=== PATIENT | male | born 1955 | race Two or more races ===

== ENCOUNTER 2025-03-16 18:55 | Inpatient (IN) | payer MEDICARE, SELFPAY ==
[2025-03-16 19:30] VITALS: BP 121/81; PULSE 73; RESP 20; TEMP 37.1; O2SAT 97
--- NOTE | 2025-03-16 19:42 | PD.EDRME ---
Rapid Medical Screening Exam E Arrival date/time: 03/16/25 18:55 69-year-old mal presents to the emergency department complaint of pain in his epigastrium. Patient has been diagnosed with hernia and is awaiting a referral. Chief Complaint: Abdominal Pain Time Seen by Provider: 03/16/25 22:25 Vital signs: Vital Signs Temperature 98.8 F 03/16/25 19:30 Pulse Rate 73 03/16/25 19:30 Respiratory Rate 20 03/16/25 19:30 Blood Pressure 121/81 03/16/25 19:30 Pulse Oximetry (%) 97 03/16/25 19:30 Oxygen Delivery Method Room Air 03/16/25 19:30 Vital signs reviewed by provider: Yes
[2025-03-16 20:08] LABS: Basophils % (Auto) 0 % (0-2.5); Eosinophils # (Auto) 0.2 Thou/mm3 (0.0-0.5); Eosinophils % (Auto) 3 % (0-10); Hematocrit 38.9 % (41.0-53.0); Hemoglobin 13.4 g/dL (13.5-16.0); Immature Granulocytes % (Auto) 0 % (0-0); Immature Granulocytes Auto 0.01 Thou/mm3 (0.00-0.00); Lymphocytes # (Auto) 2.5 Thou/mm3 (1.0-4.8); Lymphocytes % (Auto) 36 % (10-50); Mean Corpuscular HGB Conc 34.4 g/dl (31.0-37.0); Mean Corpuscular Hemoglobin 29.2 pg (25.0-35.0); Mean Corpuscular Volume 85 fL (80-100); Monocytes # (Auto) 0.6 Thou/mm3 (0.0-0.8); Monocytes % (Auto) 8 % (0-12); Neutrophils # (Auto) 3.7 Thou/mm3 (1.8-7.7); Neutrophils % (Auto) 53 % (37-80); Nucleated Red Blood Cell % 0 /100 WBC (0); Platelet Count 293 Thou/mm3 (140-440); RDW Standard Deviation 41.1 fL (35.1-43.9); Red Blood Count 4.59 Miln/mm3 (4.50-5.90); White Blood Count 7.1 Thou/mm3 (3.8-10.6)
[2025-03-16 20:36] LABS: Alanine Aminotransferase 34 U/L (10-49); Albumin, Serum 4.6 gm/dL (3.4-4.8); Albumin/Globulin Ratio 1.5 (1.2-2.2); Alkaline Phosphatase 70 U/L (46-116); Anion Gap 6 (7-16); Aspartate Amino Transferase 24 U/L (0-34); BUN/Creatinine Ratio 18 Ratio (12-20); Blood Urea Nitrogen 29 mg/dL (9-23); Calcium 9.2 mg/dL (8.3-10.6); Calcium (Corrected) 9.2 mg/dL (8.5-10.1); Carbon Dioxide 21.4 mMol/L (20.0-31.0); Chloride 102 mMol/L (98-107); Creatinine (Component) 1.6 mg/dL (0.6-1.3); Globulin 3.1 gm/dL (2.3-3.5); Glucose 112 mg/dL (74-106); Lipase 59 U/L (12-53); Osmolality,Calculated 265 (275-295); Sodium 129 mMol/L (136-145); Total Protein 7.7 gm/dL (5.7-8.2); eGFR 46 See Note
[2025-03-16 20:50] LABS: Potassium 6.3 mMol/L (3.4-5.1)
[2025-03-16 21:46] LABS: Collection Type, Urine Clean Catch; RBC,Urine 0 /hpf (0-3); Squamous Epithelial Cell,Urine 0 /hpf (0-5); WBC,Urine 0 /hpf (0-5)
--- NOTE | 2025-03-16 22:00 | PC.NURSE ---
PT RECEIVED FROM [facility] , PT CAME TO ER FOR C/O ABD PAIN AND UNABLE TO AMBULATE, PT AWAKE, ALERT , AND COOPERATIVE, NO C/O N/V.
[2025-03-16 22:11] VITALS: BP 124/82; PULSE 75; RESP 19; TEMP 36.8; O2SAT 98
[2025-03-16 22:16] LABS: Bilirubin,Urine Negative (Negative); Blood,Urine Negative (Negative); Clarity,Urine Clear (Clear/Hazy); Color,Urine Yellow (Lt Yel-Yel); Glucose, Urine 4+ (Negative); Hyaline Casts,Urine < 1 /hpf (0-1); Ketones,Urine Negative (Negative); Leukocyte Esterase,Urine Negative (Negative); Nitrite,Urine Negative (Negative); PH,Urine 5.5 (5.0-7.0); Protein,Urine Negative (Neg - Trace); Specific Gravity,Urine 1.012 (1.001-1.035); Urobilinogen,Urine Negative mg/dL (0.0-1.0)
--- NOTE | 2025-03-16 22:26 | PD.EDABDPN ---
ED Abdominal Pain RME/HPI General Chief Complaint: Abdominal Pain Stated complaint: HERNIA, CAN'T WALK Time seen by provider: 03/16/25 22:25 Arrival date/time: 03/16/25 18:55 RME / HPI RME / HPI narrative: 03/16/25 18:55 69-year-old mal presents to the emergency department complaint of pain in his epigastrium. Patient has been diagnosed with hernia and is awaiting a referral. Dr. Sanchez?s Main ED Evaluation: 69yo male with a history of DM, HTN, HLD presents to the ED for a chief complaint of right flank pain x 8 months. No radiation or migration. Patient states his pain has progressively worsened over the last 3 weeks, reporting he has diarrhea, nausea, and a decreased appetite. states the patient has been losing weight, but is unable to quantify how much he's lost. Patient denies any back pain, vomiting, fever, chills or any other associated symptoms. No known allergies. Related Data Allergies Allergy/AdvReac Type Severity Reaction Status Date / Time No Known Allergies Allergy Verified 03/16/25 18:58 Review of Systems Review of Systems Systems Reviewed: All systems reviewed, normal except as documented Past Medical History Past Medical History CARDIAC: Positive Cardiac Disorders and Hypertension; Negative Congestive Heart Failure RESPIRATORY: Negative Chronic Obstructive Pulmonary Disease (COPD) or Asthma GENITOURINARY: Negative Renal Disease ENDOCRINE: Positive Endocrine Disorders and Diabetes Mellitus Type 2; Negative Diabetes Mellitus Type 1 HEMATOLOGIC: Negative Sickle Cell Disease Social History SMOKING STATUS: Never smoker ED Exam Narrative Physical exam: GENERAL APPEARANCE: alert and oriented x 4, well-developed, well-nourished, no acute distress VITALS: All vitals were reviewed and the pulse ox is 98% on room air, which is normal according to my interpretation. HEENT: Normocephalic, atraumatic; pupils equal, round, reactive to light; EOMI; mucous membranes pink, moist; oropharynx clear NECK: Supple LUNGS: CTABL; no wheezes, no rales, no rhonchi HEART: Regular rate, regular rhythm; normal S1, S2; no murmurs ABDOMEN: non distended; normal BS; soft, [id number]-[id number] right lateral abdominal tenderness, no guarding, no rebound; no masses, no organomegaly, no hernia BACK: [id number] right CVA tenderness EXTREMITIES: atraumatic; no edema NEUROLOGIC: awake; alert and oriented x4; cranial nerves II-XII grossly intact; no focal sensory or motor deficits PSYCHIATRIC: appropriate mood and affect SKIN: warm, dry, normal color; no rashes Course Quality Measures none Orders Category Date Time Status CT Screening NOW Care 03/16/25 20:[address] Screening NOW Care 03/16/25 22:53 Completed 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 Q4H START 00 Care 03/16/25 22:42 Active Continuous Pulse Oximetry NOW Care 03/16/25 22:42 Completed EKG (ED ONLY) *Do not use* NOW Care 03/16/25 22:43 Completed Velasquez [Urinary Catheter] QS Care 03/17/25 03:57 Active IV [Insert IV] NOW Care 03/16/25 22:06 Active Insert IV STAT Care 03/16/25 22:54 Completed NPO STAT Care 03/16/25 22:[address] chest abdomen pelvis w Stat Exams 03/16/25 22:53 Taken EKG (ED Only) Stat Exams 03/16/25 22:43 Draft XR chest 1V portable Stat Exams 03/16/25 22:43 Completed BMP [Basic Metabolic Panel] Stat Lab 03/16/25 23:05 Completed BMP [Basic Metabolic Panel] Stat Lab 03/17/25 03:28 Completed CBC Stat Lab 03/16/25 19:50 Completed Comprehensive Metabolic Panel Stat Lab 03/16/25 19:50 Completed Lipase Stat Lab 03/16/25 19:50 Completed Magnesium Stat Lab 03/16/25 23:05 Completed Prothrombin Time with INR Stat Lab 03/16/25 23:05 Completed Urinalysis Stat Lab 03/16/25 20:41 Completed Dextrose 50% Syr [D50w Syringe Abboject] Med 03/17/25 04:20 Once 50 ml IV X1 ONE Insulin Regular Med 03/17/25 04:20 Once 10 unit IV X1 ONE Morphine Inj Med 03/16/25 22:56 Discontinued 4 mg IVP X1 ONE Ondansetron Inj [Zofran Inj] Med 03/16/25 22:56 Discontinued 4 mg IV X1 ONE Sodium Chloride 0.9% 1000 ml [Ns] 1,000 ml Med 03/16/25 22:54 Discontinued IV 999 mls/hr Sodium Chloride 0.9% 1000 ml [Ns] 1,000 ml Med 03/17/25 01:17 Discontinued IV 999 mls/hr Vital Signs Vital signs: Vital Signs Temperature 98.8 F 03/16/25 19:30 Pulse Rate 73 03/16/25 19:30 Respiratory Rate 20 03/16/25 19:30 Blood Pressure 121/81 03/16/25 19:30 Pulse Oximetry (%) 97 03/16/25 19:30 Oxygen Delivery Method Room Air 03/16/25 19:30 Abdominal Pain MDM MDM Narrative MDM Narrative:: Scribe Attestation: 03/16/25 - Talia Restrepo am scribing for and in the presence of Dr. Sanchez. Due to the patient's persistent hyperkalemia despite receiving 2L NS IVF, will consult an admission to the hospitalist. 0418: Discussed case with the resident physician, attending Dr. Aquino from Hospitalist service regarding admission. Discussed patients ED course, exam findings, labs, and radiology results. The Hospitalist agrees to accept the patient for admission. Patient data External records reviewed:: [facility] previous records (Per chart review, patient has no previous ED visits or admissions to this facility.) Clinical information provided by:: patient Social determinants that could affect healthcare access:: none Patient has the following chronic illnesses:: DM, HTN, HLD How is presenting disease/condition affected by chronic disease/condition?: uneffected by Evaluation data The following diagnostics were reviewed and interpreted by me:: lab results, radiology exam(s) and EKG tracing(s) Lab and/or radiology exams considered but not ordered:: none Interpretation Summary: CBC is normal, Sodium is low at 129, Potassium is elevated at 6.3, Creatinine is 1.6, UA shows 4+ glucose, according to my interpretation. Repeat chemistry panel shows Potassium at 6.1. Additional repeat chemistry panel still shows a Potassium of 6.2. EKG done at 2256, NSR, rate of 71, normal axis, no ectopy, no acute ischemia, according to my interpretation. Telerad Preliminary Report Draft Patient: LAURITA PIKE. Record#: [id number] Birthdate: 1955 Age/Sex: 69 / M Location: [facility] Attending Dr: Ordering Physician: Date of Service: Procedure(s): Accession Number(s): cc: ~ CT scan of the chest, abdomen and pelvis with intravenous contrast (axial sections with sagittal and coronal reformats) March 16, 2025 2340 hours Clinical History: Right flank and R lateral chest and abd wall pain Comparison: No prior study is available for comparison. Findings: Nodular infiltrates in the lungs, predominantly in the left upper lobe anteriorly, which may represent endobronchial infection. Bibasilar dependent atelectasis is present. There is no pleural effusion or pneumothorax. There is no mediastinal collection or aortic injury. There is no pericardial effusion. Bilateral renal cysts are seen. There is a 2.5 x 2.3 cm hypodense right adrenal nodule (20-30 HU). There is a 2 cm heterogeneously enhancing left adrenal nodule (40-50 HU). There is another 2 x 2.5 cm heterogeneously attenuating left adrenal mass on axial image 145/364 demonstrating both fat and soft tissue density (- 100 to + 24 HU). The liver, gallbladder, spleen, pancreas are unremarkable. The bowel is unremarkable. The urinary bladder is unremarkable. Markedly enlarged prostate with heterogeneous enhancement indenting the bladder base. A few enlarged lymph nodes are seen posterior to the aorta on axial image 192/364. Recommend clinical, laboratory correlation and further evaluation as indicated. There is no free fluid or air. Small lucencies are seen involving multiple vertebrae with osteopenia with mild heterogeneous marrow pattern. Recommend clinical correlation and further evaluation with bone scan. Impression: 1. Heterogeneously enhancing bilateral adrenal nodules as described. Another heterogeneously enhancing left adrenal nodule as described which may represent a myelolipoma. Recommend clinical correlation, follow up and direct comparison with prior images as described. 2. Nodular infiltrates in the lungs, predominantly in the left upper lobe anteriorly, which may represent endobronchial infection. Recommend clinical correlation and followup. 3. Markedly enlarged prostate with heterogeneous enhancement indenting the bladder base. A few enlarged lymph nodes are seen posterior to the aorta. Recommend clinical, laboratory correlation and further evaluation as indicated. 4. Small lucencies are seen involving multiple vertebrae with osteopenia with mild heterogeneous marrow pattern. Recommend clinical correlation and further evaluation with bone scan. 5. Other findings as described above. Report Electronically Signed By: Manny Kinney 03/17/2025 2:12:04 AM [EST] [facility] Report Signed Patient: LAURITA PIKE Record#: [id number] Birthdate: 1955 Age/Sex: 69 / M Location: [facility] Attending Dr: Ordering Physician: Chriss Sanchez MD Date of Service: 03/16/25 Procedure(s): XR chest 1V portable Accession Number(s): [id number] cc: Nikhil Beatty MD; NO PRIMARY/FAMILY,PHYSICIAN; Chriss Sanchez MD~ Examination: AP chest single view Technique: AP portable upright chest single view Exam date and time: March 16, 2025 1047 hrs. Indications: Epigastric pain today Findings: Normal heart size No lobar pneumonia or pulmonary edema. Moderate osteopenia Moderate to advanced narrowing glenohumeral joints Impression: No pneumonia or pulmonary edema Dictated By: Nikhil Beatty MD Signed By: <Electronically signed by Nikhil Beatty MD in OV> 03/16/25 2345 Medications / Prescriptions Medications or Prescriptions considered but not ordered:: none Medication administrations:: Medication Administration History Discontinued Medications Sodium Chloride (Ns) 1,000 mls @ 999 mls/hr IV .Q1H1M ONE Stop: 03/16/25 23:54 Last Infusion: 03/16/25 23:38 Dose: Infused Documented By: Admin: 03/16/25 23:07 Dose: 999 mls/hr Documented By: CVL Sodium Chloride (Ns) 1,000 mls @ 999 mls/hr IV .Q1H1M ONE Stop: 03/17/25 02:17 Last Infusion: 03/17/25 02:26 Dose: Infused Documented By: Admin: 03/17/25 01:28 Dose: 999 mls/hr Documented By: CVL Morphine Sulfate (Morphine Sulf Inj 10 Mg/Ml Vial) 4 mg IVP X1 ONE Stop: 03/16/25 22:57 Last Admin: 03/16/25 23:11 Dose: 4 mg Documented By: CVL Ondansetron HCl (Ondansetron Inj 2 Mg/Ml Inj 2 Ml) 4 mg IV X1 ONE; Protocol Stop: 03/16/25 22:57 Last Admin: 03/16/25 23:10 Dose: 4 mg Documented By: CVL see above Consultations Consultation(s) initiated? (list below): No Diagnosis Differential diagnosis abdominal pain: acute appendicitis and other (adrenal cancer, metastatic disease, renal colic) Most likely diagnosis given after review of the tests above:: renal insufficiency, hyperkalemia, prostatic hypertrophy Admission Indicated Admission indicated?: indicated Admission Request Was there a request for admission?: Yes Admission Attestation Admission request attestation: Discussed case with [] from Hospitalist service regarding admission. Discussed patients ED course, exam findings, labs, and radiology results. The Hospitalist [agrees,declines] to accept the patient for admission. Disposition Plan Disposition Plan: Admit Discharge Plan Plan Patient Disposition: Admit Acute Care w/in Hospital Prescriptions/Referrals Referrals: No Primary/Family,Physician [Primary Care Provider] - In 1 week Problem List Clinical Impression: Acute renal insufficiency, Acute hyperkalemia, Prostatic hypertrophy Patient/Caregiver Discharge Instructions Print Language: [place] Stand Alone Forms: [employer] Award Info., Patient Portal Info Letter
--- NOTE | 2025-03-16 22:43 | XR_ITS ---
Examination: AP chest single view Technique: AP portable upright chest single view Exam date and time: March 16, 2025 1047 hrs. Indications: Epigastric pain today Findings: Normal heart size No lobar pneumonia or pulmonary edema. Moderate osteopenia Moderate to advanced narrowing glenohumeral joints Impression: No pneumonia or pulmonary edema
--- NOTE | 2025-03-16 22:43 | EKG_ITS ---
[facility] Test Date: 2025-03-16 Pat Name: LAURITA PIKE Department: Room: - Gender: Male Night Baker: : 1955 Requested By: Chriss North Order Number: [id number] Reading MD: Chriss North Measurements Intervals [place] Rate: 71 P: 20 CO: 159 QRS: 11 QRSD: 102 T: 50 QT: 342 QTc: 373 Interpretive Statements SINUS RHYTHM No previous ECG available for comparison /store/S0/[id number]/ecg/[id number].pdf
[2025-03-16 22:53] VITALS: PULSE 80
--- NOTE | 2025-03-16 22:53 | XR_ITS ---
Examination: CT chest with intravenous contrast CT abdomen with intravenous contrast CT pelvis with intravenous contrast 2-D coronal and sagittal reconstructions Time of exam: February 2025 11:42 PM CTDI: vol (mGy) : 9.24 DLP: (mGycm): 690 Technique: Multiple axial images of the chest, abdomen and pelvis with intravenous contrast, 3.0 mm slice thickness. Images obtained post intravenous injection Isovue 370 60 cc. 2-D sagittal and coronal reconstructions. Low dose protocols were performed. One or more of the following dose reduction techniques were used; automated exposure control, adjustment of the mA and/or KV according to patient size, use of iterative reconstruction technique. Findings: No thoracic aortic aneurysm dilatation Pulmonary artery segments are not enlarged Significant calcification left anterior descending left circumflex coronary arteries 3 mm pulmonary nodule left upper lobe Soft infiltrates in the left upper lobe Fatty infiltration throughout the liver, no focal liver or splenic lesions No gallstones Normal pancreas Bilateral adrenal nodules at least 27 mm on the right and 31 mm on the left No hydronephrosis Significant pericaval periaortic lymphadenopathy, the largest lymph node on the left lateral periaortic region 17 mm Left common iliac lymph node 16 mm No bowel obstruction Massive prostatomegaly, transverse dimension 7.7 cm with irregular enhancement of the prostate No bladder mass Abnormal subtle osteolytic areas throughout all visualized bones, including 17 mm osteolytic lesion right iliac bone and 14 mm osteolytic lesion in the left femoral neck Impression: Subtle nodular infiltrates in the left upper lobe, differential would include tuberculosis Bilateral adrenal nodules consider metastatic adrenal masses, recommend MRI abdomen follow-up pre and postcontrast adrenal gland protocol Significant abdominal and pelvic lymphadenopathy, consider PET CT scan follow-up Massive prostatomegaly Widespread osteolytic lesions as above
[2025-03-16] MEDS: SODIUM CHLORIDE 0.9% 1000 ML 1,000 ML 999 ML IV (23:07)
[2025-03-16] MEDS: ONDANSETRON INJ 2 MG/ML INJ 2 ML 4 MG IV (23:10)
[2025-03-16] MEDS: MORPHINE SULF INJ 10 MG/ML VIAL 4 MG IVP (23:11)
[2025-03-16 23:55] LABS: Anion Gap 7 (7-16); BUN/Creatinine Ratio 19 Ratio (12-20); Blood Urea Nitrogen 29 mg/dL (9-23); Calcium 9.2 mg/dL (8.3-10.6); Carbon Dioxide 21.5 mMol/L (20.0-31.0); Chloride 103 mMol/L (98-107); Creatinine (Component) 1.5 mg/dL (0.6-1.3); Glucose 124 mg/dL (74-106); Magnesium 2.2 mg/dL (1.6-2.6); Osmolality,Calculated 269 (275-295); Sodium 131 mMol/L (136-145); eGFR 50 See Note
[2025-03-17] VITALS (14 sets, daily range): BP systolic 99–133; BP diastolic 58–86; PULSE 21–93; RESP 15–22; TEMP 36.8–37.1; O2SAT 94–100; BMI 39.0
[2025-03-17 00:50] LABS: Potassium 6.1 mMol/L (3.4-5.1)
[2025-03-17] MEDS: SODIUM CHLORIDE 0.9% 1000 ML 1,000 ML 999 ML IV (01:28)
--- NOTE | 2025-03-17 02:13 | PRELIM_ITS ---
CT scan of the chest, abdomen and pelvis with intravenous contrast (axial sections with sagittal and coronal reformats) March 16, 2025 2340 hours Clinical History: Right flank and R lateral chest and abd wall pain Comparison: No prior study is available for comparison. Findings: Nodular infiltrates in the lungs, predominantly in the left upper lobe anteriorly, which may represent endobronchial infection. Bibasilar dependent atelectasis is present. There is no pleural effusion or pneumothorax. There is no mediastinal collection or aortic injury. There is no pericardial effusion. Bilateral renal cysts are seen. There is a 2.5 x 2.3 cm hypodense right adrenal nodule (20-30 HU). There is a 2 cm heterogeneously enhancing left adrenal nodule (40-50 HU). There is another 2 x 2.5 cm heterogeneously attenuating left adrenal mass on axial image 145/364 demonstrating both fat and soft tissue density (- 100 to + 24 HU). The liver, gallbladder, spleen, pancreas are unremarkable. The bowel is unremarkable. The urinary bladder is unremarkable. Markedly enlarged prostate with heterogeneous enhancement indenting the bladder base. A few enlarged lymph nodes are seen posterior to the aorta on axial image 192/364. Recommend clinical, laboratory correlation and further evaluation as indicated. There is no free fluid or air. Small lucencies are seen involving multiple vertebrae with osteopenia with mild heterogeneous marrow pattern. Recommend clinical correlation and further evaluation with bone scan. Impression: 1. Heterogeneously enhancing bilateral adrenal nodules as described. Another heterogeneously enhancing left adrenal nodule as described which may represent a myelolipoma. Recommend clinical correlation, follow up and direct comparison with prior images as described. 2. Nodular infiltrates in the lungs, predominantly in the left upper lobe anteriorly, which may represent endobronchial infection. Recommend clinical correlation and followup. 3. Markedly enlarged prostate with heterogeneous enhancement indenting the bladder base. A few enlarged lymph nodes are seen posterior to the aorta. Recommend clinical, laboratory correlation and further evaluation as indicated. 4. Small lucencies are seen involving multiple vertebrae with osteopenia with mild heterogeneous marrow pattern. Recommend clinical correlation and further evaluation with bone scan. 5. Other findings as described above. Report Electronically Signed By: Manny Kinney 03/17/2025 2:12:04 AM [EST]
--- NOTE | 2025-03-17 03:50 | PC.NURSE ---
PT STARTED C/O UNABLE TO URINATE AND HAVING PAIN, DR. CHEATHAM AWARE, NEW ORDER GIVEN AND CARRIED OUT.
[2025-03-17 03:57] LABS: Anion Gap 5 (7-16); BUN/Creatinine Ratio 18 Ratio (12-20); Blood Urea Nitrogen 25 mg/dL (9-23); Calcium 8.9 mg/dL (8.3-10.6); Carbon Dioxide 20.9 mMol/L (20.0-31.0); Chloride 107 mMol/L (98-107); Creatinine (Component) 1.4 mg/dL (0.6-1.3); Glucose 138 mg/dL (74-106); Osmolality,Calculated 272 (275-295); Sodium 133 mMol/L (136-145); eGFR 54 See Note
[2025-03-17 04:16] LABS: Potassium 6.2 mMol/L (3.4-5.1)
[2025-03-17] MEDS: DEXTROSE 50%-WATER INJ 50 ML SYRINGE IV (05:24)
[2025-03-17] MEDS: INSULIN HUM REGULAR 1 UNIT/0.01 ML (PER UNIT) 10 UNIT IV (05:27)
--- NOTE | 2025-03-17 05:57 | PD.RESHP ---
Documentation for date of: 03/17/25 [facility] History of Present Illness History of present illness: The patient is a 69-year-old male with significant past medical history of hypertension, aow-npefadr-glnxlhvaj diabetes mellitus type 2, and hyperlipidemia presented to ED with chief complaint of right flank pain that has been worsening for past 2 weeks. He reported recent weight loss, decreased appetite, subjective fever and night sweats, but does not remember when this started. He reported being skinnier recently, mild headache. He admitted to recent diarrhea, but no sick contact or no recent visit history. He visited the hospital in [place] 2 weeks ago, and abdominal x-ray was done, and he reported that he has abdominal hernia. The patient is a poor historian, and frequently changes his words. He denied any lightheadedness, chest pain, SOB, leg swelling, nausea or vomiting. He reported drinking enough water. He reported that it was a long time ago when he saw his PCP. In the ED his vitals were stable, labs were significant for hemoglobin 13.4, chemistry panel revealed sodium 133, potassium 6.2, BUN 25, creatinine 1.6, GFR 54, blood sugar 112, and lipase 59. UA revealed 4+ glucose, likely in the setting of using Jardiance, but no UTI. CXR was negative, EKG revealed sinus rhythm. CT scan of chest/abdomen/pelvis with contrast revealed in prelim read: 1. Heterogeneously enhancing bilateral adrenal nodules as described. Another heterogeneously enhancing left adrenal nodule as described which may represent a myelolipoma. Recommend clinical correlation, follow up and direct comparison with prior images as described. 2. Nodular infiltrates in the lungs, predominantly in the left upper lobe anteriorly, which may represent endobronchial infection. Recommend clinical correlation and followup. 3. Markedly enlarged prostate with heterogeneous enhancement indenting the bladder base. A few enlarged lymph nodes are seen posterior to the aorta. Recommend clinical, laboratory correlation and further evaluation as indicated. 4. Small lucencies are seen involving multiple vertebrae with osteopenia with mild heterogeneous marrow pattern. Recommend clinical correlation and further evaluation with bone scan. PMH: As mentioned above SHX: Unremarkable Social history: Drink alcohol only for about 1 year, denies smoking or illicit drug use Medications: To be reconciled Allergies: No known allergies The patient was given 2 L of IV normal saline bolus, morphine 4 g IV x 1, and regular insulin 10 units IV x 1, 50 cc of D50W IV x 1, and albuterol inhalation and admitted to MedSurg unit for further management of hyperkalemia and EVARISTO. Review of Systems Review of Systems Systems Reviewed: All systems reviewed, normal except as documented Exam Vital Signs Temp Pulse Resp BP Pulse Ox O2 Del Method 98.3 F 75 20 108/67 96 Room Air 03/17/25 04:17 03/17/25 05:29 03/17/25 05:29 03/17/25 05:29 03/17/25 05:29 03/17/25 04:15 Narrative Exam General: Elderly, well-nourished, cooperative gentleman, no acute distress, Alert and Oriented x 3 HEENT: Mildly dry mucous membranes, oropharynx clear Neck: Supple, No masses, No JVD CVS: S1S2 Regular rate and rhythm, No murmurs, rubs or gallops Lungs: Clear to auscultation with no accessory use, no wheeze no rhonchi Abd: Soft, tenderness over right flank, nondistended, +BS, no organomegaly Ext: No edema, warm and well perfused Skin: No rash Psych: Appropriate mood and affect Results: Labs 03/16/25 19:50 03/17/25 08:38 Labs: Short CBC 03/16/25 Range/Units 19:50 WBC 7.1 (3.8-10.6) Thou/mm3 Hgb 13.4 L (13.5-16.0) g/dL Hct 38.9 L (41.0-53.0) % Plt Count 293 (140-440) Thou/mm3 BMP 03/16/25 03/16/25 03/17/25 19:50 23:05 03:28 Sodium 129 L 131 L 133 L Potassium 6.3 H* 6.1 H* 6.2 H* Chloride 102 103 107 Carbon Dioxide 21.4 21.5 20.9 BUN 29 H 29 H 25 H Creatinine 1.6 H 1.5 H 1.4 H Glucose 112 H 124 H 138 H Calcium 9.2 9.2 8.9 Liver Function 03/16/25 Range/Units 19:50 Total Bilirubin 1.0 (0.3-1.2) mg/dL AST 24 (0-34) U/L ALT 34 (10-49) U/L Alkaline Phosphatase 70 (46-116) U/L Albumin 4.6 (3.4-4.8) gm/dL Urine 03/16/25 Range/Units 20:41 Urine Color Yellow (Lt Yel-Yel) Urine Clarity Clear (Clear/Hazy) Urine pH 5.5 (5.0-7.0) Ur Specific [place] 1.012 (1.001-1.035) Urine Protein Negative (Neg - Trace) Urine Glucose (UA) 4+ A (Negative) Quality Measures Quality Measures none Advance care planning discussed with:: patient Medications Home Medications and Allergies Home Medications ?Medication ?Instructions ?Recorded ?Confirmed ?Type acetaminophen 500 mg tablet 500 mg PO Q6H PRN pain 03/17/25 03/17/25 History empagliflozin 25 mg tablet 25 mg PO QAM 03/17/25 03/17/25 History (Jardiance) lisinopril 5 mg tablet 5 mg PO QDAY 03/17/25 03/17/25 History metformin 500 mg tablet 500 mg PO BID 03/17/25 03/17/25 History sitagliptin phosphate 50 mg tablet 50 mg PO QDAY 03/17/25 03/17/25 History (Januvia) Allergies Allergy/AdvReac Type Severity Reaction Status Date / Time No Known Allergies Allergy Verified 03/16/25 18:58 Visit Medications Acetaminophen (Acetaminophen 325 Mg Tablet) 650 mg PO Q6H PRN PRN Reason: PAIN SCALE 1-3 (mild Stop: 04/16/25 05:44 Hydrocodone Bitart/Acetaminophen (Hydrocodone/Apap 5/325 Tablet) 1 tab PO Q4HR PRN PRN Reason: PAIN SCALE 4-6 (Moderate Stop: 03/22/25 05:44 Albuterol (Albuterol Rt 2.5 Mg/3 Ml Nebu) 2.5 mg INH X1 ONE Stop: 03/17/25 05:51 Hydromorphone HCl (Hydromorphone Inj 2 Mg/Ml Vial) 0.5 mg IVP Q2H PRN PRN Reason: PAIN SCALE 7-10 (Severe Stop: 03/22/25 05:49 Sodium Chloride (Ns) 1,000 mls @ 100 mls/hr IV .Q10H ADRIAN Stop: 04/16/25 05:44 Ondansetron HCl (Ondansetron Inj 2 Mg/Ml Inj 2 Ml) 4 mg IV Q6H PRN; Protocol PRN Reason: NAUSEA OR VOMITING Stop: 04/16/25 05:44 Sodium Polystyrene Sulfonate (Sod Polystyrene Sulfon Susp 15 Gm/60 Ml Btl) 30 gm PO X1 ONE Stop: 03/17/25 05:51 Discontinued Medications Dextrose (Dextrose 50%-Water Inj 50 Ml Syringe) 50 ml IV X1 ONE Stop: 03/17/25 04:21 Last Admin: 03/17/25 05:24 Dose: 50 ml Sodium Chloride (Ns) 1,000 mls @ 999 mls/hr IV .Q1H1M ONE Stop: 03/16/25 23:54 Last Infusion: 03/16/25 23:38 Dose: Infused Sodium Chloride (Ns) 1,000 mls @ 999 mls/hr IV .Q1H1M ONE Stop: 03/17/25 02:17 Last Infusion: 03/17/25 02:26 Dose: Infused Insulin Human Regular (Insulin Hum Regular 1 Unit/0.01 Ml (Per Unit)) 10 unit IV X1 ONE Stop: 03/17/25 04:21 Last Admin: 03/17/25 05:27 Dose: 10 unit Morphine Sulfate (Morphine Sulf Inj 10 Mg/Ml Vial) 4 mg IVP X1 ONE Stop: 03/16/25 22:57 Last Admin: 03/16/25 23:11 Dose: 4 mg Ondansetron HCl (Ondansetron Inj 2 Mg/Ml Inj 2 Ml) 4 mg IV X1 ONE; Protocol Stop: 03/16/25 22:57 Last Admin: 03/16/25 23:10 Dose: 4 mg Assessment & Plan Plan The patient is a 69-year-old male with significant past medical history of hypertension, kjr-ydbgezj-weofbeavs diabetes mellitus type 2, and hyperlipidemia presented to ED with chief complaint of right flank pain that has been worsening for past 2 weeks. He is admitted to MedSurg unit for further management of hyperkalemia and EVARISTO. #Hyperkalemia Likely secondary to EVARISTO, versus CKD Patient presented with potassium of 6.2 Received regular insulin 10 units IV x 1, 50 cc of D50 W IV x 1, albuterol inhalation in the ED - Ordered Kayexalate 30 g p.o. x 1 - Follow-up BMP ordered at 8:30 AM this morning EVARISTO Likely prerenal, as patient reported decreased appetite for past couple of months. However, he reported drinking enough water. Presented with creatinine of 1.6 that improved to 1.4, GFR of 46 that improved to 54. -Ordered US renal bilateral - Renal dose medications - Avoid nephrotoxins - Daily a.m. labs for CMP and electrolytes #Diabetes mellitus type 2 Presented with blood sugar of 112 A1c of 7.0 Patient on multiple oral medicine including metformin, Jardiance, and sitagliptin - Started on insulin Lantus 10 units daily - Started on sliding scale insulin lispro AC initial scale along with fingerstick blood sugar measurement #Enlarged prostate #Bilateral adrenal nodules #Nodular lung infiltrate #History of coccidiomycosis pneumonia Likely secondary to possible prostate cancer with metastasis CT Abdomen/pelvis/chest revealed: 1. Heterogeneously enhancing bilateral adrenal nodules as described. Another heterogeneously enhancing left adrenal nodule as described which may represent a myelolipoma. Recommend clinical correlation, follow up and direct comparison with prior images as described. 2. Nodular infiltrates in the lungs, predominantly in the left upper lobe anteriorly, which may represent endobronchial infection. Recommend clinical correlation and followup. 3. Markedly enlarged prostate with heterogeneous enhancement indenting the bladder base. A few enlarged lymph nodes are seen posterior to the aorta. Recommend clinical, laboratory correlation and further evaluation as indicated. 4. Small lucencies are seen involving multiple vertebrae with osteopenia with mild heterogeneous marrow pattern. Recommend clinical correlation and further evaluation with bone scan. Patient also has history of coccidiomycosis pneumonia, unsure about properly treated or not - Pain management - PSA ordered - Radio oncologist Dr. Myers consulted, appreciate recommendations - Coccidiomycosis IgM with reflex to IgG ordered - Monitor closely. Health maintenance: Dispo: Patient admitted to MedSurg unit for further management of hyperkalemia and EVARISTO along with enlarged prostate Diet: Renal diet with low sodium 3 to 4 g daily DVT prophylaxis: SCDs, was having mild hematuria after Velasquez catheter placement CODE STATUS: Full code The patient's management plan was discussed with my attending physician MD Edgar Hernandes MD, PGY2 Attending Provider Attestation/Addendum I attest that I was physically present for the evaluation, physical examination, lab and imaging review of the patient with the residents. I discussed the case with the residents and agree with the findings and plans of care as documented above. Patient is a 69 years old male with past medical history of hypertension, diabetes and hyperlipidemia who presented with complaint of right flank pain for 2 weeks. On further questioning, he states that he has been having weight loss, decreased appetite, subjective fever and night sweats. In the ED, vitals are stable, lab results show sodium of 133, potassium 6.2, BUN/creatinine 25/1.6. CT scan of the chest/abdomen/pelvis was obtained which showed adrenal nodules, pulmonary nodules, enlarged prostate, enlarged lymph nodes and lytic bone lesions concerning for prostate mass with metastasis. We will admit the patient for management of EVARISTO with hyperkalemia and concern for prostatic mass with metastasis. We will start him on regular insulin, D50, albuterol inhalation, Kayexalate and close renal panel follow-up. We will obtain PSA level, pain management and oncology consult. Patient also stated there was remote history of cocci pneumonia, unclear if it was treated, we will obtain cocci serology. Started on insulin regimen for diabetes. Sagar Aquino MD
[2025-03-17] MEDS: ALBUTEROL RT 2.5 MG/3 ML NEBU INH (06:06)
[2025-03-17] MEDS: SOD POLYSTYRENE SULFON SUSP 15 GM/60 ML BTL 30 GM PO (06:22)
[2025-03-17] MEDS: SODIUM CHLORIDE 0.9% 1000 ML 1,000 ML 100 ML IV ×2 (06:25→17:41)
[2025-03-17 07:00] LABS: Glucose Estimated Average 154 mg/dL (80-131)
--- NOTE | 2025-03-17 07:27 | XR_ITS ---
Examination: Retroperitoneal ultrasound, complete Technique: Multiple high resolution grayscale images of the retroperitoneum obtained, including kidneys and bladder. Exam date and time:March 17, 2025 0755 hours INDICATIONS: Renal insufficiency on laboratory examination today, right flank pain 8 months FINDINGS: Right kidney 11.9 cm cortex 1.5 cm 26 mm upper pole right renal cyst Left kidney 12.2 cm cortex 1.7 cm Lower pole 13 mm cyst Moderate bilateral renal parenchymal scar formation Bladder contracted around a Velasquez catheter Marked prostatomegaly volume 109.3 cc with mass in the prostate 3.9 x 3.0 x 3.2 cm IMPRESSION: Moderate bilateral renal parenchymal scar formation, no hydronephrosis Marked prostatomegaly with prostate mass 3.9 x 3.0 x 3.2 cm, recommend transrectal prostate sonography follow-up
--- NOTE | 2025-03-17 08:13 | PC.NURSE ---
Patient states he needs to have a bowel movement. Offered patient bedside commode and patient refused. States he only wants to use the bathroom. Educated patient on falls
--- NOTE | 2025-03-17 08:14 | PC.NURSE ---
patient assisted by wheelchair to bathroom with NUTRITION SERVICES ASSISTANT assistance
[2025-03-17 09:12] LABS: Anion Gap 8 (7-16); BUN/Creatinine Ratio 16 Ratio (12-20); Blood Urea Nitrogen 22 mg/dL (9-23); Calcium 8.9 mg/dL (8.3-10.6); Chloride 107 mMol/L (98-107); Creatinine (Component) 1.4 mg/dL (0.6-1.3); Glucose 113 mg/dL (74-106); Osmolality,Calculated 276 (275-295); Potassium 4.8 mMol/L (3.4-5.1); Sodium 136 mMol/L (136-145); Thyroid Stimulating Hormone 2.95 uIU/mL (0.55-4.78); eGFR 54 See Note
[2025-03-17 09:52] LABS: Prostate Specific Antigen 219.77 ng/mL (0-4.00)
[2025-03-17 12:58] LABS: Cocci Serology, IgM Negative (Negative)
[2025-03-17] MEDS: INSULIN GLARGINE (Lantus) 5 UNIT/0.05 ML (PER 5 UNITS) 10 UNIT SC (13:01)
[2025-03-17] MEDS: TAMSULOSIN HCL 0.4 MG CAPSULE PO (13:02)
[2025-03-17] MEDS: INSULIN LISPRO (AdmeLOG) 1 UNIT/0.01 ML UNIT SC (13:02)
--- NOTE | 2025-03-17 13:11 | ESCONSULT_ITS ---
HPI Data of Consult Consult date: 03/17/25 Requesting Physician: Spike Vick MD Primary Care Provider: Physician No Primary/Family Consult Narrative Reason for consult: Suspected prostate malignancy History of present illness: Patient is a along with bilateral adrenal nodules suggestive of mets massive prostamegaly. 6-year-old resident of [facility] who came to ER at [facility] yesterday. with weight loss fever and night sweats. CT chest abdomen pelvis 03/16/2025 revealed widespread osteolytic disease, subtle nodular infiltrates left upper lobe. Renal ultrasound revealed bilateral renal parenchymal scar formation with marked prostamegaly. Significant hyperkalemia noted along with elevated BUN/creatinine with PSA being elevated at 220. Patient now referred for oncological consultation. cc:: cc: Spike Vick MD Past Medical History Past Medical History Comments PMH COMMENT: History of cocci pneumonia diabetes mellitus type 2 Meds Home Medications and Allergies Allergies Allergy/AdvReac Type Severity Reaction Status Date / Time No Known Allergies Allergy Verified 03/16/25 18:58 Exam Vital Signs Temp Pulse Resp BP Pulse Ox O2 Del Method 98.8 F 92 15 121/86 H 95 Room Air 03/17/25 09:14 03/17/25 11:56 03/17/25 11:56 03/17/25 11:56 03/17/25 11:56 03/17/25 11:56 Narrative Exam Appears tired not answering questions well even with certified court interpreter. Results Labs 03/16/25 19:50 03/17/25 08:38 Labs: Short CBC 03/16/25 Range/Units 19:50 WBC 7.1 (3.8-10.6) Thou/mm3 Hgb 13.4 L (13.5-16.0) g/dL Hct 38.9 L (41.0-53.0) % Plt Count 293 (140-440) Thou/mm3 BMP 03/16/25 03/16/25 03/17/25 19:50 23:05 03:28 Sodium 129 L 131 L 133 L Potassium 6.3 H* 6.1 H* 6.2 H* Chloride 102 103 107 Carbon Dioxide 21.4 21.5 20.9 BUN 29 H 29 H 25 H Creatinine 1.6 H 1.5 H 1.4 H Glucose 112 H 124 H 138 H Calcium 9.2 9.2 8.9 03/17/25 08:38 Sodium 136 Potassium 4.8 D Chloride 107 Carbon Dioxide 21.0 BUN 22 Creatinine 1.4 H Glucose 113 H Calcium 8.9 Liver Function 03/16/25 Range/Units 19:50 Total Bilirubin 1.0 (0.3-1.2) mg/dL AST 24 (0-34) U/L ALT 34 (10-49) U/L Alkaline Phosphatase 70 (46-116) U/L Albumin 4.6 (3.4-4.8) gm/dL Urine 03/16/25 Range/Units 20:41 Urine Color Yellow (Lt Yel-Yel) Urine Clarity Clear (Clear/Hazy) Urine pH 5.5 (5.0-7.0) Ur Specific [place] 1.012 (1.001-1.035) Urine Protein Negative (Neg - Trace) Urine Glucose (UA) 4+ A (Negative) Assessment and Plan Additional Assessment & Plan Additional Plan: 1. 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 2. Recommend ultrasound-guided biopsy of prostate while patient in hospital. 3, receiving supportive care for electrolyte imbalance workup for cocci.
--- NOTE | 2025-03-17 14:52 | EVENTNT_ITS ---
<Statement entered by Jose Juan Oconnor MD - 03/17/25 18:35> I discussed with and supervised the investigator internal affairs physician involved in the care of this patient. Patient assessment and plan was discussed with entire medicine team, including my attending. I agree with the assessment and plan as documented by investigator internal affairs doctor. Patient care was discussed with my attending physician Dr. Nava Oconnor, PGY-2 Documentation for date of: 03/17/25 Event Note Event Note: Mr Burgess is a 69-year-old male with significant past medical history of hypertension, pfx-ucdsjgn-ixplfmusx diabetes mellitus type 2, and hyperlipidemia presented to ED with chief complaint of right flank pain that has been worsening for past 2 weeks. He is admitted to MedSurg unit for further management of hyperkalemia and EVARISTO. Patient's hyperkalemia resolved, acute kidney injury improved with IV fluids. Patient was seen by oncology, patient was informed of CT abdomen pelvis findings Will keep patient n.p.o. after midnight, will schedule for biopsy in a.m. #Enlarged prostate #Bilateral adrenal nodules #Nodular lung infiltrate #History of coccidiomycosis pneumonia #Hyperkalemia #EVARISTO #Diabetes mellitus type 2 #Hyperkalemia Case discussed with Attending Dr. Vick and Dr. Oconnor PGY2. Anthony Velez PGY1 Disclaimer: This note was dictated by speech recognition. Minor errors in barrow worker may be present due to voice recognition software.
[2025-03-17] MEDS: HYDROcodone/APAP 5/325 TABLET 1 TAB PO (17:52)
--- NOTE | 2025-03-17 18:35 | PC.NURSE ---
Patient arrived to unit at 1644. Vital signs taken, see flow sheet. Patient c/o headache and abdominal discomfort. Patient oriented to unit. Family at bedside.
[2025-03-18] VITALS (8 sets, daily range): BP systolic 95–134; BP diastolic 51–82; PULSE 84–98; RESP 16–19; TEMP 36.3–36.8; O2SAT 94–98
--- NOTE | 2025-03-18 05:00 | XR_ITS ---
Examination: Ultrasound-guided transrectal prostate biopsies Ultrasound prostate Exam date and time: March 18, 2025 1519 hours INDICATIONS: Flank pain lateral chest pain abdominal wall pain this week, significant abdominal and pelvic lymphadenopathy, bilateral metastatic adrenal nodules, massive prostatomegaly TECHNIQUE AND FINDINGS: Informed consent provided. Timeout performed. Utilizing ultrasonographic guidance 3 core biopsies obtained of the right and left lobe of the prostate Estimated blood loss 2 cc Patient in stable condition at completion procedure IMPRESSION: Successful ultrasound-guided transrectal prostate biopsies
[2025-03-18 05:59] LABS: Basophils % (Auto) 0 % (0-2.5); Eosinophils # (Auto) 0.1 Thou/mm3 (0.0-0.5); Eosinophils % (Auto) 2 % (0-10); Hematocrit 33.7 % (41.0-53.0); Hemoglobin 11.5 g/dL (13.5-16.0); Immature Granulocytes % (Auto) 0 % (0-0); Immature Granulocytes Auto 0.02 Thou/mm3 (0.00-0.00); Lymphocytes # (Auto) 2.2 Thou/mm3 (1.0-4.8); Lymphocytes % (Auto) 37 % (10-50); Mean Corpuscular HGB Conc 34.1 g/dl (31.0-37.0); Mean Corpuscular Hemoglobin 29.6 pg (25.0-35.0); Mean Corpuscular Volume 87 fL (80-100); Monocytes # (Auto) 0.6 Thou/mm3 (0.0-0.8); Monocytes % (Auto) 10 % (0-12); Neutrophils # (Auto) 3.1 Thou/mm3 (1.8-7.7); Neutrophils % (Auto) 51 % (37-80); Nucleated Red Blood Cell % 0 /100 WBC (0); Platelet Count 256 Thou/mm3 (140-440); Red Blood Count 3.88 Miln/mm3 (4.50-5.90); White Blood Count 6.1 Thou/mm3 (3.8-10.6)
[2025-03-18 06:39] LABS: Alanine Aminotransferase 22 U/L (10-49); Albumin, Serum 3.7 gm/dL (3.4-4.8); Albumin/Globulin Ratio 1.5 (1.2-2.2); Alkaline Phosphatase 59 U/L (46-116); Anion Gap 9 (7-16); Aspartate Amino Transferase 19 U/L (0-34); BUN/Creatinine Ratio 12 Ratio (12-20); Bilirubin,Total 1.2 mg/dL (0.3-1.2); Blood Urea Nitrogen 16 mg/dL (9-23); Calcium 8.7 mg/dL (8.3-10.6); Calcium (Corrected) 8.9 mg/dL (8.5-10.1); Carbon Dioxide 19.3 mMol/L (20.0-31.0); Cardiac Risk Estimate 6.7 RATIO (4.0-6.7); Chloride 111 mMol/L (98-107); Cholesterol 188 mg/dL (132-200); Creatinine (Component) 1.3 mg/dL (0.6-1.3); Estimated Creatinine Clearance 49.6 mL/min (>60); Globulin 2.5 gm/dL (2.3-3.5); Glucose 116 mg/dL (74-106); HDL Cholesterol 28 mg/dL (40-60); LDL Cholesterol,Calculated 107 mg/dL (0-130); Magnesium 1.5 mg/dL (1.6-2.6); Osmolality,Calculated 279 (275-295); Phosphorous 4.3 mg/dL (2.4-5.1); Potassium 4.9 mMol/L (3.4-5.1); Sodium 139 mMol/L (136-145); Total Protein 6.2 gm/dL (5.7-8.2); Triglycerides 267 mg/dL (30-150); eGFR 59 See Note
[2025-03-18] MEDS: TAMSULOSIN HCL 0.4 MG CAPSULE PO (08:06)
--- NOTE | 2025-03-18 08:59 | PC.SS ---
Follow up note: biopsy today.
[2025-03-18] MEDS: Magnesium Sulfate 4 GM Ivpb 4 GM/50 ML BAG IV (09:18)
[2025-03-18 11:28] LABS: Cocci Serology, IgG Positive (Negative)
[2025-03-18 11:29] LABS: Cocid Sro, CF/ID (UCD) NO CHG* See Sep Rpt
[2025-03-18] MEDS: LIDOCAINE JELLY 2% (Urojet) 10 ML TUBE TOP (15:23)
[2025-03-18] MEDS: fentaNYL CIT INJ 50 mCg/ML AMP 2ML IVP (15:33)
--- NOTE | 2025-03-18 16:58 | PD.RESDS ---
Planned Discharge Date 03/18/25 DS: Providers Provider Date of admission: 03/17/25 05:46 Primary care physician: Physician No Primary/Family Admitting Provider: Sagar Aquino MD Attending Provider on Admission: Spike Vick MD Consults: 03/17/25 07:21 Consult to Oncology Urgent Comment: Prostate enlargement, possible mets. Consulting Provider: Sravan Myers Attending Provider on DC: Anthony Velez MD Discharging Provider: Anthony Velez MD Hospital Course Hospital Course Hospital course: Patient is a along with bilateral adrenal nodules suggestive of mets massive prostamegaly. 6-year-old resident of [facility] who came to ER at [facility] yesterday. with weight loss fever and night sweats. CT chest abdomen pelvis 03/16/2025 revealed widespread osteolytic disease, subtle nodular infiltrates left upper lobe. Renal ultrasound revealed bilateral renal parenchymal scar formation with marked prostamegaly. Significant hyperkalemia noted along with elevated BUN/creatinine with PSA being elevated at 220. Patient now referred for oncological consultation. Time Spent with Patient Time attestation: Total time spent providing and/or coordinating discharge services: Exam Vital Signs Temp Pulse Resp BP Pulse Ox O2 Del Method O2 Flow Rate 97.6 F 94 18 95/51 L 98 Nasal Cannula 2 03/18/25 11:46 03/18/25 15:45 03/18/25 15:45 03/18/25 15:45 03/18/25 15:45 03/18/25 15:45 03/18/25 15:45 Discharge Plan Plan Patient Disposition: HOME (Self Care) Patient condition on transfer: Stable Prescriptions/Referrals Prescriptions/Med Rec: Continued acetaminophen 500 mg tablet 500 mg PO Q6H PRN (Reason: pain) Januvia 50 mg tablet 50 mg PO QDAY Jardiance 25 mg tablet 25 mg PO QAM metformin 500 mg tablet 500 mg PO BID Held lisinopril 5 mg tablet 5 mg PO QDAY Hold Instructions: Resume on 03/25/25. Referrals: Sravan Myers MD [Physician] - No Primary/Family,Physician [Primary Care Provider] - Patient/Caregiver Discharge Instructions Discharge Activity: activity as tolerated Other Discharge Activity Instructions:: Follow-up with Dr. Myers outpatient for biopsy results. Hold lisinopril until you follow-up with primary care physician. Continue all other medications Follow-up with primary care physician in 1 week Follow-up in [facility] in 1 to 2 weeks. Call [phone] to make an appointment Address: [facility], [address], [address], [place], [address] Return to ED if symptoms return or worsen. Education Materials: Prostate Biopsy, Kidney Problems, Kidney Disease: Eating Less Sodium Print Language: Telugu Stand Alone Forms: [employer] Info., Patient Portal Info Letter
--- NOTE | 2025-03-18 18:27 | PC.NURSE ---
MD made aware of small amount of blood coming from the rectum after returning from the biopsy. pt vitals are stable at this time. pt is stable at this time. MD to cancel discharge for today. Anticipate dc tomorrow per
--- NOTE | 2025-03-18 18:57 | ESPR_ITS ---
Documentation for date of: 03/18/25 Subjective Subjective Interval history: Patient seen and examined at bedside Patient's renal function improving Patient scheduled for biopsy today Will discharge patient in a.m. Exam Vital Signs Temp Pulse Resp BP Pulse Ox O2 Del Method O2 Flow Rate 97.6 F 94 18 95/51 L 98 Nasal Cannula 2 03/18/25 11:46 03/18/25 15:45 03/18/25 15:45 03/18/25 15:45 03/18/25 15:45 03/18/25 15:45 03/18/25 15:45 Narrative Exam General: Elderly, well-nourished, cooperative gentleman, no acute distress, Alert and Oriented x 3 HEENT: Mildly dry mucous membranes, oropharynx clear Neck: Supple, No masses, No JVD CVS: S1S2 Regular rate and rhythm, No murmurs, rubs or gallops Lungs: Clear to auscultation with no accessory use, no wheeze no rhonchi Abd: Soft, tenderness over right flank, nondistended, +BS, no organomegaly Ext: No edema, warm and well perfused Skin: No rash Psych: Appropriate mood and affect Objective Labs 03/19/25 04:55 03/19/25 04:55 Labs: Laboratory Results - last 24 hr 03/17/25 03/18/25 08:38 05:02 WBC 6.1 RBC 3.88 L Hgb 11.5 L Hct 33.7 L MCV 87 MCH 29.6 MCHC 34.1 RDW Std Deviation 42.0 Plt Count 256 D Neut % (Auto) 51 Lymph % (Auto) 37 [place] % (Auto) 10 Eos % (Auto) 2 Baso % (Auto) 0 Neut # (Auto) 3.1 Lymph # (Auto) 2.2 [place] # (Auto) 0.6 Eos # (Auto) 0.1 Baso # (Auto) 0.0 Immature Gran # (Auto) 0.02 H Absolute Nucleated RBC 0.00 Immature Gran % 0 Nucleated RBC % 0 Sodium 139 Potassium 4.9 Chloride 111 H Carbon Dioxide 19.3 L Anion Gap 9 BUN 16 Creatinine 1.3 Estim Creat Clear Calc 49.6 L eGFR 59 L BUN/Creatinine Ratio 12 Glucose 116 H Calculated Osmolality 279 Calcium 8.7 Corrected Calcium 8.9 Phosphorus 4.3 Magnesium 1.5 L Total Bilirubin 1.2 AST 19 ALT 22 Alkaline Phosphatase 59 Total Protein 6.2 Albumin 3.7 D Globulin 2.5 Albumin/Globulin Ratio 1.5 Triglycerides 267 H Cholesterol 188 LDL Cholesterol, Calc 107 HDL Cholesterol 28 L Cholesterol/HDL Ratio 6.7 Coccidioides IgG Ab Positive A Quality Measures Quality Measures none Advance care planning discussed with:: patient Assessment & Plan Assessment Current Active Medications: Generic Name Dose Route Start Last Admin Trade Name Freq PRN Reason Stop Dose Admin Acetaminophen 650 mg 03/17/25 05:45 Acetaminophen 325 Mg Tablet PO 04/16/25 05:44 Q6H PRN PAIN SCALE 1-3 (mild Hydrocodone Bitart/Acetaminophen 1 tab 03/17/25 05:45 03/17/25 17:52 Hydrocodone/Apap 5/325 Tablet PO 03/22/25 05:44 1 tab Q4HR PRN Administration PAIN SCALE 4-6 (Moderate Dextrose 50 ml 03/17/25 05:59 Dextrose 50%-Water Inj 50 Ml Syringe IV 04/16/25 05:58 Q15MIN PRN BG <50 OR BG <70 & pt unresponsive Dextrose 25 ml 03/17/25 05:59 Dextrose 50%-Water Inj 50 Ml Syringe IV 04/16/25 05:58 Q15MIN PRN BG 50-70 responsive npo pt Glucagon 1 mg 03/17/25 05:59 Glucagon Inj 1 Mg Vial IM Q15MIN PRN BG <70, and no IV access Hydromorphone HCl 0.5 mg 03/17/25 05:50 Hydromorphone Inj 2 Mg/Ml Vial IVP 03/22/25 05:49 Q2H PRN PAIN SCALE 7-10 (Severe Insulin Glargine 10 unit 03/17/25 09:00 03/18/25 08:05 Insulin Glargine (Lantus) 5 Unit/0.05 Ml (Per 5 Units) SC 04/16/25 08:59 Not Given QDAY ADRIAN Insulin Human Lispro 0 unit 03/17/25 07:30 03/18/25 18:00 Insulin Lispro (Admelog) 1 Unit/0.01 Ml Unit SC 04/16/25 07:29 Not Given AC ADRIAN Protocol Ondansetron HCl 4 mg 03/17/25 05:45 Ondansetron Inj 2 Mg/Ml Inj 2 Ml IV 04/16/25 05:44 Q6H PRN NAUSEA OR VOMITING Protocol Tamsulosin HCl 0.4 mg 03/17/25 09:30 03/18/25 08:06 Tamsulosin Hcl 0.4 Mg Capsule PO 04/16/25 09:29 0.4 mg QDAY ADRIAN Administration Plan The patient is a 69-year-old male with significant past medical history of hypertension, [id number] diabetes mellitus type 2, and hyperlipidemia presented to ED with chief complaint of right flank pain that has been worsening for past 2 weeks. He is admitted to Medr unit for further management of hyperkalemia and EVARISTO. #Enlarged prostate #Bilateral adrenal nodules #Nodular lung infiltrate #History of coccidiomycosis pneumonia Likely secondary to possible prostate cancer with metastasis CT, negative for coccidiomycosis Abdomen/pelvis/chest revealed: 1. Heterogeneously enhancing bilateral adrenal nodules as described. Another heterogeneously enhancing left adrenal nodule as described which may represent a myelolipoma. Recommend clinical correlation, follow up and direct comparison with prior images as described. 2. Nodular infiltrates in the lungs, predominantly in the left upper lobe anteriorly, which may represent endobronchial infection. Recommend clinical correlation and followup. 3. Markedly enlarged prostate with heterogeneous enhancement indenting the bladder base. A few enlarged lymph nodes are seen posterior to the aorta. Recommend clinical, laboratory correlation and further evaluation as indicated. 4. Small lucencies are seen involving multiple vertebrae with osteopenia with mild heterogeneous marrow pattern. Recommend clinical correlation and further evaluation with bone scan. - Schedule for prostate biopsy - Pain management - PSA ordered - Radio oncologist Dr. Myers consulted, appreciate recommendations - Monitor closely. #Hyperkalemia, resolved Likely secondary to EVARISTO, versus CKD Patient presented with potassium of 6.2 Received regular insulin 10 units IV x 1, 50 cc of D50 W IV x 1, albuterol inhalation in the ED - Ordered Kayexalate 30 g p.o. x 1 - Follow-up BMP ordered at 8:30 AM this morning EVARISTO, resolving Likely prerenal, as patient reported decreased appetite for past couple of months. However, he reported drinking enough water. Presented with creatinine of 1.6 that improved to 1.4, GFR of 46 that improved to 54. -Ordered US renal bilateral - Renal dose medications - Avoid nephrotoxins - Daily a.m. labs for CMP and electrolytes #Diabetes mellitus type 2 Presented with blood sugar of 112 A1c of 7.0 Patient on multiple oral medicine including metformin, Jardiance, and sitagliptin - Started on insulin Lantus 10 units daily - Started on sliding scale insulin lispro AC initial scale along with fingerstick blood sugar measurement Health maintenance: Dispo: Patient admitted to MedSurg unit for further management of hyperkalemia and EVARISTO along with enlarged prostate Diet: Renal diet with low sodium 3 to 4 g daily DVT prophylaxis: SCDs, was having mild hematuria after Velasquez catheter placement CODE STATUS: Full code Case discussed with Attending Dr. Vick. Anthony Velez PGY1 Disclaimer: This note was dictated by speech recognition. Minor errors in thermo cementing folder operator may be present due to voice recognition software. Attending Provider Attestation/Addendum Patient admitted for EVARISTO, hyperkalemia, prostatomegaly pending biopsy. Patient has low magnesium level needs to be replaced. Discussed with housestaff.
[2025-03-19] VITALS: BP 121/71; PULSE 96; RESP 18; TEMP 37.2; O2SAT 93
[2025-03-19 04:00] VITALS: BP 124/70; PULSE 97; RESP 18; TEMP 36.9; O2SAT 95
[2025-03-19 06:36] LABS: Alanine Aminotransferase 23 U/L (10-49); Albumin/Globulin Ratio 1.5 (1.2-2.2); Alkaline Phosphatase 61 U/L (46-116); Anion Gap 10 (7-16); Aspartate Amino Transferase 19 U/L (0-34); BUN/Creatinine Ratio 13 Ratio (12-20); Bilirubin,Total 1.5 mg/dL (0.3-1.2); Blood Urea Nitrogen 17 mg/dL (9-23); Calcium 8.9 mg/dL (8.3-10.6); Calcium (Corrected) 8.9 mg/dL (8.5-10.1); Carbon Dioxide 19.6 mMol/L (20.0-31.0); Chloride 103 mMol/L (98-107); Creatinine (Component) 1.3 mg/dL (0.6-1.3); Estimated Creatinine Clearance 49.6 mL/min (>60); Globulin 2.7 gm/dL (2.3-3.5); Glucose 154 mg/dL (74-106); Magnesium 1.6 mg/dL (1.6-2.6); Osmolality,Calculated 270 (275-295); Phosphorous 4.5 mg/dL (2.4-5.1); Potassium 4.4 mMol/L (3.4-5.1); Sodium 133 mMol/L (136-145); Total Protein 6.7 gm/dL (5.7-8.2); eGFR 59 See Note
[2025-03-19 06:37] LABS: Basophils % (Auto) 0 % (0-2.5); Eosinophils # (Auto) 0.1 Thou/mm3 (0.0-0.5); Eosinophils % (Auto) 2 % (0-10); Hematocrit 35.1 % (41.0-53.0); Hemoglobin 12.1 g/dL (13.5-16.0); Immature Granulocytes % (Auto) 0 % (0-0); Immature Granulocytes Auto 0.02 Thou/mm3 (0.00-0.00); Lymphocytes # (Auto) 2.3 Thou/mm3 (1.0-4.8); Lymphocytes % (Auto) 30 % (10-50); Mean Corpuscular HGB Conc 34.5 g/dl (31.0-37.0); Mean Corpuscular Hemoglobin 29.8 pg (25.0-35.0); Mean Corpuscular Volume 87 fL (80-100); Monocytes # (Auto) 0.8 Thou/mm3 (0.0-0.8); Monocytes % (Auto) 10 % (0-12); Neutrophils # (Auto) 4.4 Thou/mm3 (1.8-7.7); Neutrophils % (Auto) 57 % (37-80); Nucleated Red Blood Cell % 0 /100 WBC (0); Platelet Count 248 Thou/mm3 (140-440); Red Blood Count 4.06 Miln/mm3 (4.50-5.90); White Blood Count 7.6 Thou/mm3 (3.8-10.6)
[2025-03-19 08:00] VITALS: BP 101/60; PULSE 89; RESP 18; TEMP 37.2; O2SAT 96
[2025-03-19] MEDS: TAMSULOSIN HCL 0.4 MG CAPSULE PO (08:32)
[2025-03-19] MEDS: INSULIN GLARGINE (Lantus) 5 UNIT/0.05 ML (PER 5 UNITS) 10 UNIT SC (08:33)
[2025-03-19] MEDS: Magnesium Sulfate 4 GM Ivpb 4 GM/50 ML BAG IV (10:14)
[2025-03-19] MEDS: INSULIN LISPRO (AdmeLOG) 1 UNIT/0.01 ML UNIT SC (11:52)
[2025-03-19 12:00] VITALS: BP 93/61; PULSE 99; RESP 16; TEMP 36.6; O2SAT 94
--- NOTE | 2025-03-19 12:03 | PC.NURSE ---
olson catheter removed, pt reports voiding with no complication.
--- NOTE | 2025-03-19 12:58 | PD.RESDS ---
Planned Discharge Date 03/19/25 DS: Providers Provider Date of admission: 03/17/25 05:46 Primary care physician: Physician No Primary/Family Admitting Provider: Sagar Aquino MD Attending Provider on Admission: Spike Vick MD Consults: 03/17/25 07:21 Consult to Oncology Urgent Comment: Prostate enlargement, possible mets. Consulting Provider: Sravan Myers Attending Provider on DC: Spike Vick MD Discharging Provider: Spike Vick MD Anticipated date of discharge: 03/19/25 DS: Diagnosis Problem List Completed Was Problem List Reviewed/Reconciled?: Yes Hospital Course Hospital Course Hospital course: Hospital course: Mr. Burgess is a 69-year-old male with past medical history of hypertension, wdy-ornyhch-bieetogfq diabetes mellitus type 2 and hyperlipidemia who presented to [facility] emergency department with significant past medical history of hypertension, weq-xgbpndb-lseozetws diabetes mellitus type 2, and hyperlipidemia presented to ED with chief complaint of right flank pain that has been worsening for past [address] scan of chest/abdomen/pelvis with contrast revealed subtle nodular infiltrates in the left upper lobe, bilateral adrenal nodules consider metastatic adrenal masses, significant abdominal and pelvic lymphadenopathy, massive prostatomegaly and widespread osteolytic lesions. Oncology was consulted on presentation, patient was started on IV fluids due to underlying UTI Velasquez catheter was placed in the emergency department. Oncology recommended prostate biopsy, IR was consulted and patient had successful prostate biopsy done. Patient's hyperkalemia resolved, further plan is to discharge patient home and follow-up with oncology outpatient. Patient to call oncologist office and obtain an appointment and patient to follow-up with primary care physician in 1 to 2 weeks. Patient will be discharged on Flomax, catheter was clamped and was eventually removed. Patient is stable for discharge, patient responded well to hospital treatment. Discharge diagnosis: #Enlarged prostate #Status post prostate biopsy #Bilateral adrenal nodules #Nodular lung infiltrate #History of coccidiomycosis pneumonia #Gross hematuria, LUTS #Hyperkalemia, resolved #EVARISTO, resolved #Diabetes mellitus type 2 Case discussed with Attending Dr. Vick. Anthony Velez PGY1 Disclaimer: This note was dictated by speech recognition. Minor errors in printed circuit boards plasma etcher may be present due to voice recognition software. Time Spent with Patient Time attestation: Total time spent providing and/or coordinating discharge services: Time spent: Greater than 30 minutes Exam Vital Signs Temp Pulse Resp BP Pulse Ox O2 Del Method O2 Flow Rate 97.9 F 99 16 93/61 94 L Room Air 2 03/19/25 12:00 03/19/25 12:00 03/19/25 12:00 03/19/25 12:00 03/19/25 12:00 03/19/25 12:00 03/19/25 04:00 Narrative Exam General: Elderly, well-nourished, cooperative gentleman, no acute distress, Alert and Oriented x 3 HEENT: Mildly dry mucous membranes, oropharynx clear Neck: Supple, No masses, No JVD CVS: S1S2 Regular rate and rhythm, No murmurs, rubs or gallops Lungs: Clear to auscultation with no accessory use, no wheeze no rhonchi Abd: Soft, tenderness over right flank, nondistended, +BS, no organomegaly Ext: No edema, warm and well perfused Skin: No rash Psych: Appropriate mood and affect Discharge Plan Plan Patient Disposition: HOME (Self Care) Patient condition on transfer: Stable Prescriptions/Referrals Prescriptions/Med Rec: New tamsulosin 0.4 mg Capsule 0.4 mg PO QDAY 30 Days Qty: 30 0RF Continued acetaminophen 500 mg tablet 500 mg PO Q6H PRN (Reason: pain) Januvia 50 mg tablet 50 mg PO QDAY Jardiance 25 mg tablet 25 mg PO QAM metformin 500 mg tablet 500 mg PO BID Held lisinopril 5 mg tablet 5 mg PO QDAY Hold Instructions: Resume on 03/25/25. Referrals: Sravan Myers MD [Physician] - No Primary/Family,Physician [Primary Care Provider] - Patient/Caregiver Discharge Instructions Discharge Activity: activity as tolerated Other Discharge Activity Instructions:: Follow-up with Dr. Myers outpatient for biopsy results. Hold lisinopril until you follow-up with primary care physician. Started on Flomax daily for LUTS Continue all other medications Follow-up with primary care physician in 1 week Follow-up in [facility] in 1 to 2 weeks. Call [phone] to make an appointment Address: [facility], [address], [address], [place], [address] Return to ED if symptoms return or worsen. Education Materials: Prostate Biopsy, Kidney Problems, Kidney Disease: Eating Less Sodium Print Language: Montenegrin Stand Alone Forms: [employer] Award Info., Patient Portal Info Letter Discharge Order Discharge Orders: Discharge (Routine); Ordered 03/18/25 Ordered By: Anthony Velez Quality Discharge Quality Measures none MD Attestestation MD Attestation I discussed with and supervised the resident physician who took care of this patient. I agree with the assessment and discharge plan as above.
== END 2025-03-19 14:18 | disposition home or self-care (01) | DRG 723 ==
LOC: SERX 03-17 04:24 → SERHOLD 03-17 06:09 → S3NX 03-17 16:53
PROVIDERS: Physician Assistant; Student in an Organized Health Care Education/Training Program; Admitting Provider Student in an Organized Health Care Education/Training Program; Emergency Provider Emergency Medicine; Visit Provider Internal Medicine
DX: C61 Malignant neoplasm of prostate (principal); N17.9 Acute kidney failure, unspecified; N39.0 Urinary tract infection, site not specified; N40.0 Benign prostatic hyperplasia without lower urinary tract symptoms; E87.5 Hyperkalemia; E78.5 Hyperlipidemia, unspecified; I10 Essential (primary) hypertension; E11.9 Type 2 diabetes mellitus without complications; E27.8 Other specified disorders of adrenal gland; R91.8 Other nonspecific abnormal finding of lung field; M85.88 Other specified disorders of bone density and structure, other site; R31.0 Gross hematuria; R59.0 Localized enlarged lymph nodes; E83.42 Hypomagnesemia; Z87.01 Personal history of pneumonia (recurrent); Z86.19 Personal history of other infectious and parasitic diseases; Z79.84 Long term (current) use of oral hypoglycemic drugs; Z79.899 Other long term (current) drug therapy
CPT/HCPCS: 36415; 71045; 71260; 74177; 76770; 76942; 80048; 80053; 80061; 81001; 83036; 83690; 83735; 84100; 84153; 84443; 85025; 85610; 86331; 86635; 93005; 94640; 96361; 96372; 96374; 96375; 99285; A4649; J1815; J2270; J2405; J3010; J3475; J7030; Q9967; A9270

== ENCOUNTER 2025-05-03 12:57 | Outpatient (RCR) | payer MEDICARE, SELFPAY ==
--- NOTE | 2025-05-03 14:56 | CTCCONSULT_ITS ---
[facility] [address] [place], [place] [address] Consultation Note Date: 05/03/2025 MR#: [id number] Name: LAURITA MYRICK : 1955 Dx: Prostate cancer C61 Referring physician. Vita VILLAREAL Reason for consultation. Patient with recent diagnosis of prostate CA with widespread mets. History of Present Illness: Patient is a 69-year-old gentleman with elevated PSA of 219 on blood draw of 03/17/2025. Patient admitted with GI symptoms electrolyte imbalance. Had chest abdomen pelvis 03/16/2025 showing massive prostamegaly with widespread osteolytic lesions, bilateral adrenal nodules sig nificant abdominal and pelvic lymphadenopathy. Had retroperitoneal ultrasound 03/17/2025 revealing moderate bilateral renal parenchymal scar formation with marked prostamegaly. Underwent biopsy of the prostate adenocarcinoma grade 6 (3+3) grade group 1 in right lobe left lobe was benign. Patient is now referred for oncological consultation. Past Medical History: Diabetes type 2 hypertension history of valley fever Has difficulty hearing ringing in the ears as nausea no appetite Meds. Metformin tamsulosin: Januvia Jardiance acetaminophen Social history resident of [facility] Czech-speaking denies drinking smoking Review of systems. Denies significant pain has had weight loss Physical Exam: General: Adequate nourished appearing gentleman in no acute distress HEENT: Atraumatic normocephalic extraocular was intact no oral lesions no cervical or supraclavicular adenopathy. CV: Chest clear to auscultation heart regular rate and rhythm ABD: Soft organomegaly or tenderness EXT: No signs of clubbing or edema. 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 Plan: 1. Will start patient with a mild antiandrogen to avoid flare problem Casodex to be followed by Lupron injection. 2. Will order PET, PSMA PET likely be denied by his insurance. 3. Follow-up in 2 months. Likely need referral for second-generation antiandrogen such as Zytiga prednisone or Xtandi in addition to Lupron. Cc: DIONNA [facility] Electronically signed by: Sravan Myers MD, DABR 05/03/2025 2:53 PM
== END 2025-05-23 23:59 | disposition home or self-care (01) ==
LOC: SCTC 12:57
PROVIDERS: Referring Provider Radiology Therapeutic Radiology; Visit Provider Radiology Therapeutic Radiology
DX: C61 Malignant neoplasm of prostate (principal)
CPT/HCPCS: 99213; G0463

== ENCOUNTER 2025-06-10 13:12 | Emergency (ER) | payer MEDICARE, SELFPAY ==
[2025-06-10] VITALS (23 sets, daily range): BP systolic 85–119; BP diastolic 54–71; PULSE 75–109; RESP 10–23; TEMP 36.4–36.9; O2SAT 93–100; BMI 25.1
--- NOTE | 2025-06-10 13:29 | PD.EDRME ---
Rapid Medical Screening Exam RME Arrival date/time: 06/10/25 13:12 69-year-old male with a history of prostate cancer, type 2 diabetes, hypertension, presents to the emergency room with a chief complaint of generalized weakness, nausea, headache x 2 weeks. Patient was sent over by his primary care provider to rule out hyperkalemia. I have greeted and performed a focused initial assessment of this patient. A comprehensive ED assessment and evaluation of the patient, analysis of all test results, and completion of the medical decision making process will be conducted by additional ED providers. Chief Complaint: Nausea/Vomiting/Diarrhea Time Seen by Provider: 06/10/25 13:22 Vital signs: Vital Signs Temperature 98.1 F 06/10/25 13:19 Pulse Rate 95 06/10/25 13:19 Respiratory Rate 20 06/10/25 13:19 Blood Pressure 103/67 06/10/25 13:19 Pulse Oximetry (%) 99 06/10/25 13:19 Oxygen Delivery Method Room Air 06/10/25 13:19 Vital signs reviewed by provider: Yes
[2025-06-10] MEDS: ACETAMINOPHEN 325 MG TABLET 650 MG PO (13:56)
[2025-06-10 14:40] LABS: Basophils # (Auto) 0.0 Thou/mm3 (0.0-0.2); Basophils % (Auto) 0 % (0-2.5); Eosinophils # (Auto) 0.2 Thou/mm3 (0.0-0.5); Eosinophils % (Auto) 2 % (0-10); Hematocrit 34.3 % (41.0-53.0); Hemoglobin 11.5 g/dL (13.5-16.0); Immature Granulocytes Auto 0.02 Thou/mm3 (0.00-0.00); Lymphocytes # (Auto) 2.6 Thou/mm3 (1.0-4.8); Lymphocytes % (Auto) 39 % (10-50); Mean Corpuscular HGB Conc 33.5 g/dl (31.0-37.0); Mean Corpuscular Hemoglobin 28.5 pg (25.0-35.0); Mean Corpuscular Volume 85 fL (80-100); Monocytes # (Auto) 0.6 Thou/mm3 (0.0-0.8); Monocytes % (Auto) 9 % (0-12); Neutrophils # (Auto) 3.3 Thou/mm3 (1.8-7.7); Neutrophils % (Auto) 49 % (37-80); Nucleated Red Blood Cell # 0.00 Thou/mm3 (0.00-0.00); Nucleated Red Blood Cell % 0 /100 WBC (0); Platelet Count 192 Thou/mm3 (140-440); RDW Standard Deviation 40.0 fL (35.1-43.9); Red Blood Count 4.03 Miln/mm3 (4.50-5.90); White Blood Count 6.7 Thou/mm3 (3.8-10.6)
[2025-06-10 15:13] LABS: Alanine Aminotransferase 22 U/L (10-49); Albumin, Serum 4.6 gm/dL (3.4-4.8); Albumin/Globulin Ratio 1.4 (1.2-2.2); Alkaline Phosphatase 73 U/L (46-116); Anion Gap 10 (7-16); Aspartate Amino Transferase 29 U/L (0-34); BUN/Creatinine Ratio 11 Ratio (12-20); Bilirubin,Total 0.7 mg/dL (0.3-1.2); Blood Urea Nitrogen 21 mg/dL (9-23); Calcium 9.9 mg/dL (8.3-10.6); Calcium (Corrected) 9.9 mg/dL (8.5-10.1); Carbon Dioxide 23.9 mMol/L (20.0-31.0); Chloride 96 mMol/L (98-107); Creatinine (Component) 2.0 mg/dL (0.6-1.3); Estimated Creatinine Clearance 29.9 mL/min (>60); Globulin 3.2 gm/dL (2.3-3.5); Glucose 105 mg/dL (74-106); Lipase 45 U/L (12-53); Osmolality,Calculated 263 (275-295); Sodium 130 mMol/L (136-145); Total Protein 7.8 gm/dL (5.7-8.2); eGFR 35 See Note
[2025-06-10 15:16] LABS: Potassium 6.1 mMol/L (3.4-5.1)
[2025-06-10 15:22] LABS: Collection Type, Urine Clean Catch
[2025-06-10 15:29] LABS: Bilirubin,Urine Negative (Negative); Blood,Urine Negative (Negative); Budding Yeast,Urine Present; Color,Urine Lt-Yellow (Lt Yel-Yel); Glucose, Urine Negative (Negative); Ketones,Urine Negative (Negative); Leukocyte Esterase,Urine Positive (Negative); Nitrite,Urine Negative (Negative); PH,Urine 6.5 (5.0-7.0); Protein,Urine Negative (Neg - Trace); RBC,Urine 60 /hpf (0-3); Specific Gravity,Urine 1.014 (1.001-1.035); Squamous Epithelial Cell,Urine < 1 /hpf (0-5); Urobilinogen,Urine Negative mg/dL (0.0-1.0); WBC,Urine 152 /hpf (0-5)
[2025-06-10 15:46] LABS: Clarity,Urine Hazy (Clear/Hazy)
--- NOTE | 2025-06-10 16:05 | PD.EDNV ---
Nausea/Vomit./Diarrhea-RME/HPI General Chief complaint: Nausea/Vomiting/Diarrhea Stated complaint: LEA X 10 days, Vomiting X 2 weeks Time Seen by Provider: 06/10/25 13:22 Arrival date/time: 06/10/25 13:12 RME / HPI RME / HPI Narrative: 69-year-old male with a history of prostate cancer, type 2 diabetes, hypertension, presents to the emergency room with a chief complaint of generalized weakness, nausea, headache x 2 weeks. Patient was sent over by his primary care provider to rule out hyperkalemia. Patient denies any diarrhea. Denies any constipation. Denies any fever denies any vomiting denies any chest pain denies any cough. No medications taken prior to arrival. Related Data Home Medications ?Medication ?Instructions ?Recorded ?Confirmed acetaminophen 500 mg tablet 500 mg PO Q6H PRN pain 03/17/25 03/17/25 empagliflozin 25 mg tablet 25 mg PO QAM 03/17/25 03/17/25 (Jardiance) lisinopril 5 mg tablet 5 mg PO QDAY 03/17/25 03/17/25 Held on 03/18/25. Instructions: Resume on 03/25/25. metformin 500 mg tablet 500 mg PO BID 03/17/25 03/17/25 sitagliptin phosphate 50 mg tablet 50 mg PO QDAY 03/17/25 03/17/25 (Januvia) Previous Rx's ?Medication ?Instructions ?Recorded amoxicillin 875 mg-potassium 1 tab PO BID #14 tabs 06/10/25 clavulanate 125 mg tablet Allergies Allergy/AdvReac Type Severity Reaction Status Date / Time No Known Allergies Allergy Verified 06/10/25 13:20 Review of Systems Review of Systems Narrative Review of Systems: Review of system reviewed and within normal limits except mentioned in HPI ED Exam Narrative Physical exam: VITAL SIGNS: Reviewed. GENERAL APPEARANCE: Alert and interactive, follows commands, no acute distress, HEAD AND FACE: Non-traumatic. ENT: PERRL, pink conjunctivitis, eyelid no trauma, Mucous membrane dry NECK: Supple, nontender, no nuchal rigidity. CHEST: No tenderness, no crepitus, no paradoxical movement, no retractions. LUNGS: Clear, well ventilated, symmetric, no rales, no wheezing, no ronchi, no stridor, good breath sounds bilaterally. HEART: Regular rate, regular rhythm, no murmur, no gallops. ABDOMEN: Soft, positive bowel sounds, nondistended, no guarding, nontender, no rebound, no masses, RECTAL: Deferred. GENITAL: Deferred. NEUROLOGICAL: Gross motor function intact sensory function intact, Appropriate for age. MUSCULOSKELETAL: low back nontender, full range of motion. EXTREMITIES: Nontender, full range of motion. SKIN: Color pink, dry, no rash, no lacerations, no abrasions, no contusions. LYMPHATICS: Deferred. Course Quality Measures none Orders Category Date Time Status Bedside Blood Glucose Q2HX3 Care 06/10/25 16:[address] head/brain wo con Stat Exams 06/10/25 19:56 Completed BMP [Basic Metabolic Panel] Stat Lab 06/10/25 18:38 Completed CBC Stat Lab 06/10/25 14:21 Completed CMP [Comprehensive Metabolic Panel] Stat Lab 06/10/25 14:21 Completed Lipase Stat Lab 06/10/25 14:21 Completed UA [Urinalysis] Stat Lab 06/10/25 15:10 Completed Urine Culture Stat Lab 06/10/25 15:07 Received ALBUTEROL RT 0.5ml [Proventil Rt 0.5ml] Med 06/10/25 16:52 Discontinued 2.5 mg .ROUTE .STK-MED ONE ALBUTEROL RT 0.5ml [Proventil Rt 0.5ml] Med 06/10/25 16:04 Discontinued 5 mg INH X1 ONE Acetaminophen Tab [Tylenol ES Tab] Med 06/10/25 16:07 Discontinued 1,000 mg PO X1 ONE Acetaminophen Tab [Tylenol Tab] Med 06/10/25 13:28 Discontinued 650 mg PO X1 ONE Amoxicillin/Pot Clav 875 [Augmentin 875] Med 06/10/25 21:06 Discontinued 1 tab PO X1 ONE Calcium Gluconate 10% Inj Med 06/10/25 16:04 Discontinued 1 gm IV X1 ONE Dextrose 50% Syr [D50w Syringe Abboject] Med 06/10/25 16:04 Discontinued 50 ml IVP X1 ONE Dextrose 50% Syr [D50w Syringe Abboject] Med 06/10/25 16:15 Discontinued 50 ml IVP X1 ONE Furosemide [Lasix Inj] Med 06/10/25 16:01 Discontinued 40 mg IVP X1 ONE Glucagon Inj Med 06/10/25 16:01 Discontinued 1 mg IM Q15MIN PRN HYDROcodone*/APAP 5/325 [Penelope 5/325] Med 06/10/25 20:13 Discontinued 1 tab PO X1 ONE Insulin Regular Med 06/10/25 16:01 Discontinued 10 unit IV X1 ONE Midodrine [Proamatine] Med 06/10/25 21:08 Discontinued 5 mg PO X1 ONE Ringers Lactated 1000 ml [Lactated Ringers] 1,000 ml Med 06/10/25 21:08 Discontinued IV 999 mls/hr Sod Polystyrene Sulfon Susp [Kayexalate Susp] Med 06/10/25 16:01 Discontinued 30 gm PO X1 ONE Sodium Chloride 0.9% 1000 ml [Ns] 1,000 ml Med 06/10/25 16:02 Discontinued IV 999 mls/hr Sodium Chloride 0.9% 1000 ml [Ns] 1,000 ml Med 06/10/25 19:43 Discontinued IV 999 mls/hr Sodium Chloride 0.9% 1000 ml [Ns] 1,000 ml Med 06/10/25 21:15 Discontinued IV 999 mls/hr Sodium Chloride Rt Mita 0.9% [NS Rt Mita 0.9%] Med 06/10/25 16:04 Discontinued 3 ml INH PRN PRN cefTRIAXone/D5w 1gm IV premix [Rocephin/D5w 1gm IV Med 06/10/25 16:02 Discontinued premix] 1 gm in 50 ml IV X1 Vital Signs Vital signs: Vital Signs Temperature 98.1 F 06/10/25 13:19 Pulse Rate 95 06/10/25 13:19 Respiratory Rate 20 06/10/25 13:19 Blood Pressure 103/67 06/10/25 13:19 Pulse Oximetry (%) 99 06/10/25 13:19 Oxygen Delivery Method Room Air 06/10/25 13:19 Nausea/Vomiting/Diarrhea MDM Narrative MDM Narrative:: 69-year-old male with a history of prostate cancer, type 2 diabetes, hypertension, presents to the emergency room with a chief complaint of generalized weakness, nausea, headache x 2 weeks. Patient was sent over by his primary care provider to rule out hyperkalemia. Patient denies any diarrhea. Denies any constipation. Denies any fever denies any vomiting denies any chest pain denies any cough. No medications taken prior to arrival. Initially patient potassium was noted to be 6.1, with a creatinine of 2.0. The rest of the labs is significant for UTI. Patient received hyperkalemia treatment including albuterol breathing treatment, IV insulin, D50 water calcium gluconate, IV fluids IV Lasix and Kayexalate. Repeat potassium was noted to be 4.6. CT scan of the head was done since patient is also complaining of headache for [address] scan showed acute otitis media, acute mastoiditis, otherwise unremarkable. However clinically there is no tenderness to the mastoid area. Patient received Augmentin also. Patient was also given a dose of midodrine however because of the hypotension. Patient's blood pressure was noted to be 106 systolic prior to discharge. Patient verbalized significant improvement of symptoms. Patient data External records reviewed:: None Clinical information provided by:: patient and family Social determinants that could affect healthcare access:: none Patient has the following chronic illnesses:: History of prostate cancer not on chemo or radiation therapy still waiting to be seen by oncologist How is presenting disease/condition affected by chronic disease/condition?: exacerbated by Evaluation data The following diagnostics were reviewed and interpreted by me:: lab results, radiology exam(s) and EKG tracing(s) Lab and/or radiology exams considered but not ordered:: None Interpretation Summary: See results MDM Medications / Prescriptions Medications / Prescriptions considered but not ordered:: None Medication administrations:: Medication Administration History Discontinued Medications Acetaminophen (Acetaminophen 325 Mg Tablet) 650 mg PO X1 ONE Stop: 06/10/25 13:29 Last Admin: 06/10/25 13:56 Dose: 650 mg Documented By: OA Comments: unable to scan Acetaminophen (Acetaminophen 500 Mg Tablet) 1,000 mg PO X1 ONE Stop: 06/10/25 16:08 Last Admin: 06/10/25 17:03 Dose: 1,000 mg Documented By: CG Hydrocodone Bitart/Acetaminophen (Hydrocodone/Apap 5/325 Tablet) 1 tab PO X1 ONE Stop: 06/10/25 20:14 Last Admin: 06/10/25 20:26 Dose: 1 tab Documented By: SM Albuterol (Albuterol Rt 2.5 Mg/0.5 Ml Nebu) 5 mg INH X1 ONE Stop: 06/10/25 16:05 Last Admin: 06/10/25 16:57 Dose: 5 mg Documented By: AUREA Albuterol (Albuterol Rt 2.5 Mg/0.5 Ml Nebu) Confirm Administered Dose 2.5 mg .ROUTE .STK-MED ONE Stop: 06/10/25 16:53 Last Admin: 06/10/25 17:54 Dose: 2.5 mg Documented By: CG Amoxicillin/Clavulanate Potassium (Amoxicillin/Pot Clav 875 Tablet) 1 tab PO X1 ONE Stop: 06/10/25 21:07 Last Admin: 06/10/25 21:50 Dose: 1 tab Documented By: TONY Calcium Gluconate (Calcium Gluconate 10% Inj 1 Gm/10 Ml Vial) 1 gm IV X1 ONE Stop: 06/10/25 16:05 Last Admin: 06/10/25 17:01 Dose: 1 gm Documented By: EDGARDO Comments: given through 20g IV right FA slow IVP over 2 minutes Dextrose (Dextrose 50%-Water Inj 50 Ml Syringe) 50 ml IVP X1 ONE Stop: 06/10/25 16:05 Last Admin: 06/10/25 17:05 Dose: 50 ml Documented By: EDGARDO Dextrose (Dextrose 50%-Water Inj 50 Ml Syringe) 50 ml IVP X1 ONE Stop: 06/10/25 16:16 Last Admin: 06/10/25 17:09 Dose: 50 ml Documented By: EDGARDO Furosemide (Furosemide Inj 10 Mg/Ml Vial 2 Ml) 40 mg IVP X1 ONE Stop: 06/10/25 16:02 Last Admin: 06/10/25 16:59 Dose: 40 mg Documented By: EDGARDO Glucagon (Glucagon Inj 1 Mg Vial) 1 mg IM Q15MIN PRN PRN Reason: BG <70, and no IV access Sodium Chloride (Ns) 1,000 mls @ 999 mls/hr IV .Q1H1M ONE Stop: 06/10/25 17:02 Last Infusion: 06/10/25 17:52 Dose: Infused Documented By: Admin: 06/10/25 16:57 Dose: 999 mls/hr Documented By: CG Ceftriaxone Sodium/Dextrose (Rocephin/D5w 1gm Iv Premix) 1 gm in 50 mls @ 100 mls/hr IV X1 ONE Stop: 06/10/25 16:31 Last Infusion: 06/10/25 17:27 Dose: Infused Documented By: Admin: 06/10/25 16:58 Dose: 100 mls/hr Documented By: CG Sodium Chloride (Ns) 1,000 mls @ 999 mls/hr IV .Q1H1M ONE Stop: 06/10/25 20:43 Last Infusion: 06/10/25 21:06 Dose: Infused Documented By: Admin: 06/10/25 19:48 Dose: 999 mls/hr Documented By: TONY Lactated Ringer's (Lactated Ringers) 1,000 mls @ 999 mls/hr IV .Q1H1M ONE Stop: 06/10/25 22:08 Last Admin: 06/10/25 22:10 Dose: Not Given Documented By: TONY Non-Admin Reason: Cancelled by Provider Sodium Chloride (Ns) 1,000 mls @ 999 mls/hr IV .Q1H1M ONE Stop: 06/10/25 22:15 Last Admin: 06/10/25 21:30 Dose: 999 mls/hr Documented By: TONY Insulin Human Regular (Insulin Hum Regular 1 Unit/0.01 Ml (Per Unit)) 10 unit IV X1 ONE Stop: 06/10/25 16:02 Last Admin: 06/10/25 17:10 Dose: 10 unit Documented By: EDGARDO Co-signed By: ASUNCION Midodrine (Midodrine 5 Mg Tablet) 5 mg PO X1 ONE Stop: 06/10/25 21:09 Last Admin: 06/10/25 21:50 Dose: 5 mg Documented By: TONY Sodium Chloride (Sodium Chloride Rt Mita 0.9% 3 Ml Nebu) 3 ml INH PRN PRN PRN Reason: SOLN Stop: 07/10/25 16:03 Last Admin: 06/10/25 16:59 Dose: 3 ml Documented By: AUREA Sodium Polystyrene Sulfonate (Sod Polystyrene Sulfon Susp 15 Gm/60 Ml Btl) 30 gm PO X1 ONE Stop: 06/10/25 16:02 Last Admin: 06/10/25 17:02 Dose: 30 gm Documented By: EDGARDO IV fluids, midodrine, IV ceftriaxone, Consultations Consultation(s) initiated? (list below): No Diagnosis Nausea Differential Diagnosis: food poisoning, gastroenteritis and dehydration Most likely diagnosis given after review of the tests above:: UTI, hyperkalemia acute mastoiditis Admission Indicated Admission indicated?: not indicated Admission Request Was there a request for admission?: No Disposition Plan Disposition Plan: Discharge Discharge Attestation Discharge Attestation: The patient and all family members were given an opportunity to ask questions and understood the discharge instructions. Discharge instructions specifically effects, indications for sooner follow up or return to the emergency department, and the expected course of current diagnosis. Patient condition: Stable Discharge Plan Plan Patient Disposition: HOME (Self Care) Prescriptions/Referrals Prescriptions/Med Rec: New amoxicillin-pot clavulanate 875-125 mg tablet 1 tab PO BID Qty: 14 0RF No Action acetaminophen 500 mg tablet 500 mg PO Q6H PRN (Reason: pain) Januvia 50 mg tablet 50 mg PO QDAY Jardiance 25 mg tablet 25 mg PO QAM lisinopril 5 mg tablet 5 mg PO QDAY metformin 500 mg tablet 500 mg PO BID Referrals: Amberly Ku MD [Primary Care Provider] - In 1 week Problem List Clinical Impression: Acute hyperkalemia, Otitis media, UTI (urinary tract infection) Patient/Caregiver Discharge Instructions Discharge Activity: activity as tolerated Education Materials: ED Hyperkalemia Additional Instructions: Thank you for the opportunity for serving you today. You are stable for discharged . You are advised to: Follow-up with your PCP in 1 to 2 days Return to ED for worsening of symptoms Increase oral fluids Take medication as prescribed Print Language: Yakut Stand Alone Forms: [employer] Award Info., Patient Portal Info Letter SHAY/DARSHANA Supervising Physician SHAY/DARSHANA Supervising Physician: MD Lucia
[2025-06-10] MEDS: SODIUM CHLORIDE 0.9% 1000 ML 1,000 ML 999 ML IV ×3 (16:57→21:30)
[2025-06-10] MEDS: ALBUTEROL RT 2.5 MG/0.5 ML NEBU 5 MG INH (16:57)
[2025-06-10] MEDS: cefTRIAXone/D5w 1gm IV premix 1 GM/50 ML BAG IV (16:58)
[2025-06-10] MEDS: SODIUM CHLORIDE RT SOL 0.9% 3 ML NEBU INH (16:59)
[2025-06-10] MEDS: FUROSEMIDE INJ 10 MG/ML VIAL 2 ML 40 MG IVP (16:59)
[2025-06-10] MEDS: CALCIUM GLUCONATE 10% INJ 1 GM/10 ML VIAL IV (17:01)
[2025-06-10] MEDS: SOD POLYSTYRENE SULFON SUSP 15 GM/60 ML BTL 30 GM PO (17:02)
[2025-06-10] MEDS: ACETAMINOPHEN 500 MG TABLET 1000 MG PO (17:03)
[2025-06-10] MEDS: DEXTROSE 50%-WATER INJ 50 ML SYRINGE IVP ×2 (17:05→17:09)
[2025-06-10] MEDS: INSULIN HUM REGULAR 1 UNIT/0.01 ML (PER UNIT) 10 UNIT IV (17:10)
[2025-06-10] MEDS: ALBUTEROL RT 2.5 MG/0.5 ML NEBU (17:54)
[2025-06-10 19:16] LABS: Anion Gap 10 (7-16); BUN/Creatinine Ratio 10 Ratio (12-20); Blood Urea Nitrogen 20 mg/dL (9-23); Calcium 10.3 mg/dL (8.3-10.6); Carbon Dioxide 22.1 mMol/L (20.0-31.0); Chloride 98 mMol/L (98-107); Creatinine (Component) 2.0 mg/dL (0.6-1.3); Estimated Creatinine Clearance 29.9 mL/min (>60); Glucose 155 mg/dL (74-106); Osmolality,Calculated 266 (275-295); Potassium 4.6 mMol/L (3.4-5.1); Sodium 130 mMol/L (136-145); eGFR 35 See Note
--- NOTE | 2025-06-10 19:56 | XR_ITS ---
Examination: CT brain head without contrast. 2-D sagittal coronal reconstructions Date and time of exam:June 10, 20252036 hours INDICATIONS: Headaches dizziness today CTDI: vol (mGy):45.7 DLP: (mGycm):934 Technique: Multiple CT axial sections of the brain have been obtained, 5 mm slice thickness. Contrast has not been administered. 2-D sagittal, coronal reconstructions have been obtained Low dose protocols were performed. One or more of the following dose reduction techniques were used; automated exposure control, adjustment of the mA and/or KV according to patient size, use of iterative reconstruction technique. Findings: No significant ventricular enlargement. Intra-axial or extra-axial hemorrhage density is not seen. No mass effect or midline shift Basal cisterns are not remarkable. Fourth ventricle is midline. Cranial vault intact. Impression: Negative for acute hemorrhage, mass effect or midline shift Bilateral acute mastoiditis Left otitis media Left otitis externa
[2025-06-10] MEDS: HYDROcodone/APAP 5/325 TABLET 1 TAB PO (20:26)
[2025-06-10] MEDS: AMOXICILLIN/POT CLAV 875 TABLET 1 TAB PO (21:50)
[2025-06-10] MEDS: MIDODRINE 5 MG TABLET PO (21:50)
== END 2025-06-10 22:16 | disposition home or self-care (01) ==
PROVIDERS: Nurse Practitioner Family; Emergency Provider Family Medicine; PCP Family Medicine
DX: N39.0 Urinary tract infection, site not specified (principal); E87.5 Hyperkalemia; H66.92 Otitis media, unspecified, left ear; H60.92 Unspecified otitis externa, left ear; H70.003 Acute mastoiditis without complications, bilateral
CPT/HCPCS: 36415; 70450; 80048; 80053; 81001; 83690; 85025; 87077; 87086; 87186; 94640; 96361; 96365; 96375; 99284; J0612; J0696; J1815; J1938; J7030; A9270

== ENCOUNTER 2025-06-24 14:53 | Inpatient (IN) | payer MEDICARE, SELFPAY ==
[2025-06-24 15:09] VITALS: BP 93/62; PULSE 89; RESP 17; TEMP 36.6; O2SAT 95
--- NOTE | 2025-06-24 15:17 | XR_ITS ---
Examination: AP chest single view Technique one AP portable upright chest single view Date and time: 2024 1604 hours INDICATIONS: Patient fell today with injury to the chest, chest pain FINDINGS: Normal heart size. No pneumothorax. Clavicles ribs appear intact on this chest detail film IMPRESSION: No pneumothorax pulmonary contusion or hemothorax
--- NOTE | 2025-06-24 15:17 | XR_ITS ---
Examination: CT brain head without contrast. 2-D sagittal coronal reconstructions Date and time of exam:June 24, 2025 1551 hours INDICATIONS: Patient fell today with injury to the head, head pain CTDI: vol (mGy):48.5 DLP: (mGycm):1011 Technique: Multiple CT axial sections of the brain have been obtained, 5 mm slice thickness. Contrast has not been administered. 2-D sagittal, coronal reconstructions have been obtained Low dose protocols were performed. One or more of the following dose reduction techniques were used; automated exposure control, adjustment of the mA and/or KV according to patient size, use of iterative reconstruction technique. Findings: No significant ventricular enlargement. Intra-axial or extra-axial hemorrhage density is not seen. No mass effect or midline shift Basal cisterns are not remarkable. Fourth ventricle is midline. Cranial vault intact. Impression: Negative for acute hemorrhage, mass effect or midline shift
--- NOTE | 2025-06-24 15:17 | XR_ITS ---
Examination: CT cervical spine without contrast 2-D sagittal reconstructions 2-D coronal reconstructions 3-D reconstructions. Exam date and time:June 24, 2025 1551 hours INDICATIONS: Ground-level fall today with injury of the neck, neck pain CTDI:vol (mGy) 14.5 DLP: (mGycm) 327 Technique: Multiple 2 mm axial sections of the cervical spine have been obtained. The coronal and sagittal reconstructions have been obtained. 3-D reconstructions have been obtained. Low dose protocols were performed. One or more of the following dose reduction techniques were used; automated exposure control, adjustment of the mA and/or KV according to patient size, use of iterative reconstruction technique. Findings: Axial sections demonstrate intact base of the skull. C1 exhibit satisfactory relationship to the odontoid. No acute cervical vertebral body fracture seen. Alignment posterior spinous processes satisfactory. Impression: No acute cervical fracture.
--- NOTE | 2025-06-24 15:17 | EKG_ITS ---
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
--- NOTE | 2025-06-24 15:18 | PD.EDRME ---
Rapid Medical Screening Exam [facility] Arrival date/time: 06/24/25 14:53 CC: Headache lightheadedness fall x 2 HPI patient fell the day before yesterday and last night, headache onset after the first fall. Denies any blood thinners. Family member state has been complaining of lightheadedness and dizziness. Past medical history includes bladder cancer diabetes hypertension Chief Complaint: Syncope / Near Syncope Vital signs: Vital Signs Temperature 97.9 F 06/24/25 15:09 Pulse Rate 89 06/24/25 15:09 Respiratory Rate 17 06/24/25 15:09 Blood Pressure 93/62 06/24/25 15:09 Pulse Oximetry (%) 95 06/24/25 15:09 Oxygen Delivery Method Room Air 06/24/25 15:09
--- NOTE | 2025-06-24 15:30 | PC.NURSE ---
THIS RN WENT IN TO INTRODUCE MYSELF AND ASSESS PT, PT SPEAKS TAIWANESE, DAUGHTER AT BEDSIDE TRANSLATED. PT TOLD THIS RN IN TAI[place]ESE THAT HE WANTS SOMEONE THAT SPEAKS TAIWANESE, NOT THIS RN. 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
[2025-06-24 15:40] VITALS: BMI 23.3
[2025-06-24] MEDS: SODIUM CHLORIDE 0.9% 1000 ML 1,000 ML 999 ML IV (15:42)
[2025-06-24 15:52] LABS: Basophils # (Auto) 0.0 Thou/mm3 (0.0-0.2); Basophils % (Auto) 0 % (0-2.5); Eosinophils # (Auto) 0.2 Thou/mm3 (0.0-0.5); Eosinophils % (Auto) 2 % (0-10); Hematocrit 37.0 % (41.0-53.0); Hemoglobin 12.2 g/dL (13.5-16.0); Immature Granulocytes Auto 0.01 Thou/mm3 (0.00-0.00); Lymphocytes # (Auto) 3.4 Thou/mm3 (1.0-4.8); Lymphocytes % (Auto) 46 % (10-50); Mean Corpuscular HGB Conc 33.0 g/dl (31.0-37.0); Mean Corpuscular Hemoglobin 27.8 pg (25.0-35.0); Mean Corpuscular Volume 84 fL (80-100); Monocytes # (Auto) 0.6 Thou/mm3 (0.0-0.8); Monocytes % (Auto) 8 % (0-12); Neutrophils # (Auto) 3.2 Thou/mm3 (1.8-7.7); Neutrophils % (Auto) 43 % (37-80); Nucleated Red Blood Cell # 0.00 Thou/mm3 (0.00-0.00); Nucleated Red Blood Cell % 0 /100 WBC (0); Platelet Count 360 Thou/mm3 (140-440); RDW Standard Deviation 42.3 fL (35.1-43.9); Red Blood Count 4.39 Miln/mm3 (4.50-5.90); White Blood Count 7.3 Thou/mm3 (3.8-10.6)
[2025-06-24 16:22] LABS: INR 1.0 (0.9-1.3); Partial Thromboplastin Time 29.8 Seconds (22.0-36.0); Prothrombin Time 10.6 Seconds (9.0-12.2)
--- NOTE | 2025-06-24 16:25 | XR_ITS ---
Examination: CT lumbar spine, without contrast. 2-D sagittal reconstructions. 2-D coronal reconstructions. 3-D reconstructions. Date and time of exam:June 24, 2025 1658 hours INDICATIONS: Patient fell today with injury to lower back, lower back pain CTDI: vol (mGy):26.4 DLP: (mGycm):828 Technique: Multiple 1.25 mm axial sections of the lumbar spine without intravenous contrast have been obtained. 2-D sagittal and coronal reconstructions have been obtained. 3-D reconstructions have been obtained. Low dose protocols were performed. One or more of the following dose reduction techniques were used; automated exposure control, adjustment of the mA and/or KV according to patient size, use of iterative reconstruction technique. Findings: Severe osteopenia No acute lumbar fracture Advanced disc narrowing L2-L3, L5-S1 Lumbar pedicles lamina transverse and posterior spinous processes intact 20 mm sclerotic focus anterior margin L4 sagittal image 48 3 mm sclerotic focus right first sacral wing image 147 14 mm osteolytic lesion right iliac bone image 148 Hemangiomatous change L2 Prostate is significantly enlarged, transverse dimension 6.4 cm and irregular in contour 18 mm left lateral periaortic lymph node image 74, please see the CT chest abdomen pelvis report March 16, 2025 IMPRESSION: No acute lumbar fracture Advanced degenerative disc disease L2-L3, L5-S1 Suspicious for osseous metastatic disease as above Recommend follow-up elective MRI lumbar spine pre and postcontrast
[2025-06-24 16:36] VITALS: BP 100/63; PULSE 77; RESP 16; TEMP 36.4; O2SAT 99
[2025-06-24 16:55] LABS: B-Type Natriuretic Peptide < 20 pg/mL (0-100)
[2025-06-24 16:56] LABS: Alanine Aminotransferase 11 U/L (10-49); Albumin, Serum 4.6 gm/dL (3.4-4.8); Albumin/Globulin Ratio 1.4 (1.2-2.2); Alkaline Phosphatase 69 U/L (46-116); Anion Gap 11 (7-16); Aspartate Amino Transferase 19 U/L (0-34); BUN/Creatinine Ratio 13 Ratio (12-20); Bilirubin,Total 0.7 mg/dL (0.3-1.2); Blood Urea Nitrogen 28 mg/dL (9-23); Calcium 10.3 mg/dL (8.3-10.6); Calcium (Corrected) 10.3 mg/dL (8.5-10.1); Carbon Dioxide 23.7 mMol/L (20.0-31.0); Chloride 94 mMol/L (98-107); Creatinine (Component) 2.2 mg/dL (0.6-1.3); Estimated Creatinine Clearance 26.2 mL/min (>60); Globulin 3.2 gm/dL (2.3-3.5); Glucose 127 mg/dL (74-106); LDH (Lactate Dehydrogenase) 113 U/L (120-246); Magnesium 1.4 mg/dL (1.6-2.6); Osmolality,Calculated 266 (275-295); Potassium 5.6 mMol/L (3.4-5.1); Sodium 129 mMol/L (136-145); Total Protein 7.8 gm/dL (5.7-8.2); Troponin I < 0.020 ng/mL (0.0-0.045); eGFR 31 See Note
--- NOTE | 2025-06-24 17:44 | EDNOTE_ITS ---
ED Syncope RME/HPI General Chief Complaint: Syncope / Near Syncope Stated Complaint: SYNCOPE X2 DAYS HYPOTENSION Time Seen by Provider: 06/24/25 15:51 Arrival date/time: 06/24/25 14:53 Limitations: no limitations RME / HPI RME / HPI narrative: 06/24/25 14:53 CC: Headache lightheadedness fall x 2 HPI patient fell the day before yesterday and last night, headache onset after the first fall. Denies any blood thinners. Family member state has been complaining of lightheadedness and dizziness. Past medical history includes bladder cancer diabetes hypertension DR. VALLES MAIN ED EVALUATION: 69 year male presents to the ED brought in by his daughter for evaluation of hypotension and global weakness. According to the daughter, the patient had a syncopal episode yesterday and fell to the floor, striking the back of his head and back on the floor. Now complains of a diffuse headache and lower back pain. Additionally, the patient reports decreased appetite and reduced oral intake over the past few days. Daughter notes a gradual decline in the patient?s overall condition, with increased weakness. Denies any fever, chills, chest pain, cough, shortness of breath, abdominal pain, vomiting, or urinary symptoms. Related Data Home Medications ?Medication ?Instructions ?Recorded ?Confirmed acetaminophen 500 mg tablet 500 mg PO Q6H PRN pain 06/25/25 metformin 500 mg tablet 500 mg PO BID 03/17/2506/25 sitagliptin phosphate 50 mg tablet 100 mg PO QDAY 02/2306/25/25 (Januvia) tamsulosin 0.4 mg capsule 0.4 mg PO DAILY 06/24/2512/18 bicalutamide 50 mg tablet 50 mg PO 1XD 06/25/25 metformin 1,000 mg tablet 1,000 mg PO 2XD 06/25/2501/18 Previous Rx's ?Medication ?Instructions ?Recorded amoxicillin 875 mg-potassium 1 tab PO BID #14 tabs clavulanate 125 mg tablet Allergies Allergy/AdvReac Type Severity Reaction Status Date / Time No Known Allergies Allergy Verified 06/24/25 14:55 Review of Systems Review of Systems Systems Reviewed: All systems reviewed, normal except as documented Past Medical History Past Medical History CARDIAC: Positive Cardiac Disorders and Hypertension; Negative Congestive Heart Failure RESPIRATORY: Negative Chronic Obstructive Pulmonary Disease (COPD) or Asthma GENITOURINARY: Negative Renal Disease ENDOCRINE: Positive Endocrine Disorders and Diabetes Mellitus Type 2; Negative Diabetes Mellitus Type 1 HEMATOLOGIC: Negative Sickle Cell Disease Social History SMOKING STATUS: Never smoker ED Exam General Limitations: Present no limitations General appearance: Present alert and in no apparent distress Head Head exam: Present atraumatic, normocephalic and normal inspection Eye Eye exam: Present normal appearance, PERRL and EOMI ENT ENT exam: Present normal exam, normal oropharynx and mucous membranes moist Neck Neck exam: Present normal inspection, full ROM and trachea midline Chest Chest inspection: Present normal inspection and symmetric chest wall rise Respiratory Respiratory exam: Present normal lung sounds bilaterally Cardiovascular Cardiovascular exam: Present regular rate, normal rhythm and normal heart sounds Abdominal Exam Abdominal exam: Present soft and normal bowel sounds Extremities Exam Extremities exam: Present normal inspection and full ROM Back Exam Back exam: Present normal inspection and full ROM Neurological Exam Neurological exam: Present alert, oriented X3 and CN II-XII intact Psychiatric Psychiatric exam: Present normal affect and normal mood Skin Skin exam: Present warm, dry, intact and normal color Course Quality Measures none Orders Category Date Time Status Patient Condition Routine Admission 06/24/25 21:05 Ordered Patient Condition Routine Admission 06/24/25 21:[address] in Observation Status Routine Admission 06/24/25 21:57 Active Bedside Blood Glucose ACHS Care 06/24/25 21:43 Active COVID-19 Screening Questionnaire NOW Care 06/24/25 19:59 Active Continuous Pulse Oximetry NOW Care 06/24/25 21:05 Completed Decision to Admit X1 Care 06/24/25 19:58 Completed EKG (ED ONLY) *Do not use* NOW Care 06/24/25 15:17 Completed Miscellaneous Nursing Order NOW Care 06/24/25 21:46 Active Notify provider NEEDED Care 06/24/25 21:05 Active Notify provider NEEDED Care 06/24/25 21:57 Active Orthostatic Vitals X1 Care 06/24/25 21:47 Active Saline [Insert IV] NOW Care 06/24/25 15:17 Active Diet Carbohydrate Consistent Low Diet 06/25/[address] abdomen pelvis wo con Stat Exams 06/24/25 18:[address] cervical spine wo con Stat Exams 06/24/25 15:[address] head/brain wo con Stat Exams 06/24/25 15:[address] lumbar spine wo con Stat Exams 06/24/25 16:25 Completed EKG (ED Only) Stat Exams 06/24/25 15:17 Draft XR chest 1V Stat Exams 06/24/25 15:17 Completed B-Type Natriuretic Peptide Stat Lab 06/24/25 15:32 Completed BMP [Basic Metabolic Panel] Routine Lab 06/25/25 00:08 Completed CBC AM DRAW Lab 06/25/25 04:45 Ordered CBC AM DRAW Lab 06/26/25 05:00 Ordered CBC AM DRAW Lab 06/27/25 05:00 Ordered CBC Stat Lab 06/24/25 15:32 Completed Comprehensive Metabolic Panel AM DRAW Lab 06/25/25 04:45 Ordered Comprehensive Metabolic Panel AM DRAW Lab 06/26/25 05:00 Ordered Comprehensive Metabolic Panel AM DRAW Lab 06/27/25 05:00 Ordered Comprehensive Metabolic Panel Stat Lab 06/24/25 15:32 Completed Drug Screen,Urine Stat Lab 06/24/25 21:23 Completed Glycohemoglobin w (eAG) AM DRAW Lab 06/25/25 04:45 Ordered LDH (Lactate Dehydrogenase) Stat Lab 06/24/25 15:32 Completed Lactic Acid [Lactate (Lactic Acid)] Stat Lab 06/24/25 19:29 Completed Lipid Panel AM DRAW Lab 06/25/25 04:45 Ordered Magnesium AM DRAW Lab 06/25/25 04:45 Ordered Magnesium AM DRAW Lab 06/26/25 05:00 Ordered Magnesium AM DRAW Lab 06/27/25 05:00 Ordered Magnesium Stat Lab 06/24/25 15:32 Completed Partial Thromboplastin Time Stat Lab 06/24/25 15:32 Completed Phosphorous AM DRAW Lab 06/25/25 04:45 Ordered Phosphorous AM DRAW Lab 06/26/25 05:00 Ordered Phosphorous AM DRAW Lab 06/27/25 05:00 Ordered Prothrombin Time with INR Stat Lab 06/24/25 15:32 Completed Renal Function Panel Stat Lab 06/24/25 19:29 Completed Troponin I Stat Lab 06/24/25 15:32 Completed Urinalysis Stat Lab 06/24/25 21:23 Completed Acetaminophen Tab [Tylenol Tab] Med 06/24/25 21:31 Active 650 mg PO Q6H PRN Acetaminophen Tab [Tylenol Tab] Med 06/24/25 21:56 Discontinued 650 mg PO X1 ONE Dextrose 50% Syr [D50w Syringe Abboject] Med 06/24/25 21:41 Active 25 ml IV Q15MIN PRN Dextrose 50% Syr [D50w Syringe Abboject] Med 06/24/25 21:41 Discontinued 25 ml IV Q15MIN PRN Dextrose 50% Syr [D50w Syringe Abboject] Med 06/24/25 21:41 Active 50 ml IV Q15MIN PRN Dextrose 50% Syr [D50w Syringe Abboject] Med 06/24/25 21:41 Discontinued 50 ml IV Q15MIN PRN Glucagon Inj Med 06/24/25 21:41 Active 1 mg IM Q15MIN PRN Heparin Inj Med 06/24/25 22:00 Active 5,000 unit SC Q8HR INSULIN LISPRO (AdmeLOG) [HumaLOG] Med 06/25/25 07:30 Active See Protocol SC ACHS Insulin Regular Med 06/24/25 21:41 Discontinued 5 unit IV X1 ONE Lactulose Syrup [Enulose Syrup] Med 06/25/25 09:00 Active 10 gm PO QDAY Magnesium Sulfate 4 GM Ivpb [Magnesium Sulfate Ivpb] Med 06/24/25 18:17 Discontinued 4 gm in 50 ml IV X1 Ondansetron Inj [Zofran Inj] Med 06/24/25 21:31 Active 4 mg IVP Q6H PRN Sod Polystyrene Sulfon Susp [Kayexalate Susp] Med 06/24/25 21:53 Discontinued 30 gm PO X1 ONE Sodium Chloride 0.9% 1000 ml [Ns] 1,000 ml Med 06/24/25 21:45 Active IV 85 mls/hr Sodium Chloride 0.9% 1000 ml [Ns] 1,000 ml Med 06/24/25 15:17 Discontinued IV 999 mls/hr Tamsulosin HCl [Flomax] Med 06/25/25 09:00 Active 0.4 mg PO DAILY Code Status Routine Oth 06/24/25 21:05 Ordered Oxygen Delivery PRN RT 06/24/25 21:05 Active Vital Signs Vital signs: Vital Signs Temperature 97.9 F 06/24/25 15:09 Pulse Rate 89 06/24/25 15:09 Respiratory Rate 17 06/24/25 15:09 Blood Pressure 93/62 06/24/25 15:09 Pulse Oximetry (%) 95 06/24/25 15:09 Oxygen Delivery Method Room Air 06/24/25 15:09 Pulse ox is 95% on room air which is adequate. Syncope MDM Narrative MDM Narrative:: Aishwarya Restrepo am scribing for and in the presence of Dr. Valles. 1800: Patient signed out to Dr. Curiel pending CT results and final disposition. Patient data External records reviewed:: [facility] previous records (I reviewed ED visit on 06/10/2025 ) Clinical information provided by:: patient and family (daughter adds to hpi) Social determinants that could affect healthcare access:: none Patient has the following chronic illnesses:: hypertension, diabetes, hyperlipidemia, CKD, prostate CA? How is presenting disease/condition affected by chronic disease/condition?: exacerbated by Evaluation data The following diagnostics were reviewed and interpreted by me:: lab results, radiology exam(s) and EKG tracing(s) (06/24/2025 @ 15:20. Sinus rhythm, rate 78, no STEMI. ) Lab and/or radiology exams considered but not ordered:: None Interpretation Summary: Ordering Physician: Jarrod Lakhani NP Date of Service: 06/24/25 Procedure(s): CT cervical spine wo con Accession Number(s): [id number] cc: Jarrod Lakhani NP; Nikhil Beatty MD; NO PRIMARY/FAMILY,PHYSICIAN~ Examination: CT cervical spine without contrast 2-D sagittal reconstructions 2-D coronal reconstructions 3-D reconstructions. Exam date and time:June 24, 2025 1551 hours INDICATIONS: Ground-level fall today with injury of the neck, neck pain CTDI:vol (mGy) 14.5 DLP: (mGycm) 327 Technique: Multiple 2 mm axial sections of the cervical spine have been obtained. The coronal and sagittal reconstructions have been obtained. 3-D reconstructions have been obtained. Low dose protocols were performed. One or more of the following dose reduction techniques were used; automated exposure control, adjustment of the mA and/or KV according to patient size, use of iterative reconstruction technique. Findings: Axial sections demonstrate intact base of the skull. C1 exhibit satisfactory relationship to the odontoid. No acute cervical vertebral body fracture seen. Alignment posterior spinous processes satisfactory. Impression: No acute cervical fracture. Dictated By: Nikhil Beatty MD Signed By: <Electronically signed by Nikhil Beatty MD in [place]> 06/24/25 1650 ======= Ordering Physician: Jarrod Lakhani NP Date of Service: 06/24/25 Procedure(s): XR chest 1V Accession Number(s): [id number] cc: Jarrod Lakhani [employer]TER OPERATOR; Nikhil Beatty MD; NO PRIMARY/FAMILY,PHYSICIAN~ Examination: AP chest single view Technique one AP portable upright chest single view Date and time: 2024 1604 hours INDICATIONS: Patient fell today with injury to the chest, chest pain FINDINGS: Normal heart size. No pneumothorax. Clavicles ribs appear intact on this chest detail film IMPRESSION: No pneumothorax pulmonary contusion or hemothorax Dictated By: Nikhil Beatty MD Signed By: <Electronically signed by Nikhil Beatty MD in [place]> 06/24/25 1721 ======= Ordering Physician: Jarrod Lakhani NP Date of Service: 06/24/25 Procedure(s): CT head/brain wo con Accession Number(s): [id number] cc: Jarrod Lakhani [employer]TER OPERATOR; Nikhil Beatty MD~ Examination: CT brain head without contrast. 2-D sagittal coronal reconstructions Date and time of exam:June 24, 2025 1551 hours INDICATIONS: Patient fell today with injury to the head, head pain CTDI: vol (mGy):48.5 DLP: (mGycm):1011 Technique: Multiple CT axial sections of the brain have been obtained, 5 mm slice thickness. Contrast has not been administered. 2-D sagittal, coronal reconstructions have been obtained Low dose protocols were performed. One or more of the following dose reduction techniques were used; automated exposure control, adjustment of the mA and/or KV according to patient size, use of iterative reconstruction technique. Findings: No significant ventricular enlargement. Intra-axial or extra-axial hemorrhage density is not seen. No mass effect or midline shift Basal cisterns are not remarkable. Fourth ventricle is midline. Cranial vault intact. Impression: Negative for acute hemorrhage, mass effect or midline shift Dictated By: Nikhil Beatty MD Signed By: <Electronically signed by Nikhil Beatty MD in [place]> 06/24/25 1559 ======= Ordering Physician: Marty Valles MD Date of Service: 06/24/25 Procedure(s): CT lumbar spine wo con Accession Number(s): [id number] cc: Marty Valles MD; Nikhil Beatty MD; NO PRIMARY/FAMILY,PHYSICIAN~ Examination: CT lumbar spine, without contrast. 2-D sagittal reconstructions. 2-D coronal reconstructions. 3-D reconstructions. Date and time of exam:June 24, 2025 1658 hours INDICATIONS: Patient fell today with injury to lower back, lower back pain CTDI: vol (mGy):26.4 DLP: (mGycm):828 Technique: Multiple 1.25 mm axial sections of the lumbar spine without intravenous contrast have been obtained. 2-D sagittal and coronal reconstructions have been obtained. 3-D reconstructions have been obtained. Low dose protocols were performed. One or more of the following dose reduction techniques were used; automated exposure control, adjustment of the mA and/or KV according to patient size, use of iterative reconstruction technique. Findings: Severe osteopenia No acute lumbar fracture Advanced disc narrowing L2-L3, L5-S1 Lumbar pedicles lamina transverse and posterior spinous processes intact 20 mm sclerotic focus anterior margin L4 sagittal image 48 3 mm sclerotic focus right first sacral wing image 147 14 mm osteolytic lesion right iliac bone image 148 Hemangiomatous change L2 Prostate is significantly enlarged, transverse dimension 6.4 cm and irregular in contour 18 mm left lateral periaortic lymph node image 74, please see the CT chest abdomen pelvis report March 16, 2025 IMPRESSION: No acute lumbar fracture Advanced degenerative disc disease L2-L3, L5-S1 Suspicious for osseous metastatic disease as above Recommend follow-up elective MRI lumbar spine pre and postcontrast Dictated By: Nikhil Beatty MD Signed By: <Electronically signed by Nikhil Beatty MD in [place]> 06/24/25 6608 Medications / Prescriptions Medications or Prescriptions considered but not ordered:: None Medication administrations:: Medication Administration History Acetaminophen (Acetaminophen 325 Mg Tablet) 650 mg PO Q6H PRN PRN Reason: Fever >100.3 or pain 1-3 Stop: 07/24/25 21:30 Atorvastatin Calcium (Atorvastatin Calcium 20 Mg Tablet) 80 mg PO HS [facility] Stop: 07/25/25 20:59 Dextrose (Dextrose 50%-Water Inj 50 Ml Syringe) 25 ml IV Q15MIN PRN PRN Reason: BG 50-70 responsive npo pt Stop: 07/24/25 21:40 Dextrose (Dextrose 50%-Water Inj 50 Ml Syringe) 50 ml IV Q15MIN PRN PRN Reason: BG <50 OR BG <70 & pt unresponsive Stop: 07/24/25 21:40 Glucagon (Glucagon Inj 1 Mg Vial) 1 mg IM Q15MIN PRN PRN Reason: BG <70, and no IV access Heparin Sodium (Porcine) (Heparin Sod Inj 5000 Unit/Ml Vial) 5,000 unit SC Q8HR [facility] Stop: 07/08/25 21:59 Last Admin: 06/25/25 05:53 Dose: 5,000 unit Documented By: VALENTINE Co-signed By: LOUIE Admin: 06/24/25 23:31 Dose: 5,000 unit Documented By: KWASI Co-signed By: IVET Sodium Chloride (Ns) 1,000 mls @ 85 mls/hr IV .[id number] [facility] Stop: 07/24/25 21:44 Last Admin: 06/25/25 01:42 Dose: 85 mls/hr Documented By: VALENTINE Ceftriaxone Sodium/Dextrose (Rocephin/D5w 1gm Iv Premix) 1 gm in 50 mls @ 100 mls/hr IV QDAY [facility] Stop: 07/02/25 01:02 Last Admin: 06/25/25 01:42 Dose: 100 mls/hr Documented By: VALENTINE Insulin Human Lispro (Insulin Lispro (Admelog) 1 Unit/0.01 Ml Unit) 0 unit SC ACHS [facility]; Protocol Stop: 07/25/25 07:29 Lactulose (Lactulose Syrup 20 Gm/30 Ml Udc) 10 gm PO QDAY [facility]; Protocol Stop: 07/25/25 08:59 Ondansetron HCl (Ondansetron Inj 2 Mg/Ml Inj 2 Ml) 4 mg IVP Q6H PRN; Protocol PRN Reason: NAUSEA OR VOMITING Stop: 07/24/25 21:30 Tamsulosin HCl (Tamsulosin Hcl 0.4 Mg Capsule) 0.4 mg PO DAILY [facility] Stop: 07/25/25 08:59 Discontinued Medications Acetaminophen (Acetaminophen 325 Mg Tablet) 650 mg PO X1 ONE Stop: 06/24/25 21:57 Last Admin: 06/24/25 23:24 Dose: 650 mg Documented By: KWASI Dextrose (Dextrose 50%-Water Inj 50 Ml Syringe) 25 ml IV Q15MIN PRN PRN Reason: BG 50-70 responsive npo pt Stop: 07/24/25 21:40 Dextrose (Dextrose 50%-Water Inj 50 Ml Syringe) 50 ml IV Q15MIN PRN PRN Reason: BG <50 OR BG <70 & pt unresponsive Stop: 07/24/25 21:40 Sodium Chloride (Ns) 1,000 mls @ 999 mls/hr IV .Q1H1M ONE Stop: 06/24/25 16:17 Last Infusion: 06/24/25 16:43 Dose: Infused Documented By: Admin: 06/24/25 15:42 Dose: 999 mls/hr Documented By: AKASH Magnesium Sulfate (Magnesium Sulfate Ivpb) 4 gm in 50 mls @ 12.5 mls/hr IV X1 ONE Stop: 06/24/25 22:16 Last Infusion: 06/24/25 22:40 Dose: Infused Documented By: Admin: 06/24/25 18:36 Dose: 12.5 mls/hr Documented By: AKASH Insulin Human Regular (Insulin Hum Regular 1 Unit/0.01 Ml (Per Unit)) 5 unit IV X1 ONE Stop: 06/24/25 21:42 Last Admin: 06/24/25 23:31 Dose: 5 unit Documented By: KWASI Co-signed By: IVET Sevelamer Carbonate (Sevelamer Carbonate 800 Mg Tablet) 800 mg PO X1 ONE Stop: 06/25/25 03:02 Last Admin: 06/25/25 05:53 Dose: 800 mg Documented By: VALENTINE Sodium Polystyrene Sulfonate (Sod Polystyrene Sulfon Susp 15 Gm/60 Ml Btl) 30 gm PO X1 ONE Stop: 06/24/25 21:54 Last Admin: 06/24/25 23:28 Dose: 30 gm Documented By: KWASI See above Consultations Consultation(s) initiated? (list below): No Diagnosis Syncope Differential Diagnosis: syncope due to orthostatic hypotension, vasovagal syncope, subarachnoid hemorrhage and dehydration Most likely diagnosis given after review of the tests above:: Syncope Admission Indicated Admission indicated?: not indicated Explain why admission is indicated or not indicated:: signed out to Dr. Curiel pending final disposition Admission Request Was there a request for admission?: No Disposition Plan Disposition Plan: other (specify) (Signed out to Dr. Curiel ) Discharge Plan Plan Patient Disposition: Admit Acute Care w/in Hospital Problem List Clinical Impression: Acute renal insufficiency, Syncope
[2025-06-24] MEDS: Magnesium Sulfate 4 GM Ivpb 4 GM/50 ML BAG IV (18:36)
--- NOTE | 2025-06-24 18:36 | EDNOTE_ITS ---
Emergency Room Addendum <Talia Romo - Last Filed: 06/24/25 19:38> Addendum Narrative: 1800: Care assumed from Dr. Johns, the previous shift emergency physician. Past medical, surgical, social and family history reviewed. Vitals and home medications reviewed. Results and treatment plan discussed. I will assume the care of the patient at this time and will follow the patient, pending re- evaluation. Please refer to the emergency department record for history and examination from initial visit. 18:20: Patient reassessed after chart was reviewed and stay was still feeling dizzy and still had a headache. Ordered magnesium 4 g. Imaging was reviewed and was unrevealing for etiology for patient's current symptoms. Imaging that showed metastasis to the bone. Patient complained of constipation for the past 5 days. 183: Ordered CT abdomen/pelvis without contrast 184: Ordered renal function panel to assess potassium. EKG did not show any T wave changes. Gen: A&O X 3, NAD HEENT: NCAT, EOMI, Pupils reactive CECILIO, not icteric. External ears normal. No rhinorrhea. Moist mucous membranes. Neck: Supple, full range of motion, no observable masses, No meningeal sign. Lungs: No Respiratory distress, clear bilateral. CV: RRR, no murmurs. Abdomen: Soft, nondistended, No rebound tenderness. MSK: No joint swelling, no redness, peripheral pulses presents, lumbar with no edema. Skin: No rashes, petechiae, lesions.. Neuro: No focal neurological deficits appreciated, sensory and motor intact. Psych: Cooperative, appropriate mood and effect. RADIOLOGY RESULTS: [facility] Report Signed Patient: LAURITA MYRICK. Record#: [id number] Birthdate: 1955 Age/Sex: 69 / M Location: [facility] Attending Dr: Ordering Physician: Leandro Caldera MD Date of Service: 06/24/25 Procedure(s): CT abdomen pelvis wo con Accession Number(s): [id number] cc: Nikhil Beatty MD; NO PRIMARY/FAMILY,PHYSICIAN; Leandro Caldera MD~ Examination: CT abdomen and pelvis without contrast. Coronal 3-D reconstructions. Sagittal 2-D reconstructions. Date and time of exam:June 24, 2025, 1910 hours Comparison March 16, 2025 INDICATIONS: Constipation and abdominal distention beginning 2 days ago CTDI: vol (mGy): 6.90 DLP: (mGycm): 441 Technique: Axial images of the abdomen have been obtained, 3 mm slice thickness Intravenous contrast material has not been administered. Low dose protocols were performed. One or more of the following dose reduction techniques were used; automated exposure control, adjustment of the mA and/or KV according to patient size, use of iterative reconstruction technique. Findings: No focal liver or splenic lesions. No gallstones No biliary tract dilatation. No pancreatic mass Bilateral nodular adrenal masses again noted No hydronephrosis Abdominal aortic calcification no aneurysmal dilatation Again noted left lateral periaortic lymphadenopathy without significant change Normal appendix Abundant stool in the rectosigmoid Marked prostatomegaly, 6.5 cm Urinary port catheter in the bladder with wall thickening in the urinary bladder up to 6 mm Please see the CT scan lumbar spine report indicating 14 mm osteolytic lesion right iliac bone 3 mm sclerotic focus right first sacral wing 20 mm sclerotic focus anterior margin L4, suspicious for 12 mm osteolytic lesion left femoral neck IMPRESSION: Again noted bilateral adrenal masses, left lateral periaortic lymphadenopathy without significant change compared with March 16, 2025 Negative for bowel obstruction Abundant stool in the rectosigmoid Marked prostatomegaly Bladder wall thickening which may be cystitis versus outflow tract obstruction secondary to the patient's prostatomegaly Osseous lesions as above Dictated By: Nikhil Beatty MD Signed By: <Electronically signed by Nikhil Beatty MD in [place]> 06/24/251928 <Leandro Mcneil MD - Last Filed: 06/24/25 20:00> Addendum Narrative: 1800: Care assumed from Dr. Johns, the previous shift emergency physician. Past medical, surgical, social and family history reviewed. Vitals and home medications reviewed. Results and treatment plan discussed. I will assume the care of the patient at this time and will follow the patient, pending re- evaluation. Please refer to the emergency department record for history and examination from initial visit. 18:20: Patient reassessed after chart was reviewed and stay was still feeling dizzy and still had a headache. Ordered magnesium 4 g. Imaging was reviewed and was unrevealing for etiology for patient's current symptoms. Imaging that showed metastasis to the bone. Patient complained of constipation for the past 5 days. 183: Ordered CT abdomen/pelvis without contrast 184: Ordered renal function panel to assess potassium. EKG did not show any T wave changes. Gen: A&O X 3, NAD HEENT: NCAT, EOMI, Pupils reactive CECILIO, not icteric. External ears normal. No rhinorrhea. Moist mucous membranes. Neck: Supple, full range of motion, no observable masses, No meningeal sign. Lungs: No Respiratory distress, clear bilateral. CV: RRR, no murmurs. Abdomen: Soft, nondistended, No rebound tenderness. MSK: No joint swelling, no redness, peripheral pulses presents, lumbar with no edema. Skin: No rashes, petechiae, lesions.. Neuro: No focal neurological deficits appreciated, sensory and motor intact. Psych: Cooperative, appropriate mood and effect. 19:55: Patient's abdomen/pelvis CT was reviewed and showed osseous lesions as well as bladder wall thickening with marked prostatomegaly, but no bowel obstruction just constipation. Spoke with internal medicine resident Dr. Argueta for admission to the hospital for acute renal failure and syncopal episode. Will admit. Renal panel pending at this time. RADIOLOGY RESULTS: [facility] Report Signed Patient: LAURITA MYRICK. Record#: [id number] Birthdate: 1955 Age/Sex: 69 / M Location: [facility] Attending Dr: Ordering Physician: Leandro Caldera MD Date of Service: 06/24/25 Procedure(s): CT abdomen pelvis wo con Accession Number(s): [id number] cc: Nikhil Beatty MD; NO PRIMARY/FAMILY,PHYSICIAN; Leandro Caldera MD~ Examination: CT abdomen and pelvis without contrast. Coronal 3-D reconstructions. Sagittal 2-D reconstructions. Date and time of exam:June 24, 2025, 1910 hours Comparison March 16, 2025 INDICATIONS: Constipation and abdominal distention beginning 2 days ago CTDI: vol (mGy): 6.90 DLP: (mGycm): 441 Technique: Axial images of the abdomen have been obtained, 3 mm slice thickness Intravenous contrast material has not been administered. Low dose protocols were performed. One or more of the following dose reduction techniques were used; automated exposure control, adjustment of the mA and/or KV according to patient size, use of iterative reconstruction technique. Findings: No focal liver or splenic lesions. No gallstones No biliary tract dilatation. No pancreatic mass Bilateral nodular adrenal masses again noted No hydronephrosis Abdominal aortic calcification no aneurysmal dilatation Again noted left lateral periaortic lymphadenopathy without significant change Normal appendix Abundant stool in the rectosigmoid Marked prostatomegaly, 6.5 cm Urinary port catheter in the bladder with wall thickening in the urinary bladder up to 6 mm Please see the CT scan lumbar spine report indicating 14 mm osteolytic lesion right iliac bone 3 mm sclerotic focus right first sacral wing 20 mm sclerotic focus anterior margin L4, suspicious for 12 mm osteolytic lesion left femoral neck
[2025-06-24 18:48] VITALS: BP 93/60; PULSE 75; RESP 16; TEMP 36.6; O2SAT 99
[2025-06-24 19:45] LABS: Lactate (Lactic Acid) 1.6 mMol/L (0.4-2.0)
[2025-06-24 20:17] LABS: Albumin, Serum 4.0 gm/dL (3.4-4.8); Anion Gap 10 (7-16); BUN/Creatinine Ratio 14 Ratio (12-20); Blood Urea Nitrogen 26 mg/dL (9-23); Calcium 10.0 mg/dL (8.3-10.6); Calcium (Corrected) 10.0 mg/dL (8.5-10.1); Carbon Dioxide 22.1 mMol/L (20.0-31.0); Chloride 98 mMol/L (98-107); Creatinine (Component) 1.8 mg/dL (0.6-1.3); Estimated Creatinine Clearance 32.0 mL/min (>60); Glucose 96 mg/dL (74-106); Osmolality,Calculated 265 (275-295); Phosphorous 6.5 mg/dL (2.4-5.1); Potassium 5.7 mMol/L (3.4-5.1); Sodium 130 mMol/L (136-145); eGFR 40 See Note
[2025-06-24 20:31] VITALS: BP 99/65; PULSE 77; RESP 14; TEMP 37; O2SAT 99
[2025-06-24 21:32] LABS: Collection Type, Urine Clean Catch
[2025-06-24 21:49] LABS: Bilirubin,Urine Negative (Negative); Blood,Urine Trace (Negative); Budding Yeast,Urine Present; Clarity,Urine Turbid (Clear/Hazy); Color,Urine Lt-Yellow (Lt Yel-Yel); Glucose, Urine 2+ (Negative); Ketones,Urine Negative (Negative); Leukocyte Esterase,Urine Positive (Negative); Nitrite,Urine Negative (Negative); PH,Urine 6.0 (5.0-7.0); Protein,Urine Trace (Neg - Trace); RBC,Urine 6 /hpf (0-3); Specific Gravity,Urine 1.012 (1.001-1.035); Squamous Epithelial Cell,Urine < 1 /hpf (0-5); Urobilinogen,Urine Negative mg/dL (0.0-1.0); WBC,Urine 422 /hpf (0-5)
--- NOTE | 2025-06-24 21:51 | PD.RESHP ---
Documentation for date of: 06/24/25 [facility] History of Present Illness History of present illness: Patient is a 69-year-old male with past medical history of prostate CA with mets, chronic indwelling Velasquez, non-insulin dependent DM2, HTN, HLD, and CKD who presented to the ED on 06/24/2025 with chief complaint of presyncope s/p fall yesterday. Reported his vision went blurry, causing him to fall. Hit his head on the cabinet, denied LOC. Has persistent headache for a while , worsened after fall. Patient and at bedside were poor historians. Per chart review, patient has been following oncologist Dr. Myers for recent diagnosis of prostate cancer stage 4 with widespread mets. Last PSA 219. Taking Bicalutamide for hormone therapy, not on chemotherapy or other oncologic treatment. Has indwelling chronic Velasquez due to prostatomegaly. He gets it changed at hospital in [place], last changed 2 months ago. Has good urine output. Of note, urine is light yellow with small white deposits, appears slightly foamy. ED Course: -Initial vitals were BP 93/62, HR 89, RR 17, temp 30 7.9F, 95% on room air -Labs significant for WBC 7.3, hemoglobin 12.2, sodium 129, potassium 5.6, BUN 23, creatinine 2.2, calcium 10.3, phosphorus 6.5, magnesium 1.4, LDH 113. EKG showed sinus rhythm, no arrhythmias or ST abnormalities noted. -Imaging included CT cervical spine, chest x-ray, and head CT were all unremarkable. Lumbar CT Advanced degenerative disc disease L2-L3, L5-S1, CT abdomen pelvis showed bilatreal adrenal jeanette, left lateral periaortic lymphadenopathy without significant change compared with March 16, 2025, abundant stool in the rectosigmoid without obstruction, marked prostatomegaly, bladder wall thickening. -In the ED, patient was given mag sulfate 4 g x 1, NS 1 L -Patient was admitted for hyperkalemia and EVARISTO on CKD Review of Systems Review of systems otherwise negative except what is mentioned above. Past Medical History: as above Family History: no pertinent family history. Denies family history of cardiac disease or stroke. Surgical History: none Social History: Denies history of smoking, denies current alcohol use, denies recreational drug use Current Medications: Januvia 100 mg daily, metformin 1000mg daily, Bicalutamide 50 mg daily, tamulosin 0.4mg daily, amoxicillin/clauvulanate (Source: medication bottles brought by patient) Allergies: No known drug allergies Exam Vital Signs Temp Pulse Resp BP Pulse Ox O2 Del Method 98.6 F 77 14 99/65 99 Room Air 06/24/25 20:31 06/24/25 20:31 06/24/25 20:31 06/24/25 20:31 06/24/25 20:31 06/24/25 20:31 Narrative Exam Physical Exam General: Awake and in no acute distress. Conversational and non-toxic appearing. HEENT: Normocephalic, atraumatic, mucous membranes moist. Heart: Regular rate and rhythm, normal S1 and S2, no murmurs appreciated. Lungs: Clear to auscultation with no wheezing or crackles. Abdomen: Soft, nondistended, nontender, positive bowel sounds. No guarding or rebound tenderness. Neurologic: Alert and oriented x3, no gross neurological deficit, and patient able to move all 4 extremities. Extremities: No edema. : Velasquez in place, draining well. No obstructions observed. Skin: No rash, scattered ecchymoses. Results: Labs 06/25/25 06:35 06/25/25 06:35 Labs: Short CBC 06/24/25 Range/Units 15:32 WBC 7.3 (3.8-10.6) Thou/mm3 Hgb 12.2 L (13.5-16.0) g/dL Hct 37.0 L (41.0-53.0) % Plt Count 360 D (140-440) Thou/mm3 BMP 06/24/25 06/24/25 15:32 19:29 Sodium 129 L 130 L Potassium 5.6 H 5.7 H Chloride 94 L 98 Carbon Dioxide 23.7 22.1 BUN 28 H 26 H Creatinine 2.2 H 1.8 H Glucose 127 H 96 Calcium 10.3 10.0 Cardiac Enzymes 06/24/25 Range/Units 15:32 Troponin I < 0.020 (0.0-0.045) ng/mL Liver Function 06/24/25 06/24/25 Range/Units 15:32 19:29 Total Bilirubin 0.7 (0.3-1.2) mg/dL AST 19 (0-34) U/L ALT 11 (10-49) U/L Alkaline Phosphatase 69 (46-116) U/L Albumin 4.6 4.0 D (3.4-4.8) gm/dL Urine 06/24/25 Range/Units 21:23 Urine Color Lt-Yellow (Lt Yel-Yel) Urine Clarity Turbid A (Clear/Hazy) Urine pH 6.0 (5.0-7.0) Ur Specific [place] 1.012 (1.001-1.035) Urine Protein Trace (Neg - Trace) Urine Glucose (UA) 2+ A (Negative) Quality Measures Quality Measures VTE prophylaxis Advance care planning discussed with:: patient Medications Home Medications and Allergies Home Medications ?Medication ?Instructions ?Recorded ?Confirmed ?Type acetaminophen 500 mg tablet 500 mg PO Q6H PRN pain 03/17/25 06/25/25 History metformin 500 mg tablet 500 mg PO BID 03/17/25 06/25/25 History sitagliptin phosphate 50 mg tablet 100 mg PO QDAY 03/17/25 06/25/25 History (Januvia) tamsulosin 0.4 mg capsule 0.4 mg PO DAILY 06/24/25 06/24/25 History bicalutamide 50 mg tablet 50 mg PO 1XD 06/25/25 06/25/25 History metformin 1,000 mg tablet 1,000 mg PO 2XD 06/25/25 06/25/25 History Allergies Allergy/AdvReac Type Severity Reaction Status Date / Time No Known Allergies Allergy Verified 06/24/25 14:55 Visit Medications Acetaminophen (Acetaminophen 325 Mg Tablet) 650 mg PO Q6H PRN PRN Reason: Fever >100.3 or pain 1-3 Stop: 07/24/25 21:30 Dextrose (Dextrose 50%-Water Inj 50 Ml Syringe) 25 ml IV Q15MIN PRN PRN Reason: BG 50-70 responsive npo pt Stop: 07/24/25 21:40 Dextrose (Dextrose 50%-Water Inj 50 Ml Syringe) 50 ml IV Q15MIN PRN PRN Reason: BG <50 OR BG <70 & pt unresponsive Stop: 07/24/25 21:40 Dextrose (Dextrose 50%-Water Inj 50 Ml Syringe) 25 ml IV Q15MIN PRN PRN Reason: BG 50-70 responsive npo pt Stop: 07/24/25 21:40 Dextrose (Dextrose 50%-Water Inj 50 Ml Syringe) 50 ml IV Q15MIN PRN PRN Reason: BG <50 OR BG <70 & pt unresponsive Stop: 07/24/25 21:40 Glucagon (Glucagon Inj 1 Mg Vial) 1 mg IM Q15MIN PRN PRN Reason: BG <70, and no IV access Glucagon (Glucagon Inj 1 Mg Vial) 1 mg IM Q15MIN PRN PRN Reason: BG <70, and no IV access Heparin Sodium (Porcine) (Heparin Sod Inj 5000 Unit/Ml Vial) 5,000 unit SC Q8HR ADRIAN Stop: 07/08/25 21:59 Magnesium Sulfate (Magnesium Sulfate Ivpb) 4 gm in 50 mls @ 12.5 mls/hr IV X1 ONE Stop: 06/24/25 22:16 Last Admin: 06/24/25 18:36 Dose: 12.5 mls/hr Sodium Chloride (Ns) 1,000 mls @ 85 mls/hr IV .[id number] ADRIAN Stop: 07/24/25 21:44 Insulin Human Lispro (Insulin Lispro (Admelog) 1 Unit/0.01 Ml Unit) 0 unit SC ACHS ADRIAN; Protocol Stop: 07/25/25 07:29 Lactulose (Lactulose Syrup 20 Gm/30 Ml Udc) 10 gm PO QDAY [facility]; Protocol Stop: 07/25/25 08:59 Ondansetron HCl (Ondansetron Inj 2 Mg/Ml Inj 2 Ml) 4 mg IVP Q6H PRN; Protocol PRN Reason: NAUSEA OR VOMITING Stop: 07/24/25 21:30 Tamsulosin HCl (Tamsulosin Hcl 0.4 Mg Capsule) 0.4 mg PO DAILY [facility] Stop: 07/25/25 08:59 Discontinued Medications Sodium Chloride (Ns) 1,000 mls @ 999 mls/hr IV .Q1H1M ONE Stop: 06/24/25 16:17 Last Infusion: 06/24/25 16:43 Dose: Infused Insulin Human Regular (Insulin Hum Regular 1 Unit/0.01 Ml (Per Unit)) 5 unit IV X1 ONE Stop: 06/24/25 21:42 Assessment & Plan Plan Patient is a 69 year old male with PMH of prostate cancer with metastasis, chronic indwelling Velasquez, non-insulin dependent DM2, HTN, HLD, CKD who presents to the ED on 06/24 for chief complaint of presyncope s/p fall yesterday, admitted for hyperkalemia along with other electrolyte abnormalities and EVARISTO on CKD. Now found to have UTI. #Hyperkalemia #Hyperphosphatemia Likely multifactorial secondary to CKD, prostate cancer history, and bilateral adrenal masses suspicious for hypoaldosteronism. Per review of records, patient has chronic issues with hyperkalemia (previously 6.1 on 06/10/25). EKG sinus rhythm, unremarkable for peaked T waves or prolonged AK interval. Potassium 5.6, phosphorus 6.5 on admission. Plan: - S/p Kayexelate and insulin regular 5 units x1 - Given Sevelamer 800 mg x1 - Pending repeat BMP midnight - Monitor on telemetry #EVARISTO on CKD - improving #CKD stage 3b Likely prerenal (2/2 to dehydration) versus postrenal (2/2 prostamegaly). Improving s/p IVF bolus in ED. Creatinine 2.2 on admission (baseline 1.3 previously). GFR 30-40, previously 50s in February 2025. Plan: - IV NS maintenance fluids - Strict I&O's - Avoid nephrotoxins - Monitor renal panel - Renally dosed medications - Hold any CHRISTOPHER/ARB/diuretics #Prostate cancer with metastasis #BPH #Chronic indwelling Velasquez #UTI #Hx recurrent UTIs Recently diagnosed with stage IV prostate cancer with mets, following Dr. Myers outpatient, last PSA 291, was started on hormone therapy Bicalutamide [address] A/P 06/24 shows marked prostatomegaly with bladder wall thickening, concern for cystitis versus outflow tract obstruction 2/2 enlarged prostate. Velasquez usually changed at hospital in [place], last changed 2 months ago. Has good urine output but noticed white deposits and light, foamy urine. Has history of recurrent UTIs, taking amox/clav per med review on admission. UA 06/24 shows positive leuk esterase, neg nitrites, RBC 6, WBC 422, no bacteria, urine yeast present. Previous urine culture 06/10/25 grew pseudo fluorescens. Will treat empirically. - f/u urine cultures - start on CFX 1g IV (06/25- - Continue home dose tamulosin - Continue home dose Bicalutamide - Consider consulting oncologist Dr. Myers on Friday #Presycnope #S/p fall Per patient, fell yesterday due to sudden blurry vision, hit head but denied LOC. Endorsed headache prior to fall, worsened after fall. Denies history of seizures or afib. BP on admission soft at 93/62. Per , has been SBP 90-[address] head 06/24 negative for acute intracranial changes. EKG was unremarkable, sinus rhythm with no ST changes noted. Given concurrent EVARISTO, suspect orthostatic hypotension, less likely stroke versus seizure versus afib. Plan: - Orthostatic vitals ordered - IVF as above - Monitor telemetry - Consider neuro and cardiac work up #Hyponatremia, chronic Previously hyponatremic (129-low 130s). Likely secondary to hypoaldosterone from bilateral adrenal masses seen on CT A/P. - Continue to monitor - On NS IV maintenance as above #Hypomagnesemia Low at 1.4 on admission, s/p Mag sulfate 4gm IV in ED. - replete as needed - monitor on daily labs #Hypertension Home medications previously included Lisinopril, unclear if taking. Pending med rec. - Hold lisinopril as patient is hypotensive/normotensive - Continue tamulosin as above - Pending med rec #DM2, non insulin dependent Takes metformin and Jardiance at home. A1c 02/2025 7.0. - pending A1c - SSI - Monitor blood glucose - Hold home Jardiance and metformin - Pending med rec #HLD Previous lipid panel 02/2025: trig 267, total cholesterol 188, LDL 107, HDL 28. Not taking statin at home. ASCVD score: 32.2% (high intensity statin recommended) - follow up lipid panel AM - atorvastatin 80mg HS - not on statins, pending med rec Health Maintenance Disposition: Observation for electrolyte imbalance and EVARISTO on CKD DVT prophylaxis: Heparin SQ GI prophylaxis: Zofran Bowel prophylaxis: Lactulose daily Diet: low carb renal CODE STATUS: FULL Patient plan of care was discussed with the attending physician, Dr. Hollis. Love Barrientos, PGY-1 Attending Provider Attestation/Addendum Attending Provider Attestation/Addendum After examination of the patient and review of the clinical data I feel that this patient needs admission to the hospital for further treatment/evaluation. I Luz Maria Hollis MD, attest that I was physically present for cordova portions of evaluation, and examined patient, labs and imaging of patient were reviewed with the residents and a plan of care was discussed IM residents team along with patient and his son at bedside, and I agree with the findings and plans documented above.
[2025-06-24 22:31] LABS: Amphetamine/Methamp Scrn,U Negative (Negative); Barbiturate Screen,Urine Negative (Negative); Benzodiazepines Screen,Urine Negative (Negative); Benzoylecgonine Screen, Ur Negative (Negative); Fentanyl Screen,Urine Negative (Negative); Opiate Screen,Urine Negative (Negative); THC Screen,Urine Negative (Negative)
[2025-06-24 23:21] VITALS: BP 103/66; PULSE 76; RESP 19; TEMP 36.9; O2SAT 98
[2025-06-24] MEDS: ACETAMINOPHEN 325 MG TABLET 650 MG PO (23:24)
[2025-06-24] MEDS: SOD POLYSTYRENE SULFON SUSP 15 GM/60 ML BTL 30 GM PO (23:28)
[2025-06-24] MEDS: INSULIN HUM REGULAR 1 UNIT/0.01 ML (PER UNIT) 5 UNIT IV (23:31)
[2025-06-24] MEDS: HEPARIN SOD INJ 5000 UNIT/ML VIAL SC (23:31)
[2025-06-25] VITALS (9 sets, daily range): BP systolic 89–110; BP diastolic 62–73; PULSE 68–83; RESP 15–99; TEMP 36.1–36.7; O2SAT 94–99; BMI 26.6
[2025-06-25 01:00] LABS: Anion Gap 9 (7-16); BUN/Creatinine Ratio 14 Ratio (12-20); Blood Urea Nitrogen 26 mg/dL (9-23); Calcium 9.4 mg/dL (8.3-10.6); Carbon Dioxide 22.9 mMol/L (20.0-31.0); Chloride 98 mMol/L (98-107); Creatinine (Component) 1.9 mg/dL (0.6-1.3); Estimated Creatinine Clearance 30.3 mL/min (>60); Glucose 90 mg/dL (74-106); Osmolality,Calculated 265 (275-295); Potassium 4.7 mMol/L (3.4-5.1); Sodium 130 mMol/L (136-145); eGFR 37 See Note
[2025-06-25] MEDS: cefTRIAXone/D5w 1gm IV premix 1 GM/50 ML BAG IV ×2 (01:42→09:53)
[2025-06-25] MEDS: SODIUM CHLORIDE 0.9% 1000 ML 1,000 ML 85 ML IV (01:42)
[2025-06-25] MEDS: HEPARIN SOD INJ 5000 UNIT/ML VIAL SC ×3 (05:53→21:08)
[2025-06-25] MEDS: SEVELAMER CARBONATE 800 MG TABLET PO (05:53)
[2025-06-25 07:01] LABS: Basophils # (Auto) 0.0 Thou/mm3 (0.0-0.2); Basophils % (Auto) 0 % (0-2.5); Eosinophils # (Auto) 0.1 Thou/mm3 (0.0-0.5); Eosinophils % (Auto) 2 % (0-10); Hematocrit 31.1 % (41.0-53.0); Hemoglobin 10.4 g/dL (13.5-16.0); Immature Granulocytes Auto 0.01 Thou/mm3 (0.00-0.00); Lymphocytes # (Auto) 2.4 Thou/mm3 (1.0-4.8); Lymphocytes % (Auto) 46 % (10-50); Mean Corpuscular HGB Conc 33.4 g/dl (31.0-37.0); Mean Corpuscular Hemoglobin 28.0 pg (25.0-35.0); Mean Corpuscular Volume 84 fL (80-100); Monocytes # (Auto) 0.5 Thou/mm3 (0.0-0.8); Monocytes % (Auto) 10 % (0-12); Neutrophils # (Auto) 2.2 Thou/mm3 (1.8-7.7); Neutrophils % (Auto) 42 % (37-80); Nucleated Red Blood Cell # 0.00 Thou/mm3 (0.00-0.00); Nucleated Red Blood Cell % 0 /100 WBC (0); Platelet Count 303 Thou/mm3 (140-440); RDW Standard Deviation 41.6 fL (35.1-43.9); Red Blood Count 3.72 Miln/mm3 (4.50-5.90); White Blood Count 5.2 Thou/mm3 (3.8-10.6)
[2025-06-25 07:26] LABS: Alanine Aminotransferase 10 U/L (10-49); Albumin, Serum 4.0 gm/dL (3.4-4.8); Albumin/Globulin Ratio 1.5 (1.2-2.2); Alkaline Phosphatase 62 U/L (46-116); Anion Gap 9 (7-16); Aspartate Amino Transferase 18 U/L (0-34); BUN/Creatinine Ratio 13 Ratio (12-20); Bilirubin,Total 0.7 mg/dL (0.3-1.2); Blood Urea Nitrogen 24 mg/dL (9-23); Calcium 9.4 mg/dL (8.3-10.6); Calcium (Corrected) 9.4 mg/dL (8.5-10.1); Carbon Dioxide 22.2 mMol/L (20.0-31.0); Cardiac Risk Estimate 4.5 RATIO (4.0-6.7); Chloride 100 mMol/L (98-107); Cholesterol 159 mg/dL (132-200); Creatinine (Component) 1.9 mg/dL (0.6-1.3); Estimated Creatinine Clearance 31.5 mL/min (>60); Globulin 2.6 gm/dL (2.3-3.5); Glucose 104 mg/dL (74-106); HDL Cholesterol 35 mg/dL (40-60); LDL Cholesterol,Calculated 98 mg/dL (0-130); Magnesium 2.0 mg/dL (1.6-2.6); Osmolality,Calculated 266 (275-295); Phosphorous 6.3 mg/dL (2.4-5.1); Potassium 5.1 mMol/L (3.4-5.1); Sodium 131 mMol/L (136-145); Total Protein 6.6 gm/dL (5.7-8.2); Triglycerides 131 mg/dL (30-150); eGFR 37 See Note
[2025-06-25 08:15] LABS: Glucose Estimated Average 134 mg/dL (80-131); Hemoglobin A1C 6.3 % Hgb (4.8-6.0)
[2025-06-25] MEDS: LACTULOSE SYRUP 20 GM/30 ML UDC 10 GM PO (09:53)
[2025-06-25] MEDS: TAMSULOSIN HCL 0.4 MG CAPSULE PO (09:54)
--- NOTE | 2025-06-25 10:20 | PC.SS ---
Cornell Montalvo is a 69-year-old male admitted to [place] for Hyperkalemia. SS conducted bedside contact with the patient to complete initial assessment and to discuss discharge planning, utilizing [facility]. Role and reason explained. Patient was accompanied by his Viviana Sauceda [phone] who answered on behalf of the pt. Viviana confirmed demographic information. Viviana identified their son Fabio Sauceda [phone] as the pts surrogate decision maker. She is identified as a secondary. Viviana reports the pt is independent but in moments of weakness, she will assist him. Pt utilizes a cane for ambulation. Pts PCP is Dr. Ku from [facility]. Last visit was about 1.5 months ago. Pts [facility]. Plan is for the pt to return home at the time of DC and pt family will provide transport. No further needs identified. SS will remain available. DC Plan: Home DM: Fabio Fisher PCP: Dr. Ku, [facility]
--- NOTE | 2025-06-25 10:53 | ESPR_ITS ---
<Statement entered by Anthony Velez MD - 06/25/25 17:22> Patient was seen and examined at bedside. I agree on the assessment and plan on this note as documented by resident Caridad Panda PGY1. Patient admitted overnight for EVARISTO, patient EVARISTO likely prerenal orthostatic positive, nephrology consulted we will continue maintenance IV fluid at rate 125 cc/h, no concern of heart failure no underlying history of heart failure. Did have an element of syncope for presentation, we ordered echocardiogram however echo is unavailable at the facility until 29 June 2025, patient will likely need echocardiogram outpatient if not available at facility. We have established care with nephrology, patient should follow outpatient with nephrology considering there is a competent of postrenal in setting of prostate cancer meta stasis. Otherwise hyponatremia has improved, will continue with IV fluids. On insulin sliding scale for type 2 diabetes, A1c 6.3. On IV ceftriaxone for urinary tract infection, Olson catheter was exchanged today at bedside by nurse. Case discussed with attending Dr. Miles Velez MD PGY-2 Documentation for date of: 06/25/25 Subjective Subjective Interval history: A 69-year-old male with past medical history of prostate CA stage 4 with mets, chronic indwelling catheter, non-insulin dependent DM2, HTN, HLD, CKD who presented to ED with chief complain of pre-syncope, s/p fall on May. Patient reported that on day he went to restaurant had 2 sip of coffee, stood up felt dizziness, blurry vision and fell down on his left side. He denies LOC. He endorses intermittent headaches that worsen after the fall, and left hip pain. Admitted for hyperkalemia and EVARISTO on CKD. Today , patient was examined at bedside, no active complain. Labs reviewed. He denies blurry vision, and UTI symptoms. He endorses mild headache, left side hip discomfort. Completed Orthostatic vitals this morning, blood pressure laying down-110/73, sitting-104/63, standing-89/62. We consulted nephrology today-recommended increase IV fluids for the patient, plan to get echocardiogram for syncope work-up. Exam Vital Signs Temp Pulse Resp BP Pulse Ox O2 Del Method 97.2 F 72 16 110/73 98 Room Air 06/25/25 08:00 06/25/25 08:00 06/25/25 08:00 06/25/25 08:00 06/25/25 08:00 06/25/25 08:00 Constitutional Constitutional: no acute distress and cooperative Routine HEENT Exam Head: Present normocephalic Eye: Present PERRL ENT: Present mucous membranes moist Routine Respiratory Exam Respiratory: Present chest non-tender, lungs clear and normal breath sounds Routine Cardiovascular Exam Cardiovascular: Present RRR, S1 and S2 Routine Abdominal Exam Abdominal: Present soft and normoactive bowel sounds Routine Exam Comments: Olson cath in place Routine Extremities Exam Extremities: Present edema (no edema) and pulses intact Routine Skin Exam Skin: Present intact and normal turgor Routine Neurological Exam Neurological: Present alert, oriented X3, CN II-XII intact, moving all extremities and normal speech Objective Labs 06/25/25 06:35 06/25/25 06:35 Labs: Laboratory Results - last 24 hr 06/24/25 06/24/25 06/24/25 15:32 19:29 21:23 WBC 7.3 RBC 4.39 L Hgb 12.2 L Hct 37.0 L MCV 84 MCH 27.8 MCHC 33.0 RDW Std Deviation 42.3 Plt Count 360 D Neut % (Auto) 43 Lymph % (Auto) 46 Moca % (Auto) 8 Eos % (Auto) 2 Baso % (Auto) 0 Neut # (Auto) 3.2 Lymph # (Auto) 3.4 Moca # (Auto) 0.6 Eos # (Auto) 0.2 Baso # (Auto) 0.0 Immature Gran # (Auto) 0.01 H Absolute Nucleated RBC 0.00 Immature Gran % 0 Nucleated RBC % 0 PT 10.6 INR 1.0 APTT 29.8 Sodium 129 L 130 L Potassium 5.6 H 5.7 H Chloride 94 L 98 Carbon Dioxide 23.7 22.1 Anion Gap 11 10 BUN 28 H 26 H Creatinine 2.2 H 1.8 H Estim Creat Clear Calc 26.2 L 32.0 L eGFR 31 L 40 L BUN/Creatinine Ratio 13 14 Glucose [address] Glu mg/dL Hemoglobin A1c Calculated Osmolality 266 L 265 L Lactic Acid 1.6 Calcium 10.3 10.0 Corrected Calcium 10.3 H 10.0 Phosphorus 6.5 H Magnesium 1.4 L Total Bilirubin 0.7 AST 19 ALT 11 Alkaline Phosphatase 69 Lactate Dehydrogenase 113 L Troponin I < 0.020 B-Natriuretic Peptide < 20 Total Protein 7.8 Albumin 4.6 4.0 D Globulin 3.2 Albumin/Globulin Ratio 1.4 Triglycerides Cholesterol LDL Cholesterol, Calc HDL Cholesterol Cholesterol/HDL Ratio Ur Collection Type Clean Catch Urine Color Lt-Yellow Urine Clarity Turbid A Urine pH 6.0 Ur Specific Blanchard 1.012 Urine Protein Trace Urine Glucose (UA) 2+ A Urine Ketones Negative Urine Blood Trace Urine Nitrite Negative Urine Bilirubin Negative Urine Urobilinogen (Auto) Negative Ur Leukocyte Esterase Positive Urine RBC 6 H Urine WBC 422 H Ur Squamous Epith Cells < 1 Urine Bacteria None Urine Yeast (Budding) Present A Urine Opiates Screen Negative Urine Fentanyl Screen Negative Ur Barbiturates Screen Negative U Amphetamin/Meth Scrn Negative U Benzodiazepines Scrn Negative U Cocaine Metab Screen Negative U Marijuana (THC) Screen Negative 06/25/25 06/25/25 00:08 06:35 WBC 5.2 RBC 3.72 L Hgb 10.4 L Hct 31.1 L MCV 84 MCH 28.0 MCHC 33.4 RDW Std Deviation 41.6 Plt Count 303 D Neut % (Auto) 42 Lymph % (Auto) 46 Moca % (Auto) 10 Eos % (Auto) 2 Baso % (Auto) 0 Neut # (Auto) 2.2 Lymph # (Auto) 2.4 Moca # (Auto) 0.5 Eos # (Auto) 0.1 Baso # (Auto) 0.0 Immature Gran # (Auto) 0.01 H Absolute Nucleated RBC 0.00 Immature Gran % 0 Nucleated RBC % 0 PT INR APTT Sodium 130 L 131 L Potassium 4.7 D 5.1 Chloride 98 100 Carbon Dioxide 22.9 22.2 Anion Gap 9 9 BUN 26 H 24 H Creatinine 1.9 H 1.9 H Estim Creat Clear Calc 30.3 L 31.5 L eGFR 37 L 37 L BUN/Creatinine Ratio 14 13 Glucose [address] Glu mg/dL 134 H Hemoglobin A1c 6.3 H Calculated Osmolality 265 L 266 L Lactic Acid Calcium 9.4 9.4 Corrected Calcium 9.4 Phosphorus 6.3 H Magnesium 2.0 Total Bilirubin 0.7 AST 18 ALT 10 Alkaline Phosphatase 62 Lactate Dehydrogenase Troponin I B-Natriuretic Peptide Total Protein 6.6 Albumin 4.0 Globulin 2.6 Albumin/Globulin Ratio 1.5 Triglycerides 131 Cholesterol 159 LDL Cholesterol, Calc 98 HDL Cholesterol 35 L Cholesterol/HDL Ratio 4.5 Ur Collection Type Urine Color Urine Clarity Urine pH Ur Specific Blanchard Urine Protein Urine Glucose (UA) Urine Ketones Urine Blood Urine Nitrite Urine Bilirubin Urine Urobilinogen (Auto) Ur Leukocyte Esterase Urine RBC Urine WBC Ur Squamous Epith Cells Urine Bacteria Urine Yeast (Budding) Urine Opiates Screen Urine Fentanyl Screen Ur Barbiturates Screen U Amphetamin/Meth Scrn U Benzodiazepines Scrn U Cocaine Metab Screen U Marijuana (THC) Screen Quality Measures Quality Measures none Advance care planning discussed with:: spouse Assessment & Plan Assessment Current Active Medications: Generic Name Dose Route Start Last Admin Trade Name Freq PRN Reason Stop Dose Admin Acetaminophen 650 mg 06/24/25 21:31 Acetaminophen 325 Mg Tablet PO 07/24/25 21:30 Q6H PRN Fever >100.3 or pain 1-3 Atorvastatin Calcium 80 mg 06/25/25 21:00 Atorvastatin Calcium 20 Mg Tablet PO 07/25/25 20:59 HS ADRIAN Dextrose 25 ml 06/24/25 21:41 Dextrose 50%-Water Inj 50 Ml Syringe IV 07/24/25 21:40 Q15MIN PRN BG 50-70 responsive npo pt Dextrose 50 ml 06/24/25 21:41 Dextrose 50%-Water Inj 50 Ml Syringe IV 07/24/25 21:40 Q15MIN PRN BG <50 OR BG <70 & pt unresponsive Glucagon 1 mg 06/24/25 21:41 Glucagon Inj 1 Mg Vial IM Q15MIN PRN BG <70, and no IV access Heparin Sodium (Porcine) 5,000 unit 06/24/25 22:00 06/25/25 05:53 Heparin Sod Inj 5000 Unit/Ml Vial SC 07/08/25 21:59 5,000 unit Q8HR ADRIAN Administration Sodium Chloride 1,000 mls @ 85 mls/hr 06/24/25 21:45 06/25/25 01:42 Ns IV 07/24/25 21:44 85 mls/hr .[id number] ADRIAN Administration Ceftriaxone Sodium/Dextrose 1 gm in 50 mls @ 100 mls/hr 06/25/25 01:03 06/25/25 09:53 Rocephin/D5w 1gm Iv Premix IV 07/02/25 01:02 100 mls/hr QDAY ADRIAN Administration Sodium Chloride 1,000 mls @ 75 mls/hr 06/25/25 10:33 Ns IV 06/25/25 23:52 .[id number] ADRIAN Insulin Human Lispro 0 unit 06/25/25 07:30 Insulin Lispro (Admelog) 1 Unit/0.01 Ml Unit SC 07/25/25 07:29 ACHS ADRIAN Protocol Lactulose 10 gm 06/25/25 09:00 06/25/25 09:53 Lactulose Syrup 20 Gm/30 Ml Udc PO 07/25/25 08:59 10 gm QDAY ADRIAN Administration Protocol Ondansetron HCl 4 mg 06/24/25 21:31 Ondansetron Inj 2 Mg/Ml Inj 2 Ml IVP 07/24/25 21:30 Q6H PRN NAUSEA OR VOMITING Protocol Tamsulosin HCl 0.4 mg 06/25/25 09:00 06/25/25 09:54 Tamsulosin Hcl 0.4 Mg Capsule PO 07/25/25 08:59 0.4 mg DAILY ADRIAN Administration Plan A 69 year old male with PMHx of prostate cancer with Mets, chronic indwelling Olson, non-insulin dependent DM2, HTN, HLD, CKD, presented to ED on 06/24/25 for cc of presyncope s/p fall 06/23/25 admitted for hyperkalemia, hyperphosphatemia, hypomagnesemia and EVARISTO on CKD. #EVARISTO on CKD- IMPROVING # CKD stage 3b Likely prerenal (2/2 to dehydration) versus postrenal (2/2 prostamegaly). Improving s/p IVF bolus in ED. Creatinine 2.2 on admission (baseline 1.3 previously). GFR 30-40, previously 50s in February 2025 Plan # consulted Nephrology # follow nephrology recommendation to increase IVF rates to 125ml/hr # strict I/Os, monitor U/O # avoid nephrotoxins # ordered a renal U/S # ordered urine electrolytes #Hyperkalemia #Hyperphosphatemia Likely multifactorial secondary to CKD, prostate cancer history, and bilateral adrenal masses suspicious for hypoaldosteronism. Per review of records, patient has chronic issues with hyperkalemia (previously 6.1 on 06/10/25). EKG sinus rhythm, unremarkable for peaked T waves or prolonged FL interval. Potassium 5.6, phosphorus 6.5 on admission. Plan - continue to monitor electrolytes levels - increase IV fluids to rate 125ml/hr # Prostate CA mets stage 4 # BPH # Chronic indwelling Olson # History of recurrent UTIs # UTI Recently diagnosed with stage IV prostate cancer with mets, following Dr. Myers outpatient, last PSA 220, was started on hormone therapy Bicalutamide 500 mg daily. Per oncology consult note the prostate biopsy (03/18/25) showed prostate adenocarcinoma grade 6 ( 3+3) grade 1 in right lobe, left lobe is benign. CT A/P 06/24 shows marked prostatomegaly with bladder wall thickening, concern for cystitis versus outflow tract obstruction 2/2 enlarged prostate. Olson usually changed at hospital in [place], last changed 2 months ago. Has good urine output but noticed white deposits and light, foamy urine. Has history of recurrent UTIs, taking amox/clav per med review on admission. UA 06/24 shows positive leuk esterase, neg nitrites, RBC 6, WBC 422, no bacteria, urine yeast present. Previous urine culture 06/10/25 grew pseudo fluorescens/putida,resistance to cefepime, sensitive to ceftriaxone. - Continue ceftriaxone 1gm - Change olson cath - Hold hormone therapy meds- Bicalutamide - Hold tamsulosin med - F/u with oncologist outpatient when D/C - f/u urine culture # Syncope # s/p fall # orthostatic hypotension Per patient, on 06/23/25 after standing up from a chair, had sudden blurry vision, had dizzy spells fell and fell down on his his left side, hit his head but denied LOC. Endorsed headache prior to fall, worsened after fall. Denies history of seizures or afib. BP on admission soft at 93/62. Per , has been SBP 90-[address] head 06/24 negative for acute intracranial changes. EKG was unremarkable, sinus rhythm with no ST changes noted. Given concurrent EVARISTO, suspect orthostatic hypotension, less likely stroke versus seizure versus afib. Completed Orthostatic vitals this morning, blood pressure laying down-110/73, sitting-104/63, standing-89/62. Plan - order thansthoracic echocardiogram for cardiac work-up of syncope - continue IVF as mention above - continue to monitor orthostatic vitals # Hyponatremia (chronic) # Hypomagnesemia Previously hyponatremic (129-low 130s). Likely secondary to hypoaldosterone from bilateral adrenal masses seen on CT A/P. Low Mg at 1.4 on admission, s/p Mag sulfate 4gm IV in ED Plan - continue to monitor BMP for sodium levels - on NS IV maintenance as above - replete Mg as needed - monitor daily labs # Hypertension - Pt mentions history of HTN, not on antihypertensive meds. Currently positive for ortostatic hypotension. Plan - Hold antihypertensive - monitor blood pressure # DM2, non insulin dependent At home he takes jardiance 100mg PO QD and metformin 1000 mg PO 2XD. Today's A1c is 6.3, last A1c in February was 7.0. plan -ISS -continue to monitor blood glucose levels # HLD Previous lipid panel 02/2025: trig 267, total cholesterol 188, LDL 107, HDL 28. Not taking statin at home. ASCVD score: 32.2% (high intensity statin recommended) Plan - continue atorvastatin 80mg PO HS tablet Health Maintenance Disposition: Nephrology consulted, will change olson cath, folow urine cultures, for electrolyte imbalance and EVARISTO on CKD DVT prophylaxis: Heparin SQ GI prophylaxis: not indicated Bowel prophylaxis: Senna doc daily Diet: low carb renal CODE STATUS: FULL Patient seen and assessed under supervision of attending physician Dr. Aquino and discuss with senior resident Dr. Velez PGY-2 Caridad Panda MD PGY-1, Internal Medicine Attending Provider Attestation/Addendum I attest that I was physically present for the evaluation, physical examination, lab and imaging review of the patient with the residents. I discussed the case with the residents and agree with the findings and plans of care as documented above. Patient is a 69 years old male with past medical history of prostate carcinoma with mets, chronic indwelling Olson catheter, diabetes mellitus, hypertension, hyperlipidemia and CKD who presented to the ED after a fall. Patient was admitted overnight for management of presyncope, electrolyte imbalances, EVARISTO on CKD, UTI. Diet, patient states he is feeling well and denies any new complaints. Orthostatic vitals came back positive. Denies any urinary symptoms. Nephrology consulted, recommended to increase IV hydration and obtain renal ultrasound along with urine electrolytes. We will aim normal saline to 125 cc/h, avoid nephrotoxins and monitor intake and output closely. We will closely monitor electrolytes and correct as needed. Continues to be on Rocephin for UTI, cultures are pending. We will hold tamsulosin in light of orthostatic hypotension, continue with IV hydration, and obtain echocardiography. Orthostatic hypotension possibly secondary to dehydration, can also be from autonomic neuropathy secondary to diabetes. Hemoglobin A1c noted to be 6.3, we will monitor his blood glucose level closely and continue with sliding scale. Continues to be on atorvastatin for hyperlipidemia. Sagar Aquino MD
--- NOTE | 2025-06-25 11:47 | PC.NURSE ---
Called hospitalist team regarding duplicate NS orders, per team, both orders will be discontinued with a new rate to be ordered.
--- NOTE | 2025-06-25 12:56 | XR_ITS ---
Examination: Retroperitoneal ultrasound, complete Technique: Multiple high resolution grayscale images of the retroperitoneum obtained, including kidneys and bladder. Exam date and time:February 23, 2025 at 1525 hours INDICATIONS: Bilateral flank pain beginning one year ago FINDINGS: Right kidney 11.0 cm renal cortex 1.5 cm Left kidney 9.8 cm renal cortex 1.6 cm Moderate bilateral renal parenchymal scar formation Midpole left renal cyst 13 mm No hydronephrosis Bilateral contracted around a Velasquez catheter Prostate 5.1 x 4.9 x 6.4 cm with central 3.3 x 2.6 x 3.0 cm mass IMPRESSION: Bilateral renal cortical thinning Moderate bilateral renal parenchymal scar formation Recommend transrectal prostate sonography follow-up to confirm 3.3 cm prostate mass
[2025-06-25] MEDS: SODIUM CHLORIDE 0.9% 1000 ML 1,000 ML 125 ML IV (13:32)
--- NOTE | 2025-06-25 13:59 | PD.RESCONSUL ---
HPI Data of Consult Consult date: 06/25/25 Requesting Physician: Luz Maria Hollis MD Admitting Provider: Luz Maria Hollis MD Attending Provider: Luz Maria Hollis MD Primary Care Provider: Physician No Primary/Family Consult Narrative Reason for consult: EVARISTO History of present illness: american sign language interpreter used Mr. Sarabia is a 69-year-old gentleman with past medical history significant for metastatic prostate cancer, indwelling Velasquez catheter, diabetes, hypertension, dyslipidemia, underlying CKD (never seen a papier mache' molder) presented to the emergency department with weakness, presyncope and fall. Patient's is at the bedside. Apparently he has been under the care of Dr. Myers for his recent prostate cancer stage IV and is currently on bicalutamide. Noted to have hypotension, white count 7.3, hemoglobin 12.2, potassium 5.6, sodium 129, BUN 23, creatinine 2.2, calcium 10.3, phosphorus 6.5, magnesium 1.4, LDH 113, EKG normal sinus rhythm. Head CT negative. CT abdomen showed periaortic lymph nodes and bilateral adrenal masses. Marked prostatomegaly with bladder wall thickening. Patient admitted to medical team for hyperkalemia, weakness, UTI, EVARISTO Making good urine although very cloudy. Current Medications: Januvia 100 mg daily, metformin 1000mg daily, Bicalutamide 50 mg daily, tamulosin 0.4mg daily, amoxicillin/clauvulanate Allergies: No known drug allergies 06/25/2025 WBC 5.2, hemoglobin 10.4, platelets 303. Sodium 131, potassium 5.1, bicarbonate 22, BUN 24, creatinine 1.9, A1c 6.3, LFTs normal, phosphorus 6.3, lipids normal urinalysis shows pyuria. at bedside cc:: cc: Luz Maria Hollis MD Review of Systems Review of Systems Narrative Review of Systems: Limited-denies any chest pain, shortness of breath, denies any nausea, vomiting. Does have indwelling Velasquez catheter. Past Medical History Past Medical History NEUROLOGIC: Negative Neurological Disorders CARDIAC: Positive Cardiac Disorders and Hypertension; Negative Congestive Heart Failure RESPIRATORY: Negative Respiratory Disorders, Chronic Obstructive Pulmonary Disease (COPD) or Asthma GASTROINTESTINAL: Negative Gastrointestinal Disorders GENITOURINARY: Positive Prostate Cancer; Negative Genitourinary Disorders or Renal Disease MUSCULOSKELETAL: Positive Musculoskeletal Disorders ENDOCRINE: Positive Endocrine Disorders and Diabetes Mellitus Type 2; Negative Diabetes Mellitus Type 1 HEMATOLOGIC: Negative Blood Disorders or Sickle Cell Disease OTHER HISTORY: Positive Cancer and Prostate Cancer; Negative Autoimmune Disease Family History FAMILY HISTORY: Positive Family Respiratory Disorders and Family Cardiac Disorders; Negative Family Psychiatric Problems, Family Gastrointestinal Problems, Family Genitourinary Problems, Family Endocrine Disorders, Family Reproductive Disorders, Family Musculoskeletal Disorders, Family Cancer, Family Surgery or Family Anesthesia Reaction Social History SMOKING STATUS: Never smoker Exam Vital Signs Temp Pulse Resp BP Pulse Ox O2 Del Method 97 F 68 16 96/64 96 Room Air 06/25/25 12:00 06/25/25 12:00 06/25/25 12:00 06/25/25 12:00 06/25/25 12:06/25/25 12:00 Narrative Exam GENERAL APPEARANCE: Clinically patient looks rather dehydrated. Comfortable. at bedside. Dry mucosa NECK: Neck supple, no JVD or bruit CARDIOVASCULAR: Heart regular, no murmurs LUNGS/CHEST: Chest clear to auscultation. No rales, rhonchi, wheezing ABDOMEN: Soft, nontender, nondistended. No masses. Normal bowel sounds. EXTREMITIES: No edema, clubbing or cyanosis. Indwelling Velasquez catheter with cloudy urine SKIN: Skin exam normal without any rashes MUSCULOSKELETAL: In bed NEUROLOGICAL : No neurological deficits Results Labs 06/26/25 05:00 06/26/25 05:00 Labs: Short CBC 06/24/25 06/25/25 Range/Units 15:32 06:35 WBC 7.3 5.2 (3.8-10.6) Thou/mm3 Hgb 12.2 L 10.4 L (13.5-16.0) g/dL Hct 37.0 L 31.1 L (41.0-53.0) % Plt Count 360 D 303 D (140-440) Thou/mm3 BMP 06/24/25 06/24/25 06/25/25 15:32 19:29 00:08 Sodium 129 L 130 L 130 L Potassium 5.6 H 5.7 H 4.7 D Chloride 94 L 98 98 Carbon Dioxide 23.7 22.1 22.9 BUN 28 H 26 H 26 H Creatinine 2.2 H 1.8 H 1.9 H Glucose 127 H 96 90 Calcium 10.3 10.0 9.4 08/02/25 06:35 Sodium 131 L Potassium 5.1 Chloride 100 Carbon Dioxide 22.2 BUN 24 H Creatinine 1.9 H Glucose 104 Calcium 9.4 Cardiac Enzymes 06/24/25 Range/Units 15:32 Troponin I < 0.020 (0.0-0.045) ng/mL Liver Function 06/24/25 06/24/25 06/25/25 Range/Units 15:32 19:29 06:35 Total Bilirubin 0.7 0.7 (0.3-1.2) mg/dL AST 19 18 (0-34) U/L ALT 11 10 (10-49) U/L Alkaline Phosphatase 69 62 (46-116) U/L Albumin 4.6 4.0 D 4.0 (3.4-4.8) gm/dL Urine 06/24/25 Range/Units 21:23 Urine Color Lt-Yellow (Lt Yel-Yel) Urine Clarity Turbid A (Clear/Hazy) Urine pH 6.0 (5.0-7.0) Ur Specific [place] 1.012 (1.001-1.035) Urine Protein Trace (Neg - Trace) Urine Glucose (UA) 2+ A (Negative) Quality Measures Quality Measures none Advance care planning discussed with:: patient Medications Home Medications and Allergies Home Medications ?Medication ?Instructions ?Recorded ?Confirmed ?Type acetaminophen 500 mg tablet 500 mg PO Q6H PRN pain 03/17/25 06/25/25 History bicalutamide 50 mg tablet 50 mg PO 1XD 06/25/25 06/25/25 History Allergies Allergy/AdvReac Type Severity Reaction Status Date / Time No Known Allergies Allergy Verified 06/24/25 14:55 Visit Medications Acetaminophen (Acetaminophen 325 Mg Tablet) 650 mg PO Q6H PRN PRN Reason: Fever >100.3 or pain 1-3 Stop: 07/24/25 21:30 Atorvastatin Calcium (Atorvastatin Calcium 20 Mg Tablet) 80 mg PO HS ADRIAN Stop: 07/25/25 20:59 Dextrose (Dextrose 50%-Water Inj 50 Ml Syringe) 25 ml IV Q15MIN PRN PRN Reason: BG 50-70 responsive npo pt Stop: 07/24/25 21:40 Dextrose (Dextrose 50%-Water Inj 50 Ml Syringe) 50 ml IV Q15MIN PRN PRN Reason: BG <50 OR BG <70 & pt unresponsive Stop: 07/24/25 21:40 Glucagon (Glucagon Inj 1 Mg Vial) 1 mg IM Q15MIN PRN PRN Reason: BG <70, and no IV access Heparin Sodium (Porcine) (Heparin Sod Inj 5000 Unit/Ml Vial) 5,000 unit SC Q8HR [facility] Stop: 07/08/25 21:59 Last Admin: 06/25/25 13:32 Dose: 5,000 unit Ceftriaxone Sodium/Dextrose (Rocephin/D5w 1gm Iv Premix) 1 gm in 50 mls @ 100 mls/hr IV QDAY ADRIAN Stop: 07/02/25 01:02 Last Admin: 06/25/25 09:53 Dose: 100 mls/hr Sodium Chloride (Ns) 1,000 mls @ 125 mls/hr IV .Q8H [facility] Stop: 06/25/25 19:46 Last Admin: 06/25/25 13:32 Dose: 125 mls/hr Insulin Human Lispro (Insulin Lispro (Admelog) 1 Unit/0.01 Ml Unit) 0 unit SC ACHS [facility]; Protocol Stop: 07/25/25 07:29 Last Admin: 06/25/25 11:47 Dose: Not Given Ondansetron HCl (Ondansetron Inj 2 Mg/Ml Inj 2 Ml) 4 mg IVP Q6H PRN; Protocol PRN Reason: NAUSEA OR VOMITING Stop: 07/24/25 21:30 Sennosides (Senna/Docusate Sod 1 Tab Tablet) 1 tab PO QDAY [facility]; Protocol Stop: 07/26/25 08:59 Tamsulosin HCl (Tamsulosin Hcl 0.4 Mg Capsule) 0.4 mg PO DAILY ADRIAN Stop: 07/25/25 08:59 Last Admin: 06/25/25 09:54 Dose: 0.4 mg Discontinued Medications Acetaminophen (Acetaminophen 325 Mg Tablet) 650 mg PO X1 ONE Stop: 06/24/25 21:57 Last Admin: 06/24/25 23:24 Dose: 650 mg Dextrose (Dextrose 50%-Water Inj 50 Ml Syringe) 25 ml IV Q15MIN PRN PRN Reason: BG 50-70 responsive npo pt Stop: 07/24/25 21:40 Dextrose (Dextrose 50%-Water Inj 50 Ml Syringe) 50 ml IV Q15MIN PRN PRN Reason: BG <50 OR BG <70 & pt unresponsive Stop: 07/24/25 21:40 Sodium Chloride (Ns) 1,000 mls @ 999 mls/hr IV .Q1H1M ONE Stop: 06/24/25 16:17 Last Infusion: 06/24/25 16:43 Dose: Infused Magnesium Sulfate (Magnesium Sulfate Ivpb) 4 gm in 50 mls @ 12.5 mls/hr IV X1 ONE Stop: 06/24/25 22:16 Last Infusion: 06/24/25 22:40 Dose: Infused Sodium Chloride (Ns) 1,000 mls @ 85 mls/hr IV .[id number] [facility] Stop: 07/24/25 21:44 Last Admin: 06/25/25 11:47 Dose: Not Given Sodium Chloride (Ns) 1,000 mls @ 75 mls/hr IV .[id number] [facility] Stop: 06/25/25 23:52 Last Admin: 06/25/25 11:47 Dose: Not Given Insulin Human Regular (Insulin Hum Regular 1 Unit/0.01 Ml (Per Unit)) 5 unit IV X1 ONE Stop: 06/24/25 21:42 Last Admin: 06/24/25 23:31 Dose: 5 unit Lactulose (Lactulose Syrup 20 Gm/30 Ml Udc) 10 gm PO QDAY [facility]; Protocol Stop: 07/25/25 08:59 Last Admin: 06/25/25 09:53 Dose: 10 gm Sevelamer Carbonate (Sevelamer Carbonate 800 Mg Tablet) 800 mg PO X1 ONE Stop: 06/25/25 03:02 Last Admin: 06/25/25 05:53 Dose: 800 mg Sodium Polystyrene Sulfonate (Sod Polystyrene Sulfon Susp 15 Gm/60 Ml Btl) 30 gm PO X1 ONE Stop: 06/24/25 21:54 Last Admin: 06/24/25 23:28 Dose: 30 gm Assessment & Plan Problem List (1) Acute renal insufficiency: Status: Acute Assessment and plan: Acute renal failure secondary to prerenal azotemia. Clinically patient looks rather hypovolemic with decreased p.o. intake. Agree with fluids. Suspect underlying CKD from chronic obstruction and interstitial nephritis. Urinalysis did not show any blood or protein. CT abdomen showed no hydronephrosis. Renal ultrasound ordered to check the size of the kidneys. Increase fluids to 125 mL/h (2) Acute hyperkalemia: Status: Acute Assessment and plan: Hyperkalemia treated with medical management. this morning K5.1 (3) Prostatic hypertrophy: Status: Acute Assessment and plan: Patient with indwelling Velasquez catheter. (4) Syncope: Status: Acute Assessment and plan: Probably related to hypotension. Might need to stop tamsulosin. No need to treat BPH- as patient has indwelling Velasquez catheter. (5) Prostate cancer: Status: Acute Assessment and plan: On bicalutamide at home (6) Anemia: Status: Acute Assessment and plan: Probably from underlying CKD (7) UTI (urinary tract infection): Status: Inactive Assessment and plan: On antibiotics (8) HTN (hypertension), benign: Status: Acute Assessment and plan: Blood pressure in fact on the lower side. Assessment Thank you Chito for allowing me to participate in the care of Mr. Sauceda
[2025-06-25 15:40] LABS: Chloride,Urine Random 66.5 mMol/L (55.0-125.0); Potassium,Urine Random 23 mMol/L (12-62); Sodium,Urine Random 66.1 mMol/L (20.0-110.0)
[2025-06-25] MEDS: ATORVASTATIN CALCIUM 20 MG TABLET PO (21:08)
[2025-06-26] VITALS: BP 115/57; PULSE 75; PULSE 84; RESP 19; TEMP 36.4; O2SAT 95
[2025-06-26 04:00] VITALS: BP 107/62; PULSE 81; PULSE 83; RESP 17; TEMP 36.7; O2SAT 98
[2025-06-26 05:47] LABS: Basophils # (Auto) 0.0 Thou/mm3 (0.0-0.2); Basophils % (Auto) 0 % (0-2.5); Eosinophils # (Auto) 0.1 Thou/mm3 (0.0-0.5); Eosinophils % (Auto) 3 % (0-10); Hematocrit 30.8 % (41.0-53.0); Hemoglobin 10.2 g/dL (13.5-16.0); Immature Granulocytes Auto 0.01 Thou/mm3 (0.00-0.00); Lymphocytes # (Auto) 1.4 Thou/mm3 (1.0-4.8); Lymphocytes % (Auto) 38 % (10-50); Mean Corpuscular HGB Conc 33.1 g/dl (31.0-37.0); Mean Corpuscular Hemoglobin 27.9 pg (25.0-35.0); Mean Corpuscular Volume 84 fL (80-100); Monocytes # (Auto) 0.4 Thou/mm3 (0.0-0.8); Monocytes % (Auto) 11 % (0-12); Neutrophils # (Auto) 1.8 Thou/mm3 (1.8-7.7); Neutrophils % (Auto) 48 % (37-80); Nucleated Red Blood Cell # 0.00 Thou/mm3 (0.00-0.00); Nucleated Red Blood Cell % 0 /100 WBC (0); Platelet Count 301 Thou/mm3 (140-440); RDW Standard Deviation 42.8 fL (35.1-43.9); Red Blood Count 3.66 Miln/mm3 (4.50-5.90); White Blood Count 3.8 Thou/mm3 (3.8-10.6)
[2025-06-26] MEDS: HEPARIN SOD INJ 5000 UNIT/ML VIAL SC (06:03)
[2025-06-26] MEDS: ACETAMINOPHEN 325 MG TABLET 650 MG PO (06:05)
[2025-06-26 06:32] LABS: Alanine Aminotransferase < 7 U/L (10-49); Albumin, Serum 4.0 gm/dL (3.4-4.8); Albumin/Globulin Ratio 1.6 (1.2-2.2); Alkaline Phosphatase 60 U/L (46-116); Anion Gap 10 (7-16); Aspartate Amino Transferase 15 U/L (0-34); BUN/Creatinine Ratio 12 Ratio (12-20); Bilirubin,Total 0.7 mg/dL (0.3-1.2); Blood Urea Nitrogen 18 mg/dL (9-23); Calcium 9.7 mg/dL (8.3-10.6); Calcium (Corrected) 9.7 mg/dL (8.5-10.1); Carbon Dioxide 20.6 mMol/L (20.0-31.0); Chloride 104 mMol/L (98-107); Creatinine (Component) 1.5 mg/dL (0.6-1.3); Estimated Creatinine Clearance 39.9 mL/min (>60); Globulin 2.5 gm/dL (2.3-3.5); Glucose 106 mg/dL (74-106); Magnesium 1.8 mg/dL (1.6-2.6); Osmolality,Calculated 272 (275-295); Phosphorous 5.4 mg/dL (2.4-5.1); Potassium 5.0 mMol/L (3.4-5.1); Sodium 135 mMol/L (136-145); Total Protein 6.5 gm/dL (5.7-8.2); eGFR 50 See Note
[2025-06-26 08:00] VITALS: BP 100/66; PULSE 78; RESP 15; TEMP 36.3; O2SAT 96
[2025-06-26] MEDS: SENNA/DOCUSATE SOD 1 TAB TABLET PO (08:25)
[2025-06-26] MEDS: SEVELAMER CARBONATE 800 MG TABLET PO (08:25)
[2025-06-26] MEDS: cefTRIAXone/D5w 1gm IV premix 1 GM/50 ML BAG IV (08:25)
[2025-06-26 08:38] VITALS: PULSE 78; RESP 25; RESP 96
--- NOTE | 2025-06-26 09:10 | PD.NEPHPROG ---
Documentation for date of: 06/26/25 Subjective Subjective Interval history: full time staff interpreter used Mr. Sarabia is a 69-year-old gentleman with past medical history significant for metastatic prostate cancer, indwelling Velasquez catheter, diabetes, hypertension, dyslipidemia, underlying CKD (never seen a electroplater automatic) presented to the emergency department with weakness, presyncope and fall. Patient's is at the bedside. Apparently he has been under the care of Dr. Myers for his recent prostate cancer stage IV and is currently on bicalutamide. Noted to have hypotension, white count 7.3, hemoglobin 12.2, potassium 5.6, sodium 129, BUN 23, creatinine 2.2, calcium 10.3, phosphorus 6.5, magnesium 1.4, LDH 113, EKG normal sinus rhythm. Head CT negative. CT abdomen showed periaortic lymph nodes and bilateral adrenal masses. Marked prostatomegaly with bladder wall thickening. Patient admitted to medical team for hyperkalemia, weakness, UTI, EVARISTO Making good urine although very cloudy. Current Medications: Januvia 100 mg daily, metformin 1000mg daily, Bicalutamide 50 mg daily, tamulosin 0.4mg daily, amoxicillin/clauvulanate Allergies: No known drug allergies 06/25/2025 WBC 5.2, hemoglobin 10.4, platelets 303. Sodium 131, potassium 5.1, bicarbonate 22, BUN 24, creatinine 1.9, A1c 6.3, LFTs normal, phosphorus 6.3, lipids normal urinalysis shows pyuria. at bedside 06/26/2025 patient was patient currently seen in medical floor. Resting comfortably. at bedside. Hemoglobin 10.2, creatinine 1.5. Suggested to follow-up with me in 1 to 2 weeks if discharged. Review of Systems Review of Systems Narrative Review of Systems: denies any chest pain, shortness of breath, denies any nausea, vomiting. Does have indwelling Velasquez catheter. Exam Vital Signs Temp Pulse Resp BP Pulse Ox O2 Del Method 36.2 C 83 16 105/71 99 Room Air 06/26/25 11:57 06/26/25 12:00 06/26/25 11:57 06/26/25 11:57 06/26/25 11:57 06/26/25 11:57 Narrative Exam GENERAL APPEARANCE: Patient comfortable NECK: Neck supple, no JVD or bruit CARDIOVASCULAR: Heart regular, no murmurs LUNGS/CHEST: Chest clear to auscultation. No rales, rhonchi, wheezing ABDOMEN: Soft, nontender, nondistended. No masses. Normal bowel sounds. EXTREMITIES: No edema, clubbing or cyanosis. Indwelling Velasquez catheter with cloudy urine SKIN: Skin exam normal without any rashes MUSCULOSKELETAL: In bed NEUROLOGICAL : No neurological deficits Objective Labs 06/26/25 05:00 06/26/25 05:00 Labs: Laboratory Results - last 24 hr 06/26/25 05:00 WBC 3.8 RBC 3.66 L Hgb 10.2 L Hct 30.8 L MCV 84 MCH 27.9 MCHC 33.1 RDW Std Deviation 42.8 Plt Count 301 Neut % (Auto) 48 Lymph % (Auto) 38 Boundary % (Auto) 11 Eos % (Auto) 3 Baso % (Auto) 0 Neut # (Auto) 1.8 Lymph # (Auto) 1.4 Boundary # (Auto) 0.4 Eos # (Auto) 0.1 Baso # (Auto) 0.0 Immature Gran # (Auto) 0.01 H Absolute Nucleated RBC 0.00 Immature Gran % 0 Nucleated RBC % 0 Sodium 135 L Potassium 5.0 Chloride 104 Carbon Dioxide 20.6 Anion Gap 10 BUN 18 Creatinine 1.5 H Estim Creat Clear Calc 39.9 L eGFR 50 L BUN/Creatinine Ratio 12 Glucose 106 Calculated Osmolality 272 L Calcium 9.7 Corrected Calcium 9.7 Phosphorus 5.4 H Magnesium 1.8 Total Bilirubin 0.7 AST 15 ALT < 7 L Alkaline Phosphatase 60 Total Protein 6.5 Albumin 4.0 Globulin 2.5 Albumin/Globulin Ratio 1.6 Assessment & Plan Assessment and plan (1) Acute renal insufficiency: Status: Acute (2) Acute hyperkalemia: Status: Acute (3) Prostatic hypertrophy: Status: Acute (4) Syncope: Status: Acute (5) Prostate cancer: Status: Acute (6) Anemia: Status: Acute (7) UTI (urinary tract infection): Status: Inactive (8) HTN (hypertension), benign: Status: Acute Additional Assessment & Plan Additional Plan: 1) Acute renal insufficiency: Status: Acute Assessment and plan: Acute renal failure secondary to prerenal azotemia. Clinically patient looks rather hypovolemic with decreased p.o. intake. Agree with fluids. Suspect underlying CKD from chronic obstruction and interstitial nephritis. Urinalysis did not show any blood or protein. CT abdomen showed no hydronephrosis. Renal ultrasound showed findings consistent with age encourage p.o. fluids (2) Acute hyperkalemia: Status: Acute Assessment and plan: Hyperkalemia treated with medical management. Potassium improved (3) Prostatic hypertrophy: Status: Acute Assessment and plan: Patient with indwelling Velasquez catheter. (4) Syncope: Status: Acute Assessment and plan: Probably related to hypotension. stop tamsulosin. No need to treat BPH- as patient has indwelling Velasquez catheter. (5) Prostate cancer: Status: Acute Assessment and plan: On bicalutamide at home (6) Anemia: Status: Acute Assessment and plan: Probably from underlying CKD (7) UTI (urinary tract infection): Status: Inactive Assessment and plan: On antibiotics (8) HTN (hypertension), benign: Status: Acute Assessment and plan: Blood pressure in fact on the lower side. Thank you Chito for allowing me to participate in the care of Mr. Sauceda
--- NOTE | 2025-06-26 09:52 | PC.NURSE ---
COORDINATED CARE RICHARD [place], RECOMMENDED HOME HEALTH FOR MEDICATION AND GLASS CATHETER MANAGEMENT. WAS ALSO MADE AWARE OF PTS OUTPATIENT NEEDS. JHONATAN WILL COORDINATE CARE WITH .
[2025-06-26 11:57] VITALS: BP 105/71; PULSE 71; RESP 16; TEMP 36.2; O2SAT 99
[2025-06-26 12:00] VITALS: PULSE 83
--- NOTE | 2025-06-26 12:38 | ESDS_ITS ---
<Statement entered by Chito Gillette MD - 07/06/25 14:31> I reviewed above note and agree with findings and plans. I have also personally examined the patient with medicine team and went over assessment and plan with medical team including pharmacy graduate intern and resident physician. Planned Discharge Date 06/26/25 DS: Providers Provider Date of admission: 06/25/25 13:49 Primary care physician: Physician No Primary/Family Admitting Provider: Luz Maria Hollis MD Attending Provider on Admission: Sagar Aquino MD Consults: 06/25/25 11:03 Consult to Nephrology Routine Comment: EVARISTO on CKD Consulting Provider: Gwyn Blancas Attending Provider on DC: Chito Gillette MD Discharging Provider: RESIDENT Alec DS: Diagnosis Problem List Completed Was Problem List Reviewed/Reconciled?: Yes Hospital Course Hospital Course Hospital course: Reason for hospitalization:?EVARISTO on CKD and electrolyte abnormalities Summary: This is a 69-year-old male with a history of prostate cancer stage IV with metastases followed by Dr. Myers currently on bicalutamide, chronic indwelling Velasquez, T2DM, HTN, HLD, CKD who presented to [facility] ED on 06/24 in the evening after standing up too quickly, which led to blurry vision, dizziness, and fall without loss of consciousness. In ED, the patient was noted to have elevated creatinine with hyponatremia, hyperkalemia, hyperphosphatemia, and hypomagnesemia. The patient was admitted overnight for EVARISTO on CKD and electrolyte abnormalities. Patient started on appropriate electrolyte repletion/depletion and ceftriaxone was started for empiric treatment of UTI due to UA positive for elevated urine WBC, positive urine yeast, but negative for bacteria. On 06/25, the patient had orthostatic vitals evaluation, which supported orthostatic hypotension. Patient had indwelling catheter replaced, which had been in place for about two months prior. Nephrology was consulted, who suspected acute renal failure secondary to prerenal azotemia, and recommended IV fluid hydration. Electrolyte abnormalities resolving. On 06/26, the patient had continued improvement of electrolytes, primarily hyponatremia, and improvement of EVARISTO. The patient had no additional episodes of syncope and the patient was educated on rising slowly to avoid syncopal episodes due to his orthostatic hypotension. Patient's urine culture grew E. coli as preliminary result, which is likely due to indwelling catheter. Due to the patient's stable vitals and labs, it was determined that the patient could obtain an echocardiogram outpatient to complete the syncope workup and follow up with his PCP. Home health was ordered to help patient achieve more frequent indwelling Velasquez catheter changes. Patient was ambulatory and medically stable upon discharge. Imaging: ? Renal ultrasound 06/25/2025: 3.3 cm prostate mass ? Abdomen pelvis CT 07/14/2025: Bilateral adrenal masses, left lateral periaortic lymphadenopathy without significant change compared to March 16, 2025. Abundant stool in the rectosigmoid. Marked prostatomegaly. Bladder wall thickening which may be cystitis versus outflow tract obstruction secondary to patient's prostatomegaly ? Lumbar spine CT 06/24/2025: Advanced degenerative disc disease L2-L3, L5-S1. Suspicious for osseous metastatic disease. Discharge Recommendations: - Follow up with PCP within 1 week of discharge - Continue rest of medications as previously prescribed - Return to the ED or call EMS if symptoms return and/or worsen. ? Resume home bicalutamide for management of prostate cancer ? Discuss with PCP about obtaining echocardiogram outpatient to complete syncope workup ? Continue metformin 500 mg twice daily ? Follow-up with nephrology outpatient If you don't have a PCP, you can make an appointment at the [facility]: [address] [place] [address] Hospital Diagnoses: #EVARISTO on CKD #CKD stage IIIb Hyperkalemia #Hyperphosphatemia #Prostate cancer at stage IV #BPH #Chronic indwelling Velasquez #UTI #History of recurrent UTIs #Hyponatremia #Hypomagnesemia #Syncope, status post fall #Orthostatic hypotension #History of hypertension #T2DM #HLD Emile Christie, PGY-1 Status at Discharge Functional status at discharge: uses cane/walker Overall status at discharge: patient is back to baseline Time Spent with Patient Time attestation: Total time spent providing and/or coordinating discharge services: Time spent: Greater than 30 minutes Home Health Home Health Referral Orders: 06/26/25 11:09 Home Health Referral Routine Reason For Exam: PT Home-Bound The patient must either because of illness or injury, need the aid of supportive devices such as crutches, canes, wheelchairs, and walkers; the use of special transportation; or the assistance of another person in order to leave their place of residence; OR have a condition such that leaving his or her home is medically contraindicated. In addition, the patient also meets the following criteria: patient is normally unable to leave the home and leaving home requires considerable taxing effort. Addendum to Home Health Certification Practitioner's Certification: I certify that the patient has been under my care in the hospital and the care of attending physician (see below). We had a [id number] encounter on (see date below). My clinical findings indicate that the patient is home bound per the above criteria and the Home Health Services noted in these orders are medically necessary. The primary reason for the [id number] encounter is related to the fact that the patient requires home health services. 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 Wound Care: No IV Therapy: No RN Safety Evaluation: Yes RN to evaluate and create a plan of care that will produce positive outcomes. Palliative Treatment: No Palliative treatment and evaluate the need for hospice. Home Health Aide - Personal Care: No Home Health Aide to assist with any ADL's. Exam Vital Signs Temp Pulse Resp BP Pulse Ox O2 Del Method 97.2 F 71 16 105/71 99 Room Air 06/26/25 11:57 06/26/25 11:57 06/26/25 11:57 06/26/25 11:57 06/26/25 11:57 06/26/25 11:57 Narrative Exam Physical Exam: General: Alert, no acute distress. Skin: Warm, dry, intact, no obvious rash. Head: Normocephalic, atraumatic. Eye: Normal conjunctiva, PERRL. Cardiovascular: Regular rate and rhythm, no murmur, +S1/S2. Respiratory: Lungs are clear to auscultation, respirations unlabored, no crackles, no wheezing. Gastrointestinal: Soft, nontender, non-distended. No guarding or rebound tenderness. Extremities: No edema, no cyanosis, no clubbing. 2+ radial pulse bilaterally, 2+ pedal pulse bilaterally. Neuro: No focal deficits observed. Conversant, moving all extremities. No overt cerebellar signs/incoordination. Psychiatric: Cooperative, appropriate affect. Discharge Plan Plan Patient Disposition: Home w/HOME HEALTH Patient condition on transfer: Stable Prescriptions/Referrals Prescriptions/Med Rec: New atorvastatin 20 mg Tablet 20 mg PO HS 30 Days Qty: 30 0RF Continued acetaminophen 500 mg tablet 500 mg PO Q6H PRN (Reason: pain) bicalutamide 50 mg tablet 50 mg PO 1XD metformin 500 mg tablet 500 mg PO BID 30 Days Qty: 60 0RF Discontinued Januvia 50 mg tablet 100 mg PO QDAY amoxicillin-pot clavulanate 875-125 mg tablet 1 tab PO BID Qty: 14 0RF tamsulosin 0.4 mg capsule 0.4 mg PO DAILY metformin 1,000 mg tablet 1,000 mg PO 2XD Patient Comments: take 1 tablet by mouth twice a day for with food diabetes Referrals: No Primary/Family,Physician [Primary Care Provider] - Patient/Caregiver Discharge Instructions Education Materials: Emptying and Cleaning Your ..., Orthostatic Hypotension, ED Velasquez Catheter, Care Print Language: Azeri Stand Alone Forms: [employer] Award Info., Patient Portal Info Letter Discharge Order Discharge Orders: Discharge (Routine); Ordered 06/26/25 Ordered By: Mirella Webb Quality Discharge Quality Measures none
--- NOTE | 2025-06-26 13:29 | PC.SS ---
Pt will be DC today with HH for FC and Med Management, there is no preference for HH
--- NOTE | 2025-06-26 18:33 | PC.CM ---
Addendum entered by Karyn Rubio RN 06/26/25 18:45: Patient accepted by [facility]. Pending start of care date. Original Note: Patient discharged home today. I faxed home health referral to all agencies. Patient did not have a preference as per social serivces.
--- NOTE | 2025-06-27 15:10 | PC.CC ---
SOC 06/28
== END 2025-06-26 14:15 | disposition home health service (06) | DRG 683 ==
LOC: SERX 19:59 → SERHOLD 22:27 → S3NX 06-25 00:53
PROVIDERS: Registered Nurse General Practice; Admitting Provider Student in an Organized Health Care Education/Training Program; Emergency Provider Family Medicine; Visit Provider Student in an Organized Health Care Education/Training Program
DX: N17.9 Acute kidney failure, unspecified (principal); E27.40 Unspecified adrenocortical insufficiency; N39.0 Urinary tract infection, site not specified; E87.1 Hypo-osmolality and hyponatremia; E87.5 Hyperkalemia; N18.32 Chronic kidney disease, stage 3b; C61 Malignant neoplasm of prostate; N40.0 Benign prostatic hyperplasia without lower urinary tract symptoms; E83.42 Hypomagnesemia; E11.22 Type 2 diabetes mellitus with diabetic chronic kidney disease; I12.9 Hypertensive chronic kidney disease with stage 1 through stage 4 chronic kidney disease, or unspecified chronic kidney disease; E78.5 Hyperlipidemia, unspecified; Z87.440 Personal history of urinary (tract) infections; B96.20 Unspecified Escherichia coli [E. coli] as the cause of diseases classified elsewhere; D63.1 Anemia in chronic kidney disease; E83.39 Other disorders of phosphorus metabolism; E86.1 Hypovolemia; I95.1 Orthostatic hypotension; K59.00 Constipation, unspecified; Z60.3 Acculturation difficulty; Z79.84 Long term (current) use of oral hypoglycemic drugs; Z85.46 Personal history of malignant neoplasm of prostate; Z85.51 Personal history of malignant neoplasm of bladder; S09.90XA Unspecified injury of head, initial encounter; W22.09XA Striking against other stationary object, initial encounter
CPT/HCPCS: 36415; 70450; 71045; 72125; 72131; 74176; 76770; 80048; 80053; 80061; 80069; 80307; 81001; 82436; 83036; 83605; 83615; 83735; 83880; 84100; 84133; 84300; 84484; 85025; 85610; 85730; 87077; 87086; 87106; 87186; 93005; 94762; 96361; 96365; 96366; 99284; G0378; J0696; J1644; J1815; J3475; J7030; A9270

== ENCOUNTER 2025-07-05 10:31 | Outpatient (RCR) | payer MEDICARE, SELFPAY ==
--- NOTE | 2025-07-05 11:55 | CTCFLWUP_ITS ---
[facility] [address] [place], [place] [address] FOLLOW-UP NOTE Date: 07/05/2025 MR#: [id number] Name: LAURITA MYRICK : 1955 Dx: C61 Malignant neoplasm of prostate Identification. Patient with stage IVb prostate CA with widespread mets bone abdominal pelvic lymphadenopathy. PSA 219 03/17/2025. Ultrasound-guided biopsy grade 6 group 1 right lobe. Casodex was initiated in preparation for eventual Lupron injection to prevent flare problem. He has already run out of Casodex. Patient was admitted to [facility] and discharged following acute renal insufficiency hyperkalemia and syncopal episode along with UTI. Received hydration and electrolyte correction with labs at discharge 06/26/2025 creatinine 1.5 potassium 5.0, with Dr Barksdale employment educational coord feel that he was secondary to prerenal azotemia largely corrected. in presence of CKD. As I see patient today he still feels tired. Has urology follow-up next week with Dr. Contreras. I believe the most important thing is to get going on his prostate cancer which is widespread. A#1. CA prostate widespread mets. PSMA PET ordered denied by insurance we will order PET to be done locally. A#2, Aready on bicalutamide will begin Lupron injection in a few days. A#3. Referred to Dr. Torres for the need for addition of second generation antiandrogen. A#4. Follow-up with urology pending along with appointment with [facility] with various comorbidities including hypertension DM2. A#5. I will see patient again in 1 month. Electronically signed by: Sravan Myers M.D. 07/05/2025 11:53 AM
== END 2025-07-24 23:59 | disposition home or self-care (01) ==
LOC: SCTC 10:31
PROVIDERS: Referring Provider Radiology Therapeutic Radiology; Visit Provider Radiology Therapeutic Radiology
DX: C61 Malignant neoplasm of prostate (principal); C79.51 Secondary malignant neoplasm of bone; E11.22 Type 2 diabetes mellitus with diabetic chronic kidney disease; I12.9 Hypertensive chronic kidney disease with stage 1 through stage 4 chronic kidney disease, or unspecified chronic kidney disease; N18.9 Chronic kidney disease, unspecified
CPT/HCPCS: 99213; G0463

== ENCOUNTER 2025-07-05 22:52 | Inpatient (IN) | payer MEDICARE, SELFPAY ==
--- NOTE | 2025-07-05 23:05 | EKG_ITS ---
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
[2025-07-05 23:56] VITALS: BP 95/61; PULSE 75; RESP 20; TEMP 37.1; O2SAT 96
[2025-07-06] VITALS (11 sets, daily range): BP systolic 96–127; BP diastolic 53–71; PULSE 62–84; RESP 12–20; TEMP 36.1–36.7; O2SAT 97–100; BMI 27.4
--- NOTE | 2025-07-06 00:17 | EDRME_ITS ---
Rapid Medical Screening Exam RME Arrival date/time: 07/05/25 22:52 69M with history of stage 4 prostate cancer, DM, HTN, HLD and CKD presents to ED with generalized weakness and low BP. Patient went to [place] ER, was sodium was found to be low (son states possibly 113), but they AMA'd because all of patient's doctors and insurance are through here. Chief Complaint: General Adult/Misc Complain Vital signs: Vital Signs Temperature 98.7 F 07/05/25 23:56 Pulse Rate 75 07/05/25 23:56 Respiratory Rate 20 07/05/25 23:56 Blood Pressure 95/61 07/05/25 23:56 Pulse Oximetry (%) 96 07/05/25 23:56 Oxygen Delivery Method Room Air 07/05/25 23:56
--- NOTE | 2025-07-06 00:19 | XR_ITS ---
Examination: PA chest single view TECHNIQUE: Upright PA chest single view Date and time: July 06, 2025 0023 hours INDICATIONS: Stage IV prostate cancer with weakness and hypertension today. FINDINGS: Normal heart size. Lungs are clear. The osseous structures are intact IMPRESSION: No active disease
[2025-07-06 00:45] LABS: Basophils # (Auto) 0.0 Thou/mm3 (0.0-0.2); Basophils % (Auto) 0 % (0-2.5); Eosinophils # (Auto) 0.1 Thou/mm3 (0.0-0.5); Eosinophils % (Auto) 2 % (0-10); Hematocrit 28.9 % (41.0-53.0); Hemoglobin 10.2 g/dL (13.5-16.0); Immature Granulocytes Auto 0.01 Thou/mm3 (0.00-0.00); Lymphocytes # (Auto) 3.0 Thou/mm3 (1.0-4.8); Lymphocytes % (Auto) 50 % (10-50); Mean Corpuscular HGB Conc 35.3 g/dl (31.0-37.0); Mean Corpuscular Hemoglobin 28.2 pg (25.0-35.0); Mean Corpuscular Volume 80 fL (80-100); Monocytes # (Auto) 0.6 Thou/mm3 (0.0-0.8); Monocytes % (Auto) 9 % (0-12); Neutrophils # (Auto) 2.3 Thou/mm3 (1.8-7.7); Neutrophils % (Auto) 38 % (37-80); Nucleated Red Blood Cell # 0.00 Thou/mm3 (0.00-0.00); Nucleated Red Blood Cell % 0 /100 WBC (0); Platelet Count 262 Thou/mm3 (140-440); RDW Standard Deviation 39.7 fL (35.1-43.9); Red Blood Count 3.62 Miln/mm3 (4.50-5.90); White Blood Count 6.0 Thou/mm3 (3.8-10.6)
[2025-07-06 01:08] LABS: Alanine Aminotransferase 11 U/L (10-49); Albumin, Serum 4.2 gm/dL (3.4-4.8); Albumin/Globulin Ratio 1.8 (1.2-2.2); Alkaline Phosphatase 55 U/L (46-116); Anion Gap 8 (7-16); Aspartate Amino Transferase 22 U/L (0-34); BUN/Creatinine Ratio 13 Ratio (12-20); Bilirubin,Total 1.1 mg/dL (0.3-1.2); Blood Urea Nitrogen 18 mg/dL (9-23); Calcium 9.2 mg/dL (8.3-10.6); Calcium (Corrected) 9.2 mg/dL (8.5-10.1); Carbon Dioxide 22.2 mMol/L (20.0-31.0); Chloride 90 mMol/L (98-107); Creatinine (Component) 1.4 mg/dL (0.6-1.3); Globulin 2.4 gm/dL (2.3-3.5); Glucose 106 mg/dL (74-106); Osmolality,Calculated 244 (275-295); Potassium 5.2 mMol/L (3.4-5.1); Sodium 120 mMol/L (136-145); Total Protein 6.6 gm/dL (5.7-8.2); Troponin I < 0.020 ng/mL (0.0-0.045); eGFR 54 See Note
--- NOTE | 2025-07-06 01:35 | PD.EDADULT ---
ED General RME/HPI General Chief complaint: General Adult/Misc Complain Stated complaint: LOW BP Time Seen by Provider: 07/06/25 01:13 Arrival date/time: 07/05/25 22:52 RME / HPI RME / HPI narrative: 07/05/25 22:52 69M with history of stage 4 prostate cancer, DM, HTN, HLD and CKD presents to ED with generalized weakness and low BP. Patient went to [place] [facility], was sodium was found to be low (son states possibly 113), but they AMA'd because all of patient's doctors and insurance are through here. Dr. Argueta?s Main ED Evaluation: 69yo male who was been recently evaluated in [place] for generalized fatigue. Patient with history of prostate CA with recently placed indwelling olson cathteter and reports ongoing generalized weakness and electrolyte disturbance characterized by hyponatremia, earlier found to have profound hyponatremia with sodium 113, was hypotensive upon arrival at outlying facility. Patient received IV hydration, magnesium supplementation at that time with gradual increase in blood pressure. Patient also notably hypotensive with systolic blood pressure as low as 80 earlier today. No chest pain, shortness of breath, or syncope. Patient does note chronic intermittent headache at the vortex. Related Data Home Medications ?Medication ?Instructions ?Recorded ?Confirmed acetaminophen 500 mg tablet 500 mg PO Q6H PRN pain 03/17/25 06/25/25 bicalutamide 50 mg tablet 50 mg PO 1XD 06/25/25 06/25/25 Previous Rx's ?Medication ?Instructions ?Recorded atorvastatin 20 mg tablet 20 mg PO HS 30 days #30 tabs 06/26/25 metformin 500 mg tablet 500 mg PO BID 30 days #60 tabs 06/26/25 Allergies Allergy/AdvReac Type Severity Reaction Status Date / Time No Known Allergies Allergy Verified 07/05/25 22:54 Review of Systems Review of Systems Systems Reviewed: All systems reviewed, normal except as documented Past Medical History Past Medical History NEUROLOGIC: Negative Neurological Disorders CARDIAC: Positive Cardiac Disorders and Hypertension; Negative Congestive Heart Failure RESPIRATORY: Negative Chronic Obstructive Pulmonary Disease (COPD) or Asthma GASTROINTESTINAL: Negative Gastrointestinal Disorders GENITOURINARY: Positive Prostate Cancer; Negative Genitourinary Disorders or Renal Disease MUSCULOSKELETAL: Positive Musculoskeletal Disorders ENDOCRINE: Positive Endocrine Disorders and Diabetes Mellitus Type 2; Negative Diabetes Mellitus Type 1 HEMATOLOGIC: Negative Blood Disorders or Sickle Cell Disease OTHER HISTORY: Positive Cancer and Prostate Cancer; Negative Autoimmune Disease Family History FAMILY HISTORY: Positive Family Respiratory Disorders and Family Cardiac Disorders; Negative Family Psychiatric Problems, Family Gastrointestinal Problems, Family Cancer, Family Surgery or Family Anesthesia Reaction Social History SMOKING STATUS: Never smoker ED Exam Narrative Physical exam: GENERAL APPEARANCE: slightly somnolent, easily arousable, chronically ill appearing, nontoxic, no acute distress VITALS: All vitals were reviewed and the pulse ox is 96% on room air, which is normal according to my interpretation. HEENT: Normocephalic, atraumatic; pupils equal, round, reactive to light; EOMI; mucous membranes pink, moist; oropharynx clear NECK: Supple, no JVD LUNGS: CTABL; no wheezes, no rales, no rhonchi HEART: Regular rate, regular rhythm; normal S1, S2; no murmurs ABDOMEN: non distended; soft, no tenderness BACK: no CVA tenderness : slightly cloudy urine EXTREMITIES: atraumatic; no edema NEUROLOGIC: slightly somnolent, easily arousable; cranial nerves II-XII grossly intact; no focal sensory or motor deficits PSYCHIATRIC: appropriate mood and affect SKIN: warm, dry, normal color; mild tenting noted; no rashes Course Quality Measures none Orders Category Date Time Status COVID-19 Screening Questionnaire NOW Care 07/06/25 03:12 Active EKG (ED ONLY) *Do not use* NOW Care 07/05/25 23:06 Completed IV [Insert IV] NOW Care 07/06/25 03:08 Active EKG (ED Only) Stat Exams 07/05/25 23:05 Draft XR chest 1V portable Stat Exams 07/06/25 00:19 Taken CBC Stat Lab 07/06/25 00:33 Completed CMP [Comprehensive Metabolic Panel] Stat Lab 07/06/25 00:33 Completed Electrolytes, Urine Random Stat Lab 07/06/25 02:39 Completed Osmolality, Serum* Stat Lab 07/06/25 00:33 Received Osmolality, Urine* Stat Lab 07/06/25 00:33 Received Troponin I Stat Lab 07/06/25 00:33 Completed Urinalysis, C/S if Indicated Stat Lab 07/06/25 02:39 Completed SODIUM CHLORIDE 3%(Hypertonic) [Hypertonic Saline 3%] Med 07/06/25 03:04 Active 30 ml Pre-Mixed [Pre-mixed Bag] 1 bag IV X1 Sodium Chloride 0.9% 500 ml [Ns] 500 ml Med 07/06/25 01:53 Discontinued IV 500 mls/hr Vital Signs Vital signs: Vital Signs Temperature 98.7 F 07/05/25 23:56 Pulse Rate 75 07/05/25 23:56 Respiratory Rate 20 07/05/25 23:56 Blood Pressure 95/61 07/05/25 23:56 Pulse Oximetry (%) 96 07/05/25 23:56 Oxygen Delivery Method Room Air 07/05/25 23:56 Discharge Plan Plan Patient Disposition: Admit Acute Care w/in Hospital Prescriptions/Referrals Prescriptions/Med Rec: No Action acetaminophen 500 mg tablet 500 mg PO Q6H PRN (Reason: pain) bicalutamide 50 mg tablet 50 mg PO 1XD atorvastatin 20 mg Tablet 20 mg PO HS 30 Days Qty: 30 0RF metformin 500 mg tablet 500 mg PO BID 30 Days Qty: 60 0RF Referrals: No Primary/Family,Physician [Primary Care Provider] - In 1 week Problem List Clinical Impression: Hyponatremia Patient/Caregiver Discharge Instructions Print Language: Burkinan Stand Alone Forms: [employer] Award Info., Patient Portal Info Letter MDM Narrative MDM hospital course: Scribe Attestation: 07/06/25 Talia rAroyo am scribing for and in the presence of Dr. Argueta. 69yo male who was been recently evaluated in [place] for generalized fatigue. Patient with history of prostate CA with recently placed indwelling olson cathteter and reports ongoing generalized weakness and electrolyte disturbance characterized by hyponatremia, earlier found to have profound hyponatremia with sodium 113, was hypotensive upon arrival at outlying facility. Patient received IV hydration, magnesium supplementation at that time with gradual increase in blood pressure. Please see PE findings. Lab markers demonstrate Na 120, K 5.2, Creatinine 1.4, serum osmolality is low (244), troponin undetected, UA appears to be dilute with equivocal evidence of infection. Patient placed on pvc monitor, treated with hypertonic saline. In addition received 500cc bolus NS. Patient's level of consciousness improved and able to follow simple commands. Will contact hospitalist for consideration of admission due to recurrent electrolyte disturbance. Clinical Information Provided by patient Medical Records Reviewed [facility] (Per chart review, patient was admitted here on 06/24/25 for acute renal insufficiency.) and other (Reviewed records from [place].) Meds/Rx Considered, not Ordered None Labs/Rad/Tests considered, not Ordered None Chronic Illness/Social Conditions Add or document further as needed: History of prostate CA stage IV with metastases followed by Dr. Myers currently on bicalutamide, chronic indwelling Olson, T2DM, HTN, HLD, CKD EKG EKG Interpretation narrative: EKG done at 2352, NSR, rate of 71, no acute pathological ST segment changes, no ectopy, normal intervals, normal axis, according to my interpretation. Lab Interpretation Labs: interpreted by me Imaging Imaging interpretation: interpreted by me Provider imaging interpretation(s): CXR shows no cardiomegaly, no infiltrates, no pleural effusions, according to my interpretation. Medication Administration(s) Medication Administration History Sodium Chloride 30 ml/ IV (Miscellaneous Supplies) 30 mls @ 30 mls/hr IV X1 ONE Stop: 07/06/25 19:43 Last Infusion: 07/06/25 04:49 Dose: Infused Documented By: [email or web address] Admin: 07/06/25 03:41 Dose: 30 mls/hr Documented By: SM Discontinued Medications Sodium Chloride (Ns) 500 mls @ 500 mls/hr IV .Q1H ONE Stop: 07/06/25 02:52 Last Infusion: 07/06/25 03:57 Dose: Infused Documented By: Admin: 07/06/25 03:12 Dose: 500 mls/hr Documented By: CVL see above Diagnosis Differential diagnosis: hyponatremia, other electrolyte abnormality, dehydration Most likely dx, and/or detailed dx discussion: see clinical impression above Dispositon Disposition: Admit
[2025-07-06 02:43] LABS: Collection Type, Urine Catheter; Squamous Epithelial Cell,Urine 0 /hpf (0-5)
[2025-07-06 02:55] LABS: Chloride,Urine Random 53.5 mMol/L (55.0-125.0); Potassium,Urine Random 16 mMol/L (12-62); Sodium,Urine Random 51.1 mMol/L (20.0-110.0)
[2025-07-06] MEDS: SODIUM CHLORIDE 0.9% 500 ML 500 ML IV (03:12)
[2025-07-06 03:21] LABS: Bacteria,Urine Rare; Bilirubin,Urine Negative (Negative); Blood,Urine Negative (Negative); Budding Yeast,Urine Present; Clarity,Urine Clear (Clear/Hazy); Color,Urine Lt-Yellow (Lt Yel-Yel); Culture Indicated,Urine Not Indicated; Glucose, Urine Negative (Negative); Ketones,Urine Negative (Negative); Leukocyte Esterase,Urine Positive (Negative); Nitrite,Urine Negative (Negative); PH,Urine 6.0 (5.0-7.0); Protein,Urine Negative (Neg - Trace); RBC,Urine < 1 /hpf (0-3); Specific Gravity,Urine 1.007 (1.001-1.035); Urobilinogen,Urine Negative mg/dL (0.0-1.0); WBC,Urine 10 /hpf (0-5)
[2025-07-06] MEDS: PRE MIXED IV (03:41)
[2025-07-06] MEDS: SODIUM CHLORIDE 3% IV (03:41)
--- NOTE | 2025-07-06 09:03 | ESCONSULT_ITS ---
HPI Data of Consult Consult date: 07/06/25 Requesting Physician: Richard Jimenez MD Admitting Provider: Richard Jimenez MD Attending Provider: Richard Jimenez MD Primary Care Provider: Physician No Primary/Family Consult Narrative Reason for consult: CKD III with electrolyte derangements History of present illness: Informant daughter Mr. Montalvo is a 69 yo gentleman with hx of CKD stage III(follows with Dr. Paige Tse in [place]), T2DM not on insulin, HTN, HLD, who was diagnosed with IVb prostate CA with widespread mets bone abdominal pelvic lymphadenopathy in February 2025 (followed by Dr. Myers- on casodex), chronic olson in place who has had multiple visits to various ED for electrolyte derangements that recur most recent admission 06/24 for hyperkalemia, and who presents to the ED with persistent headache, malaise, and found to have hyponatremia and hyperkalemia, Cr 1.4 (at baseline), egfr 54. Patient apparently also was at [facility] few times per daughter. Noted to have persistent hypotension and hyperkalemia. Per patient's son, Fabio, he states that this cycle has been going on for several weeks with electrolyte disturbances. He states that the headaches have been persistent and resolve with APAP but come back shortly after. Pt has been unable to tolerate much food. He states that he eats soup with potatoes, however he has nausea and vomiting shortly there after. Pt seen by Dr Myers 07/05/25, pending PET scan. CTAP from 06/24 with Bilateral nodular adrenal masses again noted ROS pt endorses weakness, headaches, nausea, vomiting pt denies, chestpain, shortness of breath, abdominal pain ED course: Dx * Labs significant for Na 120, K 5.2, Cl 90, Cr 1.4 (at baseline), eGFR54 * UA + wbc, leuk esterase, yeast budding, pt has chronic olson * EKG sinus Tx * NS 500 cc 07/06/2025: Nephrology consulted. Pt seen and examined while in the ED, son at bedside. Pt has intermittent cough, no acute complaints, Cr at baseline 1.4 and UA with yeast (chronic olson draining clear urine). NA 120, K 5.2 , Cr 1.4 @baseline. cc:: cc: Richard Jimenez MD Review of Systems Review of Systems ROS Unobtainable: unobtainable due to mental status Past Medical History Past Medical History NEUROLOGIC: Negative Neurological Disorders CARDIAC: Positive Cardiac Disorders and Hypertension; Negative Congestive Heart Failure RESPIRATORY: Negative Chronic Obstructive Pulmonary Disease (COPD) or Asthma GASTROINTESTINAL: Negative Gastrointestinal Disorders GENITOURINARY: Positive Genitourinary Disorders, Prostate Cancer and Benign Prostatic Hyperplasia; Negative Renal Disease REPRODUCTIVE: Negative Fibroids MUSCULOSKELETAL: Negative Musculoskeletal Disorders ENT: Positive History of ENT Problems and Deafness ENDOCRINE: Negative Endocrine Disorders, Diabetes Mellitus Type 1 or Diabetes Mellitus Type 2 HEMATOLOGIC: Negative Blood Disorders or Sickle Cell Disease PSYCHO/SOCIAL: Positive Depression OTHER HISTORY: Positive Falls, Cancer and Prostate Cancer; Negative Autoimmune Disease, Anesthesia Reactions or MRSA Family History FAMILY HISTORY: Negative Family Psychiatric Problems, Family Respiratory Disorders, Family Cardiac Disorders, Family Gastrointestinal Problems, Family Genitourinary Problems, Family Endocrine Disorders, Family Reproductive Disorders, Family Musculoskeletal Disorders, Family Cancer, Family Surgery or Family Anesthesia Reaction Surgical History SURGICAL: Negative Cardiac Surgery, Endocrine Surgery, Ear Surgery, Abdominal Surgery, Nephrectomy, Joint Replacement, Neurologic Surgery, Mastectomy or Vasectomy Social History SMOKING STATUS: Never smoker Past Medical History Comments PMH COMMENT: Past Medical History: as above Past Surgical History: none Family History: Older brother with prostate cancer Social History: - Smoking: denies - Alcohol: denies - Illicit drugs: denies - Residence: lives [place] and son - 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 Current Medications: amoxicillin-clavulanate 875mg BID, atorvastatin 20 mg PO HS, bicalutamide 50 mg, metformin 500 mg BID, ondansetron 4mg PRN Allergies: No known drug allergies. Exam Vital Signs Temp Pulse Resp BP Pulse Ox O2 Del Method O2 Flow Rate 97.1 F 65 18 127/66 100 Oxy Mask 10 07/06/25 08:02 07/06/25 08:09 07/06/25 08:02 07/06/25 08:02 07/06/25 08:02 07/06/25 08:02 07/06/25 08:02 Narrative Exam GENERAL APPEARANCE: pt appears dehydrated, frail, temporal wasting. son at bedside. Dry mucosa CARDIOVASCULAR: Heart regular, no murmurs LUNGS/CHEST: Chest clear to auscultation. No rales, rhonchi, wheezing intermittent dry cough, on oxymax 2 L. ABDOMEN: Soft, nontender, nondistended. No masses. Normal bowel sounds. EXTREMITIES: No edema, clubbing or cyanosis, cap refil < 2sec Indwelling Olson catheter with clear urine SKIN: Skin exam normal without any rashes MUSCULOSKELETAL: In bed NEUROLOGICAL : No neurological deficits Results Labs 07/06/25 00:33 07/06/25 19:00 Labs: Short CBC 07/06/25 Range/Units 00:33 WBC 6.0 (3.8-10.6) Thou/mm3 Hgb 10.2 L (13.5-16.0) g/dL Hct 28.9 L (41.0-53.0) % Plt Count 262 D (140-440) Thou/mm3 BMP 07/06/25 00:33 Sodium 120 L Potassium 5.2 H Chloride 90 L Carbon Dioxide 22.2 BUN 18 Creatinine 1.4 H Glucose 106 Calcium 9.2 Cardiac Enzymes 07/06/25 Range/Units 00:33 Troponin I < 0.020 (0.0-0.045) ng/mL Liver Function 07/06/25 Range/Units 00:33 Total Bilirubin 1.1 (0.3-1.2) mg/dL AST 22 (0-34) U/L ALT 11 (10-49) U/L Alkaline Phosphatase 55 (46-116) U/L Albumin 4.2 (3.4-4.8) gm/dL Urine 07/06/25 Range/Units 02:39 Urine Color Lt-Yellow (Lt Yel-Yel) Urine Clarity Clear (Clear/Hazy) Urine pH 6.0 (5.0-7.0) Ur Specific [place] 1.007 (1.001-1.035) Urine Protein Negative (Neg - Trace) Urine Glucose (UA) Negative (Negative) Quality Measures Quality Measures none Advance care planning discussed with:: patient and child Medications Home Medications and Allergies Home Medications ?Medication ?Instructions ?Recorded ?Confirmed ?Type acetaminophen 500 mg tablet 500 mg PO Q6H PRN pain 07/06/25 History bicalutamide 50 mg tablet 50 mg PO 1XD 06/25/25 History amoxicillin 875 mg-potassium 875 tab PO BID bilateral ear 07/06/25 07/06/25 History clavulanate 125 mg tablet infection ondansetron 4 mg disintegrating 4 mg PO Q8H PRN nausea and vomiting 07/06/25 07/06/25 History tablet Allergies Allergy/AdvReac Type Severity Reaction Status Date / Time No Known Allergies Allergy Verified 07/05/25 22:54 Visit Medications Acetaminophen (Acetaminophen 325 Mg Tablet) 650 mg PO Q6H PRN PRN Reason: Fever >101.5 Stop: 08/05/25 08:28 Heparin Sodium (Porcine) (Heparin Sod Inj 5000 Unit/Ml Vial) 5,000 unit SC Q8HR ADRIAN Stop: 07/20/25 08:44 Sodium Chloride 30 ml/ IV (Miscellaneous Supplies) 30 mls @ 30 mls/hr IV X1 ONE Stop: 07/06/25 19:43 Last Infusion: 07/06/25 04:49 Dose: Infused Sodium Chloride (Ns) 1,000 mls @ 75 mls/hr IV .[id number] ADRIAN Stop: 08/05/25 08:29 Ondansetron HCl (Ondansetron Inj 2 Mg/Ml Inj 2 Ml) 4 mg IVP Q6H PRN; Protocol PRN Reason: NAUSEA OR VOMITING Stop: 08/05/25 08:28 Discontinued Medications Sodium Chloride (Ns) 500 mls @ 500 mls/hr IV .Q1H ONE Stop: 07/06/25 02:52 Last Infusion: 07/06/25 03:57 Dose: Infused Assessment & Plan Plan Mr Montalvo is a 69 yo gentleman with hx of CKD stage III(follows with Dr. Paige Tse in [place]), T2DM not on insulin, HTN, HLD, who was diagnosed with IVb prostate CA with widespread mets bone abdominal pelvic lymphadenopathy in February 2025 (followed by Dr. Myers), chronic olson in place with recent admission 06/24 for hyperkalemia, who presents to the ED with persistent headache, malaise, and found to have hyponatremia and hyperkalemia, Cr 1.4 (at baseline), egfr 54. given pt has recurrent presentations with electrolyte derrangements n/v and adrenal masses on imaging, query adrenal insufficiency. pending cortisol level and actch #electrolyte derrangements #query adrenal insufficiency 2/2 #query metastatic adrenal masses ? #Chronic hyponatremia #hyperkalemia #hypochloremia query adrenal insufficiency given pt with hypotension, labs with hyponatremia and hyperkalemia, nausea, vomiting query 2/2 spontaneous tumor lysis vs hypovolemic given anorexia Dx -CMP daily -q6hr Na checks -serum cortisol level AM -plasma ACTH level AM -06/24 CTAP with bilateral adrenal masses Tx 3% NS fluids, 15- 30ml/hr: Goal increase in Na 4-6 within 24 hrs. adjust rate accordingly * Na recheck Na 125 from 120, d/c fluids per primary team, Reached goal for 24hrs - Start Fludriortisone 0.5 PO QD - start hydrocortisone 5mg TID #CKD Stage III Cr on admission is 1.4, appears at his baseline. eGFR [address] Paige Tse in [facility], pt reports poor po intake 2/2 nausea and vomiting. appears dehydrated Dx UA with 10 hpf WBC, yeast, no RBC, leuk est + Urine lytes: Na wnl, K wnl , Cl low Renal US from 06/25 with Bilateral renal cortical thinning, Moderate bilateral renal parenchymal scar formation Plan: -avoid nephrotoxic agents -strict i and o #T2DM not on insulin at home on metformin 500 bid Finger BS, wnl #prostate Cancer Stage 4b, with mets to bone and abdomen #prostate hypertrophy -follows with Dr. Myers and Dr. Torres, pending PET scan -indwelling olson -On bicalutamide at home #HTN BP is soft to normotensive 100s to 120 systolic #anorexia #query malnutrition temporal wasting and reported poor PO intake given n/v -consider dietitian consult Plan discussed with nephrology attending Dr. Yonny Galloway MD Internal Medicine PGY-1 Attending Provider Attestation/Addendum Patient seen and examined with resident physician Dr. Galloway. Note reviewed, agree with findings and recommendations. Patient noted to have significant temporal wasting, more than 60 pound weight loss in the last few months associated with nausea vomiting --noted to have EVARISTO, hyponatremia, hyperkalemia, mild metabolic acidosis in the setting of hypotension. Careful review of CT scan from the previous ER visit showed he had multiple adrenal masses, lymph nodes and with relatively new diagnosis of metastatic prostate cancer-suspect patient has adrenal insufficiency probably related to malignancy versus idiopathic Hyponatremia-probably related to adrenal insufficiency vs hypovolemia from nausea vomiting and decreased p.o. intake. Patient did receive normal saline and subsequently hypertonic saline. He seems to be very sleepy right now. Sodium did improve from 120-126. Agree with holding off on the hypertonic saline for now. Urine chloride low consistent with hypovolemia. Hyperkalemia-probably related to underlying adrenal insufficiency. Doubt RTA type IV in the setting of DM-(hyperchloremic metabolic acidosis) Add glucocorticoid and mineralocorticoid. Check cortisol and ACTH levels. Spoke to primary team- Thank you Richard for allowing me to participate in the care of Mr. Sarabia
[2025-07-06] MEDS: HEPARIN SOD INJ 5000 UNIT/ML VIAL SC ×3 (09:08→21:06)
[2025-07-06] MEDS: DEXTROSE 50%-WATER INJ 50 ML SYRINGE IVP (10:14)
[2025-07-06] MEDS: INSULIN HUM REGULAR 1 UNIT/0.01 ML (PER UNIT) 5 UNIT IV (10:20)
[2025-07-06 10:31] LABS: Anion Gap 8 (7-16); BUN/Creatinine Ratio 13 Ratio (12-20); Blood Urea Nitrogen 16 mg/dL (9-23); Calcium 9.9 mg/dL (8.3-10.6); Carbon Dioxide 22.4 mMol/L (20.0-31.0); Chloride 95 mMol/L (98-107); Creatinine (Component) 1.2 mg/dL (0.6-1.3); Glucose 98 mg/dL (74-106); Osmolality,Calculated 252 (275-295); Potassium 5.4 mMol/L (3.4-5.1); Sodium 125 mMol/L (136-145); Thyroid Stimulating Hormone 1.65 uIU/mL (0.55-4.78); Troponin I < 0.020 ng/mL (0.0-0.045); eGFR > 60 See Note
--- NOTE | 2025-07-06 13:10 | ESHP_ITS ---
<Statement entered by Darius Romo MD - 07/07/25 15:18> Patient was examined and case was reviewed with team including attending physician. Note reviewed, I agree with most of its contents and agree with the patient's care as documented by Dr. Hunter Romo MD PGY-2 Documentation for date of: 07/06/25 HPI History of Present Illness History of present illness: History was obtained primarily from the patient?s son, Fabio, at the bedside, as the patient and his were poor historians. 69-year-old male with a past medical history significant for stage IVb prostate cancer with widespread bone metastases and abdominal/pelvic lymphadenopathy (diagnosed February 2025), chronic kidney disease stage III, type 2 diabetes mellitus, hypertension, hyperlipidemia, and prior valley fever, presented to the ED on 07/06/2025 with generalized weakness and hypotension. The patient had been evaluated at [facility] the previous day, where labs revealed hyponatremia. He declined transfer to [place] and left [place]. He presented today to the [facility] ED due to persistent symptoms. He reported a persistent headache, ongoing since his prostate cancer diagnosis, as well as nausea and vomiting, particularly after eating. He reported an unintentional weight loss of approximately 52 pounds (from 210 lbs to 158 lbs) since his cancer diagnosis. He experienced occasional dyspnea, which he attributed to his history of valley fever, without acute worsening. He denied vision changes, chest pain, abdominal pain, and lower extremity edema. He had an indwelling Velasquez catheter for the past 3 months and is followed by Dr. Myers (oncology). Notably, during a prior hospitalization from 06/24 to 06/26/2025 at [facility], the patient was admitted for EVARISTO on CKD and electrolyte abnormalities. His electrolyte derangements were corrected, and he was started on ceftriaxone for empiric treatment of a urinary tract infection. Nephrology was consulted at that time for suspected acute renal failure secondary to prerenal azotemia. ED Course: - Vitals: BP 95/61, HR 75, RR 20, T 98.7F, O2 Sat 96% on room air with oxygen flow rate of 10 L/min. - Labs: WBC 6.0 , hemoglobin 10.2 , sodium 120 , potassium 5.4 , BUN 16 , creatinine 1.2 , calcium 9.9, serum osmolality 244. UA appears to be dilute - specific gravity 1.007 - with equivocal evidence of infection. - Imaging: EKG showed sinus rhythm, no arrhythmias or ST abnormalities noted. CXR showed no active disease. - Treatment: Hypertonic saline, 500cc bolus NS. Review of Systems Review of Systems Narrative Review of Systems: All 13 review of systems are negative except as listed above in the HPI. 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 Current Medications: amoxicillin-clavulanate 875mg BID, atorvastatin 20 mg PO HS, bicalutamide 50 mg, metformin 500 mg BID, ondansetron 4mg PRN Allergies: No known drug allergies. Exam Vital Signs Temp Pulse Resp BP Pulse Ox O2 Del Method O2 Flow Rate 97.5 F 84 12 106/71 100 Room Air 6 07/06/25 12:27 07/06/25 12:27 07/06/25 12:27 07/06/25 12:27 07/06/25 12:27 07/06/25 12:27 07/06/25 10:01 Narrative Exam Physical Exam General: somnolent, chronically ill appearing, no acute distress, oxymask present. HEENT: Normocephalic, atraumatic. Heart: Regular rate and rhythm, no murmurs. Lungs: Clear to auscultation with no wheezing or crackles. Abdomen: Soft, nondistended, nontender. No guarding or rebound tenderness. Neurologic: Alert and oriented x3, no gross neurological deficit, and patient able to move all 4 extremities. Extremities: No edema. Skin: No rash or ecchymoses. Results: Labs 07/06/25 00:33 07/07/25 06:05 Labs: Short CBC 07/06/25 Range/Units 00:33 WBC 6.0 (3.8-10.6) Thou/mm3 Hgb 10.2 L (13.5-16.0) g/dL Hct 28.9 L (41.0-53.0) % Plt Count 262 D (140-440) Thou/mm3 [facility] 07/06/25 07/06/25 00:33 09:49 Sodium 120 L 125 L Potassium 5.2 H 5.4 H Chloride 90 L 95 L Carbon Dioxide 22.2 22.4 BUN 18 16 Creatinine 1.4 H 1.2 Glucose 106 98 Calcium 9.2 9.9 Cardiac Enzymes 07/06/25 07/06/25 Range/Units 00:33 09:49 Troponin I < 0.020 < 0.020 (0.0-0.045) ng/mL Liver Function 07/06/25 Range/Units 00:33 Total Bilirubin 1.1 (0.3-1.2) mg/dL AST 22 (0-34) U/L ALT 11 (10-49) U/L Alkaline Phosphatase 55 (46-116) U/L Albumin 4.2 (3.4-4.8) gm/dL Urine 07/06/25 Range/Units 02:39 Urine Color Lt-Yellow (Lt Yel-Yel) Urine Clarity Clear (Clear/Hazy) Urine pH 6.0 (5.0-7.0) Ur Specific [place] 1.007 (1.001-1.035) Urine Protein Negative (Neg - Trace) Urine Glucose (UA) Negative (Negative) Quality Measures Quality Measures none Advance care planning discussed with:: patient, spouse and child Medications Home Medications and Allergies Home Medications ?Medication ?Instructions ?Recorded ?Confirmed ?Type acetaminophen 500 mg tablet 500 mg PO Q6H PRN pain 07/06/25 History bicalutamide 50 mg tablet 50 mg PO 1XD 06/25/25 History amoxicillin 875 mg-potassium 875 tab PO BID bilateral ear 07/06/25 07/06/25 History clavulanate 125 mg tablet infection ondansetron 4 mg disintegrating 4 mg PO Q8H PRN nausea and vomiting 07/06/25 07/06/25 History tablet Allergies Allergy/AdvReac Type Severity Reaction Status Date / Time No Known Allergies Allergy Verified 07/05/25 22:54 Visit Medications Acetaminophen (Acetaminophen 325 Mg Tablet) 650 mg PO Q6H PRN PRN Reason: Fever >101.5 Stop: 08/05/25 08:28 Heparin Sodium (Porcine) (Heparin Sod Inj 5000 Unit/Ml Vial) 5,000 unit SC Q8HR ADRIAN Stop: 07/20/25 08:44 Last Admin: 07/06/25 09:08 Dose: 5,000 unit Sodium Chloride 30 ml/ IV (Miscellaneous Supplies) 30 mls @ 30 mls/hr IV X1 ONE Stop: 07/06/25 19:43 Last Infusion: 07/06/25 04:49 Dose: Infused Sodium Chloride (Ns) 1,000 mls @ 75 mls/hr IV .[id number] ADRIAN Stop: 08/05/25 08:29 Last Admin: 07/06/25 11:30 Dose: Not Given Ondansetron HCl (Ondansetron Inj 2 Mg/Ml Inj 2 Ml) 4 mg IVP Q6H PRN; Protocol PRN Reason: NAUSEA OR VOMITING Stop: 08/05/25 08:28 Discontinued Medications Dextrose (Dextrose 50%-Water Inj 50 Ml Syringe) 50 ml IVP X1 ONE Stop: 07/06/25 09:04 Last Admin: 07/06/25 10:14 Dose: 50 ml Sodium Chloride (Ns) 500 mls @ 500 mls/hr IV .Q1H ONE Stop: 07/06/25 02:52 Last Infusion: 07/06/25 03:57 Dose: Infused Insulin Human Regular (Insulin Hum Regular 1 Unit/0.01 Ml (Per Unit)) 5 unit SC X1 ONE Stop: 07/06/25 09:04 Last Admin: 07/06/25 10:27 Dose: Not Given Insulin Human Regular (Insulin Hum Regular 1 Unit/0.01 Ml (Per Unit)) 5 unit IV X1 ONE Stop: 07/06/25 10:13 Last Admin: 07/06/25 10:20 Dose: 5 unit Assessment & Plan Plan 69-year-old male with 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 #Hyponatremia #Hyperkalemia #Hypochloremia Na 120, K 5.2, Cl 96 on admission. Likely multifactorial - possible contributions from CKD stage III, advanced prostate cancer, bilateral adrenal masses (CT abdomen/pelvis 06/24/25), possible adrenal insufficiency, or SIADH related to malignancy. Tumor lysis syndrome is less likely without hyperuricemia or hyperphosphatemia, but remains in the differential given advanced metastatic disease. Volume status differential: Hypovolemic hyponatremia: Urine sodium 51 mEq/L; GI losses unlikely. Adrenal insufficiency remains a consideration given bilateral adrenal masses. Euvolemic hyponatremia: Urine sodium 51.1 mEq/L, urine osmolality 140.6 mOsm/kg; TSH 1.65 ? makes hypothyroidism unlikely. Possible SIADH in the setting of malignancy. In ED, hypertonic saline infusion and 500 mL NS bolus given. Sodium improved from 120 to 125 within 24 hours. IV fluids discontinued to avoid overcorrection (>6?8 mEq/L/24 hrs) and reduce risk of osmotic demyelination syndrome. Hyperkalemia managed with 5 units regular insulin IV plus D5W bolus. No EKG changes suggestive of hyperkalemia-related arrhythmia. Plan: - Continue sodium checks every 4 hours - Monitor potassium closely - Pending serum cortisol and ACTH to assess for adrenal insufficiency. - Nephrology consulted ? appreciate recommendations: - Start fludrocortisone 0.5 mg PO daily. - Start hydrocortisone 5 mg PO TID. - Maintain seizure precautions given risk with acute hyponatremia. - Strict I/O monitoring. - Keep NPO. - Will discuss bilateral adrenal masses with nephrology; recommend outpatient follow-up for further evaluation. #Stage IVb prostate cancer with widespread bony metastases & abdominal/pelvic lymphadenopathy Known diagnosis (February 2025), on bicalutamide, followed by oncology (Dr. Myers). Significant cancer-related weight loss. Plan: - Continue current hormone therapy. - Pending PET scan. - Has follow-up appointment with in 1 month. #CKD Stage IIIb Cr on admission is 1.4 (around baseline) eGFR [address] Paige [facility]se in [place] Plan: - Avoid nephrotoxins. - Adjust medication dosing for renal function. - Monitor renal function daily. - Strict I&O's #T2DM not on insulin At home on metformin 500mg 2x a day Plan: - Pending A1c. - SSI. - Monitor blood glucose. - Hold home metformin. #Chronic Velasquez catheter Placed 3 months ago for urinary obstruction from prostate cancer Equivocal UA for infection since urine was dilute Plan - Monitor for signs/symptoms of catheter-associated UTI. #Persistent headache Chronic since cancer diagnosis; possible multifactorial etiology (malignancy, electrolyte disturbances, dehydration). No focal neuro deficits; no signs of acute intracranial process on presentation. Plan: - Symptomatic management with acetaminophen PRN. - Monitor for changes in mental status; consider neuroimaging if worsening or acute change. Chronic conditions #Hyperlipidemia Plan: - Continue atorvastatin 20mg. #History of Valley fever (coccidioidomycosis) CXR showed no active disease. Health Maintenance Disposition: Tele DVT prophylaxis: Heparin GI prophylaxis: Zofran Bowel prophylaxis: Lactulose daily Diet: NPO CODE STATUS: FULL Patient plan of care was discussed with the senior resident, Dr. Pizano, and attending physician, Dr. Jimenez. Juanita Harrison DO Attending Provider Attestation/Addendum I have examined the patient, reviewed labs and imaging findings, discussed the case with the resident(s), and reviewed entered orders. I agree with the plan of care as outlined in this note, with these additional summaries/recommendations: After examination of the patient and review of the clinical data I feel that this patient needs admission to the hospital for further treatment/evaluation. Patient is a 69-year-old male with a medical history of metastatic prostate cancer, chronic indwelling Velasquez, hyperlipidemia, primary hypertension, CKD, and diabetes mellitus type 2 presents to [facility] emergency department on 07/06/2025 with chief complaint of generalized weakness and low blood pressure. Patient seen at bedside. Patient diagnosed with hypotonic hyponatremia. Patient presented with sodium 120 and serum osmolality 244. Volume status is hypovolemic. Most likely secondary to low solute intake versus extrarenal losses versus polydipsia versus CKD versus SIADH. Order urine osmolality and urine sodium. Continue to trend sodium. Avoid overcorrection of 10 mEq in 24- hour period. Start IVF. Consult nephrology, recommendations appreciated. Order physical therapy consultation. Patient has soft blood pressure and continue IV fluids. Mild hyperkalemia and will give fluids and monitor for now. If if hyperkalemia worsens then we will give temporizing measures and Kayexalate. Patient has underlying CKD and nephrology following. Avoid nephrotoxic agents and renally dose medications. Start insulin sliding scale for diabetes mellitus type 2 with Accu-Cheks. Target blood sugar 140-180 while hospitalized. Resume home antihypertensives when able. Outpatient follow-up for metastatic prostate cancer. Patient updated on the plan and agreement. All questions answered satisfaction. Please see residents note for additional details of management. Dr. Barbara MD
[2025-07-06 14:47] LABS: Albumin, Serum 4.0 gm/dL (3.4-4.8); Anion Gap 9 (7-16); BUN/Creatinine Ratio 13 Ratio (12-20); Blood Urea Nitrogen 15 mg/dL (9-23); Calcium 9.8 mg/dL (8.3-10.6); Calcium (Corrected) 9.8 mg/dL (8.5-10.1); Carbon Dioxide 22.4 mMol/L (20.0-31.0); Chloride 96 mMol/L (98-107); Creatinine (Component) 1.2 mg/dL (0.6-1.3); Estimated Creatinine Clearance 48.6 mL/min (>60); Glucose 82 mg/dL (74-106); LDH (Lactate Dehydrogenase) 113 U/L (120-246); Magnesium 1.2 mg/dL (1.6-2.6); Osmolality,Calculated 255 (275-295); Phosphorous 4.5 mg/dL (2.4-5.1); Potassium 4.8 mMol/L (3.4-5.1); Sodium 127 mMol/L (136-145); Uric Acid 5.2 mg/dL (3.7-9.2); eGFR > 60 See Note
[2025-07-06] MEDS: HYDROCORTISONE 5 MG TABLET PO ×2 (15:02→21:05)
[2025-07-06] MEDS: BICALUTAMIDE 50 MG TABLET PO (16:30)
[2025-07-06 19:54] LABS: Sodium 125 mMol/L (136-145)
[2025-07-06] MEDS: ATORVASTATIN CALCIUM 20 MG TABLET PO (21:05)
[2025-07-06 22:52] LABS: Sodium 127 mMol/L (136-145)
[2025-07-07] VITALS (7 sets, daily range): BP systolic 93–124; BP diastolic 56–77; PULSE 77–88; RESP 14–26; TEMP 36.1–36.9; O2SAT 96–100; BMI 28.3
[2025-07-07 04:42] LABS: Sodium 128 mMol/L (136-145)
[2025-07-07] MEDS: HYDROCORTISONE 5 MG TABLET PO ×3 (05:06→21:54)
[2025-07-07] MEDS: HEPARIN SOD INJ 5000 UNIT/ML VIAL SC ×3 (05:11→21:55)
[2025-07-07 06:35] LABS: Basophils # (Auto) 0.0 Thou/mm3 (0.0-0.2); Basophils % (Auto) 0 % (0-2.5); Eosinophils # (Auto) 0.0 Thou/mm3 (0.0-0.5); Eosinophils % (Auto) 1 % (0-10); Hematocrit 31.3 % (41.0-53.0); Hemoglobin 10.5 g/dL (13.5-16.0); Immature Granulocytes Auto 0.02 Thou/mm3 (0.00-0.00); Lymphocytes # (Auto) 2.2 Thou/mm3 (1.0-4.8); Lymphocytes % (Auto) 39 % (10-50); Mean Corpuscular HGB Conc 33.5 g/dl (31.0-37.0); Mean Corpuscular Hemoglobin 27.6 pg (25.0-35.0); Mean Corpuscular Volume 82 fL (80-100); Monocytes # (Auto) 0.5 Thou/mm3 (0.0-0.8); Monocytes % (Auto) 9 % (0-12); Neutrophils # (Auto) 2.9 Thou/mm3 (1.8-7.7); Neutrophils % (Auto) 51 % (37-80); Nucleated Red Blood Cell # 0.00 Thou/mm3 (0.00-0.00); Nucleated Red Blood Cell % 0 /100 WBC (0); Platelet Count 259 Thou/mm3 (140-440); RDW Standard Deviation 41.6 fL (35.1-43.9); Red Blood Count 3.81 Miln/mm3 (4.50-5.90); White Blood Count 5.7 Thou/mm3 (3.8-10.6)
[2025-07-07 06:56] LABS: INR 1.0 (0.9-1.3); Partial Thromboplastin Time 36.0 Seconds (22.0-36.0); Prothrombin Time 11.1 Seconds (9.0-12.2)
[2025-07-07 07:00] LABS: Alanine Aminotransferase 14 U/L (10-49); Albumin, Serum 4.4 gm/dL (3.4-4.8); Albumin/Globulin Ratio 1.8 (1.2-2.2); Alkaline Phosphatase 56 U/L (46-116); Anion Gap 9 (7-16); Aspartate Amino Transferase 28 U/L (0-34); BUN/Creatinine Ratio 12 Ratio (12-20); Bilirubin,Total 0.9 mg/dL (0.3-1.2); Blood Urea Nitrogen 14 mg/dL (9-23); Calcium 10.1 mg/dL (8.3-10.6); Calcium (Corrected) 10.1 mg/dL (8.5-10.1); Carbon Dioxide 20.9 mMol/L (20.0-31.0); Chloride 99 mMol/L (98-107); Creatinine (Component) 1.2 mg/dL (0.6-1.3); Estimated Creatinine Clearance 49.2 mL/min (>60); Globulin 2.5 gm/dL (2.3-3.5); Glucose 100 mg/dL (74-106); Magnesium 1.6 mg/dL (1.6-2.6); Osmolality,Calculated 259 (275-295); Phosphorous 4.9 mg/dL (2.4-5.1); Potassium 5.3 mMol/L (3.4-5.1); Sodium 129 mMol/L (136-145); Total Protein 6.9 gm/dL (5.7-8.2); eGFR > 60 See Note
[2025-07-07] MEDS: FLUDROCORTISONE ACETATE 0.1 MG TABLET 0.05 MG PO (09:16)
[2025-07-07] MEDS: BICALUTAMIDE 50 MG TABLET PO (09:16)
[2025-07-07] MEDS: Magnesium Sulfate 4 GM Ivpb 4 GM/50 ML BAG IV (09:17)
[2025-07-07] MEDS: SODIUM BICARBONATE 650 MG TABLET 325 MG PO (09:17)
--- NOTE | 2025-07-07 09:53 | ESPR_ITS ---
Documentation for date of: 07/07/25 Subjective Subjective Interval history: Mr. Montalvo is a 69 yo gentleman with hx of CKD stage III(follows with Dr. Paige Tse in [place]), T2DM not on insulin, HTN, HLD, who was diagnosed with IVb prostate CA with widespread mets bone abdominal pelvic lymphadenopathy in February 2025 (followed by Dr. Myers- on casodex), chronic olson in place who has had multiple visits to various ED for electrolyte derangements that recur most recent admission 06/24 for hyperkalemia, and who presents to the ED with persistent headache, malaise, and found to have hyponatremia and hyperkalemia, Cr 1.4 (at baseline), egfr 54. Patient apparently also was at [facility] few times per daughter. Noted to have persistent hypotension and hyperkalemia. CTAP with BL adrenal masses 07/06/2025: Nephrology consulted. Pt seen and examined while in the ED, son at bedside. Pt has intermittent cough, no acute complaints, Cr at baseline 1.4 and UA with yeast (chronic loson draining clear urine). NA 120, K 5.2 , Cr 1.4 @baseline. 07/07/2025: Patient seen and examined at bedside, pt daughter present concerned about missing appointment with Dr. Chao. Pt reports having BL knee pain. on exam no edema bilaterally, Na 129, K 5.3, continues on hydrocortisone and Fludriortisone. pending acth and serum AM cortisol. Start bicarb 325 qd Exam Vital Signs Temp Pulse Resp BP Pulse Ox O2 Del Method O2 Flow Rate 98.4 F 79 14 124/77 100 Nasal Cannula 2 07/07/25 08:00 07/07/25 08:00 07/07/25 08:00 07/07/25 08:00 07/07/25 08:00 07/07/25 08:00 07/07/25 08:00 Narrative Exam GENERAL APPEARANCE: pt appears dehydrated, frail, temporal wasting. daughter at bedside. pt is hard of hearing more awake and interactive compared to prior. CARDIOVASCULAR: Heart regular, no murmurs LUNGS/CHEST: Chest clear to auscultation. No rales, rhonchi, wheezing intermittent dry cough, on room air . ABDOMEN: Soft, nontender, nondistended. No masses. Normal bowel sounds. EXTREMITIES: No edema, clubbing or cyanosis, cap refil < 2sec Indwelling Olson catheter with clear urine SKIN: Skin exam normal without any rashes MUSCULOSKELETAL: In bed NEUROLOGICAL : No neurological deficits Objective Labs 07/08/25 04:40 07/08/25 13:20 Labs: Laboratory Results - last 24 hr 07/06/25 07/06/25 07/06/25 09:49 13:59 19:00 PT INR APTT Sodium 125 L 127 L 125 L Potassium 5.4 H 4.8 D Chloride 95 L 96 L Carbon Dioxide 22.4 22.4 Anion Gap 8 9 BUN 16 15 Creatinine 1.2 1.2 Estim Creat Clear Calc Not Performed. 48.6 L eGFR > 60 > 60 BUN/Creatinine Ratio 13 13 Glucose 98 82 Calculated Osmolality 252 L 255 L Uric Acid 5.2 Calcium 9.9 9.8 Corrected Calcium 9.8 Phosphorus 4.5 Magnesium 1.2 L Total Bilirubin AST ALT Alkaline Phosphatase Lactate Dehydrogenase 113 L Troponin I < 0.020 Total Protein Albumin 4.0 Globulin Albumin/Globulin Ratio TSH 1.65 07/06/25 07/07/25 07/07/25 22:24 02:19 06:05 PT 11.1 INR 1.0 APTT 36.0 Sodium 127 L 128 L 129 L Potassium 5.3 H D Chloride 99 Carbon Dioxide 20.9 Anion Gap 9 BUN 14 Creatinine 1.2 Estim Creat Clear Calc 49.2 L eGFR > 60 BUN/Creatinine Ratio 12 Glucose 100 Calculated Osmolality 259 L Uric Acid Calcium 10.1 Corrected Calcium 10.1 Phosphorus 4.9 Magnesium 1.6 Total Bilirubin 0.9 AST 28 ALT 14 Alkaline Phosphatase 56 Lactate Dehydrogenase Troponin I Total Protein 6.9 Albumin 4.4 Globulin 2.5 Albumin/Globulin Ratio 1.8 TSH Quality Measures Quality Measures none Advance care planning discussed with:: patient and child Assessment & Plan Assessment Current Active Medications: Generic Name Dose Route Start Last Admin Trade Name Freq PRN Reason Stop Dose Admin Acetaminophen 650 mg 07/06/25 08:29 Acetaminophen 325 Mg Tablet PO 08/05/25 08:28 Q6H PRN Fever >101.5 Atorvastatin Calcium 20 mg 07/06/25 21:00 07/06/25 21:05 Atorvastatin Calcium 20 Mg Tablet PO 08/05/25 20:59 20 mg HS ADRIAN Administration Bicalutamide 50 Mg 0 ea 07/06/25 15:00 07/07/25 09:16 Tablet PO 08/05/25 14:59 1 tablet QDAY ADRIAN Administration Dextrose 25 ml 07/06/25 15:10 Dextrose 50%-Water Inj 50 Ml Syringe IV 08/05/25 15:09 Q15MIN PRN BG 50-70 responsive npo pt Dextrose 50 ml 07/06/25 15:10 Dextrose 50%-Water Inj 50 Ml Syringe IV 08/05/25 15:09 Q15MIN PRN BG <50 OR BG <70 & pt unresponsive Dronabinol 2.5 mg 07/07/25 17:00 Dronabinol 2.5 Mg Capsule PO 08/06/25 16:59 BIDAC ADRIAN Fludrocortisone Acetate 0.05 mg 07/06/25 14:13 07/07/25 09:16 Fludrocortisone Acetate 0.1 Mg Tablet PO 08/05/25 13:59 0.05 mg QDAY ADRIAN Administration Glucagon 1 mg 07/06/25 15:10 Glucagon Inj 1 Mg Vial IM Q15MIN PRN BG <70, and no IV access Heparin Sodium (Porcine) 5,000 unit 07/06/25 08:45 07/07/25 05:11 Heparin Sod Inj 5000 Unit/Ml Vial SC 07/20/25 08:44 5,000 unit Q8HR ADRIAN Administration Hydrocortisone 5 mg 07/06/25 14:00 07/07/25 05:06 Hydrocortisone 5 Mg Tablet PO 08/05/25 13:59 5 mg TID ADRIAN Administration Sodium Chloride 1,000 mls @ 75 mls/hr 07/06/25 08:30 07/06/25 11:30 Ns IV 08/05/25 08:29 Not Given .[id number] [facility] Magnesium Sulfate 4 gm in 50 mls @ 12.5 mls/hr 07/07/25 08:08 07/07/25 09:17 Magnesium Sulfate Ivpb IV 07/07/25 12:07 12.5 mls/hr X1 ONE Administration Insulin Human Lispro 0 unit 07/07/25 00:00 07/07/25 05:09 Insulin Lispro (Admelog) 1 Unit/0.01 Ml Unit SC 08/06/25 00:00 Not Given Q6HR [facility] Protocol Ondansetron HCl 4 mg 07/06/25 08:29 Ondansetron Inj 2 Mg/Ml Inj 2 Ml IVP 08/05/25 08:28 Q6H PRN NAUSEA OR VOMITING Protocol Sodium Bicarbonate 325 mg 07/07/25 09:00 07/07/25 09:17 Sodium Bicarbonate 650 Mg Tablet PO 08/06/25 08:59 325 mg DAILY ADRIAN Administration Plan Mr Montalvo is a 69 yo gentleman with hx of CKD stage III(follows with Dr. Paige Tse in [place]), T2DM not on insulin, HTN, HLD, who was diagnosed with IVb prostate CA with widespread mets bone abdominal pelvic lymphadenopathy in February 2025 (followed by Dr. Myers), chronic olson in place with recent admission 06/24 for hyperkalemia, who presents to the ED with persistent headache, malaise, and found to have hyponatremia and hyperkalemia, Cr 1.4 (at baseline), egfr 54. given pt has recurrent presentations with electrolyte derrangements n/v and adrenal masses on imaging, query adrenal insufficiency. pending cortisol level and actch, continues on glucocorticoid and mineralocorticoid. #electrolyte derrangements #query adrenal insufficiency 2/2 #query metastatic adrenal masses ? #Chronic hyponatremia #hyperkalemia #hypochloremia query adrenal insufficiency given pt with hypotension, labs with hyponatremia and hyperkalemia, nausea, vomiting vs hypovolemic given anorexia on 07/07 Na 129 K 5.3 (primary team gave K exalate, and insulin) anticipate it will take a few days for steroids take effect. Dx -CMP daily -q6hr Na checks -serum cortisol level AM pending -plasma ACTH level AM pending -06/24 CTAP with bilateral adrenal masses Tx -holding NS 3% given pt at goal increase in NA - Start Fludriortisone 0.5 PO QD - start hydrocortisone 5mg TID - add Bicarb 325 PO daily #CKD Stage III Cr on admission is 1.4, appears at his baseline. eGFR [address] Paige Tse in [facility], pt reports poor po intake 2/2 nausea and vomiting. appears dehydrated On 07/07 Cr improved at 1.2 BUN 14 Dx UA with 10 hpf WBC, yeast, no RBC, leuk est + Urine lytes: Na wnl, K wnl , Cl low Renal US from 06/25 with Bilateral renal cortical thinning, Moderate bilateral renal parenchymal scar formation Plan: -avoid nephrotoxic agents -strict i and o #T2DM not on insulin at home on metformin 500 bid Finger BS, wnl #prostate Cancer Stage 4b, with mets to bone and abdomen #prostate hypertrophy -follows with Dr. Myers and Dr. Torres, pending PET scan -indwelling olson -On bicalutamide at home #HTN BP is soft to normotensive 100s to 120 systolic #anorexia #query malnutrition temporal wasting and reported poor PO intake given n/v -consider dietitian consult Plan discussed with nephrology attending Dr. Yonny Galloway MD Internal Medicine PGY-1 Attending Provider Attestation/Addendum Patient seen and examined with resident physician Dr. Galloway. Note reviewed, agree with findings and recommendations. Spoke to daughter at bedside Patient noted to have significant temporal wasting, more than 60 pound weight loss in the last few months associated with nausea vomiting --noted to have EVARISTO, hyponatremia, hyperkalemia, mild metabolic acidosis in the setting of hypotension. Careful review of CT scan from the previous ER visit showed he had multiple adrenal masses, lymph nodes and with relatively new diagnosis of metastatic prostate cancer-suspect patient has adrenal insufficiency probably related to malignancy versus idiopathic Hyponatremia-probably related to adrenal insufficiency vs hypovolemia from nausea vomiting and decreased p.o. intake. Patient did receive normal saline and subsequently hypertonic saline. He seems to be very sleepy right now. Sodium did improve from 120-126. Agree with holding off on the hypertonic saline for now. Urine chloride low consistent with hypovolemia. Hyperkalemia-probably related to underlying adrenal insufficiency. Doubt RTA type IV in the setting of DM-(hyperchloremic metabolic acidosis) Added glucocorticoid and mineralocorticoid. Patient tad better today. Check cortisol and ACTH levels. Spoke to primary team-
--- NOTE | 2025-07-07 10:29 | ESPR_ITS ---
<Statement entered by Darius Romo MD - 07/07/25 17:29> Patient was examined and case was reviewed with team including attending physician. Note reviewed, I agree with most of its contents and agree with the patient's care as documented by Dr. Harrison Patient seen today at the bedside found awake, alert, orientedx3. No overnight events reported. Vitals and labs reviewed. Patient's mental status remarkably improved compared to yesterday as he was somnolent and lethargic and AAO x 0 now currently AO x 3. Sodium levels appropriately corrected at 127 at this time. However in the afternoon sodium levels continue to decrease fluid restriction was increased from 1500 mL to 1200 we will consult nephrology to see if sodium tablets will be beneficial to the patient at this time. Case discussed with my attending Dr. Barbara Romo MD PGY-2 Disclaimer: Despite multiple revisions, due to the dictation software being used, the document bellow may not be free of grammatical errors including phonetic/typographic errors. However, this does not deter from our commitment to providing health care in the patient's best interest in mind. Documentation for date of: 07/07/25 Subjective Subjective Interval history: Patient seen at bedside today with family present. No overnight events reported. Mental status has improved compared to yesterday?currently A&O ?3, whereas yesterday he was somnolent and lethargic. Serum sodium has appropriately corrected to 127. However, levels began trending downward this afternoon. Changed fluid restriction from 1500 mL to 1200 mL/day. Nephrology was consulted and recommended initiating sodium bicarbonate. Patient?s diet was advanced today. Patient denies any urinary symptoms. Exam Vital Signs Temp Pulse Resp BP Pulse Ox O2 Del Method O2 Flow Rate 98.4 F 79 14 124/77 100 Nasal Cannula 2 07/07/25 08:00 07/07/25 08:00 07/07/25 08:00 07/07/25 08:00 07/07/25 08:00 07/07/25 08:00 07/07/25 08:00 Narrative Exam Physical Exam General: awake and alert, A&Ox3, nasal cannula in place. HEENT: Normocephalic, atraumatic. Heart: Regular rate and rhythm, no murmurs. Lungs: Clear to auscultation with no wheezing or crackles. Abdomen: Soft, nondistended, nontender. No guarding or rebound tenderness. Neurologic: Alert and oriented x3, no gross neurological deficit, and patient able to move all 4 extremities. Extremities: No edema. Skin: No rash or ecchymoses. Objective Labs 07/08/25 04:40 07/08/25 07:45 Labs: Laboratory Results - last 24 hr 07/06/25 07/06/25 07/06/25 09:49 13:59 19:00 PT INR APTT Sodium 125 L 127 L 125 L Potassium 5.4 H 4.8 D Chloride 95 L 96 L Carbon Dioxide 22.4 22.4 Anion Gap 8 9 BUN 16 15 Creatinine 1.2 1.2 Estim Creat Clear Calc Not Performed. 48.6 L eGFR > 60 > 60 BUN/Creatinine Ratio 13 13 Glucose 98 82 Calculated Osmolality 252 L 255 L Uric Acid 5.2 Calcium 9.9 9.8 Corrected Calcium 9.8 Phosphorus 4.5 Magnesium 1.2 L Total Bilirubin AST ALT Alkaline Phosphatase Lactate Dehydrogenase 113 L Troponin I < 0.020 Total Protein Albumin 4.0 Globulin Albumin/Globulin Ratio TSH 1.65 07/06/25 07/07/25 07/07/25 22:24 02:19 06:05 PT 11.1 INR 1.0 APTT 36.0 Sodium 127 L 128 L 129 L Potassium 5.3 H D Chloride 99 Carbon Dioxide 20.9 Anion Gap 9 BUN 14 Creatinine 1.2 Estim Creat Clear Calc 49.2 L eGFR > 60 BUN/Creatinine Ratio 12 Glucose 100 Calculated Osmolality 259 L Uric Acid Calcium 10.1 Corrected Calcium 10.1 Phosphorus 4.9 Magnesium 1.6 Total Bilirubin 0.9 AST 28 ALT 14 Alkaline Phosphatase 56 Lactate Dehydrogenase Troponin I Total Protein 6.9 Albumin 4.4 Globulin 2.5 Albumin/Globulin Ratio 1.8 TSH Quality Measures Quality Measures none Advance care planning discussed with:: patient Assessment & Plan Assessment Current Active Medications: Generic Name Dose Route Start Last Admin Trade Name Freq PRN Reason Stop Dose Admin Acetaminophen 650 mg 07/06/25 08:29 Acetaminophen 325 Mg Tablet PO 08/05/25 08:28 Q6H PRN Fever >101.5 Atorvastatin Calcium 20 mg 07/06/25 21:00 07/06/25 21:05 Atorvastatin Calcium 20 Mg Tablet PO 08/05/25 20:59 20 mg HS ADRIAN Administration Bicalutamide 50 Mg 0 ea 07/06/25 15:00 07/07/25 09:16 Tablet PO 08/05/25 14:59 1 tablet QDAY ADRIAN Administration Dextrose 25 ml 07/06/25 15:10 Dextrose 50%-Water Inj 50 Ml Syringe IV 08/05/25 15:09 Q15MIN PRN BG 50-70 responsive npo pt Dextrose 50 ml 07/06/25 15:10 Dextrose 50%-Water Inj 50 Ml Syringe IV 08/05/25 15:09 Q15MIN PRN BG <50 OR BG <70 & pt unresponsive Dronabinol 2.5 mg 07/07/25 17:00 Dronabinol 2.5 Mg Capsule PO 08/06/25 16:59 BIDAC ADRIAN Fludrocortisone Acetate 0.05 mg 07/06/25 14:13 07/07/25 09:16 Fludrocortisone Acetate 0.1 Mg Tablet PO 08/05/25 13:59 0.05 mg QDAY ADRIAN Administration Glucagon 1 mg 07/06/25 15:10 Glucagon Inj 1 Mg Vial IM Q15MIN PRN BG <70, and no IV access Heparin Sodium (Porcine) 5,000 unit 07/06/25 08:45 07/07/25 05:11 Heparin Sod Inj 5000 Unit/Ml Vial SC 07/20/25 08:44 5,000 unit Q8HR ADRIAN Administration Hydrocortisone 5 mg 07/06/25 14:00 07/07/25 05:06 Hydrocortisone 5 Mg Tablet PO 08/05/25 13:59 5 mg TID ADRIAN Administration Sodium Chloride 1,000 mls @ 75 mls/hr 07/06/25 08:30 07/06/25 11:30 Ns IV 08/05/25 08:29 Not Given .[id number] ADRIAN Magnesium Sulfate 4 gm in 50 mls @ 12.5 mls/hr 07/07/25 08:08 07/07/25 09:17 Magnesium Sulfate Ivpb IV 07/07/25 12:07 12.5 mls/hr X1 ONE Administration Insulin Human Lispro 0 unit 07/07/25 00:00 07/07/25 05:09 Insulin Lispro (Admelog) 1 Unit/0.01 Ml Unit SC 08/06/25 00:00 Not Given Q6HR [facility] Protocol Ondansetron HCl 4 mg 07/06/25 08:29 Ondansetron Inj 2 Mg/Ml Inj 2 Ml IVP 08/05/25 08:28 Q6H PRN NAUSEA OR VOMITING Protocol Sodium Bicarbonate 325 mg 07/07/25 09:00 07/07/25 09:17 Sodium Bicarbonate 650 Mg Tablet PO 08/06/25 08:59 325 mg DAILY ADRIAN Administration Plan 69-year-old male with 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 #Hyponatremia #Hyperkalemia #Hypochloremia Na 120, K 5.2, Cl 96 on admission. Likely multifactorial - possible contributions from CKD stage III, advanced prostate cancer, bilateral adrenal masses (CT abdomen/pelvis 06/24/25), possible adrenal insufficiency, or SIADH related to malignancy. Tumor lysis syndrome is less likely without hyperuricemia or hyperphosphatemia, but remains in the differential given advanced metastatic disease. Volume status hypovolemic on admission. In ED, hypertonic saline infusion and 500 mL NS bolus given. Sodium improved from 120 to 125 within 24 hours, improved to 127 at 36 hours. IV fluids discontinued to avoid overcorrection (>6?8 mEq/L/24 hrs) and reduce risk of osmotic demyelination syndrome. Hyperkalemia managed with 5 units regular insulin IV plus D5W bolus. No EKG changes suggestive of hyperkalemia-related arrhythmia. Plan: - Continue sodium checks every 6 hours. - Kayexalate 30 gram given today. Monitor potassium closely. - Pending serum cortisol and ACTH to assess for adrenal insufficiency. - Nephrology consulted ? appreciate recommendations: - Continue fludrocortisone 0.05 mg PO daily. - Continue hydrocortisone 5 mg PO TID. - Start Bicarb 325 PO daily. - Maintain seizure precautions given risk with acute hyponatremia. - Strict I/O monitoring. Fluid restriction 1200. - Keep NPO. - Will discuss bilateral adrenal masses with nephrology; recommend outpatient follow-up for further evaluation. #Stage IVb prostate cancer with widespread bony metastases & abdominal/pelvic lymphadenopathy Known diagnosis (February 2025), on bicalutamide, followed by oncology (Dr. Myers). Significant cancer-related weight loss. Plan: - Continue current hormone therapy. - Dronabinol 2.5mg to help stimulate appetite. - Pending PET scan. - Has follow-up appointment with in 1 month. #CKD Stage IIIb Cr on admission is 1.4 (around baseline) eGFR [address] Paige Tse in [place] Plan: - Avoid nephrotoxins. - Adjust medication dosing for renal function. - Monitor renal function daily. - Strict I&O's #T2DM not on insulin At home on metformin 500mg 2x a day Plan: - Pending A1c. - SSI. - Monitor blood glucose. Target blood sugar 140-180 while hospitalized - Hold home metformin. #Chronic Velasquez catheter Placed 3 months ago for urinary obstruction from prostate cancer. Changed 3 weeks ago. Equivocal UA for infection since urine was dilute. Urine culture at 06/24 hospitalization grew Acinetobacter Iwoffi and was completed antibiotic treatment. Plan - Monitor for signs/symptoms of catheter-associated UTI. #Persistent headache Chronic since cancer diagnosis; possible multifactorial etiology (malignancy, electrolyte disturbances, dehydration). No focal neuro deficits; no signs of acute intracranial process on presentation. Plan: - Symptomatic management with acetaminophen PRN. - Monitor for changes in mental status; consider neuroimaging if worsening or acute change. Chronic conditions #Hyperlipidemia Plan: - Continue atorvastatin 20mg. #History of Valley fever (coccidioidomycosis) CXR showed no active disease. Health Maintenance: Disposition: Tele DVT prophylaxis: Heparin GI prophylaxis: Zofran Bowel prophylaxis: Lactulose daily Diet: Renal diet CODE STATUS: FULL Patient plan of care was discussed with the senior resident, Dr. Pizano, and attending physician, Dr. Jimenez. Juanita Harrison DO PGY-1 Attending Provider Attestation/Addendum I have examined the patient, reviewed labs and imaging findings, discussed the case with the resident(s), and reviewed entered orders. I agree with the plan of care as outlined in this note, with these additional summaries/recommendations: Patient is a 69-year-old male with a medical history of metastatic prostate cancer, chronic indwelling Velasquez, hyperlipidemia, primary hypertension, CKD, and diabetes mellitus type 2 presents to [facility] emergency department on 07/06/2025 with chief complaint of generalized weakness and low blood pressure. Patient and family seen at bedside. No acute overnight events. Patient diagnosed with hypotonic hyponatremia. Patient presented with sodium 120 and serum osmolality 244. Volume status hypovolemic on admission. Patient also noted to have hyperkalemia and soft blood pressure. Most likely secondary to adrenal insufficiency versus low solute intake versus extrarenal losses versus CKD. Previous CT abdomen and pelvis showed bilateral adrenal masses with left lateral periaortic lymphadenopathy. Given patient's electrolyte abnormalities, soft blood pressure, and bilateral adrenal masses, this is concerning for adrenal insufficiency. We will start glucocorticoid and mineralocorticoid treatment. Order cortisol and ACTH. Sodium improved to 129 this morning which is appropriate correction. Decreased trends and follow-up repeat. Nephrology following, recommendations appreciated. Patient has soft blood pressure and continue IV fluids. Patient given treatment for hyperkalemia follow-up repeat level this afternoon. Patient has underlying CKD and nephrology following. Avoid nephrotoxic agents and renally dose medications. Continue insulin sliding scale for diabetes mellitus type 2 with Accu-Cheks. Target blood sugar 140-180 while hospitalized. . Outpatient follow-up for metastatic prostate cancer. Patient has chronic indwelling Velasquez catheter that was exchanged last week when he was diagnosed with urinary tract infection. Urine culture at that time grew Acinetobacter Iwoffi. Patient reported he completed treatment course and has no urinary symptoms to report at this time. Patient updated on the plan and agreement. All questions answered satisfaction. Please see residents note for additional details of management. Dr. Barbara MD
[2025-07-07 10:55] LABS: Sodium 127 mMol/L (136-145)
--- NOTE | 2025-07-07 11:28 | PC.SS ---
Patient Cornell Montalvo is a 69-year-old male admitted to [place] for Hyponatremia. SS met with patient at bedside to discuss discharge planning and confirm demographic information. Patient identified his son Fabio Sauceda [phone] as surrogate decision maker. Patient is independent with all ADL's and does not utilize any source of DME to assist with ambulation. Patient's PCP is Dr. Ku from [email or web address] of choice [facility]. Plan is for the patient to return home at the time of DC and patient's family will provide transport. No further needs identified. SS will remain available. DC Plan: Home DM: Son, Fabio [phone]
--- NOTE | 2025-07-07 11:57 | PC.DIETICIAN ---
Nutrition recommendations: Renal, 1500 ml/day FR. Kristine Shake TID with meals (240ml brk; 120ml lunch and dinner). ProStat 30ml BID between meals (can be mixed with water/juice). Patient meets ASPEN criteria for Moderate chronic disease or condition related malnutrition due to: 1. Significant unintentional weight loss (~60 lb in 4 months). 2. Inadequate energy intake.
--- NOTE | 2025-07-07 12:21 | PC.PT ---
PT eval only. Patient was xI with bed mobility, transfers, and ambulation using a FWW which is his baseline. Patient is safe to ambulate to the bathroom and in the halls with a FWW and 1 person (family or staff). RN made aware.
--- NOTE | 2025-07-07 14:37 | PC.SS ---
SS follow up note; Sodium being monitored discharge possibly in 1-2 Days. Patient will discharge back home when medically cleared.
[2025-07-07 15:13] LABS: Glucose Estimated Average 117 mg/dL (80-131); Hemoglobin A1C 5.7 % Hgb (4.8-6.0)
[2025-07-07] MEDS: ATORVASTATIN CALCIUM 20 MG TABLET PO (21:54)
[2025-07-08] VITALS: BP 107/65; PULSE 73; PULSE 75; RESP 18; TEMP 36.1; O2SAT 99
[2025-07-08 02:13] LABS: Sodium 125 mMol/L (136-145)
[2025-07-08 04:00] VITALS: BP 113/71; PULSE 66; PULSE 86; RESP 16; TEMP 36.1; O2SAT 97
[2025-07-08 04:47] VITALS: PULSE 84; RESP 25; O2SAT 98
[2025-07-08] MEDS: HEPARIN SOD INJ 5000 UNIT/ML VIAL SC (05:40)
[2025-07-08] MEDS: HYDROCORTISONE 5 MG TABLET PO (05:41)
[2025-07-08 05:49] LABS: Basophils # (Auto) 0.0 Thou/mm3 (0.0-0.2); Basophils % (Auto) 0 % (0-2.5); Eosinophils # (Auto) 0.1 Thou/mm3 (0.0-0.5); Eosinophils % (Auto) 1 % (0-10); Hematocrit 27.8 % (41.0-53.0); Hemoglobin 9.5 g/dL (13.5-16.0); Immature Granulocytes Auto 0.01 Thou/mm3 (0.00-0.00); Lymphocytes # (Auto) 2.5 Thou/mm3 (1.0-4.8); Lymphocytes % (Auto) 44 % (10-50); Mean Corpuscular HGB Conc 34.2 g/dl (31.0-37.0); Mean Corpuscular Hemoglobin 27.9 pg (25.0-35.0); Mean Corpuscular Volume 82 fL (80-100); Monocytes # (Auto) 0.6 Thou/mm3 (0.0-0.8); Monocytes % (Auto) 11 % (0-12); Neutrophils # (Auto) 2.5 Thou/mm3 (1.8-7.7); Neutrophils % (Auto) 44 % (37-80); Nucleated Red Blood Cell # 0.00 Thou/mm3 (0.00-0.00); Nucleated Red Blood Cell % 0 /100 WBC (0); Platelet Count 255 Thou/mm3 (140-440); RDW Standard Deviation 41.5 fL (35.1-43.9); Red Blood Count 3.41 Miln/mm3 (4.50-5.90); White Blood Count 5.8 Thou/mm3 (3.8-10.6)
[2025-07-08 05:54] VITALS: BMI 28.3
[2025-07-08 06:29] LABS: Alanine Aminotransferase 14 U/L (10-49); Albumin, Serum 4.3 gm/dL (3.4-4.8); Albumin/Globulin Ratio 1.8 (1.2-2.2); Alkaline Phosphatase 57 U/L (46-116); Anion Gap 9 (7-16); Aspartate Amino Transferase 25 U/L (0-34); BUN/Creatinine Ratio 13 Ratio (12-20); Bilirubin,Total 0.7 mg/dL (0.3-1.2); Blood Urea Nitrogen 16 mg/dL (9-23); Calcium 9.8 mg/dL (8.3-10.6); Calcium (Corrected) 9.8 mg/dL (8.5-10.1); Carbon Dioxide 22.0 mMol/L (20.0-31.0); Chloride 96 mMol/L (98-107); Creatinine (Component) 1.2 mg/dL (0.6-1.3); Estimated Creatinine Clearance 48.1 mL/min (>60); Globulin 2.4 gm/dL (2.3-3.5); Glucose 122 mg/dL (74-106); Magnesium 1.9 mg/dL (1.6-2.6); Osmolality,Calculated 257 (275-295); Phosphorous 4.4 mg/dL (2.4-5.1); Potassium 5.1 mMol/L (3.4-5.1); Sodium 127 mMol/L (136-145); Total Protein 6.7 gm/dL (5.7-8.2); eGFR > 60 See Note
[2025-07-08 08:00] VITALS: BP 111/66; PULSE 68; PULSE 84; RESP 16; TEMP 37.1; O2SAT 98
[2025-07-08 08:21] LABS: Sodium 127 mMol/L (136-145)
[2025-07-08] MEDS: FLUDROCORTISONE ACETATE 0.1 MG TABLET 0.05 MG PO (08:29)
[2025-07-08] MEDS: SODIUM BICARBONATE 650 MG TABLET 325 MG PO (08:29)
[2025-07-08] MEDS: BICALUTAMIDE 50 MG TABLET PO (08:29)
--- NOTE | 2025-07-08 08:55 | PD.RESPRO ---
Documentation for date of: 07/08/25 Subjective Subjective Interval history: Mr. Montalvo is a 69 yo gentleman with hx of CKD stage III(follows with Dr. Paige Tse in [place]), T2DM not on insulin, HTN, HLD, who was diagnosed with IVb prostate CA with widespread mets bone abdominal pelvic lymphadenopathy in February 2025 (followed by Dr. Myers- on casodex), chronic olson in place who has had multiple visits to various ED for electrolyte derangements that recur most recent admission 06/24 for hyperkalemia, and who presents to the ED with persistent headache, malaise, and found to have hyponatremia and hyperkalemia, Cr 1.4 (at baseline), egfr 54. Patient apparently also was at [facility] few times per daughter. Noted to have persistent hypotension and hyperkalemia. CTAP with BL adrenal masses 07/06/2025: Nephrology consulted. Pt seen and examined while in the ED, son at bedside. Pt has intermittent cough, no acute complaints, Cr at baseline 1.4 and UA with yeast (chronic olson draining clear urine). NA 120, K 5.2 , Cr 1.4 @baseline. 07/07/2025: Patient seen and examined at bedside, pt daughter present concerned about missing appointment with Dr. Chao. Pt reports having BL knee pain. on exam no edema bilaterally, Na 129, K 5.3, continues on hydrocortisone and Fludriortisone. pending acth and serum AM cortisol. Start bicarb 325 qd 07/08/2025: No overnight events. Patient seen and examined at bedside; they report feeling generally well today with no new complaints or concerns. Notable labs today include Hgb 9.5, Na 127, K 5.1. Stable creatinine and kidney function. From nephrology's standpoint, patient can be discharged with salt tablets 2 qAM 1 qHS, fludrocortisone, and hydrocortisone. Exam Vital Signs Temp Pulse Resp BP Pulse Ox O2 Del Method O2 Flow Rate 98.8 F 68 16 111/66 98 Nasal Cannula 1 07/08/25 08:00 07/08/25 08:00 07/08/25 08:00 07/08/25 08:00 07/08/25 08:00 07/08/25 08:00 07/08/25 08:00 Narrative Exam GENERAL APPEARANCE: pt appears dehydrated, frail, temporal wasting. daughter at bedside. pt is hard of hearing more awake and interactive compared to prior. CARDIOVASCULAR: Heart regular, no murmurs LUNGS/CHEST: Chest clear to auscultation. No rales, rhonchi, wheezing intermittent dry cough, on room air . ABDOMEN: Soft, nontender, nondistended. No masses. Normal bowel sounds. EXTREMITIES: No edema, clubbing or cyanosis, cap refil < 2sec Indwelling Olson catheter with clear urine SKIN: Skin exam normal without any rashes MUSCULOSKELETAL: In bed NEUROLOGICAL : No neurological deficits Objective Labs 07/08/25 04:40 07/08/25 13:20 Labs: Laboratory Results - last 24 hr 07/07/25 07/07/25 07/08/25 06:05 10:10 01:49 WBC 5.7 RBC 3.81 L Hgb 10.5 L Hct 31.3 L MCV 82 MCH 27.6 MCHC 33.5 RDW Std Deviation 41.6 Plt Count 259 Neut % (Auto) 51 Lymph % (Auto) 39 [place] % (Auto) 9 Eos % (Auto) 1 Baso % (Auto) 0 Neut # (Auto) 2.9 Lymph # (Auto) 2.2 [place] # (Auto) 0.5 Eos # (Auto) 0.0 Baso # (Auto) 0.0 Immature Gran # (Auto) 0.02 H Absolute Nucleated RBC 0.00 Immature Gran % 0 Nucleated RBC % 0 Sodium 127 L 125 L Potassium Chloride Carbon Dioxide Anion Gap BUN Creatinine Estim Creat Clear Calc eGFR BUN/Creatinine Ratio Glucose Estimated Ave Glu mg/dL 117 Hemoglobin A1c 5.7 Calculated Osmolality Calcium Corrected Calcium Phosphorus Magnesium Total Bilirubin AST ALT Alkaline Phosphatase Total Protein Albumin Globulin Albumin/Globulin Ratio 07/08/25 07/08/25 04:40 07:45 WBC 5.8 RBC 3.41 L Hgb 9.5 L Hct 27.8 L MCV 82 MCH 27.9 MCHC 34.2 RDW Std Deviation 41.5 Plt Count 255 Neut % (Auto) 44 Lymph % (Auto) 44 [place] % (Auto) 11 Eos % (Auto) 1 Baso % (Auto) 0 Neut # (Auto) 2.5 Lymph # (Auto) 2.5 [place] # (Auto) 0.6 Eos # (Auto) 0.1 Baso # (Auto) 0.0 Immature Gran # (Auto) 0.01 H Absolute Nucleated RBC 0.00 Immature Gran % 0 Nucleated RBC % 0 Sodium 127 L 127 L Potassium 5.1 Chloride 96 L Carbon Dioxide 22.0 Anion Gap 9 BUN 16 Creatinine 1.2 Estim Creat Clear Calc 48.1 L eGFR > 60 BUN/Creatinine Ratio [address] Glu mg/dL Hemoglobin A1c Calculated Osmolality 257 L Calcium 9.8 Corrected Calcium 9.8 Phosphorus 4.4 Magnesium 1.9 Total Bilirubin 0.7 AST 25 ALT 14 Alkaline Phosphatase 57 Total Protein 6.7 Albumin 4.3 Globulin 2.4 Albumin/Globulin Ratio 1.8 Quality Measures Quality Measures none Advance care planning discussed with:: patient Assessment & Plan Assessment Current Active Medications: Generic Name Dose Route Start Last Admin Trade Name Freq PRN Reason Stop Dose Admin Acetaminophen 650 mg 07/06/25 08:29 Acetaminophen 325 Mg Tablet PO 08/05/25 08:28 Q6H PRN Fever >101.5 Atorvastatin Calcium 20 mg 07/06/25 21:00 07/07/25 21:54 Atorvastatin Calcium 20 Mg Tablet PO 08/05/25 20:59 20 mg HS ADRIAN Administration Bicalutamide 50 Mg 0 ea 07/06/25 15:00 07/08/25 08:29 Tablet PO 08/05/25 14:59 1 tablet QDAY ADRIAN Administration Dextrose 25 ml 07/06/25 15:10 Dextrose 50%-Water Inj 50 Ml Syringe IV 08/05/25 15:09 Q15MIN PRN BG 50-70 responsive npo pt Dextrose 50 ml 07/06/25 15:10 Dextrose 50%-Water Inj 50 Ml Syringe IV 08/05/25 15:09 Q15MIN PRN BG <50 OR BG <70 & pt unresponsive Dronabinol 2.5 mg 07/07/25 17:00 07/08/25 07:38 Dronabinol 2.5 Mg Capsule PO 08/06/25 16:59 2.5 mg BIDAC ADRIAN Administration Fludrocortisone Acetate 0.05 mg 07/06/25 14:13 07/08/25 08:29 Fludrocortisone Acetate 0.1 Mg Tablet PO 08/05/25 13:59 0.05 mg QDAY ADRIAN Administration Glucagon 1 mg 07/06/25 15:10 Glucagon Inj 1 Mg Vial IM Q15MIN PRN BG <70, and no IV access Heparin Sodium (Porcine) 5,000 unit 07/06/25 08:45 07/08/25 05:40 Heparin Sod Inj 5000 Unit/Ml Vial SC 07/20/25 08:44 5,000 unit Q8HR ADRIAN Administration Hydrocortisone 5 mg 07/06/25 14:00 07/08/25 05:41 Hydrocortisone 5 Mg Tablet PO 08/05/25 13:59 5 mg TID ADRIAN Administration Insulin Human Lispro 0 unit 07/07/25 21:00 07/08/25 07:26 Insulin Lispro (Admelog) 1 Unit/0.01 Ml Unit SC 08/06/25 20:59 Not Given ACHS ADRIAN Protocol Ondansetron HCl 4 mg 07/06/25 08:29 Ondansetron Inj 2 Mg/Ml Inj 2 Ml IVP 08/05/25 08:28 Q6H PRN NAUSEA OR VOMITING Protocol Sodium Bicarbonate 325 mg 07/07/25 09:00 07/08/25 08:29 Sodium Bicarbonate 650 Mg Tablet PO 08/06/25 08:59 325 mg DAILY ADRIAN Administration Plan Mr Montalvo is a 69 yo gentleman with hx of CKD stage III(follows with Dr. Paige Tse in [place]), T2DM not on insulin, HTN, HLD, who was diagnosed with IVb prostate CA with widespread mets bone abdominal pelvic lymphadenopathy in February 2025 (followed by Dr. Myers), chronic olson in place with recent admission 06/24 for hyperkalemia, who presents to the ED with persistent headache, malaise, and found to have hyponatremia and hyperkalemia, Cr 1.4 (at baseline), egfr 54. From nephrology's standpoint, patient can be discharged with salt tablets 2 qAM 1 qHS, fludrocortisone, and hydrocortisone. #electrolyte derangements #query adrenal insufficiency 12/26 #query metastatic adrenal masses ? #Chronic hyponatremia #hyperkalemia #hypochloremia query adrenal insufficiency given pt with hypotension, labs with hyponatremia and hyperkalemia, nausea, vomiting vs hypovolemic given anorexia on 07/07 Na 129 K 5.3 (primary team gave K exalate, and insulin) anticipate it will take a few days for steroids take effect. Dx -CMP daily -q6hr Na checks -serum cortisol level AM pending -plasma ACTH level AM pending -06/24 CTAP with bilateral adrenal masses Tx -holding NS 3% given pt at goal increase in NA - Continue Fludriortisone 0.5 PO QD - Continue hydrocortisone 5mg TID - continue bicarb 325 daily #CKD Stage III Cr on admission is 1.4, appears at his baseline. eGFR [address] Paige Tse in [facility], pt reports poor po intake 2/2 nausea and vomiting. appears dehydrated On 07/07 Cr improved at 1.2 BUN 14 Dx UA with 10 hpf WBC, yeast, no RBC, leuk est + Urine lytes: Na wnl, K wnl , Cl low Renal US from 06/25 with Bilateral renal cortical thinning, Moderate bilateral renal parenchymal scar formation Plan: -avoid nephrotoxic agents -strict i and o #T2DM not on insulin at home on metformin 500 bid Finger BS, wnl #prostate Cancer Stage 4b, with mets to bone and abdomen #prostate hypertrophy -follows with Dr. Myers and Dr. Torres, pending PET scan -indwelling olson -On bicalutamide at home #HTN BP is soft to normotensive 100s to 120 systolic #anorexia #query malnutrition temporal wasting and reported poor PO intake given n/v -consider dietitian consult Plan discussed with nephrology attending Dr. Yonny Woods, DO Internal Medicine, PGY-1 Attending Provider Attestation/Addendum Patient seen and examined with resident physician Dr. Woods. Note reviewed, agree with findings and recommendations. Spoke to daughter// at bedside Patient noted to have significant temporal wasting, more than 60 pound weight loss in the last few months associated with nausea vomiting --noted to have EVARISTO, hyponatremia, hyperkalemia, mild metabolic acidosis in the setting of hypotension. Careful review of CT scan from the previous ER visit showed he had multiple adrenal masses, lymph nodes and with relatively new diagnosis of metastatic prostate cancer-suspect patient has adrenal insufficiency probably related to malignancy versus idiopathic Hyponatremia-probably related to adrenal insufficiency vs hypovolemia from nausea vomiting and decreased p.o. intake. Patient did receive normal saline and subsequently hypertonic saline. He seems to be very sleepy right now. Sodium did improve from 120-126. Agree with holding off on the hypertonic saline for now. Urine chloride low consistent with hypovolemia. Hyperkalemia-probably related to underlying adrenal insufficiency. Doubt RTA type IV in the setting of DM-(hyperchloremic metabolic acidosis) Added glucocorticoid and mineralocorticoid. Patient feeling much better today able to eat his own breakfast.. Pending cortisol and ACTH levels. Spoke to primary team-renal metcalf stable for discharge on fludrocortisone and hydrocortisone. Also will need sodium bicarbonate. Follow-up with sander and buffer in 1 to 2 weeks. Daughter had several questions which were answered to her satisfaction
--- NOTE | 2025-07-08 10:25 | PC.NURSE ---
Dr. Castillo aware pt. oxygen will drop when sleeping on room air to 80%s. Will need O2 for home.
--- NOTE | 2025-07-08 10:27 | PC.NURSE ---
Pt. oxgyen at 92% on RA, Pt. oxygen at 86% with oxygen on RA, and pt. oxgyen at 99% with 2 L oxygen NC.
--- NOTE | 2025-07-08 11:55 | PC.SS ---
OXYGEN Pt is discharged in a chronic stable state and has been treated optimally and has other respiratory needs. Oxygen has been ordered due to low O2 saturation.
[2025-07-08 12:00] VITALS: BP 102/70; PULSE 72; PULSE 84; RESP 18; TEMP 36.4; O2SAT 98
--- NOTE | 2025-07-08 12:21 | PC.SS ---
Addendum entered by Lyric Trejo 07/08/25 12:39: Leena booked via [employer], ETA for delivery of O2 1-2hrs Original Note: SS submitted DME for O2 via [employer], pending responses.
--- NOTE | 2025-07-08 12:22 | PC.NURSE ---
Discharge pending home oxygen delivery.
[2025-07-08 14:22] LABS: Sodium 127 mMol/L (136-145)
[2025-07-08 14:50] VITALS: BP 128/82; PULSE 84; RESP 16; TEMP 37.1; O2SAT 98
--- NOTE | 2025-07-08 16:11 | ESDS_ITS ---
<Statement entered by Anitha Leon DO - 07/09/25 09:25> I, Anitha Leon DO, attest that I was physically present for the cordova portions of the service and evaluated the patient with the resident and I reviewed and discussed the case with the resident and agree with the resident's findings and plans of care as documented above <Statement entered by Darius Romo MD - 07/08/25 22:08> Patient was examined and case was reviewed with team including attending physician. Note reviewed, I agree with most of its contents and agree with the patient's care documented by Dr. Hunter Romo MD PGY-2 Planned Discharge Date 07/08/25 DS: Providers Provider Date of admission: 07/06/25 08:24 Primary care physician: Physician No Primary/Family Admitting Provider: Richard Jimenez MD Attending Provider on Admission: Richard Jimenez MD Consults: 07/06/25 08:46 Consult to Nephrology Stat Comment: Consulting Provider: Gwyn Blancas 07/06/25 11:19 Referral Registered Dietitian Stat Comment: 07/06/25 15:17 Referral Registered Dietitian Routine Comment: [facility] Referral - Transportation Routine Comment: Positive screening for transportation needs. 07/07/25 08:00 Referral Physical Therapy Routine Comment: Physician Instructions: Referral Speech Therapy Routine Comment: Attending Provider on DC: Richard Jimenez MD Discharging Provider: Juanita Harrison DO Anticipated date of discharge: 07/08/25 DS: Diagnosis Problem List Completed Was Problem List Reviewed/Reconciled?: Yes Hospital Course Hospital Course Hospital course: 69-year-old male with a history of stage IVb prostate cancer (diagnosed February 2025) with extensive bone metastases and abdominal/pelvic lymphadenopathy, chronic kidney disease stage III, type 2 diabetes mellitus, chronic indwelling Velasquez catheter, hypertension, hyperlipidemia, and prior coccidioidomycosis (Valley Fever) presented to [facility] on 07/06/2025, with generalized weakness, hypotension, and persistent headache. On presentation, he was found to be hyponatremic with a sodium of 120 and was treated with hypertonic saline and a bolus of normal saline, resulting in improvement to 125 within 24 hours. Hyperkalemia was managed with insulin and D5W. By hospital day 2, his mental status had improved from somnolent and disoriented to alert and oriented ?3. Sodium increased to 127 but began trending downward later in the day. Fluid restriction was adjusted from 1500 mL to 1200 mL daily, and sodium bicarbonate was initiated per nephrology. Kayexalate was given for persistent hyperkalemia. His diet was advanced as tolerated, and he denied urinary symptoms. He also reported resolution of headache, nausea, and urinary complaints. Ongoing management included close monitoring of sodium and electrolytes, continuation of home medications including prostate cancer therapy, atorvastatin, and antihypertensives as tolerated. Dronabinol was initiated to stimulate appetite. Nephrology started patient on sodium tablets, hydrocortisone and fludrocortisone for adrenal insufficiency. Outpatient follow-up is recommended with oncology for continued cancer management and evaluation of adrenal masses, as well as nephrology for CKD and workup of recurrent electrolyte disturbances. Patient is medically and physically stable for discharge. Diagnosis: #Hyponatremia, hypotonic #Hyperkalemia #Hypochloremia #Adrenal insufficiency #Stage IVb prostate cancer #Bilateral adrenal masses #Chronic kidney disease stage IIIb #Type 2 diabetes mellitus #Chronic indwelling Velasquez catheter #Headache #Hyperlipidemia #History of coccidioidomycosis #Prostate hypertrophy Discharge Plan: Follow-up with primary care physician within 1 week of discharge. Follow-up with nephrology within 2 weeks of discharge in regards your follow-up of your sodium levels You have been prescribed sodium tablets to maintain your sodium at an appropriate level take 2 tablets in the morning and 1 at night You have been prescribed hydrocortisone and fludrocortisone for adrenal insufficiency likely secondary to your prostate cancer. Please take this medication as indicated. Follow-up with oncology in regards to your prostate cancer Should your symptoms recur or worsen patient is instructed to return to the ER. Case discussed with my senior resident Dr. Jonathan Romo and my attending Dr. Leon. Juanita Harrison DO PGY 1 Status at Discharge Overall status at discharge: patient is back to baseline Time Spent with Patient Time attestation: Total time spent providing and/or coordinating discharge services: Time spent: Greater than 30 minutes Exam Vital Signs Temp Pulse Resp BP Pulse Ox O2 Del Method O2 Flow Rate 98.7 F 84 16 128/82 98 Room Air 1 07/08/25 14:50 07/08/25 14:50 07/08/25 14:50 07/08/25 14:50 07/08/25 14:50 07/08/25 14:50 07/08/25 08:00 Narrative Exam Physical Exam General: awake and alert, A&Ox3, nasal cannula in place. HEENT: Normocephalic, atraumatic. Heart: Regular rate and rhythm, no murmurs. Lungs: Clear to auscultation with no wheezing or crackles. Abdomen: Soft, nondistended, nontender. No guarding or rebound tenderness. Neurologic: Alert and oriented x3, no gross neurological deficit, and patient able to move all 4 extremities. Extremities: No edema. Skin: No rash or ecchymoses. Discharge Plan Plan Patient Disposition: HOME (Self Care) Patient condition on transfer: Stable Care Plan Goals: Follow-up with primary care physician within 1 week of discharge. Follow-up with nephrology within 2 weeks of discharge in regards your follow-up of your sodium levels You have been prescribed sodium tablets to maintain your sodium at an appropriate level take 2 tablets in the morning and 1 at night You have been prescribed hydrocortisone and fludrocortisone for adrenal insufficiency likely secondary to your prostate cancer. Please take this medication as indicated. Follow-up with oncology in regards to your prostate cancer Should your symptoms recur or worsen patient is instructed to return to the ER. Prescriptions/Referrals Prescriptions/Med Rec: New sodium chloride 1,000 mg tablet,soluble 1,000 mg PO TID Qty: 90 0RF Rx Instructions: Take 2 pills in the morning and take 1 at night fludrocortisone 0.1 mg tablet 0.05 mg PO QDAY Qty: 30 0RF hydrocortisone 5 mg tablet 5 mg PO TID Qty: 90 0RF Continued acetaminophen 500 mg tablet 500 mg PO Q6H PRN (Reason: pain) ondansetron 4 mg tablet,disintegrating 4 mg PO Q8H PRN (Reason: nausea and vomiting) Patient Comments: DISSOLVE 1 TABLET IN MOUTH EVERY 8 HOURS NEEDED FOR NAUSEA AND VOMITING FOR UP TO 7 DAYS amoxicillin-pot clavulanate 875-125 mg tablet 875 tab PO BID Patient Comments: TAKE 1 TABLET BY MOUTH TWICE DAILY FOR 10 DAYS bicalutamide 50 mg tablet 50 mg PO 1XD atorvastatin 20 mg Tablet 20 mg PO HS 30 Days Qty: 30 0RF metformin 500 mg tablet 500 mg PO BID 30 Days Qty: 60 0RF Referrals: No Primary/Family,Physician [Primary Care Provider] - Patient/Caregiver Discharge Instructions Education Materials: Hyperkalemia Dc, Hyponatremia Dc Print Language: Tamazight Stand Alone Forms: [employer] Award Info., Patient Portal Info Letter Discharge Order Discharge Orders: Discharge (Routine); Ordered 07/08/25 Ordered By: Darius Romo Quality Discharge Quality Measures none
[2025-07-11 06:58] LABS: Osmolality, Serum* 255 mOsm/kg (278-305); Osmolality, Urine* 205 mOsm/kg (50-1200)
[2025-07-11 06:59] LABS: ACTH, Plasma* 1122 pg/mL (6-50)
== END 2025-07-08 14:57 | disposition home or self-care (01) | DRG 641 ==
LOC: SERX 07-06 06:10 → SERHOLD 07-06 08:57 → S2NX 07-06 13:10
PROVIDERS: Physician Assistant; Student in an Organized Health Care Education/Training Program; Admitting Provider Student in an Organized Health Care Education/Training Program; Emergency Provider Emergency Medicine; Visit Provider Student in an Organized Health Care Education/Training Program
DX: E87.1 Hypo-osmolality and hyponatremia (principal); C79.51 Secondary malignant neoplasm of bone; E27.40 Unspecified adrenocortical insufficiency; N17.9 Acute kidney failure, unspecified; N39.0 Urinary tract infection, site not specified; N18.30 Chronic kidney disease, stage 3 unspecified; I12.9 Hypertensive chronic kidney disease with stage 1 through stage 4 chronic kidney disease, or unspecified chronic kidney disease; E78.5 Hyperlipidemia, unspecified; C61 Malignant neoplasm of prostate; E11.22 Type 2 diabetes mellitus with diabetic chronic kidney disease; E87.5 Hyperkalemia; N40.0 Benign prostatic hyperplasia without lower urinary tract symptoms; E87.29 Other acidosis; E87.8 Other disorders of electrolyte and fluid balance, not elsewhere classified; N18.32 Chronic kidney disease, stage 3b; Z79.4 Long term (current) use of insulin; Z79.84 Long term (current) use of oral hypoglycemic drugs; B96.83 Acinetobacter baumannii as the cause of diseases classified elsewhere
CPT/HCPCS: 36415; 71045; 80048; 80053; 80069; 81001; 82024; 82436; 82530; 82533; 83036; 83615; 83735; 83930; 83935; 84100; 84133; 84295; 84300; 84443; 84484; 84550; 85025; 85610; 85730; 87040; 87081; 87086; 87106; 92610; 93005; 96360; 97162; 99284; J1644; J1815; J3475; J7131; J7999; Q0167; A9270

== ENCOUNTER → 2025-08-02 | Outpatient (CLI) | payer MEDICARE, SELFPAY ==
--- NOTE | 2025-08-02 08:45 | XR_ITS ---
EXAMINATION: PET/CT FUSION SKULL TO THIGH EXAM DATE AND TIME: August 02, 2025 1002 hours, comparison CT abdomen pelvis June 24, 2025, CT chest March 16, 2025 INDICATIONS: Diagnosis prostate cancer, staging prior to treatment CTDI:vol (mGy) 6.01 DLP: (mGycm) 9.19 PROCEDURE: 16 mCi FDG was administered intravenously To allow for distribution and uptake of radiotracer, the patient was allowed to rest quietly in a shielded room. Imaging was performed on an integrated 16-slice PET/CT scanner, with scanning from the skull base to the mid thigh. Serum blood glucose at the time of the injection was measured 103 mg/dL. CT scanning was performed without oral or intravenous contrast material. FINDINGS: Head and Neck: There is no khushbu hypermetabolism in the neck. The visualized portions of the brain are normal in appearance on CT. Chest: There is no khushbu hypermetabolism in the chest. There are no pulmonary nodules. Abdomen and Pelvis: Hypermetabolic 20 mm left adrenal mass Weakly hypermetabolic 20 mm right adrenal mass 8mm non hypermetabolic left lateral periaortic lymph node Hypermetabolic 20 mm x 16 mm right prostate nodule, transverse prostate dimension 6.1 cm Musculoskeletal: Hypermetabolic right femoral head neck axial image 213 Non hypermetabolic 13 mm osteoblastic focus L5 3 mm non hypermetabolic osteoblastic focus right first sacral wing 14 mm osteolytic lesion right iliac bone image 193 20 mm osteoblastic focus right femoral head IMPRESSION: Hypermetabolic bilateral adrenal metastatic masses. 8mm non hypermetabolic left lateral para-aortic lymph node Hypermetabolic 20 x 16 mm right prostate nodule Osseous metastatic disease as above
== END | disposition home or self-care (01) ==
PROVIDERS: PCP Radiology Therapeutic Radiology; Referring Provider Radiology Therapeutic Radiology; Visit Provider Radiology Therapeutic Radiology
DX: N40.2 Nodular prostate without lower urinary tract symptoms (principal); C79.9 Secondary malignant neoplasm of unspecified site; C79.51 Secondary malignant neoplasm of bone; C61 Malignant neoplasm of prostate
CPT/HCPCS: 78815; A9552

== ENCOUNTER → 2025-08-04 | Outpatient (BNVA) | payer MEDICARE, SELFPAY | END | disposition home or self-care (01) | PROVIDERS: Visit Provider Urology | DX: N40.1 Benign prostatic hyperplasia with lower urinary tract symptoms (principal); N13.8 Other obstructive and reflux uropathy; R33.8 Other retention of urine; C61 Malignant neoplasm of prostate; C79.51 Secondary malignant neoplasm of bone; C79.72 Secondary malignant neoplasm of left adrenal gland; C79.71 Secondary malignant neoplasm of right adrenal gland; E11.9 Type 2 diabetes mellitus without complications; I10 Essential (primary) hypertension; Z85.46 Personal history of malignant neoplasm of prostate | CPT/HCPCS: 99212; G0463 ==

== ENCOUNTER 2025-08-07 21:31 | Emergency (ER) | payer MEDICARE, SELFPAY ==
[2025-08-07 21:34] VITALS: BMI 25.0
[2025-08-07 22:52] VITALS: BP 152/80; PULSE 85; RESP 18; TEMP 38.3; O2SAT 97
--- NOTE | 2025-08-07 23:09 | XR_ITS ---
Examination: PA lateral chest 2 views Technique: Upright PA lateral chest 2 views Date and time: August 07, 2025 1113 hrs. Indications: Fever today. Findings: Normal heart size. No pneumonia or pulmonary edema Impression: No active disease
[2025-08-07 23:35] LABS: Lactate (Lactic Acid) 1.0 mMol/L (0.4-2.0)
[2025-08-07 23:37] LABS: Basophils # (Auto) 0.0 Thou/mm3 (0.0-0.2); Basophils % (Auto) 0 % (0-2.5); Eosinophils # (Auto) 0.0 Thou/mm3 (0.0-0.5); Eosinophils % (Auto) 1 % (0-10); Hematocrit 33.5 % (41.0-53.0); Hemoglobin 11.0 g/dL (13.5-16.0); Immature Granulocytes Auto 0.02 Thou/mm3 (0.00-0.00); Lymphocytes # (Auto) 1.2 Thou/mm3 (1.0-4.8); Lymphocytes % (Auto) 21 % (10-50); Mean Corpuscular HGB Conc 32.8 g/dl (31.0-37.0); Mean Corpuscular Hemoglobin 28.9 pg (25.0-35.0); Mean Corpuscular Volume 88 fL (80-100); Monocytes # (Auto) 0.5 Thou/mm3 (0.0-0.8); Monocytes % (Auto) 9 % (0-12); Neutrophils # (Auto) 3.7 Thou/mm3 (1.8-7.7); Neutrophils % (Auto) 69 % (37-80); Nucleated Red Blood Cell # 0.00 Thou/mm3 (0.00-0.00); Nucleated Red Blood Cell % 0 /100 WBC (0); Platelet Count 201 Thou/mm3 (140-440); RDW Standard Deviation 50.0 fL (35.1-43.9); Red Blood Count 3.81 Miln/mm3 (4.50-5.90); White Blood Count 5.4 Thou/mm3 (3.8-10.6)
[2025-08-08 00:09] LABS: Alanine Aminotransferase 11 U/L (10-49); Albumin, Serum 4.4 gm/dL (3.4-4.8); Albumin/Globulin Ratio 1.7 (1.2-2.2); Alkaline Phosphatase 86 U/L (46-116); Anion Gap 11 (7-16); Aspartate Amino Transferase 18 U/L (0-34); BUN/Creatinine Ratio 14 Ratio (12-20); Bilirubin,Total 1.0 mg/dL (0.3-1.2); Blood Urea Nitrogen 18 mg/dL (9-23); Calcium 9.6 mg/dL (8.3-10.6); Calcium (Corrected) 9.6 mg/dL (8.5-10.1); Carbon Dioxide 23.2 mMol/L (20.0-31.0); Chloride 104 mMol/L (98-107); Creatinine (Component) 1.3 mg/dL (0.6-1.3); Estimated Creatinine Clearance 47.7 mL/min (>60); Globulin 2.6 gm/dL (2.3-3.5); Glucose 136 mg/dL (74-106); Magnesium 1.6 mg/dL (1.6-2.6); Osmolality,Calculated 279 (275-295); Potassium 4.5 mMol/L (3.4-5.1); Procalcitonin 0.53 ng/ml (0.0-0.49); Sodium 138 mMol/L (136-145); Total Protein 7.0 gm/dL (5.7-8.2); Troponin I < 0.020 ng/mL (0.0-0.045); eGFR 59 See Note
[2025-08-08 00:51] VITALS: TEMP 38.3
[2025-08-08] MEDS: ACETAMINOPHEN 500 MG TABLET 1000 MG PO (00:51)
--- NOTE | 2025-08-08 01:02 | PD.EDRECHK ---
ED Recheck Abnl Lab Rx-RME/HPI General Chief Complaint: Recheck/Abnormal Lab/Rx Stated Complaint: HIGH POTASSIUM FEVER Time Seen by Provider: 08/07/25 23:08 Arrival date/time: 08/07/25 21:31 RME / HPI RME / HPI narrative: Dr. Argueta?s Main ED Evaluation: 69yo male with renal insufficiency, followed by a personnel assistant and was called due to having an elevated Potassium that was drawn on Friday. Patient has developed fever and chills, but no N/V/D. Patient has an indweling olson catheter for which [id number] states patient has been urinating around. Patient is currently being evaluated for hematology/oncology for recently diagnosed prostate CA and is about to initiate Lupron therapy. PMH includes DM, valley fever, hypotension. PSH unremarkable. Social history unremarkable. NKDA. Related Data Home Medications ?Medication ?Instructions ?Recorded ?Confirmed acetaminophen 500 mg tablet 500 mg PO Q6H PRN pain 03/17/25 08/04/25 bicalutamide 50 mg tablet 50 mg PO 1XD 06/25/25 07/06/25 ondansetron 4 mg disintegrating 4 mg PO Q8H PRN nausea and vomiting 07/06/25 07/06/25 tablet metformin 1,000 mg tablet 1,000 mg PO BID 08/04/25 08/04/25 tamsulosin 0.4 mg capsule 0.4 mg PO QHS 08/04/25 08/04/25 Previous Rx's ?Medication ?Instructions ?Recorded fludrocortisone 0.1 mg tablet 0.05 mg (1/2 x 0.1 mg) PO QDAY #30 07/08/25 tabs hydrocortisone 5 mg tablet 5 mg PO TID #90 tabs 07/08/25 sodium chloride 1,000 mg soluble 1,000 mg PO TID #90 tabs 07/08/25 tablet cefdinir 250 mg/5 mL oral 300 mg (6 mL) PO BID 7 days #84 mL 08/08/25 suspension Allergies Allergy/AdvReac Type Severity Reaction Status Date / Time No Known Allergies Allergy Verified 08/07/25 21:37 Review of Systems Review of Systems Systems Reviewed: All systems reviewed, normal except as documented Past Medical History Past Medical History NEUROLOGIC: Negative Neurological Disorders CARDIAC: Positive Cardiac Disorders and Hypertension; Negative Congestive Heart Failure RESPIRATORY: Negative Chronic Obstructive Pulmonary Disease (COPD) or Asthma GASTROINTESTINAL: Negative Gastrointestinal Disorders GENITOURINARY: Positive Genitourinary Disorders, Prostate Cancer and Benign Prostatic Hyperplasia; Negative Renal Disease REPRODUCTIVE: Negative Fibroids MUSCULOSKELETAL: Negative Musculoskeletal Disorders ENT: Positive Deafness ENDOCRINE: Negative Endocrine Disorders, Diabetes Mellitus Type 1 or Diabetes Mellitus Type 2 HEMATOLOGIC: Negative Blood Disorders or Sickle Cell Disease PSYCHO/SOCIAL: Positive Depression OTHER HISTORY: Positive Falls, Cancer and Prostate Cancer; Negative Autoimmune Disease, Anesthesia Reactions or MRSA Family History FAMILY HISTORY: Negative Family Psychiatric Problems, Family Respiratory Disorders, Family Cardiac Disorders, Family Gastrointestinal Problems, Family Cancer, Family Surgery or Family Anesthesia Reaction Surgical History SURGICAL: Negative Cardiac Surgery, Endocrine Surgery, Ear Surgery, Abdominal Surgery, Nephrectomy, Joint Replacement, Neurologic Surgery, Mastectomy or Vasectomy Social History SMOKING STATUS: Never smoker ED Exam Narrative Physical exam: GENERAL APPEARANCE: alert and oriented x 4, chronically-ill appearing, nontoxic, no acute distress VITALS: All vitals were reviewed and the pulse ox is 97% on room air, which is normal according to my interpretation. Notably febrile and tachycardic. HEENT: Normocephalic, atraumatic; pupils equal, round, reactive to light; EOMI; mucous membranes pink, moist; oropharynx clear NECK: Supple LUNGS: CTABL; no wheezes, no rales, no rhonchi HEART: Tachycardic, regular rhythm; normal S1, S2; no murmurs ABDOMEN: non distended; normal BS; soft, no tenderness, no flank tenderness, no guarding BACK: no CVA tenderness : indwelling olson catheter is draining clear urine EXTREMITIES: atraumatic; no edema NEUROLOGIC: awake; alert and oriented x4; cranial nerves II-XII grossly intact; no focal sensory or motor deficits PSYCHIATRIC: appropriate mood and affect SKIN: warm, dry, normal color; no rashes Course Course Course Narrative: CXR is ordered for determining the etiology of fever. Quality Measures none Orders Category Date Time Status Licensed Embalmer STAT Care 08/07/25 23:09 Active Continuous Pulse Oximetry STAT Care 08/07/25 23:09 Completed Olson [Urinary Catheter, Remove] ONCE Care 08/08/25 02:53 Completed Olson [Urinary Catheter] QS Care 08/08/25 03:10 Active Insert IV NOW Care 08/07/25 23:09 Active Strict Intake and Output Routine Care 08/07/25 23:[address] abdomen pelvis wo con Stat Exams 08/08/25 01:36 Taken XR chest 2V Stat Exams 08/07/25 23:09 Completed Blood Culture (Lab) Stat Lab 08/07/25 23:20 Received CBC Stat Lab 08/07/25 23:24 Completed Comprehensive Metabolic Panel Stat Lab 08/07/25 23:24 Completed Lactate (Lactic Acid) Stat Lab 08/07/25 23:24 Completed Magnesium Stat Lab 08/07/25 23:24 Completed Procalcitonin Stat Lab 08/07/25 23:24 Completed Troponin I Stat Lab 08/07/25 23:24 Completed Urinalysis, C/S if Indicated Stat Lab 08/08/25 03:09 Completed Urine Culture Stat Lab 08/08/25 03:09 Received Acetaminophen Mita [Tylenol Mita] Med 08/07/25 23:10 Discontinued 1,000 mg PO X1 ONE Acetaminophen Tab [Tylenol ES Tab] Med 08/08/25 00:15 Discontinued 1,000 mg PO X1 ONE Morphine* Inj Med 08/08/25 02:35 Discontinued 4 mg IM X1 ONE Prochlorperazine Inj [Compazine Inj] Med 08/08/25 02:35 Discontinued 5 mg IM X1 ONE cefTRIAXone/D5w 1gm IV premix [Rocephin/D5w 1gm IV Med 08/08/25 03:41 Active premix] 1 gm in 50 ml IV X1 Vital Signs Vital signs: Vital Signs Temperature 100.9 F H 08/07/25 22:52 Pulse Rate 85 08/07/25 22:52 Respiratory Rate 18 08/07/25 22:52 Blood Pressure 152/80 H 08/07/25 22:52 Pulse Oximetry (%) 97 08/07/25 22:52 Oxygen Delivery Method Room Air 08/07/25 22:52 Recheck / Abnormal Lab / Rx MDM Narrative MDM Narrative:: Scribe Attestation: 08/08/25 Talia Arroyo am scribing for and in the presence of Dr. Argueta. 69yo male with renal insufficiency, followed by a personnel assistant and was called due to having an elevated Potassium that was drawn on Friday. Patient has developed fever and chills, but no N/V/D. Please see PE findings. Lab markers demonstrate stable Hgb 11, normal WBC count 5.4, no thrombocytopenia, normal K 4.5, slightly reduced GFR at 59, troponin undetected, Procalcitonin mildly elevated at 0.5. CXR unremarkable for acute process. Will likely change olson catheter. No signs of sepsis or electrolyte disturbance. However, patient arrived with a low grade fever, will obtain CT abdomen pelvis to r/o occult infection. UA demonstrates evidence of UTI and CT scan supports this by demonstrating evidence of cystitis. There is prostatomegaly with some element of likely chronic outflow obstruction. Patient's olson catheter was changed and empiric antibiotics administered based upon previous urine culture. Also given IV fluids and antipyretics. Patient will be discharged home on a 3rd generation cephalosporin (Cefdinir) and instruct patient to follow-up with PMD for repeat UA in 7 days. 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 Record#: [id number] Birthdate: 1955 Age/Sex: 69 / M Location: [facility] Attending Dr: Ordering Physician: Sohan Zayas DO Date of Service: 08/07/25 Procedure(s): XR chest 2V Accession Number(s): [id number] cc: Sohan Zayas DO; Nikhil Beatty MD; NO PRIMARY/FAMILY,PHYSICIAN~ Examination: PA lateral chest 2 views Technique: Upright PA lateral chest 2 views Date and time: August 07, 2025 1113 hrs. Indications: Fever today. Findings: Normal heart size. No pneumonia or pulmonary edema Impression: No active disease Dictated By: Nikhil Beatty MD Signed By: <Electronically signed by Nikhil Beatty MD in OV> 08/07/25 2351 [address] Preliminary Report Draft Patient: LAURITA MYRICK Record#: [id number] Birthdate: 1955 Age/Sex: 69 / M Location: [facility] Attending Dr: Ordering Physician: Date of Service: Procedure(s): Accession Number(s): cc: ~ CT scan of the abdomen and pelvis without intravenous contrast (axial sections with sagittal and coronal reformats) August 08, 2025 0159 hours Clinical History: r/o infectious focus Reference is made to the prior report dated March 16, 2025. Findings: Bibasilar dependent atelectasis is present. Bilateral renal cysts are seen, the largest measuring 2.5 x 2.4 cm in the right kidney. There are bilateral adrenal nodules (HU 35), the largest measuring 2.6 x 2.2 cm in the right. The liver, gallbladder, pancreas and spleen are unremarkable on this noncontrast study. Fluid filled small bowel loops are noted, nonspecific. No evidence of bowel dilatation. The appendix is within normal limits. Moderate amount of fecal material is present in the colon. There are multiple colonic diverticula without evidence of diverticulitis. A Olson catheter is seen in the not so well distended urinary bladder with apparent wall thickening. There is marked enlargement of the prostate. There is no free fluid or free air. The aorta and its branches demonstrate atheromatous calcification without evidence of aneurysm. There is no adenopathy. Mild degenerative changes are identified in the spine. Small sclerotic density in the anterior L4 body, likely bone island. Impression: Indeterminate adrenal nodules as described. Recommend follow up. Marked prostatomegaly. Cystitis versus chronic urinary bladder outflow obstruction Other findings as described above. Report Electronically Signed By: Marvin Christopher 08/08/2025 3:04:48 AM [EST] Medications / Prescriptions Medications or Prescriptions considered but not ordered:: none Medication administrations:: Medication Administration History Ceftriaxone Sodium/Dextrose (Rocephin/D5w 1gm Iv Premix) 1 gm in 50 mls @ 100 mls/hr IV X1 ONE Stop: 08/08/25 04:10 Discontinued Medications Acetaminophen (Acetaminophen Mita 325 Mg/10 Ml Udc) 1,000 mg PO X1 ONE Stop: 08/07/25 23:11 Last Admin: 08/08/25 00:15 Dose: Not Given Documented By: CRISTAL Non-Admin Reason: Discontinued Acetaminophen (Acetaminophen 500 Mg Tablet) 1,000 mg PO X1 ONE Stop: 08/08/25 00:16 Last Admin: 08/08/25 00:51 Dose: 1,000 mg Documented By: CRISTAL Morphine Sulfate (Morphine Sulf Inj 4 Mg/Ml Vial) 4 mg IM X1 ONE Stop: 08/08/25 02:36 Last Admin: 08/08/25 02:44 Dose: 4 mg Documented By: CRISTAL Prochlorperazine Edisylate (Prochlorperazine Inj 5 Mg/Ml Vial 2 Ml) 5 mg IM X1 ONE; Protocol Stop: 08/08/25 02:36 Last Admin: 08/08/25 02:44 Dose: 5 mg Documented By: CRISTAL see above Consultations Consultation(s) initiated? (list below): No Diagnosis Recheck Differential Diagnosis: other (UTI, CKD, dehydration, electrolyte abnormality) Most likely diagnosis given after review of the tests above:: acute febrile illness, complicated UTI Admission Indicated Admission indicated?: not indicated Admission Request Was there a request for admission?: No Disposition Plan Disposition Plan: Discharge Discharge Attestation Discharge Attestation: The patient and all family members were given an opportunity to ask questions and understood the discharge instructions. Discharge instructions specifically effects, indications for sooner follow up or return to the emergency department, and the expected course of current diagnosis. Patient condition: Stable Discharge Plan Plan Patient Disposition: HOME (Self Care) Discharge Disposition comment: stable Prescriptions/Referrals Prescriptions/Med Rec: New cefdinir 250 mg/5 mL suspension for reconstitution 300 mg PO BID 7 Days Qty: 84 0RF No Action tamsulosin 0.4 mg capsule 0.4 mg PO QHS metformin 1,000 mg tablet 1,000 mg PO BID acetaminophen 500 mg tablet 500 mg PO Q6H PRN (Reason: pain) ondansetron 4 mg tablet,disintegrating 4 mg PO Q8H PRN (Reason: nausea and vomiting) Patient Comments: DISSOLVE 1 TABLET IN MOUTH EVERY 8 HOURS NEEDED FOR NAUSEA AND VOMITING FOR UP TO 7 DAYS sodium chloride 1,000 mg tablet,soluble 1,000 mg PO TID Qty: 90 0RF Rx Instructions: Take 2 pills in the morning and take 1 at night fludrocortisone 0.1 mg tablet 0.05 mg PO QDAY Qty: 30 0RF hydrocortisone 5 mg tablet 5 mg PO TID Qty: 90 0RF bicalutamide 50 mg tablet 50 mg PO 1XD Referrals: No Primary/Family,Physician [Primary Care Provider] - In 1 week Problem List Clinical Impression: Prostatic hypertrophy, Cystitis Patient/Caregiver Discharge Instructions Discharge Activity: activity as tolerated Diet Instructions: Medications as directed. Follow-up with PMD for REPEAT urinalysis in 1 week. Education Materials: ED Bladder Infection, Male (Adult) Print Language: Citizen Of [place] Stand Alone Forms: [employer] Award Info., Patient Portal Info Letter
--- NOTE | 2025-08-08 01:36 | XR_ITS ---
Examination: CT abdomen and pelvis without contrast. Coronal 3-D reconstructions. Sagittal 2-D reconstructions. Date and time of exam:August 08, 2025, 0159 hrs. Indications: Fever, elevated potassium, unknown source of infection today, diagnosis malignant neoplasm prostate with osseous metastatic disease, metastatic adrenal masses and left lateral periaortic hypermetabolic lymph node on PET CT scan 08/02/2025 CTDI: vol (mGy): 7.86 DLP: (mGycm): 487 Technique: Axial images of the abdomen have been obtained, 3 mm slice thickness Intravenous contrast material has not been administered. Low dose protocols were performed. One or more of the following dose reduction techniques were used; automated exposure control, adjustment of the mA and/or KV according to patient size, use of iterative reconstruction technique. Findings: Mild enlargement cardiac contour No focal liver or splenic lesions No gallstones Stable bilateral adrenal masses compared to PET CT scan 08/02/2025 No pancreatic mass Perinephric stranding Aorta normal size No bowel obstruction Normal appendix Prostatomegaly, AP dimension 5.6 cm with prostate tissue extending into the left neurovascular bundle region Contracted urinary bladder around a Velasquez catheter with urinary bladder wall thickening Again noted sclerotic osteoblastic focus L5 osteolytic lesion right iliac bone Impression: Again noted bilateral adrenal masses Perinephric stranding Normal appendix No bowel obstruction Prostatomegaly with prostate tissue extending into the left neurovascular bundle region Cystitis versus urinary tract outflow obstruction secondary to the enlarged prostate Osseous metastatic disease
[2025-08-08 01:43] VITALS: BP 127/71; PULSE 80; RESP 18; TEMP 37.7; O2SAT 97
[2025-08-08] MEDS: MORPHINE SULF INJ 4 MG/ML VIAL IM (02:44)
[2025-08-08] MEDS: PROCHLORPERAZINE INJ 5 MG/ML VIAL 2 ML IM (02:44)
[2025-08-08 02:50] VITALS: PULSE 77
--- NOTE | 2025-08-08 03:05 | PRELIM_ITS ---
CT scan of the abdomen and pelvis without intravenous contrast (axial sections with sagittal and coronal reformats) August 08, 2025 0159 hours Clinical History: r/o infectious focus Reference is made to the prior report dated March 16, 2025. Findings: Bibasilar dependent atelectasis is present. Bilateral renal cysts are seen, the largest measuring 2.5 x 2.4 cm in the right kidney. There are bilateral adrenal nodules (HU 35), the largest measuring 2.6 x 2.2 cm in the right. The liver, gallbladder, pancreas and spleen are unremarkable on this noncontrast study. Fluid filled small bowel loops are noted, nonspecific. No evidence of bowel dilatation. The appendix is within normal limits. Moderate amount of fecal material is present in the colon. There are multiple colonic diverticula without evidence of diverticulitis. A Velasquez catheter is seen in the not so well distended urinary bladder with apparent wall thickening. There is marked enlargement of the prostate. There is no free fluid or free air. The aorta and its branches demonstrate atheromatous calcification without evidence of aneurysm. There is no adenopathy. Mild degenerative changes are identified in the spine. Small sclerotic density in the anterior L4 body, likely bone island. Impression: Indeterminate adrenal nodules as described. Recommend follow up. Marked prostatomegaly. Cystitis versus chronic urinary bladder outflow obstruction Other findings as described above. Report Electronically Signed By: Marvin Christopher 08/08/2025 3:04:48 AM [EST]
[2025-08-08 03:16] LABS: Collection Type, Urine Clean Catch; Squamous Epithelial Cell,Urine 0 /hpf (0-5)
[2025-08-08 03:28] LABS: Bacteria,Urine 1+; Bilirubin,Urine Negative (Negative); Blood,Urine 1+ (Negative); Clarity,Urine Turbid (Clear/Hazy); Color,Urine Yellow (Lt Yel-Yel); Glucose, Urine Negative (Negative); Hyaline Casts,Urine < 1 /hpf (0-1); Ketones,Urine Negative (Negative); Leukocyte Esterase,Urine Positive (Negative); Nitrite,Urine Negative (Negative); PH,Urine 6.0 (5.0-7.0); Protein,Urine 1+ (Neg - Trace); RBC,Urine 19 /hpf (0-3); Renal Epithelial Cells,Urine < 1 /hpf (0-5); Specific Gravity,Urine 1.023 (1.001-1.035); Urobilinogen,Urine Negative mg/dL (0.0-1.0); WBC,Urine 249 /hpf (0-5)
[2025-08-08 03:33] LABS: Culture Indicated,Urine Yes
[2025-08-08] MEDS: cefTRIAXone/D5w 1gm IV premix 1 GM/50 ML BAG IV (04:05)
[2025-08-08 04:08] VITALS: BP 98/54; PULSE 73; RESP 17; TEMP 37.2; O2SAT 97
[2025-08-08] MEDS: SODIUM CHLORIDE 0.9% 1000 ML 1,000 ML 999 ML IV (04:48)
[2025-08-08 05:56] VITALS: BP 107/57; PULSE 70; RESP 16; O2SAT 100
== END 2025-08-08 06:08 | disposition home or self-care (01) ==
PROVIDERS: Emergency Provider Emergency Medicine
DX: N30.90 Cystitis, unspecified without hematuria (principal); N40.0 Benign prostatic hyperplasia without lower urinary tract symptoms
CPT/HCPCS: 51702; 36415; 71046; 74176; 80053; 81001; 83605; 83735; 84145; 84484; 85025; 87040; 87077; 87086; 87186; 96361; 96365; 96372; 99284; A4314; J0696; J0780; J2270; J7030; A9270

== ENCOUNTER 2025-08-10 09:48 | Outpatient (RCR) | payer MEDICARE, SELFPAY ==
--- NOTE | 2025-08-04 11:35 | CTCFLWUP_ITS ---
Dirk Anders [facility] [address] [place], [place] [address] FOLLOW-UP NOTE Date: 08/04/2025 MR#: [id number] Name: LAURITA MYRICK : 1955 Dx: [id number] Malignant neoplasm of prostate Identification. Patient with stage IVb prostate CA with widespread mets bone abdominal pelvic lymphadenopathy. PSA 219 03/17/2025. Underwent biopsy of prostate adeno CA 03/19/2025 Laura's grade 6 (3+3) group 1 in right lobe with benign left lobe. PET scan 08/02/2025 shows hypermetabolic bilateral adrenal met masses hypermetabolic right prostate nodule. osseous mets widespread Patient has indwelling Velasquez catheter. Patient is not having any pain related to his bone mets. A#1. Widespread bone mets with apparent adrenal mets noted on PET scan of 08/02/2025. #2. Low Laura's score with group 1 right lobe CA of the prostate. Biopsy done by radiologist. #3. Dr. Contreras plans rebiopsying to have more accurate diagnosis of his prostate cancer. #4. Requests Lupron injections which he has missed despite earlier scheduling. He has been on several weeks of Casodex. Hopefully this will also result in eventual removal of the Velasquez catheter. #5. Dr. Torres, medical oncologist, scheduled to see patient next week Cc: Dinorah Contreras MD Electronically signed by: Sravan Myers M.D. 08/04/2025 11:33 AM
--- NOTE | 2025-08-10 13:42 | CTCCONSULT_ITS ---
Patient: LAURITA MYRICK : 1955 MR#: [id number] Page 3 of 5 CONSULTATION NOTE DATE OF CONSULTATION: 08/10/2025 NAME: LAURITA MYRICK ACCOUNT: [id number] : 1955 AGE: 69 REFERRING PHYSICIAN: Michael Ku MD PRIMARY PHYSICIAN: REASON FOR VISIT: Prostate adenocarcinoma ONCOLOGY HISTORY: DIAGNOSIS: Malignant neoplasm of prostate [ICD10] C61 DATE OF DIAGNOSIS: STAGE/TNM: TREATMENT HISTORY: Care?Plan Start?Date Cycle Day Intent Lupron?22.5?mg?q?3?mon 08/10/2025 1 90 Palliative HISTORY OF PRESENT ILLNESS: 69-year-old male 03/19/2025 ultrasound showed bilateral renal parenchymal scar formation. Marked prostatomegaly with the prostate mass 3.9 x 3.2 recommend transrectal prostate sonography and biopsy 03/21/2025 [facility] PET OTHER MEDICAL HISTORY/CONDITIONS: Prostate cancer - dx 03/18/25 Diabetes Valley Fever Arthritis DENIES FAMILY HISTORY: Father:?UNKNOWN SOCIAL HISTORY: Occupational?History:?[employer] Education?Level:?Completed something less than 8th grade Marital?Status:? Tobacco?Pack?per?Day:?0 Tobacco?Use?Years:?1 Tobacco?Use:?QUIT?X?35?YRS?AGO ETOH Use:?Quit Dec 2024- Drank 6 pk beer/day for 10yrs Drug?Note:?DENIES Social?History?Note:??AND?SON MEDICATIONS: 1. Casodex - 50 mg 1 tab Daily 2. fluconazole - 200 mg 1 tab Twice a Day 3. fludrocortisone - 0.1 mg 1 tab Daily 4. magnesium oxide - 500 mg 1 Capsule twice daily 5. metformin - 1,000 mg Twice a Day 6. Xtandi - 80 mg 2 tab Daily Medications Last Reconciled by Cayla Matt RN on 08/10/2025 ALLERGIES: No Known Drug Allergies REVIEW OF SYSTEMS: A complete 14-point review of systems was performed and is negative except as noted in interval history. PHYSICAL EXAMINATION: VITAL SIGNS: Temperature?99.1, B/P?136/76, Height?63.5?inches, Oxygen?Saturation?99% Weight?153?lbs (Change?since?08/09/25:?-3.8?lbs) PAIN: 0 - No pain ECOG Performance Status: 2 - Symptomatic; ambulatory; capable of self-care; >50% of waking hrs. not in bed GENERAL APPEARANCE: Appears well, in no apparent distress, appropriately interactive. HEENT: Normocephalic, no temporal wasting, normal conjunctiva, no scleral icterus, normal hearing, lips without lesions, neck normal range of motion. CARDIOVASCULAR: Not assessed. PULMONARY: Normal respiratory effort, no respiratory distress or use of accessory muscles, speaking in full sentences, no tachypnea. EXTREMITIES: No pedal edema or cyanosis. SKIN: Normal skin appearance. NEUROLOGIC: Alert and oriented x4. PSHYCHIATRIC: Appropriate affect, mood normal, behavior normal, intact thought and speech. LABORATORY DATA: I have personally reviewed and interpreted each of the patient?s relevant lab tests, abnormal findings are below: Date 07/08/25 08/07/25 ??WHITE?BLOOD?COUNT?(Thou/mm3) ? 5.4 ??RED?BLOOD?COUNT?(Miln/mm3) ? 3.81?L ??HEMOGLOBIN?(gm/dl) ? 11.0?L ??HEMATOCRIT?(%) ? 33.5?L ??PLATELET?COUNT?(Thou/mm3) ? 201 ??NEUTROPHILS?%,?AUTO?(%) ? 69 ??LYMPH?%,?AUTO?(%) ? 21 ??NEUTROPHILS,?AUTO?(Thou/mm3) ? 3.7 ??GLUCOSE,RANDOM?(mg/dL) ? 136?H ??BLOOD?UREA?NITROGEN?(mg/dL) ? 18 ??CREATININE?(mg/dL) ? 1.30 ??SODIUM?(mmol/L) 127?L 138 ??POTASSIUM?(mmol/L) ? 4.5 ??CHLORIDE?(mmol/L) ? 104 ??CrCl?(CandG)?(ml/min) ? 54.28 ??AST/SGOT?(Unit/L) ? 18 ??ALT/SGPT?(Unit/L) ? 11 ??ALKALINE?PHOSPHATASE?(Unit/L) ? 86 ??BILIRUBIN,?TOTAL?(mg/dL) ? 1.0 ??PROTEIN?TOTAL?(gm/dl) ? 7.0 ??ALBUMIN,?SERUM?(gm/dl) ? 4.4 ??GLOBULIN?(gm/dl) ? 2.6 ??ALBUMIN/GLOBULIN?RATIO ? 1.7 ??CALCIUM,?SERUM?(mg/dL) ? 9.6 ??CALCIUM?SERUM?(CORRECTED)?(mg/dL) ? 9.6 ??MAGNESIUM?(mg/dL) ? 1.6 ASSESSMENT/PLAN: Prostate adenocarcinoma with bone metastatic disease 69 yr old male with prostate adenocarcinoma 20*16 mm right prostate nodule Osseous metastatic disease and adrenal mets Refer to endocrine as patient have hyponatremia likely from elevated ACTH Patient's numbers are getting stabilized since starting Lupron and Casodex Continue Casodex and will add Xtandi Biopsy of the adrenal gland to confirm diagnosis of metastatic lesions from prostate Anemia workup ordered Will also do myeloma workup RTC in 4 weeks with labs ORDERS: Order # Description [id number] PSA [id number] CBC with Auto Diff + Comprehensive Metabolic Panel - 12 [id number] Ferritin + Iron Panel + Vitamin B-12 + Folic Acid; Serum + Reticulocyte Count [id number] Serum Protein Electrophoresis + Serum Immunofixation Electrophoresis + Free kappa and lambda light chains plus ratio, quantitative + Quant Immunoglobulins [id number] RETURN TO CLINIC: I reviewed the diagnosis, prognosis, and recommended treatment/procedure options with the patient (and/or their legal customer field representative), including the potential benefits, risks, side effects and alternative therapies. We also discussed the option of no treatment and the possibility of clinical trial participation, if applicable. All questions were addressed, and they demonstrated understanding. They provided informed consent to proceed with the proposed plan of care. BILLING AND COMPLIANCE: I reviewed external records from providers outside my specialty as summarized above. I spent a total of 50 minutes on this patient?s care on the day of their visit excluding time spent related to any billed procedures. This time includes time spent with the patient as well as time spent documenting in the medical record, reviewing patients records and tests, obtaining history, placing orders, communicating with other healthcare professionals, counseling the patient, family or caregiver, and/or care coordination for the diagnoses above. Electronically Signed by: Saleem Torres MD T: 1:39 PM CC: CONRADO Millan PCP: Referring: Michael Ku This document was completed utilizing speech recognition software. Grammatical errors, random word insertions, pronoun errors, and incomplete sentences are an occasional consequence of this system due to software limitations, ambient noise, and hardware issues. Any formal questions or concerns about the content, text or information contained within the body of this dictation should be directly addressed to the provider for clarification.
== END 2025-08-23 23:59 | disposition home or self-care (01) ==
LOC: SCTC 09:48
PROVIDERS: PCP Student in an Organized Health Care Education/Training Program; Referring Provider Student in an Organized Health Care Education/Training Program; Visit Provider Internal Medicine Hematology & Oncology
DX: Z51.11 Encounter for antineoplastic chemotherapy (principal); C61 Malignant neoplasm of prostate; C79.51 Secondary malignant neoplasm of bone; C79.72 Secondary malignant neoplasm of left adrenal gland; C79.71 Secondary malignant neoplasm of right adrenal gland; E87.1 Hypo-osmolality and hyponatremia
CPT/HCPCS: 96402; 99213; J9217; G0463

== ENCOUNTER 2025-09-06 07:10 | Outpatient (CLI) | payer MEDICARE, SELFPAY ==
--- NOTE | 2025-09-02 14:50 | PC.NURSE ---
Called all three numbers i saw on the chart and only one answered (Fabio son) Cornell did not answer but Fabio aware that patient has to come on 09/05/25 anytime from 7am-3pm to register and get lab work done, also informed Fabio that Cornell cannot eat or drink anything after midnight and needs to bring a ist of his medications, patient is not on any blood thinners
[2025-09-05 09:49] LABS: Basophils # (Auto) 0.0 Thou/mm3 (0.0-0.2); Basophils % (Auto) 0 % (0-2.5); Eosinophils # (Auto) 0.1 Thou/mm3 (0.0-0.5); Eosinophils % (Auto) 2 % (0-10); Hematocrit 31.3 % (41.0-53.0); Hemoglobin 10.9 g/dL (13.5-16.0); Immature Granulocytes Auto 0.01 Thou/mm3 (0.00-0.00); Lymphocytes # (Auto) 2.2 Thou/mm3 (1.0-4.8); Lymphocytes % (Auto) 42 % (10-50); Mean Corpuscular HGB Conc 34.8 g/dl (31.0-37.0); Mean Corpuscular Hemoglobin 29.5 pg (25.0-35.0); Mean Corpuscular Volume 85 fL (80-100); Monocytes # (Auto) 0.5 Thou/mm3 (0.0-0.8); Monocytes % (Auto) 9 % (0-12); Neutrophils # (Auto) 2.5 Thou/mm3 (1.8-7.7); Neutrophils % (Auto) 47 % (37-80); Nucleated Red Blood Cell # 0.00 Thou/mm3 (0.00-0.00); Nucleated Red Blood Cell % 0 /100 WBC (0); Platelet Count 227 Thou/mm3 (140-440); RDW Standard Deviation 40.7 fL (35.1-43.9); Red Blood Count 3.70 Miln/mm3 (4.50-5.90); White Blood Count 5.3 Thou/mm3 (3.8-10.6)
[2025-09-05 10:03] LABS: INR 1.0 (0.9-1.3); Partial Thromboplastin Time 25.8 Seconds (22.0-36.0); Prothrombin Time 10.3 Seconds (9.0-12.2)
[2025-09-05 10:05] LABS: Anion Gap 12 (7-16); BUN/Creatinine Ratio 13 Ratio (12-20); Blood Urea Nitrogen 24 mg/dL (9-23); Carbon Dioxide 27.3 mMol/L (20.0-31.0); Chloride 100 mMol/L (98-107); Creatinine (Component) 1.8 mg/dL (0.6-1.3); Glucose 126 mg/dL (74-106); Osmolality,Calculated 283 (275-295); Potassium 3.4 mMol/L (3.4-5.1); Sodium 139 mMol/L (136-145); eGFR 40 See Note
[2025-09-05 10:18] LABS: Calcium 14.3 mg/dL (8.3-10.6)
--- NOTE | 2025-09-05 13:21 | PC.NURSE ---
Spoke with Dr. Duggan regarding elevated Ca level, per Dr. Duggan ok to proceed with biopsy tomorrow 09/06/25
[2025-09-06] VITALS (11 sets, daily range): BP systolic 136–172; BP diastolic 61–107; PULSE 61–69; RESP 10–18; TEMP 36.7–37.1; O2SAT 96–100; BMI 25.0
--- NOTE | 2025-09-06 08:00 | XR_ITS ---
EXAM: CT-guided right adrenal mass biopsy. INDICATION: Right adrenal mass. DATE: 09/06/2025, 9:13 a.m. CTDI: 68.1 DLP: 1925 PROCEDURE: After discussion of risks and benefits informed consent was obtained. The patient was brought to the CT scanner and placed in the right lateral decubitus position. Preliminary noncontrast enhanced CT again demonstrated a low-density right adrenal mass. This was targeted for biopsy. The overlying skin was cleaned and draped in normal sterile surgical fashion. 10 cc of 1% lidocaine anesthesia. Using CT guidance a 20-gauge needle biopsy system was sequentially advanced into the targeted right renal mass. Multiple core biopsy samples were obtained, placed in formalin and sent to pathology for analysis. The needle was withdrawn. Hemostasis was achieved. The access site was covered with a sterile dressing. Postbiopsy CT was performed which showed no evidence of hemorrhage or other acute complication. The patient tolerated the procedure well and transferred back to the holding area for post procedural observation. IMPRESSION: Successful CT-guided right adrenal mass biopsy under conscious sedation as described above.
--- NOTE | 2025-09-06 08:19 | PC.NURSE ---
Calderon (son) requested discharge instruction to be printed in malian.
[2025-09-06] MEDS: SODIUM CHLORIDE 0.9% 500 ML 500 ML 20 ML IV (09:33)
[2025-09-06] MEDS: MIDAZOLAM INJ 1 MG/ML VIAL 2 ML IVP (09:35)
[2025-09-06] MEDS: fentaNYL CIT INJ 50 mCg/ML AMP 2ML IVP (09:36)
[2025-09-06] MEDS: LIDOCAINE INJ PF 1% 30 ML VIAL 7 ML INFL (09:39)
== END 2025-09-06 11:00 | disposition home or self-care (01) ==
PROVIDERS: Radiology Diagnostic Radiology; Referring Provider Internal Medicine Hematology & Oncology; Visit Provider Radiology Diagnostic Radiology
DX: M89.9 Disorder of bone, unspecified (principal); C61 Malignant neoplasm of prostate
CPT/HCPCS: 20220; 36415; 77012; 80048; 85025; 85610; 85730; 99152; J2250; J3010; J3490; J7999

== ENCOUNTER 2025-09-07 14:04 | Inpatient (IN) | payer MEDICARE, SELFPAY ==
[2025-09-07] VITALS (9 sets, daily range): BP systolic 139–174; BP diastolic 58–95; PULSE 67–78; RESP 16–98; TEMP 36.3–37.3; O2SAT 94–100; BMI 26.5
--- NOTE | 2025-09-07 16:50 | XR_ITS ---
EXAMINATION: CT head brain without contrast Date and time: September 07, 2025, 1742 hours INDICATIONS: Diagnosis metastatic prostate cancer with weakness today CTDI: 50 DLP: 1023 TECHNIQUE AND FINDINGS: Multiple axial 5 mm slice images of the head brain 2D sagittal coronal reconstructions 3D reconstructions Ventricles normal size and configuration. No mass effect upon the ventricles No acute hemorrhage either intra or extra-axial The cranial vault appears intact with bilateral chronic mastoiditis IMPRESSION: Negative for acute hemorrhage mass effect or midline shift Advise clinical correlation and follow-up accordingly
[2025-09-07 17:17] LABS: Basophils # (Auto) 0.0 Thou/mm3 (0.0-0.2); Basophils % (Auto) 0 % (0-2.5); Eosinophils # (Auto) 0.2 Thou/mm3 (0.0-0.5); Eosinophils % (Auto) 3 % (0-10); Hematocrit 30.7 % (41.0-53.0); Hemoglobin 10.6 g/dL (13.5-16.0); Immature Granulocytes Auto 0.01 Thou/mm3 (0.00-0.00); Lymphocytes # (Auto) 2.2 Thou/mm3 (1.0-4.8); Lymphocytes % (Auto) 37 % (10-50); Mean Corpuscular HGB Conc 34.5 g/dl (31.0-37.0); Mean Corpuscular Hemoglobin 29.1 pg (25.0-35.0); Mean Corpuscular Volume 84 fL (80-100); Monocytes # (Auto) 0.5 Thou/mm3 (0.0-0.8); Monocytes % (Auto) 9 % (0-12); Neutrophils # (Auto) 3.0 Thou/mm3 (1.8-7.7); Neutrophils % (Auto) 51 % (37-80); Nucleated Red Blood Cell # 0.00 Thou/mm3 (0.00-0.00); Nucleated Red Blood Cell % 0 /100 WBC (0); Platelet Count 237 Thou/mm3 (140-440); RDW Standard Deviation 40.4 fL (35.1-43.9); Red Blood Count 3.64 Miln/mm3 (4.50-5.90); White Blood Count 5.9 Thou/mm3 (3.8-10.6)
--- NOTE | 2025-09-07 17:22 | PD.EDWEAK ---
ED Weakness RME/HPI General Chief complaint: General Adult/Misc Complain Stated complaint: FATIGUE, WEAKNESS AND LOSS OF APPETITE Time Seen by Provider: 09/07/25 15:40 Arrival date/time: 09/07/25 14:04 Limitations: no limitations RME / HPI RME / HPI Narrative: 69 year old male with history of prostate cancer with extensive bone metastases, CKD stage III, hypertension, diabetes, hyperlipidemia, chronic indwelling Olson catheter presents to the ED brought in by family for evaluation of global weakness, fatigue, body aches, and decreased appetite today. Per family, patient reportedly has had weakness, fatigue, body aches, and decreased appetite after starting Lupron and Xtandi 1 month ago. However, noted patient this morning was not understanding much and just wants to sleep . Additionally state the patient underwent right kidney biopsy under general anesthesia yesterday and not sure if that is contributing to his symptoms today. In the ED, patient complains of headache, body aches, and pain to his knee and back. Family deny any fever or appearance of shortness of breath. Related Data Home Medications ?Medication ?Instructions ?Recorded ?Confirmed acetaminophen 500 mg tablet 500 mg PO Q6H PRN pain 03/17/25 09/06/25 ondansetron 4 mg disintegrating 4 mg PO Q8H PRN nausea and vomiting 07/06/25 09/06/25 tablet metformin 1,000 mg tablet 1,000 mg PO BID 08/04/25 09/06/25 tamsulosin 0.4 mg capsule 0.4 mg PO QHS 08/04/25 09/06/25 bicalutamide 50 mg tablet 50 mg PO DAILY 09/06/25 09/06/25 enzalutamide 80 mg tablet (Xtandi) 80 mg PO QDAY 09/06/25 09/06/25 fluconazole 200 mg tablet 200 mg PO Q24H 09/06/25 09/06/25 Previous Rx's ?Medication ?Instructions ?Recorded fludrocortisone 0.1 mg tablet 0.05 mg (1/2 x 0.1 mg) PO QDAY #30 07/08/25 tabs hydrocortisone 5 mg tablet 5 mg PO TID #90 tabs 07/08/25 Allergies Allergy/AdvReac Type Severity Reaction Status Date / Time No Known Allergies Allergy Verified 09/07/25 14:08 Review of Systems Review of Systems Systems Reviewed: All systems reviewed, normal except as documented Past Medical History Past Medical History CARDIAC: Positive Cardiac Disorders, Hypercholesterolemia and Hypertension GENITOURINARY: Positive Genitourinary Disorders (chronic olson catheter d/t prostate cancer/retention; recurrent UTIs), Prostate Cancer and Benign Prostatic Hyperplasia MUSCULOSKELETAL: Positive Musculoskeletal Disorders and Arthritis ENT: Positive Deafness ENDOCRINE: Positive Diabetes Mellitus Type 2 PSYCHO/SOCIAL: Positive Depression OTHER HISTORY: Positive Falls, Cancer and Prostate Cancer Social History SMOKING STATUS: Never smoker ED Exam General Limitations: Present no limitations General appearance: Present in no apparent distress and other (appears somnolent though is able to answer questions ) Head Head exam: Present atraumatic, normocephalic and normal inspection Eye Eye exam: Present normal appearance, PERRL and EOMI ENT ENT exam: Present normal exam, normal oropharynx and mucous membranes moist Neck Neck exam: Present normal inspection, full ROM and trachea midline Chest Chest inspection: Present normal inspection and symmetric chest wall rise Respiratory Respiratory exam: Present normal lung sounds bilaterally Cardiovascular Cardiovascular exam: Present regular rate, normal rhythm and normal heart sounds Abdominal Exam Abdominal exam: Present soft and normal bowel sounds Extremities Exam Extremities exam: Present normal inspection and full ROM Back Exam Back exam: Present full ROM and other (The biopsy site appears well, the gauze that was covering the area has only a small amount of dry blood. ) Neurological Exam Neurological exam: Present oriented X3 and CN II-XII intact Psychiatric Psychiatric exam: Present normal affect and normal mood Skin Skin exam: Present warm, dry, intact and normal color Course Quality Measures none Orders Category Date Time Status COVID-19 Screening Questionnaire NOW Care 09/07/25 18:25 Active Decision to Admit X1 Care 09/07/25 18:[address] head/brain wo con Stat Exams 09/07/25 16:50 Taken CBC Stat Lab 09/07/25 16:58 Completed CMP [Comprehensive Metabolic Panel] Stat Lab 09/07/25 16:58 Completed Lactic Acid [Lactate (Lactic Acid)] Stat Lab 09/07/25 18:08 Received Mag [Magnesium] Stat Lab 09/07/25 16:58 Completed TSH [Thyroid Stimulating Hormone] Stat Lab 09/07/25 16:58 Completed Urinalysis, C/S if Indicated Stat Lab 09/07/25 17:08 Ordered Sodium Chloride 0.9% 1000 ml [Ns] 1,000 ml Med 09/07/25 16:45 Discontinued IV 999 mls/hr Vital Signs Vital signs: Vital Signs Temperature 99.1 F 09/07/25 14:13 Pulse Rate 78 09/07/25 14:13 Respiratory Rate 18 09/07/25 14:13 Blood Pressure 139/89 H 09/07/25 14:13 Pulse Oximetry (%) 98 09/07/25 14:13 Oxygen Delivery Method Room Air 09/07/25 14:13 Pulse ox is 98% on room air which is adequate. v Weakness MDM Narrative MDM Narrative:: IAishwarya, am scribing for and in the presence of Dr. Curiel. 1824: I spoke with hospitalist team B for admission, they are requesting head CT result prior to admission. State they will discuss case with 7pm hospitalist team. Patient data External records reviewed:: [facility] previous records Clinical information provided by:: patient and family Social determinants that could affect healthcare access:: none Patient has the following chronic illnesses:: prostate cancer with extensive bone metastases, CKD stage III, hypertension, diabetes, hyperlipidemia, chronic indwelling Olson catheter How is presenting disease/condition affected by chronic disease/condition?: exacerbated by Evaluation data The following diagnostics were reviewed and interpreted by me:: lab results Lab and/or radiology exams considered but not ordered:: None Interpretation Summary: See above Medications / Prescriptions Medications or Prescriptions considered but not ordered:: None Medication administrations:: Medication Administration History Discontinued Medications Sodium Chloride (Ns) 1,000 mls @ 999 mls/hr IV .Q1H1M ONE Stop: 09/07/25 17:45 Last Admin: 09/07/25 18:23 Dose: 999 mls/hr Documented By: JI See above Consultations Consultation(s) initiated? (list below): Yes Consultation #1 (Physician, Specialty, Details): See above Diagnosis Weakness Differential Diagnosis: anemia, hypoglycemia, sepsis and dehydration Most likely diagnosis given after review of the tests above:: Adult failure to thrive acute hypercalcemia generalized weakness Admission Indicated Admission indicated?: indicated Admission Request Was there a request for admission?: Yes Admission Attestation Admission request attestation: Discussed case with [] from Hospitalist service regarding admission. Discussed patients ED course, exam findings, labs, and radiology results. The Hospitalist [agrees,declines] to accept the patient for admission. Disposition Plan Disposition Plan: Admit Discharge Plan Plan Patient Disposition: Admit Acute Care w/in Hospital Prescriptions/Referrals Prescriptions/Med Rec: No Action tamsulosin 0.4 mg capsule 0.4 mg PO QHS metformin 1,000 mg tablet 1,000 mg PO BID acetaminophen 500 mg tablet 500 mg PO Q6H PRN (Reason: pain) ondansetron 4 mg tablet,disintegrating 4 mg PO Q8H PRN (Reason: nausea and vomiting) Patient Comments: DISSOLVE 1 TABLET IN MOUTH EVERY 8 HOURS NEEDED FOR NAUSEA AND VOMITING FOR UP TO 7 DAYS fludrocortisone 0.1 mg tablet 0.05 mg PO QDAY Qty: 30 0RF hydrocortisone 5 mg tablet 5 mg PO TID Qty: 90 0RF Xtandi 80 mg tablet 80 mg PO QDAY fluconazole 200 mg tablet 200 mg PO Q24H Patient Comments: TAKE 1 TABLET BY MOUTH TWICE DAILY bicalutamide 50 mg tablet 50 mg PO DAILY Patient Comments: TAKE 1 TABLET BY MOUTH ONCE DAILY Referrals: No Primary/Family,Physician [Primary Care Provider] - In 1 week Problem List Clinical Impression: Adult failure to thrive, Hypercalcemia, Generalized weakness Patient/Caregiver Discharge Instructions Print Language: Slovenian Stand Alone Forms: [employer] Award Info., Patient Portal Info Letter
[2025-09-07 17:35] LABS: Alanine Aminotransferase 17 U/L (10-49); Albumin, Serum 4.3 gm/dL (3.4-4.8); Albumin/Globulin Ratio 1.6 (1.2-2.2); Alkaline Phosphatase 85 U/L (46-116); Anion Gap 11 (7-16); Aspartate Amino Transferase 30 U/L (0-34); BUN/Creatinine Ratio 12 Ratio (12-20); Bilirubin,Total 0.8 mg/dL (0.3-1.2); Blood Urea Nitrogen 26 mg/dL (9-23); Carbon Dioxide 29.8 mMol/L (20.0-31.0); Chloride 100 mMol/L (98-107); Creatinine (Component) 2.1 mg/dL (0.6-1.3); Estimated Creatinine Clearance 26.3 mL/min (>60); Globulin 2.7 gm/dL (2.3-3.5); Glucose 118 mg/dL (74-106); Magnesium 2.3 mg/dL (1.6-2.6); Osmolality,Calculated 286 (275-295); Potassium 3.3 mMol/L (3.4-5.1); Sodium 141 mMol/L (136-145); Thyroid Stimulating Hormone 2.33 uIU/mL (0.55-4.78); Total Protein 7.0 gm/dL (5.7-8.2); eGFR 33 See Note
[2025-09-07 17:37] LABS: Calcium 14.6 mg/dL (8.3-10.6); Calcium (Corrected) 14.6 mg/dL (8.5-10.1)
[2025-09-07 18:15] LABS: Lactate (Lactic Acid) 1.4 mMol/L (0.4-2.0)
[2025-09-07] MEDS: SODIUM CHLORIDE 0.9% 1000 ML 1,000 ML 999 ML IV (18:23)
[2025-09-07 19:30] LABS: Collection Type, Urine Catheter; Squamous Epithelial Cell,Urine 0 /hpf (0-5)
[2025-09-07 19:33] LABS: Bilirubin,Urine Negative (Negative); Blood,Urine Trace (Negative); Clarity,Urine Clear (Clear/Hazy); Color,Urine Lt-Yellow (Lt Yel-Yel); Glucose, Urine Negative (Negative); Hyaline Casts,Urine < 1 /hpf (0-1); Ketones,Urine Negative (Negative); Leukocyte Esterase,Urine Positive (Negative); Nitrite,Urine Negative (Negative); PH,Urine 6.5 (5.0-7.0); Protein,Urine Trace (Neg - Trace); RBC,Urine 7 /hpf (0-3); Specific Gravity,Urine 1.011 (1.001-1.035); Urobilinogen,Urine Negative mg/dL (0.0-1.0); WBC,Urine 44 /hpf (0-5)
[2025-09-07 19:39] LABS: Culture Indicated,Urine Yes
--- NOTE | 2025-09-07 20:12 | PD.RESHP ---
Documentation for date of: 09/07/25 HPI History of Present Illness History of present illness: Mr. Montalvo is a 69 y/o male with PMH 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 At rest patient denies pain, but when he tries to move he has extensive pain from the hips down. Recently started Lupron and Xtandi 1 month ago. Underwent right adrenal gland biospy under general anesthesia 09/06 (PET scan 08/02/2025 shows hypermetabolic bilateral adrenal met masses). Denies fevers, chills, nausea, vomiting, diarrhea, constipation, melena, hematochezia, shortness of breath, chest pain. Denies sick contacts at home. Weight loss of >50 lbs since his cancer diagnosis in February 2025. Follows with Dr. Contreras (urology), Dr. Myers (oncology), Dr. Paige Tse in [facility] (nephrology). ED course: Afebrile, BP 130-150s/80-90s, 3L O2 spO2 100%. Labs significant for hgb 10.6, HCT 30.7, K 3.3, BUN 26, Cr 2.1, Ca 14.6. Lactic acid WNL. UA 1+ protein, 1+ blood, 19 RBC, 249 WBC, 1+ bacteria. CT head negative. Given 1L NS and changed olson in ED. PMHx: prostate cancer with bone mets, CKD III, T2DM, HLD, HTN, chronic indwelling olson catheter, coccidioidomycosis, arthritis Allergies: NKDA Home meds: Pending med rec Atorvastatin 20 mg PO HS Bicalutamide 50 mg Metformin 500 mg BID Ondansetron 4mg PRN Casodex 50 mg PO Daily Lupron Xtandi 160 mg PO daily Fluconazole 200 mg PO BID SgHx: none SHx: Denies smoking, EtOH, recreational drug use. Lives in [place] with . 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 FHx: Brother - prostate cancer Review of Systems Review of Systems Narrative Review of Systems: 14 point ROS negative other than HPI Exam Vital Signs Temp Pulse Resp BP Pulse Ox O2 Del Method O2 Flow Rate 98.3 F 74 22 H 160/93 H 100 Nasal Cannula 3 09/07/25 20:03 09/07/25 20:03 09/07/25 20:03 09/07/25 20:03 09/07/25 20:03 09/07/25 20:03 09/07/25 20:03 Narrative Exam General: No acute distress, well nourished Eye: PERRL, EOMI, normal conjunctiva, no scleral icterus HENT: Normocephalic, atraumatic, normal hearing, moist oral mucosa Neck: Supple, non-tender, no JVD, no lymphadenopathy Lungs: Clear to auscultation bilaterally, non-labored respirations, symmetric chest rise, no use of accessory muscles Heart: Normal S1 and S2, no S3 or S4 appreciated. Tachycardic, regular rhythm, no murmurs, rubs gallops, or edema. Peripheral pulses intact bilaterally, capillary refill brisk distally Abdomen: Soft, non-tender, non-distended, normal bowel sounds. No guarding or rebound tenderness. Musculoskeletal: Decreased ROM of right LE 2/2 pain Skin: Skin is warm, dry, no rashes or lesions. Neurologic: Alert, awake and oriented x2. CN II-XII grossly intact. No focal neuro deficits Psychiatric: Cooperative, appropriate mood and affect Results: Labs 09/07/25 16:58 09/07/25 16:58 Labs: Short CBC 09/07/25 Range/Units 16:58 WBC 5.9 (3.8-10.6) Thou/mm3 Hgb 10.6 L (13.5-16.0) g/dL Hct 30.7 L (41.0-53.0) % Plt Count 237 (140-440) Thou/mm3 BMP 09/07/25 16:58 Sodium 141 Potassium 3.3 L Chloride 100 Carbon Dioxide 29.8 BUN 26 H Creatinine 2.1 H Glucose 118 H Calcium 14.6 H* Liver Function 09/07/25 Range/Units 16:58 Total Bilirubin 0.8 (0.3-1.2) mg/dL AST 30 (0-34) U/L ALT 17 (10-49) U/L Alkaline Phosphatase 85 (46-116) U/L Albumin 4.3 (3.4-4.8) gm/dL Urine 09/07/25 Range/Units 19:07 Urine Color Lt-Yellow (Lt Yel-Yel) Urine Clarity Clear (Clear/Hazy) Urine pH 6.5 (5.0-7.0) Ur Specific [place] 1.011 (1.001-1.035) Urine Protein Trace (Neg - Trace) Urine Glucose (UA) Negative (Negative) Quality Measures Quality Measures none Advance care planning discussed with:: patient and spouse Medications Home Medications and Allergies Home Medications ?Medication ?Instructions ?Recorded ?Confirmed ?Type acetaminophen 500 mg tablet 500 mg PO Q6H PRN pain 03/17/25 09/07/25 History ondansetron 4 mg disintegrating 4 mg PO Q8H PRN nausea and vomiting 07/06/25 09/07/25 History tablet metformin 1,000 mg tablet 1,000 mg PO BID 08/04/25 09/07/25 History bicalutamide 50 mg tablet 50 mg PO DAILY 09/06/25 09/07/25 History enzalutamide 80 mg tablet (Xtandi) 80 mg PO QDAY 09/06/25 09/07/25 History fluconazole 200 mg tablet 200 mg PO Q24H 09/06/25 09/07/25 History Allergies Allergy/AdvReac Type Severity Reaction Status Date / Time No Known Allergies Allergy Verified 09/07/25 14:08 Visit Medications Acetaminophen (Acetaminophen 325 Mg Tablet) 650 mg PO Q6H PRN PRN Reason: Fever >100.3 Stop: 10/07/25 20:06 Acetaminophen (Acetaminophen 325 Mg Tablet) 650 mg PO Q6H PRN PRN Reason: PAIN SCALE 1-3 (mild Stop: 10/07/25 20:06 Heparin Sodium (Porcine) (Heparin Sod Inj 5000 Unit/Ml Vial) 5,000 unit SC Q8HR ADRIAN Stop: 09/21/25 21:59 Ondansetron HCl (Ondansetron Inj 2 Mg/Ml Inj 2 Ml) 4 mg IVP Q6H PRN; Protocol PRN Reason: NAUSEA OR VOMITING Stop: 10/07/25 20:06 Sennosides (Senna/Docusate Sod 1 Tab Tablet) 1 tab PO QDAY PRN; Protocol PRN Reason: CONSTIPATION Stop: 10/07/25 20:09 Zoledronic Acid (Zoledronic Acid Ivpb 4 Mg/100 Ml Bag) 4 mg IV X1 ONE Stop: 09/07/25 20:12 Discontinued Medications Sodium Chloride (Ns) 1,000 mls @ 999 mls/hr IV .Q1H1M ONE Stop: 09/07/25 17:45 Last Infusion: 09/07/25 19:17 Dose: Infused Assessment & Plan Plan Mr. Montalvo is a 69 y/o male with PMH 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 Admitted for hypercalcemia i/s/o malignancy. #Hypercalcemia 2/2 malignancy Presents with fatigue, generalized weakness, myalgia. AOx1 Given 1L NS in ED Plan: - Given Zoledronic acid 4 mg IV x1 - CTM with daily CMP - Maintenance LR 125 mL/hr x1 bag #Stage IVb prostate cancer with widespread bony metastases & abdominal/pelvic lymphadenopathy #c/f Adrenal insufficiency 2/[address] Myers (oncology), Dr. Contreras (urology), Dr. Torres (oncology) Home meds: Lupron, Xtandi (non-formulary), Casodex Recently underwent right adrenal biopsy 09/06 due to c/f adrenal mets. On previous hosptialization, cortisol WNL, hyponatremia Plan: - Tylenol 650 mg PO PRN, [place] 5/325 mg q4h PO PRN - Casodex 50 mg PO daily (home med) - Fludrocortisone 0.1 mg PO daily (home med) #CKD stage III BUN 26, Cr 2.1, eGFR [address] Paige Tse in [facility] (nephrology) Myeloma workup being pursued outpatient by Dr. Torres Plan: - CTM with daily CMP - Avoid nephrotoxins, avoid NSAIDs - Adjust medication dosing for renal function - Strict I&Os #Complicated UTI #Chronic indwelling olson catheter Denies urinary sx UA 249 WBC, 1+ bacteria. Previous Ucx grew Citrobacter and Enterobacter Changed olson catheter in ED Plan: - Ceftriaxone 1g IV daily - Pending urine cx #T2DM Home med: Metformin 1000 mg PO BID Plan: - SSI #HTN BP 130-160s/80-90s with HR 60-70s Plan: - Started Amlodipine 2.5 mg PO daily #HLD Plan: - Atorvastatin 20 mg PO QHS (home med) #Hx coccidioidomycosis Plan: - Fluconazole 200 mg PO BID (home med) #Hypokalemia K 3.3 Plan: - Repletion PRN Checklist Dispo: Admit for management of hypercalcemia Diet: Renal Bowel Reg: doc/senna daily PRN VTE ppx: heparin subQ GI ppx: n/a Pain mgmt: Tylenol PO, [place] 5/325 mg PO q4h PRN Code status: full Plan discussed with Dr. Castillo and Dr. Nava Thibodeaux MD PGY1 Attending Provider Attestation/Addendum 69-year-old male patient was brought in because of extreme weakness, fatigability, decreased appetite. Patient is very weak. He has prostate cancer with metastasis to the bone. Patient has high calcium level of over 14.3. Previous calcium recorded back in July is 9.6. Patient will be admitted for treatment with zoledronic acid. He will receive IV fluids and may need Lasix as well. The patient is on IV antibiotic for UTI. I discussed with and supervised the resident physician who took care of this patient. I agree with the assessment and plan as above.
[2025-09-07] MEDS: RINGERS LACTATED 1000 ML 1,000 ML 125 ML IV (21:16)
[2025-09-07] MEDS: cefTRIAXone/D5w 1gm IV premix 1 GM/50 ML BAG IV (21:16)
[2025-09-07] MEDS: HEPARIN SOD INJ 5000 UNIT/ML VIAL SC (21:16)
[2025-09-07] MEDS: ATORVASTATIN CALCIUM 20 MG TABLET PO (21:17)
--- NOTE | 2025-09-07 21:24 | PC.NURSE ---
REPORT GIVEN TO JERI-RN FLOOR NURSE
[2025-09-07] MEDS: ZOLEDRONIC ACID 4 MG IVPB 4 MG/100 ML BAG 200 MG IV (22:46)
[2025-09-08] VITALS (10 sets, daily range): BP systolic 95–187; BP diastolic 75–90; PULSE 67–93; RESP 16–97; TEMP 36.2–36.9; O2SAT 93–100; BMI 23.6
[2025-09-08] MEDS: HEPARIN SOD INJ 5000 UNIT/ML VIAL SC ×3 (05:03→22:00)
[2025-09-08 05:40] LABS: Basophils # (Auto) 0.0 Thou/mm3 (0.0-0.2); Basophils % (Auto) 0 % (0-2.5); Eosinophils # (Auto) 0.2 Thou/mm3 (0.0-0.5); Eosinophils % (Auto) 4 % (0-10); Hematocrit 28.2 % (41.0-53.0); Hemoglobin 9.8 g/dL (13.5-16.0); Immature Granulocytes Auto 0.01 Thou/mm3 (0.00-0.00); Lymphocytes # (Auto) 2.4 Thou/mm3 (1.0-4.8); Lymphocytes % (Auto) 48 % (10-50); Mean Corpuscular HGB Conc 34.8 g/dl (31.0-37.0); Mean Corpuscular Hemoglobin 29.4 pg (25.0-35.0); Mean Corpuscular Volume 85 fL (80-100); Monocytes # (Auto) 0.5 Thou/mm3 (0.0-0.8); Monocytes % (Auto) 11 % (0-12); Neutrophils # (Auto) 1.9 Thou/mm3 (1.8-7.7); Neutrophils % (Auto) 37 % (37-80); Nucleated Red Blood Cell # 0.00 Thou/mm3 (0.00-0.00); Nucleated Red Blood Cell % 0 /100 WBC (0); Platelet Count 220 Thou/mm3 (140-440); RDW Standard Deviation 40.1 fL (35.1-43.9); Red Blood Count 3.33 Miln/mm3 (4.50-5.90); White Blood Count 5.0 Thou/mm3 (3.8-10.6)
[2025-09-08 05:58] LABS: Alanine Aminotransferase 14 U/L (10-49); Albumin, Serum 3.9 gm/dL (3.4-4.8); Albumin/Globulin Ratio 1.6 (1.2-2.2); Alkaline Phosphatase 79 U/L (46-116); Anion Gap 9 (7-16); Aspartate Amino Transferase 25 U/L (0-34); BUN/Creatinine Ratio 12 Ratio (12-20); Bilirubin,Total 0.8 mg/dL (0.3-1.2); Blood Urea Nitrogen 23 mg/dL (9-23); Carbon Dioxide 29.8 mMol/L (20.0-31.0); Chloride 103 mMol/L (98-107); Creatinine (Component) 2.0 mg/dL (0.6-1.3); Estimated Creatinine Clearance 30.8 mL/min (>60); Globulin 2.5 gm/dL (2.3-3.5); Glucose 104 mg/dL (74-106); Magnesium 1.9 mg/dL (1.6-2.6); Osmolality,Calculated 286 (275-295); Phosphorous 4.4 mg/dL (2.4-5.1); Potassium 3.1 mMol/L (3.4-5.1); Sodium 142 mMol/L (136-145); Total Protein 6.4 gm/dL (5.7-8.2); eGFR 35 See Note
[2025-09-08 06:05] LABS: Calcium 14.0 mg/dL (8.3-10.6); Calcium (Corrected) 14.1 mg/dL (8.5-10.1)
--- NOTE | 2025-09-08 06:40 | PC.NURSE ---
Potassium 3.1, Calcium 14.1, Dr. Thibodeaux was made aware, no new orders for pt at this time. Plan of care ongoing.
[2025-09-08] MEDS: cefTRIAXone/D5w 1gm IV premix 1 GM/50 ML BAG IV (08:26)
[2025-09-08] MEDS: FLUCONAZOLE 100 MG TABLET 200 MG PO ×2 (08:27→21:59)
[2025-09-08] MEDS: FLUDROCORTISONE ACETATE 0.1 MG TABLET PO (08:27)
[2025-09-08] MEDS: ENZALUTAMIDE 80 MG PO (09:15)
[2025-09-08] MEDS: POT PHOS 15 mMol in NS 250 ML 15 MMOL/250 ML BAG 62.5 MMOL IV (09:31)
--- NOTE | 2025-09-08 11:00 | ESPR_ITS ---
<Statement entered by Leandro Mcneil MD - 09/08/25 17:20> I have reviewed the note and agree with the resident's assessment & plan with exceptions as below. I have personally reviewed labs, imaging, home meds/prior records, examined the patient, formulated and discussed management plan with my attending Patient was seen and examined at bedside this morning. No acute overnight events. Patient is still AO x 1 only to name cannot state where he was or who he was. Patient's calcium did slightly go down from 14.6-14.1 after zoledronic acid acid and 1 L of IV fluids overnight. Today also start patient on calcitonin 320 units subcu every 12 hours along with 1 more liter of IV fluids the patient seems dehydrated on physical assessment. Will monitor patient's calcium again in the evening to monitor calcium progression. If no significant decrease in calcium will likely consider nephrology consult tomorrow. Leandro Mcneil PGY2 Disclaimer: Even though this this note was dictated by speech recognition and even though it was carefully revised there may still be minor errors in stock selector due to voice recognition software. Documentation for date of: 09/08/25 Subjective Subjective Interval history: Patient seen and examined at bedside; no acute events overnight. Patient was A&O x 1. Family stated over the last few days he has been feeling quite weak. Calcium has dropped from 14.6 to 14.1. Exam Vital Signs Temp Pulse Resp BP Pulse Ox O2 Del Method O2 Flow Rate 97.2 F 67 18 187/82 H 93 L Room Air 1 09/08/25 07:36 09/08/25 09:00 09/08/25 09:00 09/08/25 08:27 09/08/25 09:00 09/08/25 07:36 09/08/25 09:00 Narrative Exam General: A/O x1 (name), no acute distress, well-nourished, well-developed Eyes: PERRL, EOMI. Anicteric, vision grossly intact. Ears: No ear pain, no ear discharge, Hearing grossly intact. Nose: No nasal discharge. Mouth/Throat: Moist mucous membranes, no redness, no lesions. Neck: Neck supple, non-tender, no cervical lymphadenopathy. Lungs: Clear CECILIO to auscultation and percussion, No accessory muscle use. Cardio: Normal S1/S2, regular rhythm, no murmurs, no JVD or carotid bruits. Abdomen: Soft, non-tender, no palpable masses, peristalsis present, no guarding or rebound. Extremities: Symmetrical, no significant deformities, no peripheral edema , non-tender, peripheral pulses presents. Skin: No rashes, no lesions, warm to touch. Neuro: No focal neurological deficits. Psych: Cooperative, appropriate mood and effect. Objective Labs 09/08/25 04:44 09/08/25 17:56 Labs: Laboratory Results - last 24 hr 09/07/25 09/07/25 09/07/25 16:58 18:08 19:07 WBC 5.9 RBC 3.64 L Hgb 10.6 L Hct 30.7 L MCV 84 MCH 29.1 MCHC 34.5 RDW Std Deviation 40.4 Plt Count 237 Neut % (Auto) 51 Lymph % (Auto) 37 [place] % (Auto) 9 Eos % (Auto) 3 Baso % (Auto) 0 Neut # (Auto) 3.0 Lymph # (Auto) 2.2 [place] # (Auto) 0.5 Eos # (Auto) 0.2 Baso # (Auto) 0.0 Immature Gran # (Auto) 0.01 H Absolute Nucleated RBC 0.00 Immature Gran % 0 Nucleated RBC % 0 Sodium 141 Potassium 3.3 L Chloride 100 Carbon Dioxide 29.8 Anion Gap 11 BUN 26 H Creatinine 2.1 H Estim Creat Clear Calc 26.3 L eGFR 33 L BUN/Creatinine Ratio 12 Glucose 118 H Calculated Osmolality 286 Lactic Acid 1.4 Calcium 14.6 H* Corrected Calcium 14.6 H* Phosphorus Magnesium 2.3 Total Bilirubin 0.8 AST 30 ALT 17 Alkaline Phosphatase 85 Total Protein 7.0 Albumin 4.3 Globulin 2.7 Albumin/Globulin Ratio 1.6 TSH 2.33 Ur Collection Type Catheter Urine Color Lt-Yellow Urine Clarity Clear Urine pH 6.5 Ur Specific [place] 1.011 Urine Protein Trace Urine Glucose (UA) Negative Urine Ketones Negative Urine Blood Trace Urine Nitrite Negative Urine Bilirubin Negative Urine Urobilinogen (Auto) Negative Ur Leukocyte Esterase Positive Urine RBC 7 H Urine WBC 44 H Ur Squamous Epith Cells 0 Urine Bacteria None Hyaline Casts < 1 Ur Culture Indicated? Yes 09/08/25 04:44 WBC 5.0 RBC 3.33 L Hgb 9.8 L Hct 28.2 L MCV 85 MCH 29.4 MCHC 34.8 RDW Std Deviation 40.1 Plt Count 220 Neut % (Auto) 37 Lymph % (Auto) 48 [place] % (Auto) 11 Eos % (Auto) 4 Baso % (Auto) 0 Neut # (Auto) 1.9 Lymph # (Auto) 2.4 [place] # (Auto) 0.5 Eos # (Auto) 0.2 Baso # (Auto) 0.0 Immature Gran # (Auto) 0.01 H Absolute Nucleated RBC 0.00 Immature Gran % 0 Nucleated RBC % 0 Sodium 142 Potassium 3.1 L Chloride 103 Carbon Dioxide 29.8 Anion Gap 9 BUN 23 Creatinine 2.0 H Estim Creat Clear Calc 30.8 L eGFR 35 L BUN/Creatinine Ratio 12 Glucose 104 Calculated Osmolality 286 Lactic Acid Calcium 14.0 H* Corrected Calcium 14.1 H* Phosphorus 4.4 Magnesium 1.9 Total Bilirubin 0.8 AST 25 ALT 14 Alkaline Phosphatase 79 Total Protein 6.4 Albumin 3.9 Globulin 2.5 Albumin/Globulin Ratio 1.6 TSH Ur Collection Type Urine Color Urine Clarity Urine pH Ur Specific [place] Urine Protein Urine Glucose (UA) Urine Ketones Urine Blood Urine Nitrite Urine Bilirubin Urine Urobilinogen (Auto) Ur Leukocyte Esterase Urine RBC Urine WBC Ur Squamous Epith Cells Urine Bacteria Hyaline Casts Ur Culture Indicated? Quality Measures Quality Measures none Advance care planning discussed with:: other Assessment & Plan Assessment Current Active Medications: Generic Name Dose Route Start Last Admin Trade Name Freq PRN Reason Stop Dose Admin Acetaminophen 650 mg 09/07/25 20:07 Acetaminophen 325 Mg Tablet PO 10/07/25 20:06 Q6H PRN Fever >100.3 Acetaminophen 650 mg 09/07/25 20:07 Acetaminophen 325 Mg Tablet PO 10/07/25 20:06 Q6H PRN PAIN SCALE 1-3 (mild Hydrocodone Bitart/Acetaminophen 1 tab 09/07/25 20:38 Hydrocodone/Apap 5/325 Tablet PO 09/12/25 20:37 Q4HR PRN Pain 4-8 Amlodipine Besylate 2.5 mg 09/08/25 09:00 09/08/25 08:27 Amlodipine Besylate 2.5 Mg Tablet PO 10/08/25 08:59 2.5 mg QDAY ADRIAN Administration Atorvastatin Calcium 20 mg 09/07/25 21:00 09/07/25 21:17 Atorvastatin Calcium 20 Mg Tablet PO 10/07/25 20:59 20 mg HS ADRIAN Administration Bicalutamide 50 mg 09/08/25 11:00 Bicalutamide 50 Mg Tablet PO 10/08/25 10:59 QDAY ADRIAN Calcitonin [place] 320 unit 09/08/25 10:45 Calcitonin, [place] Synth Inj 1 Unit/0.005 Ml Vial SC 09/10/25 10:44 Q12H ADRIAN Enzalutamide 80mg ( 0 ea 09/08/25 09:15 Xtandi) Tablet PO 10/08/25 09:14 QDAY ADRIAN Dextrose 25 ml 09/07/25 20:13 Dextrose 50%-Water Inj 50 Ml Syringe IV 10/07/25 20:12 Q15MIN PRN BG 50-70 responsive npo pt Dextrose 50 ml 09/07/25 20:13 Dextrose 50%-Water Inj 50 Ml Syringe IV 10/07/25 20:12 Q15MIN PRN BG <50 OR BG <70 & pt unresponsive Fluconazole 200 mg 09/08/25 09:00 09/08/25 08:27 Fluconazole 100 Mg Tablet PO 09/15/25 08:59 200 mg BID ADRIAN Administration Fludrocortisone Acetate 0.1 mg 09/08/25 09:00 09/08/25 08:27 Fludrocortisone Acetate 0.1 Mg Tablet PO 10/08/25 08:59 0.1 mg QDAY ADRIAN Administration Glucagon 1 mg 09/07/25 20:13 Glucagon Inj 1 Mg Vial IM Q15MIN PRN BG <70, and no IV access Heparin Sodium (Porcine) 5,000 unit 09/07/25 22:00 09/08/25 05:03 Heparin Sod Inj 5000 Unit/Ml Vial SC 09/21/25 21:59 5,000 unit Q8HR ADRIAN Administration Hydrocortisone 5 mg 09/08/25 14:00 Hydrocortisone 5 Mg Tablet PO 10/08/25 13:59 TID ADRIAN Potassium Phosphate 15 mmol in 250 mls @ 62.5 mls/hr 09/08/25 07:36 09/08/25 09:31 Pot Phos 15 Mmol In Ns 250 Ml IV 09/08/25 11:35 62.5 mls/hr X1 ONE Administration Lactated Ringer's 1,000 mls @ 125 mls/hr 09/08/25 10:30 Lactated Ringers IV 09/08/25 18:29 .Q8H ADRIAN Cefepime HCl 1 gm/ Sodium 50 mls @ 100 mls/hr 09/08/25 10:40 Chloride IV 09/15/25 10:39 Q12HR ADRIAN Insulin Human Lispro 0 unit 09/08/25 07:30 09/08/25 07:30 Insulin Lispro (Admelog) 1 Unit/0.01 Ml Unit SC 10/08/25 07:29 Not Given AC ADRIAN Protocol Ondansetron HCl 4 mg 09/07/25 20:07 Ondansetron Inj 2 Mg/Ml Inj 2 Ml IVP 10/07/25 20:06 Q6H PRN NAUSEA OR VOMITING Protocol Sennosides 1 tab 09/07/25 20:10 Senna/Docusate Sod 1 Tab Tablet PO 10/07/25 20:09 QDAY PRN CONSTIPATION Protocol Plan Patient is a 69 M with PMH 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 Admitted for hypercalcemia. #Hypercalcemia secondary to #Stage IVb prostate cancer with widespread bony metastases & abdominal/pelvic lymphadenopathy #c/f Adrenal insufficiency 2/2 metastases Presents with fatigue, generalized weakness, myalgia. A&Ox1 Underwent right adrenal biopsy 09/06 due to c/f adrenal mets. On previous hospitalization, cortisol WNL, hyponatremia Given 1L NS in ED Home meds: Lupron, Xtandi (non-formulary), Casodex Follows with Dr. Myers (oncology), Dr. Contreras (urology) Calcium- 14.1 today from 14.6; still severe hypercalcemia Ddx: most likely due to tumor progression; less likely central cause due to lack of mass on CT head in ED; potentially adrenal insufficiency? Plan: - Zoledronic acid 4 mg IV x1; currently on 320 units calcitonin Q12h - Trend calcium on CMP 09/08/25 PM - Additional 1L LR at 125/mL running - Acetaminophen 650 mg PO q6h PRN, [place] 5/325 mg q4h PO PRN - Casodex 50 mg PO daily - Xtandiv 80mg PO daily (from home) - Fludrocortisone 0.1 mg PO daily #CKD stage III Creatinine 2.1 on 09/07/25; 2.0 on 09/08/[address] Paige Tse in [place] (nephrology) Myeloma workup being pursued outpatient Plan: - Trend creatinine on CMP tonight - Avoid nephrotoxins and NSAIDs - Adjust medication dosing for renal function - Strict I&Os #Complicated UTI #Chronic indwelling olson catheter Denies urinary symptoms UA 249 WBC, 1+ bacteria on 09/07/25. Previous Ucx (08/08/25) grew Citrobacter and Enterobacter. 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 Jaime, and senior resident, Dr. Magana. Tyron England MD-PhD, PGY1 Attending Provider Attestation/Addendum However degludec 20 units I have discussed and was present for the essential components of the history, physical examination, diagnosis, and treatment plan with the resident. I agree with the patient's care as documented by the resident and amended herein by me. Dean Jaime DO. Although this document has been carefully reviewed, there may still be some phonetic and other typographical errors. These errors are purely grammatical due to imperfections in the software program and should not be construed in any way to compromise the substance of the patient's medical care during this visit. Patient seen and evaluated this AM. No acute events overnight, patient admitted for hypercalcemia in setting of stage IV metastatic prostate cancer hypercalcemia in setting of sepsis stage IV metastatic prostate cancer. Patient was given zoledronic acid last night at time of admission, we also gave additional calcitonin today and started the patient on fluids. Will monitor closely for fluid overload. Home medications restarted as appropriate, will consider nephrology consult if the patient continues to worsen however calcium has started to downtrend, last measurement at 13 which is down from initial 14.6. Of note the patient does have a history of coccidiomycosis, placed on prophylactic dose of 200 mg p.o. twice daily. Will continue to monitor closely
[2025-09-08] MEDS: BICALUTAMIDE 50 MG TABLET PO (11:08)
[2025-09-08] MEDS: RINGERS LACTATED 1000 ML 1,000 ML 125 ML IV (11:09)
[2025-09-08] MEDS: CALCITONIN, SALMON SYNTH INJ 1 UNIT/0.005 ML VIAL 320 UNIT SC ×2 (11:10→22:16)
[2025-09-08] MEDS: CEFEPIME INJ 1 GM in SODIUM CHLORIDE 0.9% (Popper) 50 ML IV ×2 (11:10→21:59)
--- NOTE | 2025-09-08 11:32 | PC.SS ---
Patient is alert/oriented. Patient was able to verify demographics. Patient was admitted for hypercalcemia. Patient is Serbian speaking only. Interpeter present. Patient resides with son, Fabio and . Patient has hx: Cancer. Family at bedside provided a brief history. Patient needs assistance with ADl's. Patient uses a walker and a cane at home. No 02 or other respiratory devices. Family provides transportation. PCP: Elana Herr in [place]. Java Application Developer: Conner. Rotary Filter Operator: Conner. Pharmacy: [facility]. Family requesting a wheelchair upon discharge. Patient to return home. Alt medical decision maker: Fabio Sauceda, son,
[2025-09-08] MEDS: ONDANSETRON INJ 2 MG/ML INJ 2 ML 4 MG IVP (12:29)
[2025-09-08] MEDS: HYDROCORTISONE 5 MG TABLET PO ×2 (14:03→21:58)
[2025-09-08 18:28] LABS: Alanine Aminotransferase 14 U/L (10-49); Albumin, Serum 4.1 gm/dL (3.4-4.8); Albumin/Globulin Ratio 1.6 (1.2-2.2); Alkaline Phosphatase 85 U/L (46-116); Anion Gap 11 (7-16); Aspartate Amino Transferase 26 U/L (0-34); BUN/Creatinine Ratio 10 Ratio (12-20); Bilirubin,Total 0.7 mg/dL (0.3-1.2); Blood Urea Nitrogen 20 mg/dL (9-23); Calcium 13.0 mg/dL (8.3-10.6); Calcium (Corrected) 13.0 mg/dL (8.5-10.1); Carbon Dioxide 31.5 mMol/L (20.0-31.0); Chloride 103 mMol/L (98-107); Creatinine (Component) 2.0 mg/dL (0.6-1.3); Estimated Creatinine Clearance 34.4 mL/min (>60); Globulin 2.6 gm/dL (2.3-3.5); Glucose 163 mg/dL (74-106); Osmolality,Calculated 295 (275-295); Potassium 3.2 mMol/L (3.4-5.1); Sodium 145 mMol/L (136-145); Total Protein 6.7 gm/dL (5.7-8.2); eGFR 35 See Note
[2025-09-08] MEDS: ATORVASTATIN CALCIUM 20 MG TABLET PO (21:59)
[2025-09-09] VITALS (9 sets, daily range): BP systolic 142–164; BP diastolic 76–97; PULSE 68–89; RESP 15–98; TEMP 36.7–37.2; O2SAT 95–98
[2025-09-09] MEDS: HYDROCORTISONE 5 MG TABLET PO ×3 (05:33→21:13)
[2025-09-09] MEDS: HEPARIN SOD INJ 5000 UNIT/ML VIAL SC ×3 (05:37→21:15)
[2025-09-09 05:48] LABS: Basophils # (Auto) 0.0 Thou/mm3 (0.0-0.2); Basophils % (Auto) 0 % (0-2.5); Eosinophils # (Auto) 0.2 Thou/mm3 (0.0-0.5); Eosinophils % (Auto) 3 % (0-10); Hematocrit 28.8 % (41.0-53.0); Hemoglobin 10.2 g/dL (13.5-16.0); Immature Granulocytes Auto 0.01 Thou/mm3 (0.00-0.00); Lymphocytes # (Auto) 1.4 Thou/mm3 (1.0-4.8); Lymphocytes % (Auto) 30 % (10-50); Mean Corpuscular HGB Conc 35.4 g/dl (31.0-37.0); Mean Corpuscular Hemoglobin 29.9 pg (25.0-35.0); Mean Corpuscular Volume 85 fL (80-100); Monocytes # (Auto) 0.6 Thou/mm3 (0.0-0.8); Monocytes % (Auto) 12 % (0-12); Neutrophils # (Auto) 2.6 Thou/mm3 (1.8-7.7); Neutrophils % (Auto) 55 % (37-80); Nucleated Red Blood Cell # 0.00 Thou/mm3 (0.00-0.00); Nucleated Red Blood Cell % 0 /100 WBC (0); Platelet Count 221 Thou/mm3 (140-440); RDW Standard Deviation 40.1 fL (35.1-43.9); Red Blood Count 3.41 Miln/mm3 (4.50-5.90); White Blood Count 4.7 Thou/mm3 (3.8-10.6)
[2025-09-09 06:27] LABS: Alanine Aminotransferase 12 U/L (10-49); Albumin, Serum 4.1 gm/dL (3.4-4.8); Albumin/Globulin Ratio 1.5 (1.2-2.2); Alkaline Phosphatase 88 U/L (46-116); Anion Gap 12 (7-16); Aspartate Amino Transferase 22 U/L (0-34); BUN/Creatinine Ratio 8 Ratio (12-20); Bilirubin,Total 0.8 mg/dL (0.3-1.2); Blood Urea Nitrogen 20 mg/dL (9-23); Calcium 12.4 mg/dL (8.3-10.6); Calcium (Corrected) 12.4 mg/dL (8.5-10.1); Carbon Dioxide 30.0 mMol/L (20.0-31.0); Chloride 104 mMol/L (98-107); Creatinine (Component) 2.4 mg/dL (0.6-1.3); Estimated Creatinine Clearance 28.6 mL/min (>60); Globulin 2.7 gm/dL (2.3-3.5); Glucose 145 mg/dL (74-106); Magnesium 1.7 mg/dL (1.6-2.6); Osmolality,Calculated 296 (275-295); Phosphorous 3.5 mg/dL (2.4-5.1); Sodium 146 mMol/L (136-145); Total Protein 6.8 gm/dL (5.7-8.2); eGFR 28 See Note
[2025-09-09 06:32] LABS: Potassium 2.7 mMol/L (3.4-5.1)
--- NOTE | 2025-09-09 06:49 | PC.NURSE ---
potassium 2.7, Dr. Lin was made aware, new orders for pt see MAR.
[2025-09-09] MEDS: FLUCONAZOLE 100 MG TABLET 200 MG PO ×2 (09:12→21:14)
[2025-09-09] MEDS: FLUDROCORTISONE ACETATE 0.1 MG TABLET PO (09:12)
[2025-09-09] MEDS: ENZALUTAMIDE 80 MG PO (09:13)
[2025-09-09] MEDS: BICALUTAMIDE 50 MG TABLET PO (09:13)
[2025-09-09] MEDS: CEFEPIME INJ 1 GM in SODIUM CHLORIDE 0.9% (Popper) 50 ML IV (09:14)
[2025-09-09] MEDS: POTASSIUM CHL 10 mEq IVPB 10 MEQ/100 ML BAG 100 MEQ IV ×4 (11:07→14:52)
[2025-09-09] MEDS: CALCITONIN, SALMON SYNTH INJ 1 UNIT/0.005 ML VIAL 320 UNIT SC ×2 (11:07→22:08)
[2025-09-09] MEDS: INSULIN LISPRO (AdmeLOG) 1 UNIT/0.01 ML UNIT SC ×2 (12:32→18:43)
--- NOTE | 2025-09-09 13:49 | PD.HHPROG ---
Documentation for date of: 09/09/25 Subjective - Hospitalist Subjective Interval history: Patient seen and examined at bedside this morning. No acute overnight events. Patient appears sleepy. Continues to be confused, oriented x 1. Discussed with family at bedside, updated them about his current condition. Family stated that patient has been confused, sleepy for last few days. Calcium level has been improving, 12.4 today compared to 14.6 on presentation.. Noted to have potassium potassium of 2.7, repleted accordingly. Patient continues to have decreased oral intake, we will continue with IV hydration. Continues to be on calcitonin. If patient's mentation does not improve despite correction of electrolytes we will obtain further investigation for encephalopathy. Review of Systems Review of Systems ROS Unobtainable: unobtainable due to mental status Exam Vital Signs Temp Pulse Resp BP Pulse Ox O2 Del Method O2 Flow Rate 98.7 F 69 18 142/97 H 95 Room Air 1 09/09/25 20:00 09/09/25 20:00 09/09/25 20:00 09/09/25 20:00 09/09/25 20:00 09/09/25 20:00 09/08/25 18:46 Narrative General: A/O x1 (name), no acute distress, well-nourished, well-developed Eyes: PERRL, EOMI. Anicteric, vision grossly intact. ENT: Moist mucous membranes Neck: Neck supple, non-tender, no cervical lymphadenopathy. Lungs: Clear CECILIO to auscultation and percussion, No accessory muscle use. Cardio: Normal S1/S2, regular rhythm, no murmurs, no JVD or carotid bruits. Abdomen: Soft, non-tender, no palpable masses, peristalsis present, no guarding or rebound. Extremities: Symmetrical, no significant deformities, no peripheral edema , non-tender, peripheral pulses presents. Skin: No rashes, no lesions, warm to touch. Neuro: No focal neurological deficits. Unable to participate fully. Psych: Cooperative, appropriate mood and effect. Objective - Hospitalist Labs Diagram: 09/09/25 05:07 09/09/25 05:07 Labs: Laboratory Results - last 24 hr 09/09/25 05:07 WBC 4.7 RBC 3.41 L Hgb 10.2 L Hct 28.8 L MCV 85 MCH 29.9 MCHC 35.4 RDW Std Deviation 40.1 Plt Count 221 Neut % (Auto) 55 Lymph % (Auto) 30 [place] % (Auto) 12 Eos % (Auto) 3 Baso % (Auto) 0 Neut # (Auto) 2.6 Lymph # (Auto) 1.4 [place] # (Auto) 0.6 Eos # (Auto) 0.2 Baso # (Auto) 0.0 Immature Gran # (Auto) 0.01 H Absolute Nucleated RBC 0.00 Immature Gran % 0 Nucleated RBC % 0 Sodium 146 H Potassium 2.7 L* D Chloride 104 Carbon Dioxide 30.0 Anion Gap 12 BUN 20 Creatinine 2.4 H Estim Creat Clear Calc 28.6 L eGFR 28 L BUN/Creatinine Ratio 8 L Glucose 145 H Calculated Osmolality 296 H Calcium 12.4 H Corrected Calcium 12.4 H Phosphorus 3.5 Magnesium 1.7 Total Bilirubin 0.8 AST 22 ALT 12 Alkaline Phosphatase 88 Total Protein 6.8 Albumin 4.1 Globulin 2.7 Albumin/Globulin Ratio 1.5 Assessment & Plan Plan: Patient is a 69 M with PMH 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 Admitted for hypercalcemia. #Acute encephalopathy, likely toxic metabolic in setting of electrolyte imbalances #Hypercalcemia secondary to #Stage IVb prostate cancer with widespread bony metastases & abdominal/pelvic lymphadenopathy #c/f Adrenal insufficiency 2/2 metastases Presents with fatigue, generalized weakness, myalgia. A&Ox1 Underwent right adrenal biopsy 09/06 due to c/f adrenal mets. On previous hospitalization, cortisol WNL, hyponatremia Given 1L NS in ED Home meds: Lupron, Xtandi (non-formulary), Casodex Follows with Dr. Myers (oncology), Dr. Contreras (urology) Calcium- 12.4 today from 14.6 Ddx: most likely due to tumor progression; less likely central cause due to lack of mass on CT head in ED Plan: - Zoledronic acid 4 mg IV x1; currently on 320 units calcitonin Q12h - Trend calcium daily - Additional 1L LR at 125/mL running - Acetaminophen 650 mg PO q6h PRN, [place] 5/325 mg q4h PO PRN - Casodex 50 mg PO daily - Xtandiv 80mg PO daily (from home) - Fludrocortisone 0.1 mg PO daily - We will plan for neurology consult and further workup for encephalopathy if mentation does not improve despite correction of electrolytes # Hypokalemia Potassium level came back at 2.7 this morning Plan: -Repleted with 60 mill equivalents p.o. and 40 mEq IV potassium chloride -Hemoglobin [place] we will continue to monitor closely and replete as needed #CKD stage III Creatinine 2.1 on 09/07/25; 2.0 on 09/08/[address] Paige Tse in [place] (nephrology) Myeloma workup being pursued outpatient Plan: - Trend creatinine on CMP tonight - Avoid nephrotoxins and NSAIDs - Adjust medication dosing for renal function - Strict I&Os #UTI, ruled out #Chronic indwelling olson catheter Denies urinary symptoms UA 249 WBC, 1+ bacteria on 09/07/25. Previous Ucx (08/08/25) grew Citrobacter and Enterobacter. Exchanged olson catheter in ED Plan: - Urine culture came back negative, antibiotics discontinued #Hx coccidioidomycosis Coccidiodies IgG positive, IgM negative 03/17/25 Plan: - Fluconazole 200 mg PO BID #HTN #HLD #T2DM BP 09/08/25 12:00- 95/75, HR 93 ; Metformin 1000 mg PO BID at home Plan: Atorvastatin 20 mg PO QHS Amlodipine 2.5 mg PO daily Insulin sliding scale step 1 Disposition: MedSurg for close monitoring of electrolytes, mentation DVT prophylaxis: Heparin sc Q8H GI prophylaxis: Diet: Renal Lines: PIV CODE STATUS: Full code Sagar Aquino MD Time Spent with Patient Time: Total time spent is greater than 50% in coordination of care (as documented) at patient's floor/unit and/or counseling patient: Time with patient: Greater than 35 minutes Reason for Continued Stay Reason for continued stay: further monitoring Quality Measures Quality Measures none Advance care planning discussed with:: significant other and child
--- NOTE | 2025-09-09 18:20 | PC.NURSE ---
On Friday around 1820 ADALBERTO Issa and I walked into [id number] patients room to reposition the patient. When we enter the room there was 7 family members just standing in the room and I asked them politely if they could step out of the room for piracy and also mention that the hospital has a policy of 2 visitors per patients and the rest of the family were welcome to wait in the waiting room. When a family member raised his voiced and said I'm not getting out and another family member started making comments saying why are you making a big deal if security let us up and never mentioned anything, what would you do if your family was in the hospital I asked him if he can lower his voice and apologized but that was the hospital policy. I mention I was going to call security because he kept making comments saying do your job right and he decided to walk away out of the room and kept making comments saying you dumb bitch don't know how to do your job right .
[2025-09-09] MEDS: RINGERS LACTATED 1000 ML 1,000 ML 125 ML IV (21:12)
[2025-09-09] MEDS: ATORVASTATIN CALCIUM 20 MG TABLET PO (21:14)
[2025-09-10] VITALS (8 sets, daily range): BP systolic 139–151; BP diastolic 68–79; PULSE 61–78; RESP 15–97; TEMP 36.3–37.2; O2SAT 92–99; BMI 12.0
[2025-09-10] MEDS: HEPARIN SOD INJ 5000 UNIT/ML VIAL SC ×3 (05:22→21:29)
[2025-09-10] MEDS: SENNA/DOCUSATE SOD 1 TAB TABLET PO (05:24)
[2025-09-10] MEDS: HYDROCORTISONE 5 MG TABLET PO ×3 (05:24→21:29)
[2025-09-10 05:53] LABS: Basophils # (Auto) 0.0 Thou/mm3 (0.0-0.2); Basophils % (Auto) 0 % (0-2.5); Eosinophils # (Auto) 0.2 Thou/mm3 (0.0-0.5); Eosinophils % (Auto) 4 % (0-10); Hematocrit 26.5 % (41.0-53.0); Hemoglobin 9.1 g/dL (13.5-16.0); Immature Granulocytes Auto 0.01 Thou/mm3 (0.00-0.00); Lymphocytes # (Auto) 1.6 Thou/mm3 (1.0-4.8); Lymphocytes % (Auto) 36 % (10-50); Mean Corpuscular HGB Conc 34.3 g/dl (31.0-37.0); Mean Corpuscular Hemoglobin 28.9 pg (25.0-35.0); Mean Corpuscular Volume 84 fL (80-100); Monocytes # (Auto) 0.5 Thou/mm3 (0.0-0.8); Monocytes % (Auto) 10 % (0-12); Neutrophils # (Auto) 2.2 Thou/mm3 (1.8-7.7); Neutrophils % (Auto) 49 % (37-80); Nucleated Red Blood Cell # 0.00 Thou/mm3 (0.00-0.00); Nucleated Red Blood Cell % 0 /100 WBC (0); Platelet Count 221 Thou/mm3 (140-440); RDW Standard Deviation 39.4 fL (35.1-43.9); Red Blood Count 3.15 Miln/mm3 (4.50-5.90); White Blood Count 4.5 Thou/mm3 (3.8-10.6)
[2025-09-10 06:41] LABS: Alanine Aminotransferase 9 U/L (10-49); Albumin, Serum 4.0 gm/dL (3.4-4.8); Albumin/Globulin Ratio 1.6 (1.2-2.2); Alkaline Phosphatase 80 U/L (46-116); Anion Gap 12 (7-16); Aspartate Amino Transferase 20 U/L (0-34); BUN/Creatinine Ratio 9 Ratio (12-20); Bilirubin,Total 0.8 mg/dL (0.3-1.2); Blood Urea Nitrogen 23 mg/dL (9-23); Calcium 11.2 mg/dL (8.3-10.6); Calcium (Corrected) 11.2 mg/dL (8.5-10.1); Carbon Dioxide 26.2 mMol/L (20.0-31.0); Chloride 107 mMol/L (98-107); Creatinine (Component) 2.6 mg/dL (0.6-1.3); Estimated Creatinine Clearance 26.4 mL/min (>60); Globulin 2.5 gm/dL (2.3-3.5); Glucose 135 mg/dL (74-106); Magnesium 1.6 mg/dL (1.6-2.6); Osmolality,Calculated 294 (275-295); Phosphorous 2.1 mg/dL (2.4-5.1); Sodium 145 mMol/L (136-145); Total Protein 6.5 gm/dL (5.7-8.2); eGFR 26 See Note
[2025-09-10 06:47] LABS: Potassium 2.7 mMol/L (3.4-5.1)
[2025-09-10] MEDS: FLUDROCORTISONE ACETATE 0.1 MG TABLET PO (08:17)
[2025-09-10] MEDS: Magnesium Sulfate 2 GM Ivpb 2 GM/50 ML BAG IV (08:17)
[2025-09-10] MEDS: FLUCONAZOLE 100 MG TABLET 200 MG PO ×2 (08:17→21:29)
[2025-09-10] MEDS: BICALUTAMIDE 50 MG TABLET PO (08:19)
[2025-09-10] MEDS: ENZALUTAMIDE 80 MG PO (08:19)
[2025-09-10] MEDS: POT PHOS 15 mMol in NS 250 ML 15 MMOL/250 ML BAG 62.5 MMOL IV (10:46)
[2025-09-10] MEDS: THIAMINE INJ 100 MG/ML VIAL 2 ML IV (12:35)
[2025-09-10] MEDS: INSULIN LISPRO (AdmeLOG) 1 UNIT/0.01 ML UNIT SC ×2 (12:36→17:43)
[2025-09-10 12:40] LABS: Albumin, Serum 4.1 gm/dL (3.4-4.8); Anion Gap 12 (7-16); BUN/Creatinine Ratio 8 Ratio (12-20); Blood Urea Nitrogen 21 mg/dL (9-23); Calcium 10.9 mg/dL (8.3-10.6); Calcium (Corrected) 10.9 mg/dL (8.5-10.1); Carbon Dioxide 25.7 mMol/L (20.0-31.0); Chloride 107 mMol/L (98-107); Creatinine (Component) 2.6 mg/dL (0.6-1.3); Estimated Creatinine Clearance 26.4 mL/min (>60); Glucose 138 mg/dL (74-106); Osmolality,Calculated 293 (275-295); Phosphorous 2.9 mg/dL (2.4-5.1); Potassium 3.3 mMol/L (3.4-5.1); Sodium 145 mMol/L (136-145); eGFR 26 See Note
[2025-09-10 12:41] LABS: Ammonia < 10 uMol/L (11-32)
--- NOTE | 2025-09-10 13:21 | ESPR_ITS ---
Documentation for date of: 09/10/25 Subjective - Hospitalist Subjective Interval history: Patient seen and examined at bedside this morning. Continues to be confused, unable to follow commands appropriately. But is calm and cooperative. No acute overnight events. Continues to have improvement in his calcium level, 11.2 today. Potassium level noted to be 2.7 again today, phosphate 2.1, repleted accordingly. Despite improvement in his calcium level, patient's mentation has not improved significantly. As per the family at bedside, patient has been weak for more than 2 weeks before coming to the hospital and has been confused since that day patient was brought to the hospital. At baseline, patient does not have any history of memory issues, confusion or weakness. We will obtain further workup to evaluate for his encephalopathy and we will also obtain neurology consultation. Patient also noted to have worsening kidney function, creatinine of 2.6 today. He was also noted to have negative fluid balance despite being on IV hydration we will increase the rate of IV hydration. Review of Systems Review of Systems ROS Unobtainable: unobtainable due to mental status Exam Vital Signs Temp Pulse Resp BP Pulse Ox O2 Del Method O2 Flow Rate 97.8 F 67 19 145/77 H 98 Room Air 1 09/10/25 16:00 09/10/25 16:00 09/10/25 16:00 09/10/25 16:00 09/10/25 16:00 09/10/25 16:00 09/08/25 18:46 Narrative General: A/O x1 (name), no acute distress, well-nourished, well-developed Eyes: PERRL, EOMI. Anicteric, vision grossly intact. ENT: Moist mucous membranes Neck: Neck supple, non-tender, no cervical lymphadenopathy. Lungs: Clear CECILIO to auscultation and percussion, No accessory muscle use. Cardio: Normal S1/S2, regular rhythm, no murmurs, no JVD or carotid bruits. Abdomen: Soft, non-tender, no palpable masses, peristalsis present, no guarding or rebound. Extremities: Symmetrical, no significant deformities, no peripheral edema , non-tender, peripheral pulses presents. Skin: No rashes, no lesions, warm to touch. Neuro: No focal neurological deficits. Unable to participate fully. Psych: Cooperative, appropriate mood and effect. Objective - Hospitalist Labs Diagram: 09/10/25 04:56 09/10/25 12:13 Labs: Laboratory Results - last 24 hr 09/10/25 09/10/25 04:56 12:13 WBC 4.5 RBC 3.15 L Hgb 9.1 L Hct 26.5 L MCV 84 MCH 28.9 MCHC 34.3 RDW Std Deviation 39.4 Plt Count 221 Neut % (Auto) 49 Lymph % (Auto) 36 [place] % (Auto) 10 Eos % (Auto) 4 Baso % (Auto) 0 Neut # (Auto) 2.2 Lymph # (Auto) 1.6 [place] # (Auto) 0.5 Eos # (Auto) 0.2 Baso # (Auto) 0.0 Immature Gran # (Auto) 0.01 H Absolute Nucleated RBC 0.00 Immature Gran % 0 Nucleated RBC % 0 Sodium 145 145 Potassium 2.7 L* 3.3 L D Chloride 107 107 Carbon Dioxide 26.2 25.7 Anion Gap 12 12 BUN 23 21 Creatinine 2.6 H 2.6 H Estim Creat Clear Calc 26.4 L 26.4 L eGFR 26 L 26 L BUN/Creatinine Ratio 9 L 8 L Glucose 135 H 138 H Calculated Osmolality 294 293 Calcium 11.2 H 10.9 H Corrected Calcium 11.2 H 10.9 H Phosphorus 2.1 L 2.9 Magnesium 1.6 Total Bilirubin 0.8 AST 20 ALT 9 L Alkaline Phosphatase 80 Ammonia < 10 L Total Protein 6.5 Albumin 4.0 4.1 Globulin 2.5 Albumin/Globulin Ratio 1.6 Syphilis Serology Nonreactive Assessment & Plan Plan: Patient is a 69 M with PMH 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 Admitted for hypercalcemia. #Acute encephalopathy, likely toxic metabolic in setting of electrolyte imbalances #Hypercalcemia secondary to #Stage IVb prostate cancer with widespread bony metastases & abdominal/pelvic lymphadenopathy #c/f Adrenal insufficiency 2/2 metastases Presents with fatigue, generalized weakness, myalgia. A&Ox1 Underwent right adrenal biopsy 09/06 due to c/f adrenal mets. On previous hospitalization, cortisol WNL, hyponatremia Given 1L NS in ED Home meds: Lupron, Xtandi (non-formulary), Casodex Follows with Dr. Myers (oncology), Dr. Contreras (urology) Calcium-11.2 today from 14.6 on presentation Ddx: most likely due to tumor progression; less likely central cause due to lack of mass on CT head in ED Plan: - Zoledronic acid 4 mg IV x1; currently on 320 units calcitonin Q12h, completed course of 48 hours of calcitonin - Trend calcium daily - Additional 1L LR at 125/mL running - Acetaminophen 650 mg PO q6h PRN, [place] 5/325 mg q4h PO PRN - Fludrocortisone 0.1 mg PO daily - We will obtain further labs for evaluation of his encephalopathy including ammonia, vitamin B12, folate, syphilis serology. We will start him on IV thiamine until we have the results back - We will also obtain neurology consultation - We will also hold his Casodex and Xtandi for now # Hypokalemia # Hypophosphatemia Potassium level came back at 2.7 and phosphate 2.1 this morning Plan: - Repleted 80 mEq of oral potassium and 15 mmol of potassium phosphate - We will continue to monitor closely and replete as needed # EVARISTO on CKD stage III Creatinine 2.1 on 09/07/25; creatinine worsened to 2.[address] Paige Tse in [place] (nephrology) Myeloma workup being pursued outpatient Plan: - Avoid nephrotoxins and NSAIDs - Adjust medication dosing for renal function - Strict I&Os - Patient kidney function noted to be worsening despite IV hydration, noted that patient has been having negative balance despite being on IV fluids, we could increase the IV fluid rate, started 150 cc/h of normal saline - We will continue to monitor closely #UTI, ruled out #Chronic indwelling olson catheter Denies urinary symptoms UA 249 WBC, 1+ bacteria on 09/07/25. Previous Ucx (08/08/25) grew Citrobacter and Enterobacter. Exchanged olson catheter in ED Plan: - Urine culture came back negative, antibiotics discontinued #Hx coccidioidomycosis Coccidiodies IgG positive, IgM negative 03/17/25 Plan: - Fluconazole 200 mg PO BID #HTN #HLD #T2DM BP 09/08/25 12:00- 95/75, HR 93 ; Metformin 1000 mg PO BID at home Plan: Atorvastatin 20 mg PO QHS Amlodipine 2.5 mg PO daily Insulin sliding scale step 1 Disposition: MedSurg for close monitoring of electrolytes, mentation DVT prophylaxis: Heparin sc Q8H GI prophylaxis: Diet: Renal Lines: PIV CODE STATUS: Full code Sagar Aquino MD Time Spent with Patient Time: Total time spent is greater than 50% in coordination of care (as documented) at patient's floor/unit and/or counseling patient: Time with patient: Greater than 35 minutes Reason for Continued Stay Reason for continued stay: further monitoring Quality Measures Quality Measures none Advance care planning discussed with:: child
[2025-09-10 14:27] LABS: Syphilis Nonreactive (Nonreactive)
[2025-09-10] MEDS: SODIUM CHLORIDE 0.9% 1000 ML 1,000 ML 150 ML IV ×2 (15:23→22:21)
[2025-09-10] MEDS: ATORVASTATIN CALCIUM 20 MG TABLET PO (21:29)
--- NOTE | 2025-09-10 23:57 | PD.NEUROCONS ---
History of Present Illness Data of Consult Requesting Physician: Sagar Aquino MD Primary Care Provider: Physician No Primary/Family Consult Narrative History of present illness: Mr. Montalvo is a 69 y/o male with PMH prostate cancer stage IVb with bone mets, CKD III, T2DM, HLD, HTN, chronic indwelling olson catheter who presents to the ER on 09/07 with 4 days of generalized weakness and myalgia, decreased appetite, fatigue. He has extensive pain from the hips down when he tries to move. Recently started Lupron and Xtandi 1 month ago. Underwent right adrenal gland biospy under general anesthesia 09/06 (PET scan 08/02/2025 shows hypermetabolic bilateral adrenal met masses). Denies fevers, chills, nausea, vomiting, diarrhea, constipation, melena, hematochezia, shortness of breath, chest pain. Denies sick contacts at home. Weight loss of >50 lbs since his cancer diagnosis in February 2025. No witnessed seizures reported. Workup in the ER: Vitals: Temp: Afebrile, BP 130-150s/80-90s, 3L O2 spO2 100%. Labs significant for hgb 10.6, HCT 30.7, K 3.3, BUN 26, Cr 2.1, Ca 14.6. Lactic acid WNL. UA 1+ protein, 1+ blood, 19 RBC, 249 WBC, 1+ bacteria. Imaging: CT head negative. Given 1 liter of NS bolus and got olson changed. Neurology was consulted to evaluate for altered mental status. cc:: cc: Sagar Aquino MD Review of Systems Review of Systems ROS Unobtainable: unobtainable due to mental status Past Medical History Past Medical History CARDIAC: Positive Cardiac Disorders, Hypercholesterolemia and Hypertension GENITOURINARY: Positive Genitourinary Disorders (chronic olson catheter d/t prostate cancer/retention; recurrent UTIs), Prostate Cancer and Benign Prostatic Hyperplasia MUSCULOSKELETAL: Positive Musculoskeletal Disorders and Arthritis ENT: Positive Deafness ENDOCRINE: Positive Diabetes Mellitus Type 2 PSYCHO/SOCIAL: Positive Depression OTHER HISTORY: Positive Falls, Cancer and Prostate Cancer Social History SMOKING STATUS: Never smoker Meds Home Medications and Allergies Home Medications ?Medication ?Instructions ?Recorded ?Confirmed ?Type acetaminophen 500 mg tablet 500 mg PO Q6H PRN pain 03/17/25 09/07/25 History ondansetron 4 mg disintegrating 4 mg PO Q8H PRN nausea and vomiting 07/06/25 09/07/25 History tablet metformin 1,000 mg tablet 1,000 mg PO BID 08/04/25 09/07/25 History bicalutamide 50 mg tablet 50 mg PO DAILY 09/06/25 09/07/25 History enzalutamide 80 mg tablet (Xtandi) 80 mg PO QDAY 09/06/25 09/07/25 History fluconazole 200 mg tablet 200 mg PO Q24H 09/06/25 09/07/25 History Allergies Allergy/AdvReac Type Severity Reaction Status Date / Time No Known Allergies Allergy Verified 09/07/25 14:08 Exam - Neurology Vital Signs Temp Pulse Resp BP Pulse Ox O2 Del Method O2 Flow Rate 98.9 F 61 20 140/72 H 92 L Room Air 1 09/10/25 20:00 09/10/25 20:00 09/10/25 20:00 09/10/25 20:00 09/10/25 20:00 09/10/25 20:00 09/08/25 18:46 Narrative Exam GENERAL APPEARANCE: Well-developed, thin built male in no acute distress. HEENT: Normocephalic, atraumatic, extraocular movements intact. Pupils: Equal reacting to light NECK: Supple, no JVD or bruits. CARDIOVASULAR: Heart: S1, S2 heard, regular without S3-S4 or murmur no rubs or gallops. LUNGS/CHEST: Clear to auscultation bilaterally. No rails, rhonchi, or wheezing. Normal inspection. ABDOMEN: Soft, nontender, with normal bowel sounds. No pulsatile masses. No rebound, rigidity, or guarding. Normal inspection and palpation. EXTREMITIES: Normal inspection and palpation. No edema, clubbing or cyanosis. SKIN: Warm and dry without rashes. Normal inspection. MUSCULOSKELETAL: No cervical, thoracic, lumbar or midline bony tenderness. Normal inspection. NEURO: Alert, awake and oriented x1. Cranial nerves: II through XII grossly intact. Speech and language: Normal with no dysarthria or dysphasia but hypophonia noted. Motor system: Tone and bulk: Normal: Strength: Moves all 4 extremities; No pronator drift noted, but generally weak all over. Deep tendon reflexes: 1+ bilaterally symmetrical. Plantar reflex: Downgoing bilaterally. Sensory system: Intact to pinprick sensation bilaterally. Coordination: Intact to [id number] and nguz-zdzx-[id number] test bilaterally but very slow. No ataxia, no dysmetria, or dysdiadochokinesia noted. No intention tremors noted. Gait: Not tested. No signs of meningeal irritation noted. PSYCHIATRIC: Normal mood and affect. Results Labs 09/11/25 04:49 09/11/25 04:49 Labs: Short CBC 09/10/25 Range/Units 04:56 WBC 4.5 (3.8-10.6) Thou/mm3 Hgb 9.1 L (13.5-16.0) g/dL Hct 26.5 L (41.0-53.0) % Plt Count 221 (140-440) Thou/mm3 BMP 09/10/25 09/10/25 04:56 12:13 Sodium 145 145 Potassium 2.7 L* 3.3 L D Chloride 107 107 Carbon Dioxide 26.2 25.7 BUN 23 21 Creatinine 2.6 H 2.6 H Glucose 135 H 138 H Calcium 11.2 H 10.9 H Liver Function 09/10/25 09/10/25 Range/Units 04:56 12:13 Total Bilirubin 0.8 (0.3-1.2) mg/dL AST 20 (0-34) U/L ALT 9 L (10-49) U/L Alkaline Phosphatase 80 (46-116) U/L Albumin 4.0 4.1 (3.4-4.8) gm/dL Assessment & Plan Assessment and plan (1) Generalized weakness: Status: Acute Assessment and plan: With altered mental status Follow-up with MRI brain without contrast (because of CKD) and EEG to evaluate further (2) Adult failure to thrive: Status: Acute Assessment and plan: Likely secondary to prostate cancer with bone mets (3) Prostate cancer: Status: Acute Assessment and plan: With the bone mets Being followed by urology (4) Hypercalcemia: Status: Acute Assessment and plan: Continue to monitor calcium (5) Anemia: Status: Acute Assessment and plan: Hemoglobin: 9, continue to watch for any bleeding diathesis And transfuse if needed (6) HTN (hypertension), benign: Status: Acute Assessment and plan: Under control on amlodipine
[2025-09-11] VITALS (9 sets, daily range): BP systolic 129–149; BP diastolic 67–78; PULSE 61–73; RESP 16–99; TEMP 36.2–37.1; O2SAT 98–100; BMI 11.0
[2025-09-11] MEDS: SODIUM CHLORIDE 0.9% 1000 ML 1,000 ML 150 ML IV ×3 (04:52→21:39)
[2025-09-11 06:02] LABS: Basophils # (Auto) 0.0 Thou/mm3 (0.0-0.2); Basophils % (Auto) 0 % (0-2.5); Eosinophils # (Auto) 0.2 Thou/mm3 (0.0-0.5); Eosinophils % (Auto) 5 % (0-10); Hematocrit 24.9 % (41.0-53.0); Immature Granulocytes Auto 0.01 Thou/mm3 (0.00-0.00); Lymphocytes # (Auto) 1.4 Thou/mm3 (1.0-4.8); Lymphocytes % (Auto) 36 % (10-50); Mean Corpuscular HGB Conc 34.5 g/dl (31.0-37.0); Mean Corpuscular Hemoglobin 29.6 pg (25.0-35.0); Mean Corpuscular Volume 86 fL (80-100); Monocytes # (Auto) 0.3 Thou/mm3 (0.0-0.8); Monocytes % (Auto) 8 % (0-12); Neutrophils # (Auto) 2.1 Thou/mm3 (1.8-7.7); Neutrophils % (Auto) 51 % (37-80); Nucleated Red Blood Cell # 0.00 Thou/mm3 (0.00-0.00); Nucleated Red Blood Cell % 0 /100 WBC (0); Platelet Count 169 Thou/mm3 (140-440); RDW Standard Deviation 40.6 fL (35.1-43.9); Red Blood Count 2.91 Miln/mm3 (4.50-5.90); White Blood Count 4.1 Thou/mm3 (3.8-10.6)
[2025-09-11] MEDS: HYDROCORTISONE 5 MG TABLET PO ×3 (06:03→21:30)
[2025-09-11 06:04] LABS: Hemoglobin 8.6 g/dL (13.5-16.0)
[2025-09-11] MEDS: HEPARIN SOD INJ 5000 UNIT/ML VIAL SC ×3 (06:04→21:32)
[2025-09-11 06:32] LABS: Alanine Aminotransferase 12 U/L (10-49); Albumin, Serum 3.8 gm/dL (3.4-4.8); Albumin/Globulin Ratio 1.6 (1.2-2.2); Alkaline Phosphatase 71 U/L (46-116); Anion Gap 12 (7-16); Aspartate Amino Transferase 47 U/L (0-34); BUN/Creatinine Ratio 10 Ratio (12-20); Bilirubin,Total 0.5 mg/dL (0.3-1.2); Blood Urea Nitrogen 24 mg/dL (9-23); Calcium 9.6 mg/dL (8.3-10.6); Calcium (Corrected) 9.8 mg/dL (8.5-10.1); Carbon Dioxide 21.3 mMol/L (20.0-31.0); Chloride 110 mMol/L (98-107); Creatinine (Component) 2.5 mg/dL (0.6-1.3); Estimated Creatinine Clearance 27.5 mL/min (>60); Globulin 2.4 gm/dL (2.3-3.5); Glucose 113 mg/dL (74-106); Magnesium 1.8 mg/dL (1.6-2.6); Osmolality,Calculated 289 (275-295); Phosphorous 2.5 mg/dL (2.4-5.1); Potassium 4.0 mMol/L (3.4-5.1); Sodium 143 mMol/L (136-145); Total Protein 6.2 gm/dL (5.7-8.2); eGFR 27 See Note
[2025-09-11] MEDS: FLUDROCORTISONE ACETATE 0.1 MG TABLET PO (08:18)
[2025-09-11] MEDS: FLUCONAZOLE 100 MG TABLET 200 MG PO ×2 (08:19→20:53)
[2025-09-11] MEDS: THIAMINE INJ 100 MG/ML VIAL 2 ML IV (08:20)
--- NOTE | 2025-09-11 13:20 | ESPR_ITS ---
Documentation for date of: 09/11/25 Senior resident attestation: Patient evaluated and examined at the bedside, plan of care discussed with rest of the team including my attending physician, except as noted. The patient was for hypercalcemia likely secondary to underlying malignancy. After fluid resuscitation, calcitonin and zoledronic acid, downtrending serum calcium levels, currently within normal range. Hospital course complicated by encephalopathy, initially thought of secondary to electrolyte abnormalities, but despite correction of serum calcium levels patient continues to be confused, per family patient is not at his baseline, per family patient started to decline following the start of chemotherapy including generalized weakness and overall mental alertness. Son was present at bedside, who said that they were made aware of these adverse events of chemotherapy prior to initiation. Will continue with thiamine supplementation. Pending neurology recommendations. Quresh PGY3 Subjective Subjective Interval history: Patient was seen and examined today at bedside; no acute events overnight. Patient's mentation is significantly improved. Electrolyte abnormalities have mostly resolved; however patient's mentation has not returned to baseline which per family was ANO x 3. Thus neurology has been consulted. Exam Vital Signs Temp Pulse Resp BP Pulse Ox O2 Del Method O2 Flow Rate 97.4 F 61 18 141/67 H 99 Room Air 1 09/11/25 11:38 09/11/25 11:38 09/11/25 11:38 09/11/25 11:38 09/11/25 11:38 09/11/25 11:38 09/08/25 18:46 Narrative Exam General: A/O x1 (name), no acute distress, well-nourished, well-developed Eyes: PERRL, EOMI. Anicteric, vision grossly intact. Ears: No ear pain, no ear discharge, Hearing grossly intact. Nose: No nasal discharge. Mouth/Throat: Moist mucous membranes, no redness, no lesions. Neck: Neck supple, non-tender, no cervical lymphadenopathy. Lungs: Clear CECILIO to auscultation and percussion, No accessory muscle use. Cardio: Normal S1/S2, regular rhythm, no murmurs, no JVD or carotid bruits. Abdomen: Soft, non-tender, no palpable masses, peristalsis present, no guarding or rebound. Extremities: Symmetrical, no significant deformities, no peripheral edema , non-tender, peripheral pulses presents. Skin: No rashes, no lesions, warm to touch. Neuro: No focal neurological deficits. Psych: Cooperative, appropriate mood and effect. Objective Labs 09/12/25 05:00 09/12/25 05:00 Labs: Laboratory Results - last 24 hr 09/10/25 09/11/25 12:13 04:49 WBC 4.1 RBC 2.91 L Hgb 8.6 L Hct 24.9 L MCV 86 MCH 29.6 MCHC 34.5 RDW Std Deviation 40.6 Plt Count 169 D Neut % (Auto) 51 Lymph % (Auto) 36 [place] % (Auto) 8 Eos % (Auto) 5 Baso % (Auto) 0 Neut # (Auto) 2.1 Lymph # (Auto) 1.4 [place] # (Auto) 0.3 Eos # (Auto) 0.2 Baso # (Auto) 0.0 Immature Gran # (Auto) 0.01 H Absolute Nucleated RBC 0.00 Immature Gran % 0 Nucleated RBC % 0 Sodium 143 Potassium 4.0 D Chloride 110 H Carbon Dioxide 21.3 Anion Gap 12 BUN 24 H Creatinine 2.5 H Estim Creat Clear Calc 27.5 L eGFR 27 L BUN/Creatinine Ratio 10 L Glucose 113 H Calculated Osmolality 289 Calcium 9.6 Corrected Calcium 9.8 Phosphorus 2.5 Magnesium 1.8 Total Bilirubin 0.5 AST 47 H ALT 12 Alkaline Phosphatase 71 Total Protein 6.2 Albumin 3.8 Globulin 2.4 Albumin/Globulin Ratio 1.6 Syphilis Serology Nonreactive Quality Measures Quality Measures none Advance care planning discussed with:: other Assessment & Plan Assessment Current Active Medications: Generic Name Dose Route Start Last Admin Trade Name Stanleyq PRN Reason Stop Dose Admin Acetaminophen 650 mg 09/07/25 20:07 Acetaminophen 325 Mg Tablet PO 10/07/25 20:06 Q6H PRN Fever >100.3 Acetaminophen 650 mg 09/07/25 20:07 Acetaminophen 325 Mg Tablet PO 10/07/25 20:06 Q6H PRN PAIN SCALE 1-3 (mild Hydrocodone Bitart/Acetaminophen 1 tab 09/07/25 20:38 Hydrocodone/Apap 5/325 Tablet PO 09/12/25 20:37 Q4HR PRN Pain 4-8 Amlodipine Besylate 2.5 mg 09/08/25 09:00 09/11/25 08:18 Amlodipine [place] 2.5 Mg Tablet PO 10/08/25 08:59 2.5 mg QDAY ADRIAN Administration Atorvastatin Calcium 20 mg 09/07/25 21:00 09/10/25 21:29 Atorvastatin Calcium 20 Mg Tablet PO 10/07/25 20:59 20 mg HS ADRIAN Administration Bicalutamide 50 mg 09/08/25 11:00 09/10/25 08:19 Bicalutamide 50 Mg Tablet PO 10/08/25 10:59 50 mg On Hold: 09/10/25 11:25 QDAY ADRIAN Administration Enzalutamide 80mg ( 0 ea 09/08/25 09:15 09/10/25 08:19 Xtandi) Tablet PO 10/08/25 09:14 2 tablet On Hold: 09/10/25 11:11 QDAY ADRIAN Administration Protocol Dextrose 25 ml 09/07/25 20:13 Dextrose 50%-Water Inj 50 Ml Syringe IV 10/07/25 20:12 Q15MIN PRN BG 50-70 responsive npo pt Dextrose 50 ml 09/07/25 20:13 Dextrose 50%-Water Inj 50 Ml Syringe IV 10/07/25 20:12 Q15MIN PRN BG <50 OR BG <70 & pt unresponsive Fluconazole 200 mg 09/08/25 09:00 09/11/25 08:19 Fluconazole 100 Mg Tablet PO 09/15/25 08:59 200 mg BID ADRIAN Administration Fludrocortisone Acetate 0.1 mg 09/08/25 09:00 09/11/25 08:18 Fludrocortisone Acetate 0.1 Mg Tablet PO 10/08/25 08:59 0.1 mg QDAY ADRIAN Administration Glucagon 1 mg 09/07/25 20:13 Glucagon Inj 1 Mg Vial IM Q15MIN PRN BG <70, and no IV access Heparin Sodium (Porcine) 5,000 unit 09/07/25 22:00 09/11/25 06:04 Heparin Sod Inj 5000 Unit/Ml Vial SC 09/21/25 21:59 5,000 unit Q8HR ADRIAN Administration Hydrocortisone 5 mg 09/08/25 14:00 09/11/25 06:03 Hydrocortisone 5 Mg Tablet PO 10/08/25 13:59 5 mg TID ADRIAN Administration Sodium Chloride 1,000 mls @ 150 mls/hr 09/10/25 08:38 09/11/25 12:02 Ns IV 10/10/25 08:37 150 mls/hr .Q6H40M ADRIAN Administration Insulin Human Lispro 0 unit 09/08/25 07:30 09/11/25 10:01 Insulin Lispro (Admelog) 1 Unit/0.01 Ml Unit SC 10/08/25 07:29 Not Given AC ADRIAN Protocol Ondansetron HCl 4 mg 09/07/25 20:07 09/08/25 12:29 Ondansetron Inj 2 Mg/Ml Inj 2 Ml IVP 10/07/25 20:06 4 mg Q6H PRN Administration NAUSEA OR VOMITING Protocol Sennosides 1 tab 09/07/25 20:10 09/10/25 05:24 Senna/Docusate Sod 1 Tab Tablet PO 10/07/25 20:09 1 tab QDAY PRN Administration CONSTIPATION Protocol Thiamine HCl 100 mg 09/10/25 11:30 09/11/25 08:20 Thiamine Inj 100 Mg/Ml Vial 2 Ml IV 10/10/25 11:29 100 mg QDAY ADRIAN Administration Plan Patient is a 69 M with PMH 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 Admitted for hypercalcemia. #Acute encephalopathy, likely toxic metabolic in setting of electrolyte imbalances, improving #Hypercalcemia secondary to #Stage IVb prostate cancer with widespread bony metastases & abdominal/pelvic lymphadenopathy #c/f Adrenal insufficiency 2/2 metastases Presents with fatigue, generalized weakness, myalgia. A&Ox1 Underwent right adrenal biopsy 09/06 due to c/f adrenal mets. On previous hospitalization, cortisol WNL, hyponatremia Given 1L NS in ED Home meds: Lupron, Xtandi (non-formulary), Casodex Follows with Dr. Myers (oncology), Dr. Contreras (urology) Calcium-9.8 today from 14.6 on presentation Ammonia less than 10, B12 1142, folate 17.65, syphilis nonreactive Ddx: most likely due to tumor progression; less likely central cause due to lack of mass on CT head in ED Plan: - Zoledronic acid 4 mg IV x1; completed course of 48 hours of calcitonin 320 units q12h - Trend calcium daily - Acetaminophen 650 mg PO q6h PRN, [place] 5/325 mg q4h PO PRN - Fludrocortisone 0.1 mg PO daily - IV thiamine - Obtain neurology consultation as while mentation has improved, it has not improved sufficiently with resolution of hypercalcemia - Hold Casodex and Xtandi for now # Hypokalemia # Hypophosphatemia Potassium 2.7 and phosphate 2.1 on 09/10/2025; potassium was 4.0 and phosphate was 2.5 on 09/11/2025 Plan: - monitor and replete as needed # EVARISTO on CKD stage III Creatinine 2.1 on 09/07/25; creatinine 2.[address] Paige Tse in [place] (nephrology) Myeloma workup being pursued outpatient Plan: - Avoid nephrotoxins and NSAIDs - Adjust medication dosing for renal function - Strict I&Os - Patient kidney function noted to be worsening despite IV hydration, noted that patient has been having negative balance despite being on IV fluids, 150 cc/h of normal saline - continue to monitor closely #UTI, ruled out #Chronic indwelling olson catheter Denies urinary symptoms UA 249 WBC, 1+ bacteria on 09/07/25. Previous Ucx (08/08/25) grew Citrobacter and Enterobacter. Exchanged olson catheter in ED Plan: - Urine culture came back negative, antibiotics discontinued #Hx coccidioidomycosis Coccidiodies IgG positive, IgM negative 03/17/25 Plan: - Fluconazole 200 mg PO BID #HTN #HLD #T2DM BP 09/08/25 12:00- 95/75, HR 93 ; Metformin 1000 mg PO BID at home Plan: Atorvastatin 20 mg PO QHS Amlodipine 2.5 mg PO daily Insulin sliding scale step 1 Disposition: MedSur for close monitoring of electrolytes, mentation DVT prophylaxis: Heparin sc Q8H GI prophylaxis: Diet: Renal plus Glucerna shake Lines: PIV CODE STATUS: Full code This case was discussed with my attending physician, Dr. Aquino, and senior resident, Dr. Ivory. Tyron England MD-PhD, PGY1 Attending Provider Attestation/Addendum I have seen and examined the patient. I was physically present for the cordova portions of the services provided including history, physical exam, diagnosis, treatment plans and orders. I agree with assessment and plan of care as documented by residents. Even though this this note was carefully revised there may still be minor errors in cross cut saw operator due to voice recognition software. Sagar Aquino MD
[2025-09-11 20:09] LABS: Folate 17.65 ng/mL (>5.38); Vitamin B12 1142 pg/mL (211-911)
[2025-09-11] MEDS: ATORVASTATIN CALCIUM 20 MG TABLET PO (20:53)
--- NOTE | 2025-09-11 22:50 | VVPN_ITS ---
Telemedicine visit statement This visit was conducted with the use of interactive audio and video telecommunications system that permits real time communication between the patient and the provider. Patient's verbal consent for virtual visit was obtained on 09/11/25 at 2250. Documentation for date of: 09/11/25 Subjective Subjective Interval history: Patient is in MedSurg, he gets intermittently confused but more talkative today and feels generally weak. Virtual exam Vital Signs Temp Pulse Resp BP Pulse Ox O2 Del Method O2 Flow Rate 98.5 F 68 17 137/71 H 98 Room Air 1 09/11/25 20:00 09/11/25 20:00 09/11/25 20:00 09/11/25 20:00 09/11/25 20:00 09/11/25 11:38 09/08/25 18:46 Objective Labs 09/11/25 04:49 09/11/25 04:49 Labs: Laboratory Results - last 24 hr 09/10/25 09/11/25 12:13 04:49 WBC 4.1 RBC 2.91 L Hgb 8.6 L Hct 24.9 L MCV 86 MCH 29.6 MCHC 34.5 RDW Std Deviation 40.6 Plt Count 169 D Neut % (Auto) 51 Lymph % (Auto) 36 [place] % (Auto) 8 Eos % (Auto) 5 Baso % (Auto) 0 Neut # (Auto) 2.1 Lymph # (Auto) 1.4 [place] # (Auto) 0.3 Eos # (Auto) 0.2 Baso # (Auto) 0.0 Immature Gran # (Auto) 0.01 H Absolute Nucleated RBC 0.00 Immature Gran % 0 Nucleated RBC % 0 Sodium 143 Potassium 4.0 D Chloride 110 H Carbon Dioxide 21.3 Anion Gap 12 BUN 24 H Creatinine 2.5 H Estim Creat Clear Calc 27.5 L eGFR 27 L BUN/Creatinine Ratio 10 L Glucose 113 H Calculated Osmolality 289 Calcium 9.6 Corrected Calcium 9.8 Phosphorus 2.5 Magnesium 1.8 Total Bilirubin 0.5 AST 47 H ALT 12 Alkaline Phosphatase 71 Total Protein 6.2 Albumin 3.8 Globulin 2.4 Albumin/Globulin Ratio 1.6 Vitamin B12 1142 H Folate 17.65
[2025-09-12] VITALS (9 sets, daily range): BP systolic 134–146; BP diastolic 68–78; PULSE 62–74; RESP 17–97; TEMP 36.1–37.1; O2SAT 96–100; BMI 11.0; BMI 12.0
[2025-09-12] MEDS: SODIUM CHLORIDE 0.9% 1000 ML 1,000 ML 150 ML IV ×2 (04:07→13:48)
[2025-09-12] MEDS: HYDROCORTISONE 5 MG TABLET PO ×3 (05:10→22:51)
[2025-09-12] MEDS: HEPARIN SOD INJ 5000 UNIT/ML VIAL SC ×3 (05:10→22:57)
[2025-09-12 06:29] LABS: Basophils # (Auto) 0.0 Thou/mm3 (0.0-0.2); Basophils % (Auto) 0 % (0-2.5); Eosinophils # (Auto) 0.2 Thou/mm3 (0.0-0.5); Eosinophils % (Auto) 3 % (0-10); Hematocrit 24.3 % (41.0-53.0); Immature Granulocytes Auto 0.02 Thou/mm3 (0.00-0.00); Lymphocytes # (Auto) 1.7 Thou/mm3 (1.0-4.8); Lymphocytes % (Auto) 32 % (10-50); Mean Corpuscular HGB Conc 36.2 g/dl (31.0-37.0); Mean Corpuscular Hemoglobin 29.9 pg (25.0-35.0); Mean Corpuscular Volume 83 fL (80-100); Monocytes # (Auto) 0.3 Thou/mm3 (0.0-0.8); Monocytes % (Auto) 6 % (0-12); Neutrophils # (Auto) 3.1 Thou/mm3 (1.8-7.7); Neutrophils % (Auto) 59 % (37-80); Nucleated Red Blood Cell # 0.00 Thou/mm3 (0.00-0.00); Nucleated Red Blood Cell % 0 /100 WBC (0); Platelet Count 230 Thou/mm3 (140-440); RDW Standard Deviation 38.1 fL (35.1-43.9); Red Blood Count 2.94 Miln/mm3 (4.50-5.90); White Blood Count 5.3 Thou/mm3 (3.8-10.6)
[2025-09-12 06:37] LABS: Hemoglobin 8.8 g/dL (13.5-16.0)
[2025-09-12 06:48] LABS: Alanine Aminotransferase 10 U/L (10-49); Albumin, Serum 3.8 gm/dL (3.4-4.8); Albumin/Globulin Ratio 1.5 (1.2-2.2); Alkaline Phosphatase 78 U/L (46-116); Anion Gap 13 (7-16); Aspartate Amino Transferase 22 U/L (0-34); BUN/Creatinine Ratio 9 Ratio (12-20); Bilirubin,Total 0.6 mg/dL (0.3-1.2); Blood Urea Nitrogen 19 mg/dL (9-23); Calcium 8.9 mg/dL (8.3-10.6); Calcium (Corrected) 9.1 mg/dL (8.5-10.1); Carbon Dioxide 21.5 mMol/L (20.0-31.0); Chloride 109 mMol/L (98-107); Creatinine (Component) 2.1 mg/dL (0.6-1.3); Estimated Creatinine Clearance 32.7 mL/min (>60); Globulin 2.6 gm/dL (2.3-3.5); Glucose 115 mg/dL (74-106); Magnesium 1.4 mg/dL (1.6-2.6); Osmolality,Calculated 288 (275-295); Phosphorous 2.1 mg/dL (2.4-5.1); Sodium 143 mMol/L (136-145); Total Protein 6.4 gm/dL (5.7-8.2); eGFR 33 See Note
[2025-09-12 07:00] LABS: Potassium 2.6 mMol/L (3.4-5.1)
--- NOTE | 2025-09-12 08:21 | PC.NURSE ---
consulted Dr. Magana regarding outpatient order for port placement, MD will round and talk to other doctors to see if patient needs port at this time or will be placed on hold for another time.
[2025-09-12] MEDS: POTASSIUM CHL 10 mEq IVPB 10 MEQ/100 ML BAG 100 MEQ IV ×2 (08:47→10:18)
[2025-09-12] MEDS: NAPH,KPH MBDB 1 PACKET (1.5 GM) PO (08:48)
[2025-09-12] MEDS: Magnesium Sulfate 2 GM Ivpb 2 GM/50 ML BAG IV (08:48)
[2025-09-12] MEDS: THIAMINE 100 MG TABLET PO (08:49)
[2025-09-12] MEDS: FLUCONAZOLE 100 MG TABLET 200 MG PO ×2 (08:49→22:51)
[2025-09-12] MEDS: FLUDROCORTISONE ACETATE 0.1 MG TABLET PO (08:49)
[2025-09-12] MEDS: SENNA/DOCUSATE SOD 1 TAB TABLET PO (09:30)
--- NOTE | 2025-09-12 09:47 | XR_ITS ---
Examination: MRI brain without intravenous contrast. Date and time of exam: September 12, 2025, 1416 hours INDICATIONS: 50 pound weight loss since diagnosis malignant neoplasm prostate February 2025, weakness Technique: Multiple axial and sagittal images of the brain obtained. Siemens high-resolution 1.5 [place] short bore scanners utilized. Sagittal sections, T1-weighted, TR 500, TE 14, are performed. Axial sections proton-density and T2-weighted have been obtained. Inversion recovery axial images, TR 9, 260, TE 111, TI 2500. Diffusion weighted images, axial sections, TR 4800, TE 128, B value 1000 Axial sections, ADC map, TR 4800, TE 128 Findings: Enlargement of the sella turcica is not present. The optic chiasm and infundibular are not remarkable. Prepontine and interpeduncular cisterns are not enlarged. There is no localized enlargement of the medulla or allison. Fourth ventricle and cerebellar tonsils appear normal in position. No subacute area of hemorrhage density is seen. Mass in the cerebellopontine angle region is not evident. Globes symmetrical. Orbital musculature including medial lateral rectus muscles do not exhibit abnormality. Diffusion-weighted images demonstrate no focus of restricted diffusion. Increased white matter signal moderate Mass effect upon the ventricular system is not identified. Impression: Negative for acute hemorrhage mass effect or midline shift No acute infarct Moderate chronic microvascular white matter change Bilateral mastoiditis
--- NOTE | 2025-09-12 13:04 | PD.RESPRO ---
Documentation for date of: 09/12/25 Senior resident attestation: Patient evaluated and examined at the bedside, plan of care discussed with rest of the team including my attending physician, except as noted. Patient continues to be alert and oriented x 1, lethargic. Family was present at the bedside who also complained of possible hallucinations. Neurology consult was obtained, recommended getting an MRI and EEG. At this point, family is concerned about patient's mental status and right-sided ear pain. MRI brain showed bilateral mastoiditis, likely chronic, as patient has no fever or tachycardia. No ear discharge noted. Antibiotics initiated. #Encephalopathy, possibly toxic versus metabolic, of note Lupron is associated with psychiatric neurologic and adverse events including zoë, depression, seizures. Patient was at the bedside yesterday who reported that prior to initiation of antineoplastic agents. Family was counseled regarding adverse events, patient has been slowly declining since cancer diagnosis and initiation of chemotherapy. At this point we will complete neurological workup, to rule out seizures and stroke. Appreciate neurology recommendations. #Concern for mastoiditis?in the setting of right ear pain, no ear discharge noted, bilateral mastoiditis on imaging, patient has no symptoms on the left side, antibiotics metronidazole, vancomycin and ceftazidime initiated. No ear discharge noted, will consider discontinue antibiotics if otoscopic findings unremarkable. #Hypercalcemia?now resolved, treated with IV fluids, calcitonin and zoledronic acid. #History of stage IV prostate cancer on leuprolide and Xtandi and Casodex #History of adrenal insufficiency?continued on fludrocortisone, history of adrenal gland biopsy, which showed coccidiomycosis. 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 Patient is still ANO x 1, little less alert than he was yesterday; per family he also is occasionally seeing people who are not there. Neurology consulted, they recommended MRI and EEG. Patient has not gotten out of bed, but has been doing exercises. Patient was much more alert in the afternoon, being ANO x 3; however per family he states that that he sees people and animals when he closes his eyes, though he does not see this when his eyes are open. Patient also endorses right sided mastoid and cheek pain of note MRI shows bilateral mastoiditis. Will start antibiotics. Exam Vital Signs Temp Pulse Resp BP Pulse Ox O2 Del Method O2 Flow Rate 98.4 F 65 18 134/78 H 100 Room Air 1 09/12/25 12:00 09/12/25 12:00 09/12/25 12:00 09/12/25 12:00 09/12/25 12:00 09/12/25 12:00 09/08/25 18:46 Narrative Exam General: A/O x3, no acute distress, well-nourished, well-developed Eyes: PERRL, EOMI. Anicteric, vision grossly intact. Ears: Pain behind right ear on palpation; hearing grossly intact. Nose: No nasal discharge. Mouth/Throat: Moist mucous membranes, no redness, no lesions. Neck: Neck supple, non-tender, no cervical lymphadenopathy. Lungs: Clear CECILIO to auscultation and percussion, No accessory muscle use. Cardio: Normal S1/S2, regular rhythm, no murmurs, no JVD or carotid bruits. Abdomen: Soft, non-tender, no palpable masses, peristalsis present, no guarding or rebound. Extremities: Symmetrical, no significant deformities, no peripheral edema , non-tender, peripheral pulses presents. Skin: No rashes, no lesions, warm to touch. Neuro: No focal neurological deficits. Psych: Cooperative, appropriate mood and effect. Objective Labs 09/13/25 05:15 09/13/25 15:30 Labs: Laboratory Results - last 24 hr 09/10/25 09/12/25 12:13 05:00 WBC 5.3 RBC 2.94 L Hgb 8.8 L Hct 24.3 L MCV 83 MCH 29.9 MCHC 36.2 RDW Std Deviation 38.1 Plt Count 230 D Neut % (Auto) 59 Lymph % (Auto) 32 [place] % (Auto) 6 Eos % (Auto) 3 Baso % (Auto) 0 Neut # (Auto) 3.1 Lymph # (Auto) 1.7 [place] # (Auto) 0.3 Eos # (Auto) 0.2 Baso # (Auto) 0.0 Immature Gran # (Auto) 0.02 H Absolute Nucleated RBC 0.00 Immature Gran % 0 Nucleated RBC % 0 Sodium 143 Potassium 2.6 L* D Chloride 109 H Carbon Dioxide 21.5 Anion Gap 13 BUN 19 Creatinine 2.1 H Estim Creat Clear Calc 32.7 L eGFR 33 L BUN/Creatinine Ratio 9 L Glucose 115 H Calculated Osmolality 288 Calcium 8.9 Corrected Calcium 9.1 Phosphorus 2.1 L Magnesium 1.4 L Total Bilirubin 0.6 AST 22 ALT 10 Alkaline Phosphatase 78 Total Protein 6.4 Albumin 3.8 Globulin 2.6 Albumin/Globulin Ratio 1.5 Vitamin B12 1142 H Folate 17.65 Quality Measures Quality Measures none Advance care planning discussed with:: other Assessment & Plan Assessment Current Active Medications: Generic Name Dose Route Start Last Admin Trade Name Freq PRN Reason Stop Dose Admin Acetaminophen 650 mg 09/07/25 20:07 Acetaminophen 325 Mg Tablet PO 10/07/25 20:06 Q6H PRN Fever >100.3 Acetaminophen 650 mg 09/07/25 20:07 Acetaminophen 325 Mg Tablet PO 10/07/25 20:06 Q6H PRN PAIN SCALE 1-3 (mild Hydrocodone Bitart/Acetaminophen 1 tab 09/07/25 20:38 Hydrocodone/Apap 5/325 Tablet PO 09/12/25 20:37 Q4HR PRN Pain 4-8 Amlodipine Besylate 2.5 mg 09/08/25 09:00 09/12/25 08:49 Amlodipine Besylate 2.5 Mg Tablet PO 10/08/25 08:59 2.5 mg QDAY ADRIAN Administration Atorvastatin Calcium 20 mg 09/07/25 21:00 09/11/25 20:53 Atorvastatin Calcium 20 Mg Tablet PO 10/07/25 20:59 20 mg HS ADRIAN Administration Bicalutamide 50 mg 09/08/25 11:00 09/10/25 08:19 Bicalutamide 50 Mg Tablet PO 10/08/25 10:59 50 mg On Hold: 09/10/25 11:25 QDAY ADRIAN Administration Enzalutamide 80mg ( 0 ea 09/08/25 09:15 09/10/25 08:19 Xtandi) Tablet PO 10/08/25 09:14 2 tablet On Hold: 09/10/25 11:11 QDAY ADRIAN Administration Protocol Dextrose 25 ml 09/07/25 20:13 Dextrose 50%-Water Inj 50 Ml Syringe IV 10/07/25 20:12 Q15MIN PRN BG 50-70 responsive npo pt Dextrose 50 ml 09/07/25 20:13 Dextrose 50%-Water Inj 50 Ml Syringe IV 10/07/25 20:12 Q15MIN PRN BG <50 OR BG <70 & pt unresponsive Fluconazole 200 mg 09/08/25 09:00 09/12/25 08:49 Fluconazole 100 Mg Tablet PO 09/15/25 08:59 200 mg BID ADRIAN Administration Fludrocortisone Acetate 0.1 mg 09/08/25 09:00 09/12/25 08:49 Fludrocortisone Acetate 0.1 Mg Tablet PO 10/08/25 08:59 0.1 mg QDAY ADRIAN Administration Glucagon 1 mg 09/07/25 20:13 Glucagon Inj 1 Mg Vial IM Q15MIN PRN BG <70, and no IV access Heparin Sodium (Porcine) 5,000 unit 09/07/25 22:00 09/12/25 05:10 Heparin Sod Inj 5000 Unit/Ml Vial SC 09/21/25 21:59 5,000 unit Q8HR ADRIAN Administration Hydrocortisone 5 mg 09/08/25 14:00 09/12/25 05:10 Hydrocortisone 5 Mg Tablet PO 10/08/25 13:59 5 mg TID ADRIAN Administration Sodium Chloride 1,000 mls @ 150 mls/hr 09/10/25 08:38 09/12/25 04:07 Ns IV 10/10/25 08:37 150 mls/hr .Q6H40M ADRIAN Administration Insulin Human Lispro 0 unit 09/08/25 07:30 09/12/25 12:02 Insulin Lispro (Admelog) 1 Unit/0.01 Ml Unit SC 10/08/25 07:29 Not Given AC ADRIAN Protocol Ondansetron HCl 4 mg 09/07/25 20:07 09/08/25 12:29 Ondansetron Inj 2 Mg/Ml Inj 2 Ml IVP 10/07/25 20:06 4 mg Q6H PRN Administration NAUSEA OR VOMITING Protocol Sennosides 1 tab 09/07/25 20:10 09/12/25 09:30 Senna/Docusate Sod 1 Tab Tablet PO 10/07/25 20:09 1 tab QDAY PRN Administration CONSTIPATION Protocol Thiamine HCl 100 mg 09/12/25 09:00 09/12/25 08:49 Thiamine 100 Mg Tablet PO 10/12/25 08:59 100 mg QDAY ADRIAN Administration Plan Patient is a 69 M with PMH 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 Admitted for hypercalcemia. #Acute encephalopathy, likely toxic metabolic in setting of electrolyte imbalances, improving #Hypercalcemia secondary to #Stage IVb prostate cancer with widespread bony metastases & abdominal/pelvic lymphadenopathy #c/f Adrenal insufficiency 2/2 metastases Presents with fatigue, generalized weakness, myalgia. A&Ox1 Underwent right adrenal biopsy 09/06 due to c/f adrenal mets. On previous hospitalization, cortisol WNL, hyponatremia Given 1L NS in ED Home meds: Lupron, Xtandi (non-formulary), Casodex Follows with Dr. Myers (oncology), Dr. Contreras (urology) Calcium-9.1 today from 14.6 on presentation Ammonia less than 10, B12 1142, folate 17.65, syphilis nonreactive Ddx: partially due to tumor progression improved from attended to ANO x 1; however as patient is ANO x 3 at baseline, we are exploring other potential causes. Plan: - Zoledronic acid 4 mg IV x1; completed course of 48 hours of calcitonin 320 units q12h - Trend calcium daily - Acetaminophen 650 mg PO q6h PRN, [place] 5/325 mg q4h PO PRN - Fludrocortisone 0.1 mg PO daily - IV thiamine - Neurology consulted appreciate recs?gets MRI without contrast and EEG - Hold Casodex and Xtandi for now # Hypokalemia # Hypophosphatemia Potassium 2.7 and phosphate 2.1 on 09/10/2025; potassium was 2.6 and phosphate was 2.1 on 09/12/2025 Plan: - monitor and replete as needed # EVARISTO on CKD stage III Creatinine 2.1 on 09/07/25; creatinine 2.[address] Paige Tse in [place] (nephrology) Myeloma workup being pursued outpatient Plan: - Avoid nephrotoxins and NSAIDs - Adjust medication dosing for renal function - Strict I&Os - Patient on 150 cc/h of normal saline - continue to monitor closely #Mastoiditis Patient reports right-sided pain behind the ear and around cheek; MRI shows bilateral mastoiditis. Plan: Metronidazole, vancomycin, and ceftazidime started for empiric Pseudomonas coverage #UTI, ruled out #Chronic indwelling olson catheter Denies urinary symptoms UA 249 WBC, 1+ bacteria on 09/07/25. Previous Ucx (08/08/25) grew Citrobacter and Enterobacter. Exchanged olson catheter in ED Plan: - Urine culture came back negative, antibiotics discontinued #Hx coccidioidomycosis Coccidiodies IgG positive, IgM negative 03/17/25 Plan: - Fluconazole 200 mg PO BID #HTN #HLD #T2DM BP 09/08/25 12:00- 95/75, HR 93 ; Metformin 1000 mg PO BID at home Plan: Atorvastatin 20 mg PO QHS Amlodipine 2.5 mg PO daily Insulin sliding scale step 1 Disposition: MedSur for close monitoring of electrolytes, mentation DVT prophylaxis: Heparin sc Q8H GI prophylaxis: Diet: Renal plus Glucerna shake Lines: PIV CODE STATUS: Full code This case was discussed with my attending physician, Dr. Aquino, and senior resident, Dr. Ivory. Tyron England MD-PhD, PGY1 Attending Provider Attestation/Addendum I have seen and examined the patient. I was physically present for the cordova portions of the services provided including history, physical exam, diagnosis, treatment plans and orders. I agree with assessment and plan of care as documented by residents. Even though this this note was carefully revised there may still be minor errors in family resource management specialist due to voice recognition software. Sagar Aquino MD
--- NOTE | 2025-09-12 15:00 | RESP.EEG ---
EEG Attempted, but patient was heading to MRI. Will follow up at a later time
[2025-09-12] MEDS: SODIUM CHLORIDE 0.9% IV (18:25)
[2025-09-12] MEDS: CEFTAZIDIME IV (18:25)
[2025-09-12] MEDS: metroNIDAZOLE/NS 500 MG IVPB 500 MG/100 ML BAG 200 MG IV (18:25)
[2025-09-12] MEDS: VANCOMYCIN/WATER 1250 MG IVPB 250 ML 120 MG IV (20:02)
--- NOTE | 2025-09-12 21:05 | PC.NURSE ---
seen and examined by Dr. Thompson.
[2025-09-12] MEDS: ATORVASTATIN CALCIUM 20 MG TABLET PO (22:51)
[2025-09-13] VITALS (15 sets, daily range): BP systolic 135–156; BP diastolic 71–87; PULSE 60–73; RESP 13–18; TEMP 36.1–37; O2SAT 98–100
[2025-09-13] MEDS: SODIUM CHLORIDE 0.9% 1000 ML 1,000 ML 150 ML IV ×4 (00:40→23:46)
--- NOTE | 2025-09-13 01:20 | RESP.EEG ---
EEG has been completed and is ready for MD interpretation
[2025-09-13] MEDS: metroNIDAZOLE/NS 500 MG IVPB 500 MG/100 ML BAG 200 MG IV ×3 (05:24→23:46)
[2025-09-13 05:41] LABS: Basophils # (Auto) 0.0 Thou/mm3 (0.0-0.2); Basophils % (Auto) 0 % (0-2.5); Eosinophils # (Auto) 0.2 Thou/mm3 (0.0-0.5); Eosinophils % (Auto) 3 % (0-10); Hematocrit 25.2 % (41.0-53.0); Hemoglobin 9.0 g/dL (13.5-16.0); Immature Granulocytes Auto 0.02 Thou/mm3 (0.00-0.00); Lymphocytes # (Auto) 1.8 Thou/mm3 (1.0-4.8); Lymphocytes % (Auto) 35 % (10-50); Mean Corpuscular HGB Conc 35.7 g/dl (31.0-37.0); Mean Corpuscular Hemoglobin 29.2 pg (25.0-35.0); Mean Corpuscular Volume 82 fL (80-100); Monocytes # (Auto) 0.4 Thou/mm3 (0.0-0.8); Monocytes % (Auto) 7 % (0-12); Neutrophils # (Auto) 2.9 Thou/mm3 (1.8-7.7); Neutrophils % (Auto) 55 % (37-80); Nucleated Red Blood Cell # 0.00 Thou/mm3 (0.00-0.00); Nucleated Red Blood Cell % 0 /100 WBC (0); Platelet Count 252 Thou/mm3 (140-440); RDW Standard Deviation 37.6 fL (35.1-43.9); Red Blood Count 3.08 Miln/mm3 (4.50-5.90); White Blood Count 5.3 Thou/mm3 (3.8-10.6)
[2025-09-13] MEDS: HYDROCORTISONE 5 MG TABLET PO ×3 (05:48→22:41)
[2025-09-13 05:55] LABS: INR 1.0 (0.9-1.3); Partial Thromboplastin Time 29.9 Seconds (22.0-36.0); Prothrombin Time 10.3 Seconds (9.0-12.2)
[2025-09-13 06:10] LABS: Alanine Aminotransferase 10 U/L (10-49); Albumin, Serum 3.8 gm/dL (3.4-4.8); Albumin/Globulin Ratio 1.6 (1.2-2.2); Alkaline Phosphatase 79 U/L (46-116); Anion Gap 10 (7-16); Aspartate Amino Transferase 26 U/L (0-34); BUN/Creatinine Ratio 11 Ratio (12-20); Bilirubin,Total 0.5 mg/dL (0.3-1.2); Blood Urea Nitrogen 19 mg/dL (9-23); Calcium 8.4 mg/dL (8.3-10.6); Calcium (Corrected) 8.6 mg/dL (8.5-10.1); Carbon Dioxide 22.0 mMol/L (20.0-31.0); Chloride 111 mMol/L (98-107); Creatinine (Component) 1.7 mg/dL (0.6-1.3); Estimated Creatinine Clearance 40.4 mL/min (>60); Globulin 2.4 gm/dL (2.3-3.5); Glucose 121 mg/dL (74-106); Osmolality,Calculated 288 (275-295); Potassium 2.9 mMol/L (3.4-5.1); Sodium 143 mMol/L (136-145); Total Protein 6.2 gm/dL (5.7-8.2); eGFR 43 See Note
--- NOTE | 2025-09-13 07:11 | XR_ITS ---
Examination: IR venous implantation Port-A-Cath Ultrasound-guided needle placement right internal jugular vein. Fluoroscopy AP Chest, portable single view Exam date and time: Diagnosis malignant neoplasm of prostate, need for long-term intravenous chemotherapy. Informed consent provided Technique: A timeout was completed, verifying correct patient, procedure, site, positioning, and special equipment if applicable The patient was placed in a dependent position appropriate for central line placement based on the vein to be cannulated. The patient's right neck was prepped and draped in sterile fashion. Maximum Sterile Barrier Technique used including cap, mask, sterile gown, sterile gloves, and sterile full body drape. If ultrasound technique used: sterile gel and sterile probe covers. Hand Hygiene performed using proper scrub, soap and water, or alcohol-based hand rub. Site right portable apparatus utilized to confirm patency of the right internal jugular vein Utilizing ultrasonographic guidance successful 21-gauge needle puncture into the right internal jugular vein Ultrasound images were recorded and stored. Utilizing blunt dissection pocket formed in the subcutaneous tissue upper chest Portacatheter reservoir placed in the pocket and connected to an 8 Swedish 23 cm catheter placed through the venous sheath into the superior vena cava The attending radiologist was present for the entire procedure Estimated blood loss 4 cc. Findings: Under fluoroscopy, the tip of the catheter is in good position in the vena cava. Portable chest x-ray, post Port-A-Cath placement, as ordered. Impression: Successful ultrasound-guided needle placement right internal jugular vein. Successful IR venous implantation Port-A-Cath percutaneous. Fluoroscopy 0.2-minute radiation dose 2.49 mGy 1 spot fluoroscopic chest. AP portable chest completion procedure demonstrates satisfactory position Port-A-Cath SVC. May use Port-A-Cath
[2025-09-13] MEDS: SODIUM CHLORIDE 0.9% IV ×2 (08:00→23:00)
[2025-09-13] MEDS: CEFTAZIDIME IV ×2 (08:00→23:00)
[2025-09-13] MEDS: FLUDROCORTISONE ACETATE 0.1 MG TABLET PO (08:03)
[2025-09-13] MEDS: SENNA/DOCUSATE SOD 1 TAB TABLET PO (08:03)
[2025-09-13] MEDS: THIAMINE 100 MG TABLET PO (08:03)
[2025-09-13] MEDS: FLUCONAZOLE 100 MG TABLET 200 MG PO ×2 (08:03→22:40)
[2025-09-13 08:13] LABS: Magnesium 1.8 mg/dL (1.6-2.6); Phosphorous 2.8 mg/dL (2.4-5.1)
[2025-09-13] MEDS: POTASSIUM PHOS 22.5 MMOL in SODIUM CHLORIDE 0.9% 500 ML 500 ML 82.778 MMOL IV (09:23)
[2025-09-13] MEDS: POTASSIUM CHL 10 mEq IVPB 10 MEQ/100 ML BAG 100 MEQ IV ×2 (09:24→10:34)
--- NOTE | 2025-09-13 11:21 | PC.NURSE ---
consulted Dr. Beatty regarging port placement order, patient has potassium level of 2.9, procedure postponed until potassium levels are within normal parameters. Spoke to Marleni who stated patient already received Potassium chloride IV.
[2025-09-13 12:42] LABS: Albumin, Serum 4.3 gm/dL (3.4-4.8); Anion Gap 12 (7-16); BUN/Creatinine Ratio 11 Ratio (12-20); Blood Urea Nitrogen 17 mg/dL (9-23); Calcium 8.2 mg/dL (8.3-10.6); Calcium (Corrected) 8.2 mg/dL (8.5-10.1); Carbon Dioxide 21.9 mMol/L (20.0-31.0); Chloride 111 mMol/L (98-107); Creatinine (Component) 1.6 mg/dL (0.6-1.3); Estimated Creatinine Clearance 43.0 mL/min (>60); Glucose 110 mg/dL (74-106); Osmolality,Calculated 291 (275-295); Phosphorous 3.3 mg/dL (2.4-5.1); Potassium 3.4 mMol/L (3.4-5.1); Sodium 145 mMol/L (136-145); eGFR 46 See Note
[2025-09-13] MEDS: LIDOCAINE 1% W/EPI 1:100K 20 ML VIAL 4 ML INFL (14:05)
[2025-09-13] MEDS: LIDOCAINE INJ PF 1% 30 ML VIAL 4 ML INFL (14:05)
[2025-09-13] MEDS: fentaNYL CIT INJ 50 mCg/ML AMP 2ML IVP (14:06)
[2025-09-13] MEDS: HEPARIN SOD LOCK SYR 100 UNIT/ML 500 UNIT STFIELD (14:07)
--- NOTE | 2025-09-13 15:19 | PC.LAC ---
1433 patient is awake ,alert, breathing unlabored, s/p port placement, dressing to right chest dry with no bleeding, report given to Marleni GUIDRY, patient transferred back to room 368. Patient needs to return to [facility] radiology department to have jason removed in 10-11 days if patient is to be discharged. If patient still admitted, [facility] staff is to remove jason on 09/23/2025.
--- NOTE | 2025-09-13 15:56 | PC.SS ---
Rounding Note: EEG is pending. Possible d/c tomorrow.
[2025-09-13 16:30] LABS: Albumin, Serum 4.1 gm/dL (3.4-4.8); Anion Gap 15 (7-16); BUN/Creatinine Ratio 11 Ratio (12-20); Blood Urea Nitrogen 18 mg/dL (9-23); Calcium 8.0 mg/dL (8.3-10.6); Calcium (Corrected) 8.0 mg/dL (8.5-10.1); Carbon Dioxide 20.1 mMol/L (20.0-31.0); Chloride 111 mMol/L (98-107); Creatinine (Component) 1.6 mg/dL (0.6-1.3); Estimated Creatinine Clearance 43.0 mL/min (>60); Glucose 133 mg/dL (74-106); Osmolality,Calculated 294 (275-295); Phosphorous 3.6 mg/dL (2.4-5.1); Potassium 3.8 mMol/L (3.4-5.1); Sodium 146 mMol/L (136-145); eGFR 46 See Note
--- NOTE | 2025-09-13 18:34 | ESPR_ITS ---
<Statement entered by Leandro Mcneil MD - 09/13/25 18:49> I have reviewed the note and agree with the resident's assessment & plan with exceptions as below. I have personally reviewed labs, imaging, home meds/prior records, examined the patient, formulated and discussed management plan with my attending Patient was seen and examined at bedside this morning. No acute overnight events. Patient underwent Port-A-Cath placement today by IR. Patient's calcium has been stable, but his potassium was 2 point 9 in the morning therefore repleted and repeat renal function panel in the afternoon which showed improvement in potassium to 3.8. Patient was a lot more awake and alert today was AO x 2. On physical exam it was noted that patient did have left-sided tympanic membrane perforation and right-sided tympanic membrane was obscured by ear cerumen, but [place] appreciated slightly appear to be full. Patient's kidney function continues to improve. Possible discharge in the next 24 to 48 hours if okay by neurology after EEG is read and for his mastoiditis will likely transition him to p.o. antibiotics tomorrow. Otherwise no other complaints this time. Leandro Mcneil PGY2 Disclaimer: Even though this this note was dictated by speech recognition and even though it was carefully revised there may still be minor errors in rn production due to voice recognition software. Documentation for date of: 09/13/25 Subjective Subjective Interval history: Seen and examined at bedside today; no acute events overnight. Per family patient is more alert today and even yesterday evening; on physical exam he shows no ear pain on palpation. Awaiting EEG results. Exam Vital Signs Temp Pulse Resp BP Pulse Ox O2 Del Method O2 Flow Rate 97 F 60 16 135/77 H 99 Room Air 3 09/13/25 16:00 09/13/25 16:00 09/13/25 16:00 09/13/25 16:00 09/13/25 16:00 09/13/25 16:00 09/13/25 14:25 Narrative Exam General: A/O x3 (though not completely back to baseline), no acute distress, well-nourished, well-developed Eyes: PERRL, EOMI. Anicteric, vision grossly intact. Ears: hearing grossly intact; left tympanic membrane ruptured, right tympanic membrane swollen with significant amount of earwax upon otoscopy Nose: No nasal discharge. Mouth/Throat: Moist mucous membranes, no redness, no lesions. Neck: Neck supple, non-tender, no cervical lymphadenopathy. Lungs: Clear CECILIO to auscultation and percussion, No accessory muscle use. Cardio: Normal S1/S2, regular rhythm, no murmurs, no JVD or carotid bruits. Abdomen: Soft, non-tender, no palpable masses, peristalsis present, no guarding or rebound. Extremities: Symmetrical, no significant deformities, no peripheral edema , non-tender, peripheral pulses presents. Skin: No rashes, no lesions, warm to touch. Neuro: No focal neurological deficits. Psych: Cooperative, appropriate mood and effect. Objective Labs 09/14/25 10:03 09/14/25 10:03 Labs: Laboratory Results - last 24 hr 09/13/25 09/13/25 09/13/25 05:15 12:09 15:30 WBC 5.3 RBC 3.08 L Hgb 9.0 L Hct 25.2 L MCV 82 MCH 29.2 MCHC 35.7 RDW Std Deviation 37.6 Plt Count 252 Neut % (Auto) 55 Lymph % (Auto) 35 [place] % (Auto) 7 Eos % (Auto) 3 Baso % (Auto) 0 Neut # (Auto) 2.9 Lymph # (Auto) 1.8 [place] # (Auto) 0.4 Eos # (Auto) 0.2 Baso # (Auto) 0.0 Immature Gran # (Auto) 0.02 H Absolute Nucleated RBC 0.00 Immature Gran % 0 Nucleated RBC % 0 PT 10.3 INR 1.0 APTT 29.9 Sodium 143 145 146 H Potassium 2.9 L 3.4 D 3.8 Chloride 111 H 111 H 111 H Carbon Dioxide 22.0 21.9 20.1 Anion Gap 10 12 15 BUN 19 17 18 Creatinine 1.7 H 1.6 H 1.6 H Estim Creat Clear Calc 40.4 L 43.0 L 43.0 L eGFR 43 L 46 L 46 L BUN/Creatinine Ratio 11 L 11 L 11 L Glucose 121 H 110 H 133 H Calculated Osmolality 288 291 294 Calcium 8.4 8.2 L 8.0 L Corrected Calcium 8.6 8.2 L 8.0 L Phosphorus 2.8 3.3 3.6 Magnesium 1.8 Total Bilirubin 0.5 AST 26 ALT 10 Alkaline Phosphatase 79 Total Protein 6.2 Albumin 3.8 4.3 D 4.1 Globulin 2.4 Albumin/Globulin Ratio 1.6 Quality Measures Quality Measures none Advance care planning discussed with:: other Assessment & Plan Assessment Current Active Medications: Generic Name Dose Route Start Last Admin Trade Name Freq PRN Reason Stop Dose Admin Acetaminophen 650 mg 09/07/25 20:07 Acetaminophen 325 Mg Tablet PO 10/07/25 20:06 Q6H PRN Fever >100.3 Acetaminophen 650 mg 09/07/25 20:07 Acetaminophen 325 Mg Tablet PO 10/07/25 20:06 Q6H PRN PAIN SCALE 1-3 (mild Amlodipine Besylate 2.5 mg 09/08/25 09:00 09/13/25 08:03 Amlodipine Besylate 2.5 Mg Tablet PO 10/08/25 08:59 2.5 mg QDAY ADRIAN Administration Atorvastatin Calcium 20 mg 09/07/25 21:00 09/12/25 22:51 Atorvastatin Calcium 20 Mg Tablet PO 10/07/25 20:59 20 mg HS ADRIAN Administration Bicalutamide 50 mg 09/08/25 11:00 09/10/25 08:19 Bicalutamide 50 Mg Tablet PO 10/08/25 10:59 50 mg On Hold: 09/10/25 11:25 QDAY ADRIAN Administration Enzalutamide 80mg ( 0 ea 09/08/25 09:15 09/10/25 08:19 Xtandi) Tablet PO 10/08/25 09:14 2 tablet On Hold: 09/10/25 11:11 QDAY ADRIAN Administration Protocol Dextrose 25 ml 09/07/25 20:13 Dextrose 50%-Water Inj 50 Ml Syringe IV 10/07/25 20:12 Q15MIN PRN BG 50-70 responsive npo pt Dextrose 50 ml 09/07/25 20:13 Dextrose 50%-Water Inj 50 Ml Syringe IV 10/07/25 20:12 Q15MIN PRN BG <50 OR BG <70 & pt unresponsive Fluconazole 200 mg 09/08/25 09:00 09/13/25 08:03 Fluconazole 100 Mg Tablet PO 09/15/25 08:59 200 mg BID ADRIAN Administration Fludrocortisone Acetate 0.1 mg 09/08/25 09:00 09/13/25 08:03 Fludrocortisone Acetate 0.1 Mg Tablet PO 10/08/25 08:59 0.1 mg QDAY ADRIAN Administration Glucagon 1 mg 09/07/25 20:13 Glucagon Inj 1 Mg Vial IM Q15MIN PRN BG <70, and no IV access Heparin Sodium (Porcine) 5,000 unit 09/07/25 22:00 09/13/25 15:10 Heparin Sod Inj 5000 Unit/Ml Vial SC 09/21/25 21:59 Not Given Q8HR [facility]RIAN Hydrocortisone 5 mg 09/08/25 14:00 09/13/25 15:25 Hydrocortisone 5 Mg Tablet PO 10/08/25 13:59 5 mg TID ADRIAN Administration Sodium Chloride 1,000 mls @ 150 mls/hr 09/10/25 08:38 09/13/25 18:04 Ns IV 10/10/25 08:37 Not Given .Q6H40M ADRIAN Metronidazole 500 mg in 100 mls @ 200 mls/hr 09/12/25 17:58 09/13/25 15:25 Flagyl 500 Mg Iv IV 09/19/25 17:57 200 mls/hr Q8HR ADRIAN Administration Ceftazidime 1 gm/ Sodium 50 mls @ 100 mls/hr 09/12/25 18:15 09/13/25 08:00 Chloride IV 09/19/25 18:14 100 mls/hr Q12HR ADRIAN Administration Vancomycin/Sodium Chloride 200 mls @ 120 mls/hr 09/13/25 22:00 Vancomycin/Ns 1 Gm Ivpb IV 09/20/25 21:59 Q24H [facility] Protocol Insulin Human Lispro 0 unit 09/08/25 07:30 09/13/25 17:00 Insulin Lispro (Admelog) 1 Unit/0.01 Ml Unit SC 10/08/25 07:29 Not Given AC [facility] Protocol Ondansetron HCl 4 mg 09/07/25 20:07 09/08/25 12:29 Ondansetron Inj 2 Mg/Ml Inj 2 Ml IVP 10/07/25 20:06 4 mg Q6H PRN Administration NAUSEA OR VOMITING Protocol Pharmacy Consult 1 each 09/13/25 06:48 Vancomycin Pharmacy To Dose 1 Each Each IV 10/12/25 17:59 QDAY PRN PROTOCOL Sennosides 1 tab 09/07/25 20:10 09/13/25 08:03 Senna/Docusate Sod 1 Tab Tablet PO 10/07/25 20:09 1 tab QDAY PRN Administration CONSTIPATION Protocol Thiamine HCl 100 mg 09/12/25 09:00 09/13/25 08:03 Thiamine 100 Mg Tablet PO 10/12/25 08:59 100 mg QDAY ADRIAN Administration Plan Patient is a 69 M with PMH 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 Admitted for hypercalcemia. #Acute encephalopathy, likely toxic metabolic in setting of electrolyte imbalances, improving #Hypercalcemia secondary to #Stage IVb prostate cancer with widespread bony metastases & abdominal/pelvic lymphadenopathy #c/f Adrenal insufficiency 2/2 metastases Presents with fatigue, generalized weakness, myalgia. A&Ox1 Underwent right adrenal biopsy 09/06 due to c/f adrenal mets. On previous hospitalization, cortisol WNL, hyponatremia Given 1L NS in ED Home meds: Lupron, Xtandi (non-formulary), Casodex Follows with Dr. yMers (oncology), Dr. Contreras (urology) Calcium- 8.2 today from 14.6 on presentation Ammonia less than 10, B12 1142, folate 17.65, syphilis nonreactive MRI showed no mass lesions, hemorrhage, or midline shift Ddx: partially due to tumor progression improved from attended to ANO x 1; however as patient is ANO x 3 at baseline, we are exploring other potential causes. Plan: - Zoledronic acid 4 mg IV x1; completed course of 48 hours of calcitonin 320 units q12h - Trend calcium daily - Acetaminophen 650 mg PO q6h PRN, [place] 5/325 mg q4h PO PRN - Fludrocortisone 0.1 mg PO daily - IV thiamine - Neurology following closely, appreciate recommendations, awaiting EEG results - Hold Casodex and Xtandi for now # Hypokalemia # Hypophosphatemia Potassium 2.7 and phosphate 2.1 on 09/10/2025; potassium was 3.8 and phosphate was 3.6 on 09/12/2025 Plan: - monitor and replete as needed # EVARISTO on CKD stage III Creatinine 2.1 on 09/07/25; creatinine 1.[address] Paige Tse in [place] (nephrology) Myeloma workup being pursued outpatient Plan: - Avoid nephrotoxins and NSAIDs - Adjust medication dosing for renal function - Strict I&Os - Patient on 150 cc/h of normal saline - continue to monitor closely #Mastoiditis Patient reports right-sided pain behind the ear and around cheek; MRI shows bilateral mastoiditis. Neurology not concerned about mastoiditis as he did not have symptoms when she examined him. Plan: Metronidazole, vancomycin, and ceftazidime started for empiric Pseudomonas coverage Outpatient ENT follow-up #UTI, ruled out #Chronic indwelling olson catheter Denies urinary symptoms UA 249 WBC, 1+ bacteria on 09/07/25. Previous Ucx (08/08/25) grew Citrobacter and Enterobacter. Exchanged olson catheter in ED Plan: - Urine culture came back negative, antibiotics discontinued #Hx coccidioidomycosis Coccidiodies IgG positive, IgM negative 03/17/25 Plan: - Fluconazole 200 mg PO BID #HTN #HLD #T2DM BP 09/08/25 12:00- 95/75, HR 93 ; Metformin 1000 mg PO BID at home Plan: Atorvastatin 20 mg PO QHS Amlodipine 2.5 mg PO daily Insulin sliding scale step 1 Disposition: MedSur for close monitoring of electrolytes, mentation DVT prophylaxis: Heparin sc Q8H GI prophylaxis: Diet: Renal plus Glucerna shake Lines: PIV CODE STATUS: Full code This case was discussed with my attending physician, Dr. Aquino, and senior resident, Dr. Magana. Tyron England MD-PhD, PGY1 Attending Provider Attestation/Addendum I have seen and examined the patient. I was physically present for the cordova portions of the services provided including history, physical exam, diagnosis, treatment plans and orders. I agree with assessment and plan of care as documented by residents. Patient seen and examined at bedside this morning. No acute overnight events. Continues to have improved mentation, appears more alert, oriented x 3 but still not back at his baseline as per the family. Was able to answer questions and follow commands appropriately. Denies any new complaints. Otoscopic examination showed left-sided tympanic membrane comparison and discharge in left ear canal, right ear could not be visualized well due to ear cerumen. We will continue with IV vancomycin, ceftazidime and metronidazole empirically for mastoiditis. Patient will need outpatient ENT follow-up. Kidney function continues to improve, we will encourage oral intake and continue to monitor closely. Patient underwent Port-A-Cath placement with IR. Awaiting EEG results. Even though this this note was carefully revised there may still be minor errors in rn production due to voice recognition software. Sagar Aquino MD
[2025-09-13] MEDS: VANCOMYCIN/NS 1 GM IVPB 200 ML IV (21:59)
[2025-09-13] MEDS: ATORVASTATIN CALCIUM 20 MG TABLET PO (22:41)
[2025-09-13] MEDS: HEPARIN SOD INJ 5000 UNIT/ML VIAL SC (22:43)
[2025-09-14] VITALS (7 sets, daily range): BP systolic 118–140; BP diastolic 61–90; PULSE 66–76; RESP 15–18; TEMP 36.2–36.8; O2SAT 97–99; BMI 23.6
[2025-09-14] MEDS: metroNIDAZOLE/NS 500 MG IVPB 500 MG/100 ML BAG 200 MG IV ×3 (05:45→21:56)
[2025-09-14] MEDS: HYDROCORTISONE 5 MG TABLET PO ×3 (05:47→21:43)
[2025-09-14] MEDS: HEPARIN SOD INJ 5000 UNIT/ML VIAL SC ×3 (05:48→22:03)
[2025-09-14] MEDS: SODIUM CHLORIDE 0.9% IV ×2 (08:41→21:46)
[2025-09-14] MEDS: FLUDROCORTISONE ACETATE 0.1 MG TABLET PO (08:41)
[2025-09-14] MEDS: CEFTAZIDIME IV ×2 (08:41→21:46)
[2025-09-14] MEDS: SODIUM CHLORIDE 0.9% 1000 ML 1,000 ML 150 ML IV ×2 (08:41→14:31)
[2025-09-14] MEDS: FLUCONAZOLE 100 MG TABLET 200 MG PO ×2 (08:41→21:43)
[2025-09-14] MEDS: THIAMINE 100 MG TABLET PO (08:41)
[2025-09-14 10:29] LABS: Basophils # (Auto) 0.0 Thou/mm3 (0.0-0.2); Basophils % (Auto) 0 % (0-2.5); Eosinophils # (Auto) 0.1 Thou/mm3 (0.0-0.5); Eosinophils % (Auto) 2 % (0-10); Hematocrit 24.0 % (41.0-53.0); Immature Granulocytes Auto 0.01 Thou/mm3 (0.00-0.00); Lymphocytes # (Auto) 1.5 Thou/mm3 (1.0-4.8); Lymphocytes % (Auto) 32 % (10-50); Mean Corpuscular HGB Conc 35.8 g/dl (31.0-37.0); Mean Corpuscular Hemoglobin 29.8 pg (25.0-35.0); Mean Corpuscular Volume 83 fL (80-100); Monocytes # (Auto) 0.4 Thou/mm3 (0.0-0.8); Monocytes % (Auto) 8 % (0-12); Neutrophils # (Auto) 2.7 Thou/mm3 (1.8-7.7); Neutrophils % (Auto) 58 % (37-80); Nucleated Red Blood Cell # 0.00 Thou/mm3 (0.00-0.00); Nucleated Red Blood Cell % 0 /100 WBC (0); Platelet Count 247 Thou/mm3 (140-440); RDW Standard Deviation 38.8 fL (35.1-43.9); Red Blood Count 2.89 Miln/mm3 (4.50-5.90); White Blood Count 4.7 Thou/mm3 (3.8-10.6)
[2025-09-14 10:35] LABS: Hemoglobin 8.6 g/dL (13.5-16.0)
[2025-09-14 10:50] LABS: Alanine Aminotransferase 14 U/L (10-49); Albumin, Serum 3.9 gm/dL (3.4-4.8); Albumin/Globulin Ratio 1.8 (1.2-2.2); Alkaline Phosphatase 81 U/L (46-116); Anion Gap 12 (7-16); Aspartate Amino Transferase 33 U/L (0-34); BUN/Creatinine Ratio 12 Ratio (12-20); Bilirubin,Total 0.4 mg/dL (0.3-1.2); Blood Urea Nitrogen 18 mg/dL (9-23); Calcium 7.5 mg/dL (8.3-10.6); Calcium (Corrected) 7.6 mg/dL (8.5-10.1); Carbon Dioxide 21.8 mMol/L (20.0-31.0); Chloride 109 mMol/L (98-107); Creatinine (Component) 1.5 mg/dL (0.6-1.3); Estimated Creatinine Clearance 45.8 mL/min (>60); Globulin 2.2 gm/dL (2.3-3.5); Glucose 167 mg/dL (74-106); Osmolality,Calculated 290 (275-295); Potassium 2.8 mMol/L (3.4-5.1); Sodium 143 mMol/L (136-145); Total Protein 6.1 gm/dL (5.7-8.2); eGFR 50 See Note
[2025-09-14] MEDS: CALCIUM CARBONATE 600 MG TABLET PO (12:40)
[2025-09-14] MEDS: POTASSIUM CHL 10 mEq IVPB 10 MEQ/100 ML BAG 100 MEQ IV ×4 (12:40→16:43)
--- NOTE | 2025-09-14 15:36 | PC.SS ---
rounding note; Patient will d/c today with services
--- NOTE | 2025-09-14 15:43 | ESPR_ITS ---
Documentation for date of: 09/14/25 Subjective Subjective Interval history: Patient was seen and examined at bedside this morning. No acute overnight events. Patient has not had bowel movements since day 11, but has been passing gas. Will give patient magnesium citrate x 1 and will also give patient Dulcolax x 1. If this does not help we will likely give patient a suppository or enema tomorrow. Patient is potassium again was 2.8 gave 40 mill equivalents of IV potassium. Will likely transition to p.o. antibiotics on discharge for patient's mastoiditis. Got port a cath placed yesterday. Otherwise no other complaints at this time. Exam Vital Signs Temp Pulse Resp BP Pulse Ox O2 Del Method O2 Flow Rate 97.5 F 66 15 140/76 H 98 Room Air 3 09/14/25 12:00 09/14/25 12:00 09/14/25 12:00 09/14/25 12:00 09/14/25 12:00 09/14/25 12:00 09/13/25 14:25 Narrative Exam General: A/O x3, no acute distress, ill appearing Eyes: PERRL, EOMI. Anicteric, vision grossly intact. Ears: No ear pain, no ear discharge, Hearing grossly intact. left tympanic membrane ruptured, right tympanic membrane swollen with significant amount of earwax upon otoscopy Nose: No nasal discharge. Mouth/Throat: Moist mucous membranes, no redness, no lesions. Neck: Neck supple, non-tender, no cervical lymphadenopathy. Lungs: Clear CECILIO to auscultation and percussion, No accessory muscle use. Cardio: Normal S1/S2, regular rhythm, no murmurs, no JVD Abdomen: Soft, non-tender, no palpable masses, peristalsis present, no guarding or rebound. Extremities: Symmetrical, no significant deformities, no peripheral edema , non-tender, peripheral pulses presents. Skin: No rashes, no lesions, warm to touch. Port a cath in R side chest Neuro: No focal neurological deficits. motor and sensory intact Psych: Cooperative, appropriate mood and effect. Objective Labs 09/14/25 10:03 09/14/25 10:03 Labs: Laboratory Results - last 24 hr 09/13/25 09/14/25 15:30 10:03 WBC 4.7 RBC 2.89 L Hgb 8.6 L Hct 24.0 L MCV 83 MCH 29.8 MCHC 35.8 RDW Std Deviation 38.8 Plt Count 247 Neut % (Auto) 58 Lymph % (Auto) 32 [place] % (Auto) 8 Eos % (Auto) 2 Baso % (Auto) 0 Neut # (Auto) 2.7 Lymph # (Auto) 1.5 [place] # (Auto) 0.4 Eos # (Auto) 0.1 Baso # (Auto) 0.0 Immature Gran # (Auto) 0.01 H Absolute Nucleated RBC 0.00 Immature Gran % 0 Nucleated RBC % 0 Sodium 146 H 143 Potassium 3.8 2.8 L D Chloride 111 H 109 H Carbon Dioxide 20.1 21.8 Anion Gap 15 12 BUN 18 18 Creatinine 1.6 H 1.5 H Estim Creat Clear Calc 43.0 L 45.8 L eGFR 46 L 50 L BUN/Creatinine Ratio 11 L 12 Glucose 133 H 167 H Calculated Osmolality 294 290 Calcium 8.0 L 7.5 L Corrected Calcium 8.0 L 7.6 L Phosphorus 3.6 Total Bilirubin 0.4 AST 33 ALT 14 Alkaline Phosphatase 81 Total Protein 6.1 Albumin 4.1 3.9 Globulin 2.2 L Albumin/Globulin Ratio 1.8 Quality Measures Quality Measures none Advance care planning discussed with:: patient, spouse and child Assessment & Plan Assessment Current Active Medications: Generic Name Dose Route Start Last Admin Trade Name Freq PRN Reason Stop Dose Admin Acetaminophen 650 mg 09/07/25 20:07 Acetaminophen 325 Mg Tablet PO 10/07/25 20:06 Q6H PRN Fever >100.3 Acetaminophen 650 mg 09/07/25 20:07 Acetaminophen 325 Mg Tablet PO 10/07/25 20:06 Q6H PRN PAIN SCALE 1-3 (mild Amlodipine Besylate 2.5 mg 09/08/25 09:00 09/14/25 08:41 Amlodipine Besylate 2.5 Mg Tablet PO 10/08/25 08:59 2.5 mg QDAY ADRIAN Administration Atorvastatin Calcium 20 mg 09/07/25 21:00 09/13/25 22:41 Atorvastatin Calcium 20 Mg Tablet PO 10/07/25 20:59 20 mg HS ADRIAN Administration Bicalutamide 50 mg 09/08/25 11:00 09/10/25 08:19 Bicalutamide 50 Mg Tablet PO 10/08/25 10:59 50 mg On Hold: 09/10/25 11:25 QDAY ADRIAN Administration Enzalutamide 80mg ( 0 ea 09/08/25 09:15 09/10/25 08:19 Xtandi) Tablet PO 10/08/25 09:14 2 tablet On Hold: 09/10/25 11:11 QDAY ADRIAN Administration Protocol Dextrose 25 ml 09/07/25 20:13 Dextrose 50%-Water Inj 50 Ml Syringe IV 10/07/25 20:12 Q15MIN PRN BG 50-70 responsive npo pt Dextrose 50 ml 09/07/25 20:13 Dextrose 50%-Water Inj 50 Ml Syringe IV 10/07/25 20:12 Q15MIN PRN BG <50 OR BG <70 & pt unresponsive Fluconazole 200 mg 09/08/25 09:00 09/14/25 08:41 Fluconazole 100 Mg Tablet PO 09/15/25 08:59 200 mg BID ADRIAN Administration Fludrocortisone Acetate 0.1 mg 09/08/25 09:00 09/14/25 08:41 Fludrocortisone Acetate 0.1 Mg Tablet PO 10/08/25 08:59 0.1 mg QDAY ADRIAN Administration Glucagon 1 mg 09/07/25 20:13 Glucagon Inj 1 Mg Vial IM Q15MIN PRN BG <70, and no IV access Heparin Sodium (Porcine) 5,000 unit 09/07/25 22:00 09/14/25 14:02 Heparin Sod Inj 5000 Unit/Ml Vial SC 09/21/25 21:59 5,000 unit Q8HR ADRIAN Administration Hydrocortisone 5 mg 09/08/25 14:00 09/14/25 14:27 Hydrocortisone 5 Mg Tablet PO 10/08/25 13:59 5 mg TID ADRIAN Administration Sodium Chloride 1,000 mls @ 150 mls/hr 09/10/25 08:38 09/14/25 14:31 Ns IV 10/10/25 08:37 150 mls/hr .Q6H40M ADRIAN Administration Metronidazole 500 mg in 100 mls @ 200 mls/hr 09/12/25 17:58 09/14/25 14:00 Flagyl 500 Mg Iv IV 09/19/25 17:57 200 mls/hr Q8HR [facility]RIAN Administration Ceftazidime 1 gm/ Sodium 50 mls @ 100 mls/hr 09/12/25 18:15 09/14/25 08:41 Chloride IV 09/19/25 18:14 100 mls/hr Q12HR ADRIAN Administration Vancomycin/Sodium Chloride 200 mls @ 120 mls/hr 09/13/25 22:00 09/13/25 21:59 Vancomycin/Ns 1 Gm Ivpb IV 09/20/25 21:59 120 mls/hr Q24H ADRIAN Administration Protocol Potassium Chloride 10 meq in 100 mls @ 100 mls/hr 09/14/25 12:05 09/14/25 15:33 Kcl Ivpb IV 09/14/25 16:04 100 mls/hr Q1H ADRIAN Administration Insulin Human Lispro 0 unit 09/08/25 07:30 09/14/25 12:39 Insulin Lispro (Admelog) 1 Unit/0.01 Ml Unit SC 10/08/25 07:29 Not Given AC [facility] Protocol Ondansetron HCl 4 mg 09/07/25 20:07 09/08/25 12:29 Ondansetron Inj 2 Mg/Ml Inj 2 Ml IVP 10/07/25 20:06 4 mg Q6H PRN Administration NAUSEA OR VOMITING Protocol Pharmacy Consult 1 each 09/13/25 06:48 Vancomycin Pharmacy To Dose 1 Each Each IV 10/12/25 17:59 QDAY PRN PROTOCOL Sennosides 1 tab 09/07/25 20:10 09/13/25 08:03 Senna/Docusate Sod 1 Tab Tablet PO 10/07/25 20:09 1 tab QDAY PRN Administration CONSTIPATION Protocol Thiamine HCl 100 mg 09/12/25 09:00 09/14/25 08:41 Thiamine 100 Mg Tablet PO 10/12/25 08:59 100 mg QDAY ADRIAN Administration Plan Patient is a 69 M with PMH 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 Admitted for hypercalcemia. #Acute encephalopathy, likely toxic metabolic in setting of electrolyte imbalances, improving #Hypercalcemia secondary to #Stage IVb prostate cancer with widespread bony metastases & abdominal/pelvic lymphadenopathy #c/f Adrenal insufficiency 2/2 metastases Presents with fatigue, generalized weakness, myalgia. A&Ox1 Underwent right adrenal biopsy 09/06 due to c/f adrenal mets. On previous hospitalization, cortisol WNL, hyponatremia Given 1L NS in ED Home meds: Lupron, Xtandi (non-formulary), Casodex Follows with Dr. Myers (oncology), Dr. Contreras (urology) Calcium- 8.2 today from 14.6 on presentation Ammonia less than 10, B12 1142, folate 17.65, syphilis nonreactive MRI showed no mass lesions, hemorrhage, or midline shift Ddx: partially due to tumor progression improved from attended to ANO x 1; however as patient is ANO x 3 at baseline, we are exploring other potential causes. Plan: - Zoledronic acid 4 mg IV x1; completed course of 48 hours of calcitonin 320 units q12h - Trend calcium daily - Acetaminophen 650 mg PO q6h PRN, [place] 5/325 mg q4h PO PRN - Fludrocortisone 0.1 mg PO daily - IV thiamine - Underwent EEG, discussed with neurology, negative for seizure activity but will need further outpatient EEG - Hold Casodex and Xtandi for now # Hypokalemia # Hypophosphatemia Potassium 2.7 and phosphate 2.1 on 09/10/2025, today again 2.8 Plan: 40 meq Iv potassium - monitor and replete as needed # EVARISTO on CKD stage III Creatinine 2.1 on 09/07/25; creatinine 1.[address] Paige Tse in [place] (nephrology) Myeloma workup being pursued outpatient Plan: - Avoid nephrotoxins and NSAIDs - Adjust medication dosing for renal function - Strict I&Os - continue to monitor closely #Mastoiditis Patient reports right-sided pain behind the ear and around cheek; MRI shows bilateral mastoiditis. Neurology not concerned about mastoiditis as he did not have symptoms when she examined him. Plan: Metronidazole, vancomycin, and ceftazidime started for empiric Pseudomonas coverage Transition to PO on discharge #UTI, ruled out #Chronic indwelling olson catheter Denies urinary symptoms UA 249 WBC, 1+ bacteria on 09/07/25. Previous Ucx (08/08/25) grew Citrobacter and Enterobacter. Exchanged olson catheter in ED Plan: - Urine culture came back negative, antibiotics discontinued #Hx coccidioidomycosis Coccidiodies IgG positive, IgM negative 03/17/25 Plan: - Fluconazole 200 mg PO BID #HTN #HLD #T2DM BP 09/08/25 12:00- 95/75, HR 93 ; Metformin 1000 mg PO BID at home Plan: Atorvastatin 20 mg PO QHS Amlodipine 2.5 mg PO daily Insulin sliding scale step 1 Disposition: Pending BM and EEG results DVT prophylaxis: Heparin sc Q8H GI prophylaxis: Diet: Renal plus Glucerna shake Lines: PIV CODE STATUS: Full code Case disclosed with Attending Dr. Miles Mcneil PGY2 Disclaimer: Even though this this note was dictated by speech recognition and even though it was carefully revised there may still be minor errors in cook enchilada due to voice recognition software. Attending Provider Attestation/Addendum I have seen and examined the patient. I was physically present for the cordova portions of the services provided including history, physical exam, diagnosis, treatment plans and orders. I agree with assessment and plan of care as documented by residents. Patient seen and examined at bedside this morning. No acute overnight events. Mentation continues to improve, alert and oriented, able to answer question and follow command appropriately. Family stated, patient no longer has hallucinations. Noted to have potassium of 2.8, repleted accordingly. Discussed with neurology regarding EEG finding, stated EEG did not show any seizures but was abnormal and will need follow-up EEG outpatient, appreciate recommendations. Had bowel movement throughout the hospital stay, we will start him on bowel regimen and monitor for bowel movements closely. Anticipate discharge in next 24 to 48 hours if remains stable. Even though this this note was carefully revised there may still be minor errors in cook enchilada due to voice recognition software. Sagar Aquino MD
[2025-09-14] MEDS: MAGNESIUM CITRATE 300 ML BTL PO (16:42)
[2025-09-14] MEDS: ATORVASTATIN CALCIUM 20 MG TABLET PO (21:43)
[2025-09-14] MEDS: VANCOMYCIN/NS 1 GM IVPB 200 ML IV (21:50)
[2025-09-15] VITALS: BP 143/80; PULSE 74; RESP 17; TEMP 36.8; O2SAT 99
[2025-09-15] MEDS: SODIUM CHLORIDE 0.9% 1000 ML 1,000 ML 150 ML IV ×3 (02:12→08:54)
[2025-09-15 04:00] VITALS: BP 144/81; PULSE 76; RESP 16; TEMP 36.8; O2SAT 97
[2025-09-15] MEDS: metroNIDAZOLE/NS 500 MG IVPB 500 MG/100 ML BAG 200 MG IV (05:15)
[2025-09-15] MEDS: HEPARIN SOD INJ 5000 UNIT/ML VIAL SC ×2 (05:17→15:38)
[2025-09-15] MEDS: HYDROCORTISONE 5 MG TABLET PO (05:18)
[2025-09-15 06:04] LABS: Basophils # (Auto) 0.0 Thou/mm3 (0.0-0.2); Basophils % (Auto) 0 % (0-2.5); Eosinophils # (Auto) 0.2 Thou/mm3 (0.0-0.5); Eosinophils % (Auto) 3 % (0-10); Hematocrit 25.1 % (41.0-53.0); Hemoglobin 8.9 g/dL (13.5-16.0); Immature Granulocytes Auto 0.02 Thou/mm3 (0.00-0.00); Lymphocytes # (Auto) 1.9 Thou/mm3 (1.0-4.8); Lymphocytes % (Auto) 32 % (10-50); Mean Corpuscular HGB Conc 35.5 g/dl (31.0-37.0); Mean Corpuscular Hemoglobin 29.5 pg (25.0-35.0); Mean Corpuscular Volume 83 fL (80-100); Monocytes # (Auto) 0.5 Thou/mm3 (0.0-0.8); Monocytes % (Auto) 9 % (0-12); Neutrophils # (Auto) 3.5 Thou/mm3 (1.8-7.7); Neutrophils % (Auto) 57 % (37-80); Nucleated Red Blood Cell # 0.00 Thou/mm3 (0.00-0.00); Nucleated Red Blood Cell % 0 /100 WBC (0); Platelet Count 283 Thou/mm3 (140-440); RDW Standard Deviation 39.0 fL (35.1-43.9); Red Blood Count 3.02 Miln/mm3 (4.50-5.90); White Blood Count 6.1 Thou/mm3 (3.8-10.6)
[2025-09-15 06:21] LABS: Alanine Aminotransferase 18 U/L (10-49); Albumin, Serum 4.1 gm/dL (3.4-4.8); Albumin/Globulin Ratio 1.6 (1.2-2.2); Alkaline Phosphatase 85 U/L (46-116); Anion Gap 12 (7-16); Aspartate Amino Transferase 39 U/L (0-34); BUN/Creatinine Ratio 11 Ratio (12-20); Bilirubin,Total 0.5 mg/dL (0.3-1.2); Blood Urea Nitrogen 15 mg/dL (9-23); Calcium 7.9 mg/dL (8.3-10.6); Calcium (Corrected) 7.9 mg/dL (8.5-10.1); Carbon Dioxide 23.6 mMol/L (20.0-31.0); Chloride 110 mMol/L (98-107); Creatinine (Component) 1.4 mg/dL (0.6-1.3); Estimated Creatinine Clearance 49.1 mL/min (>60); Globulin 2.6 gm/dL (2.3-3.5); Glucose 122 mg/dL (74-106); Osmolality,Calculated 292 (275-295); Potassium 3.0 mMol/L (3.4-5.1); Sodium 146 mMol/L (136-145); Total Protein 6.7 gm/dL (5.7-8.2); eGFR 54 See Note
[2025-09-15 08:00] VITALS: BP 136/78; PULSE 72; RESP 16; TEMP 36.4; O2SAT 98
[2025-09-15 08:11] VITALS: BP 137/78; PULSE 65
[2025-09-15] MEDS: THIAMINE 100 MG TABLET PO (08:11)
[2025-09-15] MEDS: SODIUM CHLORIDE 0.9% IV (08:12)
[2025-09-15] MEDS: CEFTAZIDIME IV (08:12)
[2025-09-15] MEDS: FLUDROCORTISONE ACETATE 0.1 MG TABLET PO (08:12)
[2025-09-15 11:56] VITALS: BP 127/88; PULSE 70; RESP 24; TEMP 36.4; O2SAT 99
--- NOTE | 2025-09-15 13:24 | ESDS_ITS ---
<Statement entered by Leandro Mcneil MD - 09/15/25 19:58> I have reviewed the note and agree with the resident's assessment & plan with exceptions as below. I have personally reviewed labs, imaging, home meds/prior records, examined the patient, formulated and discussed management plan with my attending Leandro Mcneil PGY2 Disclaimer: Even though this this note was dictated by speech recognition and even though it was carefully revised there may still be minor errors in surgical aides teacher due to voice recognition software. Planned Discharge Date 09/15/25 DS: Providers Provider Date of admission: 09/07/25 20:07 Primary care physician: Physician No Primary/Family Admitting Provider: Spike Vick MD Attending Provider on Admission: Sagar Aquino MD Consults: 09/10/25 08:39 Referral Physical Therapy Routine Comment: Physician Instructions: 09/10/25 11:12 Consult to Neurology / Tele-Neurology Routine Comment: Acute encephalopathy Consulting Provider: Nils Thompson Attending Provider on DC: Sagar Aquino MD Discharging Provider: Sgaar Aquino MD DS: Diagnosis Problem List Completed Was Problem List Reviewed/Reconciled?: Yes Hospital Course Hospital Course Hospital course: Hospital Course: Patient is a 69 y/o male with PMH 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 On 09/08/2025, patient's calcium was lower at 14.1 post zoledronic acid and 1 L IV fluids, but was still ANO x 1; additional 1 L IV fluids with 320 units calcitonin subcu every 12 hours were added . On 09/09/2025 patient was still ANO x 1, calcium improved to 12.4. On 09/10/2025 patient was still ANO x 1 despite calcium being 11.2; neurology consultation was obtained and patient was started on thiamine. On 09/11/2025, calcium was 9.8, but patient was still ANO x 1. On 09/12/2025, patient was still ANO x 1 and potentially had hallucinations per family; neurology recommended getting MRI and EEG. MRI showed bilateral mastoiditis, and had right ear pain; metronidazole, vancomycin, ceftazidime initiated. On 09/13/2025, Port-A-Cath was placed for chemotherapy for prostate cancer. Patient was much more alert, ANO x 2; left tympanic membrane was shown to be perforated with right tympanic membrane to be inflamed with significant amount of earwax. On 09/14/2025, patient was ANO x 3, but had not had a bowel movement since before admission. On 09/15/2025, patient and nursing was noted by family to have had a significant bowel movement overnight, and he was considered sufficiently stable for discharge. Discharge Instructions: Please follow-up with primary care physician within 2 to 3 days upon discharge Please follow-up with your oncologist within 5 days upon discharge Please follow-up with your seat joiner chainstitch within 5 days upon discharge Recommend outpatient follow-up with ENT specialist for evaluation of mastoiditis. Please call your oncologist to follow-up if you should continue holding your cancer medication or you can continue them. Recommend maintaining proper hydration. We have started you on amlodipine 2.5 mg daily, Augmentin and Doxycycline twice daily for 10 more days, atorvastatin 20 mg at bedtime. We have held your bicalutamide and Xtandi until you follow up with your oncologist Come back to the ER symptoms persist or worsen. Problem List: #Acute encephalopathy, likely toxic metabolic in setting of electrolyte imbalances, improving #Hypercalcemia secondary to #Stage IVb prostate cancer with widespread bony metastases & abdominal/pelvic lymphadenopathy #c/f Adrenal insufficiency 2/2 metastases # Hypokalemia # Hypophosphatemia # EVARISTO on CKD stage III #Mastoiditis #UTI, ruled out #Chronic indwelling olson catheter #Hx coccidioidomycosis #HTN #HLD #T2DM Status at Discharge Overall status at discharge: patient is progressing back to baseline Time Spent with Patient Time attestation: Total time spent providing and/or coordinating discharge services: 45 min Time spent: Greater than 30 minutes Home Health Home Health Referral Orders: 09/14/25 14:52 Home Health Referral Routine Reason For Exam: Acute encephalopathy Home-Bound The patient must either because of illness or injury, need the aid of supportive devices such as crutches, canes, wheelchairs, and walkers; the use of special transportation; or the assistance of another person in order to leave their place of residence; OR have a condition such that leaving his or her home is medically contraindicated. In addition, the patient also meets the following criteria: patient is normally unable to leave the home and leaving home requires considerable taxing effort. Addendum to Home Health Certification Practitioner's Certification: I certify that the patient has been under my care in the hospital and the care of attending physician (see below). We had a [id number] encounter on (see date below). My clinical findings indicate that the patient is home bound per the above criteria and the Home Health Services noted in these orders are medically necessary. The primary reason for the [id number] encounter is related to the fact that the patient requires home health services. Date Certifying [id number] Physician Encounter: 09/07/25 Physician's Name who will Assume Oversight for HH Services: Physician No Primary/Family IMPORT/EXPORT CLERK - Community Resources: No PT to Evaluate: Yes PT to evaluate and provide a treatmnet plan to increase patient's mobility and strength. Wound Care: No IV Therapy: No RN Safety Evaluation: Yes RN to evaluate and create a plan of care that will produce positive outcomes. Palliative Treatment: No Palliative treatment and evaluate the need for hospice. Home Health Aide - Personal Care: No Home Health Aide to assist with any ADL's. Exam Vital Signs Temp Pulse Resp BP Pulse Ox O2 Del Method O2 Flow Rate 97.5 F 70 24 H 127/88 H 99 Room Air 3 09/15/25 11:56 09/15/25 11:56 09/15/25 11:56 09/15/25 11:56 09/15/25 11:56 09/15/25 11:56 09/13/25 14:25 Narrative Exam General: A/O x3, no acute distress, ill appearing Eyes: PERRL, EOMI. Anicteric, vision grossly intact. Ears: No ear pain, no ear discharge, Hearing grossly intact. left tympanic membrane ruptured, right tympanic membrane swollen with significant amount of earwax upon otoscopy Nose: No nasal discharge. Mouth/Throat: Moist mucous membranes, no redness, no lesions. Neck: Neck supple, non-tender, no cervical lymphadenopathy. Lungs: Clear CECILIO to auscultation and percussion, No accessory muscle use. Cardio: Normal S1/S2, regular rhythm, no murmurs, no JVD Abdomen: Soft, non-tender, no palpable masses, peristalsis present, no guarding or rebound. Extremities: Symmetrical, no significant deformities, no peripheral edema , non-tender, peripheral pulses presents. Skin: No rashes, no lesions, warm to touch. Port a cath in R side chest Neuro: No focal neurological deficits. motor and sensory intact Psych: Cooperative, appropriate mood and effect. Discharge Plan Plan Patient Disposition: Home w/HOME HEALTH Care Plan Goals: Please follow-up with primary care physician within 2 to 3 days upon discharge Please follow-up with your oncologist within 5 days upon discharge Please follow-up with your seat joiner chainstitch within 5 days upon discharge Recommend outpatient follow-up with ENT specialist for evaluation of mastoiditis. Please call your oncologist to follow-up if you should continue holding your cancer medication or you can continue them. Recommend maintaining proper hydration. We have started you on amlodipine 2.5 mg daily, Augmentin and Doxycycline twice daily for 10 more days, atorvastatin 20 mg at bedtime. We have held your bicalutamide and Xtandi until you follow up with your oncologist Come back to the ER symptoms persist or worsen. Prescriptions/Referrals Prescriptions/Med Rec: New atorvastatin [Lipitor] 20 mg tablet 20 mg PO QPM Qty: 30 0RF amlodipine 2.5 mg tablet 2.5 mg PO QDAY Qty: 30 0RF amoxicillin-pot clavulanate 875-125 mg tablet 1 tab PO BID 10 Days Qty: 20 0RF doxycycline hyclate 100 mg capsule 100 mg PO BID 10 Days Qty: 20 0RF Continued metformin 1,000 mg tablet 1,000 mg PO BID acetaminophen 500 mg tablet 500 mg PO Q6H PRN (Reason: pain) ondansetron 4 mg tablet,disintegrating 4 mg PO Q8H PRN (Reason: nausea and vomiting) Patient Comments: DISSOLVE 1 TABLET IN MOUTH EVERY 8 HOURS NEEDED FOR NAUSEA AND VOMITING FOR UP TO 7 DAYS fludrocortisone 0.1 mg tablet 0.05 mg PO QDAY Qty: 30 0RF hydrocortisone 5 mg tablet 5 mg PO TID Qty: 90 0RF fluconazole 200 mg tablet 200 mg PO Q24H Patient Comments: TAKE 1 TABLET BY MOUTH TWICE DAILY Held Xtandi 80 mg tablet 80 mg PO QDAY Hold Instructions: Resume on 09/22/25. Until follow with oncology bicalutamide 50 mg tablet 50 mg PO DAILY Hold Instructions: Resume on 09/22/25. Until follow up with oncology Patient Comments: TAKE 1 TABLET BY MOUTH ONCE DAILY Referrals: No Primary/Family,Physician [Primary Care Provider] Patient/Caregiver Discharge Instructions Other Discharge Activity Instructions:: Please follow-up with primary care physician within 2 to 3 days upon discharge Please follow-up with your oncologist within 5 days upon discharge Please follow-up with your seat joiner chainstitch within 5 days upon discharge Recommend outpatient follow-up with ENT specialist for evaluation of mastoiditis. Please call your oncologist to follow-up if you should continue holding your cancer medication or you can continue them. Recommend maintaining proper hydration. We have started you on amlodipine 2.5 mg daily, Augmentin and Doxycycline twice daily for 10 more days, atorvastatin 20 mg at bedtime. We have held your bicalutamide and Xtandi until you follow up with your oncologist Come back to the ER symptoms persist or worsen. Education Materials: Hypercalcemia Dc Print Language: Martiniquais Activity Restrictions/Additional Instructions: Return to [facility] radiology center on 09/23/2025 for remoal of jason Stand Alone Forms: [employer] Award Info., Patient Portal Info Letter Discharge Order Discharge Orders: Discharge (Routine); Ordered 09/15/25 Ordered By: Leandro Mcneil Quality Discharge Quality Measures none MD Attestestation MD Attestation I have seen and examined the patient. I was physically present for the cordova portions of the services provided including history, physical exam, diagnosis, t reatment plans and orders. I agree with assessment and plan of care as documented by residents. Even though this this note was carefully revised there may still be minor errors in surgical aides teacher due to voice recognition software. Sagar Aquino MD
[2025-09-15 14:20] VITALS: BMI 13.0
[2025-09-15 16:00] VITALS: BP 128/75; PULSE 74; RESP 16; TEMP 36.4; O2SAT 100
--- NOTE | 2025-09-17 08:59 | PD.NEUROPROG ---
Documentation for date of: 09/17/25 Subjective Subjective Interval history: Mr. Montalvo is a 69 y/o male with PMH prostate cancer stage IVb with bone mets, CKD III, T2DM, HLD, HTN, chronic indwelling olson catheter who presents to the ER on 09/07 with 4 days of generalized weakness and myalgia, decreased appetite, fatigue. He has extensive pain from the hips down when he tries to move. Recently started Lupron and Xtandi 1 month ago. Underwent right adrenal gland biospy under general anesthesia 09/06 (PET scan 08/02/2025 shows hypermetabolic bilateral adrenal met masses). Denies fevers, chills, nausea, vomiting, diarrhea, constipation, melena, hematochezia, shortness of breath, chest pain. Denies sick contacts at home. Weight loss of >50 lbs since his cancer diagnosis in February 2025. No witnessed seizures reported. Workup in the ER: Vitals: Temp: Afebrile, BP 130-150s/80-90s, 3L O2 spO2 100%. Labs significant for hgb 10.6, HCT 30.7, K 3.3, BUN 26, Cr 2.1, Ca 14.6. Lactic acid WNL. UA 1+ protein, 1+ blood, 19 RBC, 249 WBC, 1+ bacteria. Imaging: CT head negative. Given 1 liter of NS bolus and got olson changed. Neurology was consulted to evaluate for altered mental status. Exam - Neurology Vital Signs Temp Pulse Resp BP Pulse Ox O2 Del Method O2 Flow Rate 97.5 F 74 16 128/75 100 Room Air 3 09/15/25 16:00 09/15/25 16:00 09/15/25 16:00 09/15/25 16:00 09/15/25 16:00 09/15/25 16:00 09/13/25 14:25 Objective Labs 09/15/25 05:13 09/15/25 05:13 Assessment & Plan Assessment and plan (1) Generalized weakness: Status: Acute (2) Adult failure to thrive: Status: Acute (3) Prostate cancer: Status: Acute (4) Hypercalcemia: Status: Acute (5) Anemia: Status: Acute (6) HTN (hypertension), benign: Status: Acute
--- NOTE | 2025-09-18 17:55 | PC.CM ---
[facility] accepted patient and start of care date set for 09/20.
[2025-09-19 06:37] LABS: Vitamin B1 (Thiamine)* 10 nmol/L (8-30)
== END 2025-09-15 15:55 | disposition home health service (06) | DRG 640 ==
LOC: SERX 18:34 → SERHOLD 20:44 → S3SX 21:37
PROVIDERS: Radiology Diagnostic Radiology; Admitting Provider Internal Medicine; Emergency Provider Emergency Medicine; Visit Provider Student in an Organized Health Care Education/Training Program
DX: E83.52 Hypercalcemia (principal); G92.8 Other toxic encephalopathy; C79.51 Secondary malignant neoplasm of bone; N39.0 Urinary tract infection, site not specified; N17.9 Acute kidney failure, unspecified; E27.40 Unspecified adrenocortical insufficiency; B38.9 Coccidioidomycosis, unspecified; R53.1 Weakness; E11.22 Type 2 diabetes mellitus with diabetic chronic kidney disease; E78.5 Hyperlipidemia, unspecified; I12.9 Hypertensive chronic kidney disease with stage 1 through stage 4 chronic kidney disease, or unspecified chronic kidney disease; N18.30 Chronic kidney disease, stage 3 unspecified; R53.83 Other fatigue; E83.39 Other disorders of phosphorus metabolism; E86.0 Dehydration; D63.1 Anemia in chronic kidney disease; C61 Malignant neoplasm of prostate; E87.6 Hypokalemia; R62.7 Adult failure to thrive; H70.93 Unspecified mastoiditis, bilateral; Z79.84 Long term (current) use of oral hypoglycemic drugs; Z79.52 Long term (current) use of systemic steroids; Z79.899 Other long term (current) drug therapy
CPT/HCPCS: 36415; 70450; 70551; 77001; 80053; 80069; 80202; 81001; 82140; 82607; 82746; 83605; 83735; 84100; 84425; 84443; 85025; 85610; 85730; 86780; 87086; 87811; 95816; 96361; 96365; 96372; 96375; 97163; 99152; C1769; C1788; C1894; J0630; J0689; J0690; J0692; J0696; J0713; J1642; J1644; J1815; J2405; J3010; J3372; J3373; J3411; J3475; J3480; J3489; J3490; J7030; J7050; J7120; J7999; A9270; J1836

== ENCOUNTER 2025-09-22 09:44 | Outpatient (RCR) | payer MEDICARE, SELFPAY ==
[2025-09-22 15:13] LABS: Immature Reticulocyte Fraction 19.2 % (2.3-13.4); Reticulocyte % (Auto) 2.8 % (0.5-1.5); Reticulocyte Absolute Auto 90.7 Biln/L (25.0-75.0); Reticulocyte Hgb Content 34.3 pg (28.0-35.0)
[2025-09-22 15:32] LABS: Ferritin 180 ng/mL (10.5-307.3); Folate 15.67 ng/mL (>5.38); Iron 60 mcg/dL (65-175); Percent Iron Saturation 20 % (20-55); Total Iron Binding Capacity 300 mcg/dL (250-425); Unsaturated Iron Binding 240 (225-295); Vitamin B12 439 pg/mL (211-911)
--- NOTE | 2025-10-04 23:21 | CTCFLWUP_ITS ---
Patient: LAURITA MYRICK : 1955 Page 2 of 3 FOLLOW UP NOTE DATE OF SERVICE: 09/22/2025 NAME: LAURITA MYRICK ACCOUNT: [id number] : 1955 AGE: 69 INTERVAL HISTORY: Patient here for follow-up. Patient is taking Xtandi and tolerating well ONCOLOGY HISTORY:?[facility] Hx? DIAGNOSIS: Malignant neoplasm of prostate [ICD10] C61 DATE OF DIAGNOSIS: 03/21/2025 STAGE/TNM: Stage IV TREATMENT HISTORY: Care?Plan Start?Date Cycle Day Intent Lupron?22.5?mg?q?3?mon 08/10/2025 1 90 Palliative HISTORY OF PRESENT ILLNESS: 69-year-old male 03/19/2025 ultrasound showed bilateral renal parenchymal scar formation. Marked prostatomegaly with the prostate mass 3.9 x 3.2 recommend transrectal prostate sonography and biopsy 03/21/2025 [facility] PET OTHER MEDICAL HISTORY/CONDITIONS: Prostate cancer - dx 03/18/25 Diabetes [place] Fever Arthritis DENIES FAMILY HISTORY: Father:?UNKNOWN SOCIAL HISTORY: Occupational?History:?[employer] Education?Level:?Completed something less than 8th grade Marital?Status:? Tobacco?Pack?per?Day:?0 Tobacco?Use?Years:?1 Tobacco?Use:?QUIT?X?35?YRS?AGO ETOH Use:?Quit Dec 2024- Drank 6 pk beer/day for 10yrs Drug?Note:?DENIES Social?History?Note:??AND?SON MEDICATIONS: 1. Acetaminophen Extra Strength - 500 mg 1 tab As directed 2. amLODIPine - 2.5 mg 1 tab Daily 3. atorvastatin - 20 mg 1 tab Daily 4. Augmentin - 875-125 mg 1 tab Twice a Day 5. Casodex - 50 mg 1 tab Daily 6. Cortef - 5 mg 1 tab Daily 7. doxycycline hyclate - 100 mg 1 Capsule Twice a Day 8. fluconazole - 200 mg 1 tab Twice a Day 9. fludrocortisone - 0.1 mg 1 tab Daily 10. HYDROcodone-acetaminophen - 7.5-325 mg 1 tab 1 tab every 8 hrs as needed for pain 11. magnesium oxide - 500 mg 1 Capsule twice daily 12. metformin - 1,000 mg Twice a Day 13. Xtandi - 80 mg 2 tab Daily?Palabra Meds? Medications Last Reconciled by Nu Petersen MD on 09/22/2025 ALLERGIES: No Known Drug Allergies REVIEW OF SYSTEMS: A complete 14-point review of systems was performed and is negative except as noted in interval history. PHYSICAL EXAMINATION:?[facility] PE? VITAL SIGNS: Temperature?96.1, B/P?127/74, Oxygen?Saturation?99% Weight?160?lbs PAIN: 0 - No pain ECOG Performance Status: 0 - Asymptomatic and fully active GENERAL APPEARANCE: Appears well, in no apparent distress, appropriately interactive. HEENT: Normocephalic, no temporal wasting, normal conjunctiva, no scleral icterus, normal hearing, lips without lesions, neck normal range of motion. CARDIOVASCULAR: Not assessed. PULMONARY: Normal respiratory effort, no respiratory distress or use of accessory muscles, speaking in full sentences, no tachypnea. EXTREMITIES: No pedal edema or cyanosis. SKIN: Normal skin appearance. NEUROLOGIC: Alert and oriented x4. PSHYCHIATRIC: Appropriate affect, mood normal, behavior normal, intact thought and speech. LABORATORY DATA: I have personally reviewed and interpreted each of the patient?s relevant lab tests, abnormal findings are below: Date 09/15/25 09/22/25 ??WHITE?BLOOD?COUNT?(Thou/mm3) 6.1 ? ??RED?BLOOD?COUNT?(Miln/mm3) 3.02?L ? ??HEMOGLOBIN?(gm/dl) 8.9?L ? ??HEMATOCRIT?(%) 25.1?L ? ??PLATELET?COUNT?(Thou/mm3) 283 ? ??NEUTROPHILS?%,?AUTO?(%) 57 ? ??LYMPH?%,?AUTO?(%) 32 ? ??NEUTROPHILS,?AUTO?(Thou/mm3) 3.5 ? ??GLUCOSE,RANDOM?(mg/dL) 122?H ? ??BLOOD?UREA?NITROGEN?(mg/dL) 15 ? ??CREATININE?(mg/dL) 1.40?H ? ??SODIUM?(mmol/L) 146?H ? ??POTASSIUM?(mmol/L) 3.0?L ? ??CHLORIDE?(mmol/L) 110?H ? ??CrCl?(CandG)?(ml/min) 48.19 ? ??AST/SGOT?(Unit/L) 39?H ? ??ALT/SGPT?(Unit/L) 18 ? ??ALKALINE?PHOSPHATASE?(Unit/L) 85 ? ??BILIRUBIN,?TOTAL?(mg/dL) 0.5 ? ??PROTEIN?TOTAL?(gm/dl) 6.7 ? ??ALBUMIN,?SERUM?(gm/dl) 4.1 ? ??GLOBULIN?(gm/dl) 2.6 ? ??ALBUMIN/GLOBULIN?RATIO 1.6 ? ??CALCIUM,?SERUM?(mg/dL) 7.9?L ? ??CALCIUM?SERUM?(CORRECTED)?(mg/dL) 7.9?L ? ??RETICULOCYTE?ABSOLUTE?AUTO?(Biln/L) ? 90.7?H ??TOTAL?IRON?BINDING?CAP?(S*)?(mcg/dL) ? 300 ??UNBOUND?IBC?(mcg/dL) ? 240 ASSESSMENT/PLAN:?Graham Torres Assessment/Plan? Prostate adenocarcinoma with bone metastatic disease 69 yr old male with prostate adenocarcinoma 20*16 mm right prostate nodule Osseous metastatic disease and adrenal mets Refer to endocrine as patient have hyponatremia likely from elevated ACTH Patient's numbers are getting stabilized since starting Lupron and Casodex Continue Casodex and will add Xtandi Biopsy of the adrenal gland negative Myeloma workup is negative Follow-up on the labs and continue current therapy ORDERS: Order # Description [id number] Reticulocyte Count + Iron Panel + Ferritin + Vitamin B-12 + Folic Acid; Serum [id number] RETURN TO CLINIC: I reviewed the diagnosis, prognosis, and recommended treatment/procedure options with the patient (and/or their legal operations support representative), including the potential benefits, risks, side effects and alternative therapies. We also discussed the option of no treatment and the possibility of clinical trial participation, if applicable. All questions were addressed, and they demonstrated understanding. They provided informed consent to proceed with the proposed plan of care. BILLING AND COMPLIANCE: I reviewed external records from providers outside my specialty as summarized above. I spent a total of 50 minutes on this patient?s care on the day of their visit excluding time spent related to any billed procedures. This time includes time spent with the patient as well as time spent documenting in the medical record, reviewing patients records and tests, obtaining history, placing orders, communicating with other healthcare professionals, counseling the patient, family or caregiver, and/or care coordination for the diagnoses above. Electronically Signed by: Saleem Torres MD T: 11:19 PM CC: Yana? PCP: Referring: Saleem Torres This document was completed utilizing speech recognition software. Grammatical errors, random word insertions, pronoun errors, and incomplete sentences are an occasional consequence of this system due to software limitations, ambient noise, and hardware issues. Any formal questions or concerns about the content, text or information contained within the body of this dictation should be directly addressed to the provider for clarification.
== END 2025-09-23 23:59 | disposition home or self-care (01) ==
LOC: SCTC 09:44
PROVIDERS: Referring Provider Internal Medicine Hematology & Oncology; Visit Provider Internal Medicine Hematology & Oncology
DX: C61 Malignant neoplasm of prostate (principal); C79.51 Secondary malignant neoplasm of bone; C79.72 Secondary malignant neoplasm of left adrenal gland; C79.71 Secondary malignant neoplasm of right adrenal gland; E87.1 Hypo-osmolality and hyponatremia
CPT/HCPCS: 36591; 82607; 82728; 82746; 83540; 83550; 85046; 96360; 99212; A4216; J1642; J7030; G0463

== ENCOUNTER → 2025-10-07 | Outpatient (BNVA) | payer MEDICARE, SELFPAY | END | disposition home or self-care (01) | PROVIDERS: Visit Provider Urology | DX: C61 Malignant neoplasm of prostate (principal); C79.51 Secondary malignant neoplasm of bone; Z46.6 Encounter for fitting and adjustment of urinary device; E11.9 Type 2 diabetes mellitus without complications; I10 Essential (primary) hypertension; Z80.42 Family history of malignant neoplasm of prostate; Z98.890 Other specified postprocedural states | CPT/HCPCS: 99212; G0463 ==

== ENCOUNTER → 2025-11-02 | Outpatient (CLI) | payer MEDICARE, SELFPAY ==
[2025-10-31 16:29] VITALS: BMI 24.2
[2025-11-02] VITALS (17 sets, daily range): BP systolic 101–139; BP diastolic 65–83; PULSE 58–81; RESP 12–18; TEMP 36.1; O2SAT 98–100; BMI 23.6
--- NOTE | 2025-11-02 08:00 | XR_ITS ---
EXAM: CT-guided right iliac bone biopsy. DATE: 11/02/2025, 11:53 a.m. CTDI: 66.2 DLP: 880 INDICATION: Lytic lesions. COMPARISON: CT exam from procedure: After discussion of risks and benefits informed consent was obtained. The patient was brought to the CT scanner and placed in the prone position. Preliminary noncontrast enhanced CT demonstrated a 1.8 cm lytic lesion in the mid right iliac bone. This was targeted for biopsy. The overlying skin was cleaned and draped in normal sterile surgical fashion. 10 cc of 1% lidocaine was used for local anesthesia. Using fluoroscopic guidance a 13-gauge needle biopsy system was sequentially advanced into the targeted bone lesion. A single 13-gauge core biopsy sample was obtained. Needle was withdrawn. Hemostasis was achieved. The access site was covered with a sterile dressing postbiopsy CT was performed which demonstrated a 6.3 cm right gluteal hematoma at the biopsy site. Patient was kept on the table for 15 minutes and rescanned. Again a 6 x 3 cm right gluteal hematoma was identified. No evidence of interval progression. Patient was transferred to the holding area for post procedural observation. IMPRESSION: Successful CT-guided right iliac bone biopsy. Post procedural 6 x 3 cm right gluteal hematoma with no evidence of interval progression over 15 minutes. Patient will be monitored in the holding area and rescanned in approximately 1 hour.
[2025-11-02 08:23] LABS: Basophils # (Auto) 0.0 Thou/mm3 (0.0-0.2); Basophils % (Auto) 0 % (0-2.5); Eosinophils # (Auto) 0.1 Thou/mm3 (0.0-0.5); Eosinophils % (Auto) 2 % (0-10); Hematocrit 33.6 % (41.0-53.0); Hemoglobin 11.3 g/dL (13.5-16.0); Immature Granulocytes Auto 0.05 Thou/mm3 (0.00-0.00); Lymphocytes # (Auto) 2.9 Thou/mm3 (1.0-4.8); Lymphocytes % (Auto) 47 % (10-50); Mean Corpuscular HGB Conc 33.6 g/dl (31.0-37.0); Mean Corpuscular Hemoglobin 29.7 pg (25.0-35.0); Mean Corpuscular Volume 88 fL (80-100); Monocytes # (Auto) 0.4 Thou/mm3 (0.0-0.8); Monocytes % (Auto) 7 % (0-12); Neutrophils # (Auto) 2.7 Thou/mm3 (1.8-7.7); Neutrophils % (Auto) 44 % (37-80); Nucleated Red Blood Cell # 0.00 Thou/mm3 (0.00-0.00); Nucleated Red Blood Cell % 0 /100 WBC (0); Platelet Count 279 Thou/mm3 (140-440); RDW Standard Deviation 44.9 fL (35.1-43.9); Red Blood Count 3.81 Miln/mm3 (4.50-5.90); White Blood Count 6.1 Thou/mm3 (3.8-10.6)
[2025-11-02 08:43] LABS: INR 0.9 (0.9-1.3); Partial Thromboplastin Time 26.5 Seconds (22.0-36.0); Prothrombin Time 9.4 Seconds (9.0-12.2)
[2025-11-02] MEDS: LIDOCAINE HCL 1% 20 ML VIAL 10 ML INFL (10:10)
[2025-11-02] MEDS: SODIUM CHLORIDE 0.9% 500 ML 500 ML 20 ML IV (10:10)
[2025-11-02] MEDS: fentaNYL CIT INJ 50 mCg/ML AMP 2ML 125 MCG IVP (10:11)
[2025-11-02] MEDS: MIDAZOLAM INJ 1 MG/ML VIAL 2 ML IVP (10:11)
--- NOTE | 2025-11-02 11:45 | XR_ITS ---
Examination: CT pelvis without intravenous contrast. 2-D sagittal and coronal reconstructions. Date and time of exam: November 02, 2025, 1155 hours, comparison 08/08/2025, CT bone biopsy today 9:54 a.m. INDICATIONS: Post bone biopsy today, right iliac bone osteolytic lesion CTDI: vol (mGy) : 11.2 DLP: (mGycm) : 664 Technique: Multiple 3 mm axial sections of the pelvis have been obtained with the 64 slice high resolution scanner. 2-D sagittal and coronal reconstructions. Low dose protocols were performed. One or more of the following dose reduction techniques were used; automated exposure control, adjustment of the mA and/or KV according to patient size, use of iterative reconstruction technique. Findings: Osteolytic lesion right iliac bone, 24 mm with iliac bone biopsy tract axial image 50 No significant hematoma Urinary bladder intact Significant prostatomegaly mediolateral dimension 6.0 cm IMPRESSION: Osteolytic lesion right iliac bone, 24 mm with small iliac bone biopsy tract
[2025-11-02] MEDS: HEPARIN SOD LOCK SYR 100 UNIT/ML 500 UNIT INTRACATH (12:22)
== END | disposition home or self-care (01) ==
PROVIDERS: Radiology Diagnostic Radiology; Referring Provider Internal Medicine Hematology & Oncology; Visit Provider Internal Medicine Hematology & Oncology
DX: C61 Malignant neoplasm of prostate (principal)
CPT/HCPCS: 20220; 36415; 72192; 77012; 85025; 85610; 85730; 99152; J1642; J2250; J3010; J3490; J7999

== ENCOUNTER 2025-11-08 14:44 | Outpatient (RCR) | payer MEDICARE, SELFPAY | END 2025-11-23 23:59 | disposition home or self-care (01) | LOC: SCTC 14:44 | PROVIDERS: Referring Provider Radiology Therapeutic Radiology; Visit Provider Radiology Therapeutic Radiology | DX: Z51.11 Encounter for antineoplastic chemotherapy (principal); C61 Malignant neoplasm of prostate; C79.51 Secondary malignant neoplasm of bone | CPT/HCPCS: 96402; J9217 ==